=== PATIENT | female | born 1935 | race Caucasian/White ===

== ENCOUNTER 2020-12-05 19:01 | Inpatient (IN) | payer BC, SELFPAY ==
--- NOTE | ~2020-12-05 | CT_ITS ---
EXAMINATION: CT HEAD WITHOUT CONTRAST CLINICAL INFORMATION: New hallucinations COMPARISON: Head CT September 08, 2016 TECHNIQUE: Contiguous axial imaging was performed from the skull base to vertex without intravenous administration of contrast. This CT examination was performed using dose optimization techniques as appropriate, variously including the following: *Automated exposure control *Adjustment of mA and/or kV according to patient size (this includes techniques or standardized protocols for targeted exams where dose is matched to indication/reason for exam; i.e. extremities or head) *Use of iterative reconstruction technique DLP: 648 mGy-cm FINDINGS: There is no evidence of acute intracranial hemorrhage or territorial infarction. No abnormal mass effect or midline shift is appreciated. Castañeda-white differentiation is well preserved. No extra-axial fluid collections. The ventricular system and cortical sulci are prominent, consistent with volume loss. There are areas of low density in the periventricular and subcortical white matter, most consistent with sequelae of microvascular ischemic change. The osseous structures and soft tissues are normal. Hyperostosis frontalis identified. The visualized paranasal sinuses and mastoid air cells are well aerated. CT/CT head/brain wo con IMPRESSION: Chronic microvascular ischemic changes with no CT evidence of acute intracranial abnormality.
[2020-12-05 19:02] VITALS: BP 162/60; PULSE 63; RESP 16; O2SAT 97; BMI 27.7
--- NOTE | 2020-12-05 19:10 | ED.GENADULT ---
HPI - General Adult General Chief complaint: General Medical Stated complaint: HALLUCINATIONS Time Seen by Provider: 12/05/20 19:10 Source: family Mode of arrival: EMS Limitations: altered mental status History of Present Illness HPI narrative: patient with history of dementia brought by ambulance as a family think that she has hallucinating seeing people and unsafe at home for last few weeks patient alert oriented x2 only denies any complaints Related Data Home Medications Medication Instructions Recorded Confirmed amoxicillin-pot clavulanate 1 tab PO BID 12/05/20 12/05/20 aspirin 81 mg PO DAILY 12/05/20 12/05/20 cetirizine 10 mg PO DAILY 12/05/20 12/05/20 cholecalciferol (vitamin D3) 5,000 unit PO DAILY 12/05/20 12/05/20 [Vitamin D3] cyanocobalamin (vitamin B-12) 500 mcg PO DAILY 12/05/20 12/05/20 [Vitamin B-12] levothyroxine [L-Thyroxine] 150 mcg PO DAILY 12/05/20 12/05/20 losartan 50 mg PO DAILY 12/05/20 12/05/20 metoprolol tartrate 50 mg PO BID 12/05/20 12/05/20 risperidone 0.25 mg PO BID 12/05/20 12/05/20 Allergies Allergy/AdvReac Type Severity Reaction Status Date / Time olive oil [OLIVE OIL] Allergy Mild STOMACH Verified 12/05/20 19:06 UPSET Review of Systems Review of Systems: Yes Unobtainable due to mental status PMFSH Past Medical History Medical History Dementia HTN (hypertension) Social History Social History Advance Directives: No Advance Directives Information Provided: Yes Physical Exam Vital Signs: Vital Signs: Last Vital Signs Temp 97.9 F 12/06/20 00:50 Pulse 62 12/06/20 00:50 Resp 16 12/06/20 00:50 BP 157/60 H 12/06/20 00:50 Pulse Ox 98 12/06/20 00:50 Body Mass Index 27.7 Appearance: Alert. Oriented X1-2. No acute distress. Eyes: PERRLA, No Nystagmus ENT: Pharynx normal. Oral Mucosa moist Neck: Normal inspection. Neck supple. CVS: Normal heart rate and rhythm. Pulses normal. Respiratory: No respiratory distress. Equal air entry bilateral, no wheezing/rales/rhonchi Abdomen: Soft and nontender. Bowel sounds are present, no mass palpable, no CVA tenderness Skin: Skin warm and dry. Normal skin color. Normal skin turgor. Extremities: No lower extremity edema. No calf tenderness Neuro: Oriented X1-2. No motor deficit. No sensory deficit.No cerebellar signs , cranial nerves II-XII intact Medical Decision Making MDM Narrative Medical decision making narrative: patient's dementia with hallucinations unable to reach patient's family labs are stable patient ambulatory not in any distress will keep patient in the ER get a case management consult plan for placement if needed Lab Data Lab results reviewed: Yes I reviewed the patient's lab results. Result diagrams: 12/05/20 19:33 12/05/20 19:33 Labs: Lab Results 12/05/20 12/05/20 12/05/20 Range/Units 19:33 19:33 20:03 WBC 6.4 (4.8-10.8) X10*3/uL RBC 4.17 L (4.20-5.50) X10*6/uL Hgb 12.3 (12.0-16.0) g/dl Hct 37.9 (37-47) % MCV 90.9 (80-98) fL MCH 29.5 (27.0-33.0) pg MCHC 32.5 (31.0-35.0) g/dl RDW 13.0 (11.0-16.0) % Plt Count 254 (160-400) X10*3/uL MPV 10.1 (9.4-12.3) fL Immature Gran % (Auto) 0.5 H (0.0-0.4) % Neut % (Auto) 69.8 (45-73) % Lymph % (Auto) 15.2 L (20-40) % Leslie % (Auto) 13.4 H (2-11) % Eos % (Auto) 0.8 (0-4) % Baso % (Auto) 0.3 (0-2) % Lymph # (Auto) 1.0 L (1.2-4.9) X10*3/uL Leslie # (Auto) 0.9 (0.1-1.2) X10*3/uL Eos # (Auto) 0.1 (0.0-0.4) X10*3/uL Baso # (Auto) 0.0 (0.0-0.2) X10*3/uL Abs Immat Gran (auto) 0.03 (0.00-0.03) X10*3/uL Absolute Neuts (auto) 4.5 (2.0-8.3) X10*3/uL Absolute Nucleated RBC 0.000 (0.0-0.012) X10*3/uL Nucleated RBC % (auto) 0.0 (0.0-0.2) /100WBC Sodium 141 (135-145) mmol/L Potassium 3.7 (3.3-5.1) mmol/L Chloride 108 (96-108) mmol/L Carbon Dioxide 21 L (22-29) mmol/L Anion Gap 16 (12-20) BUN 18 H (9-16) mg/dL Creatinine 1.02 (0.5-1.4) mg/dL Estim Creat Clear Calc 41.0 Estimated GFR 52 Random Glucose 106 (60-115) mg/dL Calcium 9.3 (8.4-10.2) mg/dL Total Bilirubin 0.7 (0.0-1.0) mg/dL AST 29 (5-31) U/L ALT 47 H (0-31) U/L Alkaline Phosphatase 72 (39-117) U/L Total Protein 6.1 L (6.5-8.0) g/dL Albumin 3.9 (3.5-5.0) g/dL Urine Color YELLOW Urine Appearance CLEAR Urine pH 6.0 (5.0-8.0) Ur Specific [place] 1.020 (1.005-1.025) Urine Protein TRACE (NEG-TRACE) MG/DL Urine Glucose (UA) NEG (NEG) MG/DL Urine Ketones 15 (NEG) MG/DL Urine Blood NEG (NEG) Urine Nitrite NEG (NEG) Ur Leukocyte Esterase NEG (NEG) Discharge Plan Discharge Clinical Impression: Dementia Qualifiers: Dementia type: Alzheimer's Alzheimer's disease onset: late-onset Dementia behavioral disturbance: with behavioral disturbance Qualified Code(s): G30.1 - Alzheimer's disease with late onset Prescriptions: No Action losartan 50 mg Tablet 50 mg PO DAILY RF: 0 cetirizine 10 mg Tablet 10 mg PO DAILY RF: 0 risperidone 0.25 mg Tablet 0.25 mg PO BID RF: 0 cyanocobalamin (vitamin B-12) [Vitamin B-12] 500 mcg Tablet 500 mcg PO DAILY RF: 0 levothyroxine [L-Thyroxine] 150 mcg Tablet 150 mcg PO DAILY RF: 0 metoprolol tartrate 50 mg Tablet 50 mg PO BID RF: 0 aspirin 81 mg Tablet 81 mg PO DAILY RF: 0 amoxicillin-pot clavulanate 500-125 mg Tablet 1 tab PO BID RF: 0 cholecalciferol (vitamin D3) [Vitamin D3] 125 mcg (5,000 unit) Tablet 5,000 unit PO DAILY RF: 0
[2020-12-05 19:37] LABS: MANUAL DIFF FLAG NO
[2020-12-05 19:54] LABS: Basophils Percent Auto 0.3 % (0-2); Eosinophils Absolute Auto 0.1 X10*3/uL (0.0-0.4); Eosinophils Percent Auto 0.8 % (0-4); Hematocrit 37.9 % (37-47); Hemoglobin 12.3 g/dl (12.0-16.0); Imm Gran Abs Auto 0.03 X10*3/uL (0.00-0.03); Imm Gran Pct Auto 0.5 % (0.0-0.4); Lymphocytes Percent Auto 15.2 % (20-40); Mean Corpuscular HGB Conc 32.5 g/dl (31.0-35.0); Mean Corpuscular Hemoglobin 29.5 pg (27.0-33.0); Mean Corpuscular Volume 90.9 fL (80-98); Mean Platelet Volume 10.1 fL (9.4-12.3); Monocytes Absolute Auto 0.9 X10*3/uL (0.1-1.2); Monocytes Percent Auto 13.4 % (2-11); Neutrophils Absolute Auto 4.5 X10*3/uL (2.0-8.3); Neutrophils Percent Auto 69.8 % (45-73); Platelet Count 254 X10*3/uL (160-400); Red Blood Count 4.17 X10*6/uL (4.20-5.50); White Blood Count 6.4 X10*3/uL (4.8-10.8)
[2020-12-05 20:11] LABS: Glucose Urine UA NEG (NEG); Leukocyte Esterase Urine NEG (NEG); Nitrite Urine NEG (NEG); Urine Blood NEG (NEG); Urine Ketones 15 MG/DL (NEG); Urine Protein TRACE MG/DL (NEG-TRACE)
[2020-12-05 20:12] LABS: Appearance Urine CLEAR; Color Urine YELLOW
[2020-12-05 20:18] LABS: Alanine Aminotransferase 47 U/L (0-31); Albumin Level 3.9 g/dL (3.5-5.0); Alkaline Phosphatase 72 U/L (39-117); Anion Gap 16 (12-20); Aspartate Amino Transferase 29 U/L (5-31); Bilirubin Total 0.7 mg/dL (0.0-1.0); Blood Urea Nitrogen 18 mg/dL (9-16); Calcium 9.3 mg/dL (8.4-10.2); Carbon Dioxide 21 mmol/L (22-29); Chloride 108 mmol/L (96-108); Estimated Glomerular Filt Rate 52; Glucose Random 106 mg/dL (60-115); Potassium 3.7 mmol/L (3.3-5.1); Sodium 141 mmol/L (135-145); Total Protein 6.1 g/dL (6.5-8.0)
[2020-12-05 20:50] VITALS: BP 159/69; PULSE 63; RESP 18; TEMP 36.4; O2SAT 97
[2020-12-05 21:51] VITALS: BP 155/56; PULSE 58; RESP 16; TEMP 36.5; O2SAT 97
[2020-12-06] VITALS (12 sets, daily range): BP systolic 131–194; BP diastolic 60–90; PULSE 20–88; RESP 16–20; TEMP 36.5–36.7; O2SAT 97–100
--- NOTE | 2020-12-06 | ECG_ITS ---
Test Reason : inpatient Blood Pressure : / mmHG Vent. Rate : 060 BPM Atrial Rate : 060 BPM P-R Int : 154 ms QRS Dur : 082 ms QT Int : 420 ms P-R-T Axes : 027 001 007 degrees QTc Int : 420 ms Normal sinus rhythm Normal ECG Compared to , no significant change Referred By: Pauline Cash Electronically Signed By:LORI JEFFERS
--- NOTE | 2020-12-06 07:49 | PC.NURSE ---
pt is a/o x 2, pt did not know the year. pt is sitting up in bed.
[2020-12-06] MEDS: Cholecalciferol (Vitamin D3) 25 MCG TABLET 125 MCG PO (07:52)
[2020-12-06] MEDS: Losartan Potassium 50 MG TABLET PO (07:53)
[2020-12-06] MEDS: Loratadine 10 MG TABLET PO (07:53)
[2020-12-06] MEDS: Aspirin 81 MG TAB.CHEW PO (07:53)
[2020-12-06] MEDS: Metoprolol Tartrate 50 MG TABLET PO ×2 (07:53→20:21)
[2020-12-06] MEDS: risperiDONE 0.25 MG TABLET PO ×2 (07:54→20:21)
[2020-12-06] MEDS: Levothyroxine Sodium 150 MCG TABLET PO (07:54)
[2020-12-06] MEDS: Cyanocobalamin (Vitamin B-12) 500 MCG TABLET PO (07:54)
--- NOTE | 2020-12-06 08:53 | MHC.CM.ED ---
Addendum entered by Karely Jacobs 12/06/20 12:59: Pt seen by N/CARE team and was cleared for INPT psych needs. Behaviors are likely r/t progression of dementia. Call placed to son Dereje who spoke with Davis from N / CARE team and ED MD. CM discussed [facility] and private hire [employer] for home management in anticipation of d/c. Dereje states he is unable to ensure a safe environment at home for his mother and would just bring her back to the ED tonight . He is unable to have her stay with him d/t his home having stairs and his concern with her falling down them. He is unable to stay with her at her home (next door) as he prefers to stay at his home and cannot watch her overnight as he works during the day. He is requesting pt board in the ED until placement can be secured. Reviewed possible barriers to placement including lack of skilled need, payor / contract issues and potential of private pay necessitation. He verbalized understanding and declined [employer] brochures for home care. ED RN and MD updated on plan. Referrals for STR have been placed: pt will need some sort of skill (PT eval ordered and pending) and will need a contracted facility to accept. Son states he has a HCP at home and will bring in a copy. CM to follow. Original Note: Received consult for assessment of d/c needs: Pt brought to ED for eval after son found her wandering outside with hallucinations. Met with pt to discuss d/c needs: Pt states she lives with her mother (pt is 85). She had no recollection of wandering or seeing people in her home. She was pleasant and communicative but not oriented to time, place or situation. Call placed to her son, Dereje who resides next door. Dereje states pt has been memory impaired d/t dementia but highly functioning. He assists with transportation, all meal prep and household tasks. Pt uses a cane at times and is independent with ADL's. He notes that her hallucinations have progressed during the last 6 weeks or so and she has been wandering outside chasing imaginary people out in the yard with her broom PCP is Dr. Avitia and she has a HCP at home that Dereje will bring in. KARMA villagran in October. Dereje states he is unable to provide additional care at this time d/t his wan support specialist employment. Review of EMR notes normal labs and UA with mild HTN which she has a dx of. CT of head shows no acute findings. has placed an order for a PT eval but pt does not seem to have balance or gait impairments. Dereje would like to keep pt home for as long as possible - as long as she can be safe. Reviewed skilled criteria with son re: placement vs home care needs. Discussed d/c needs with son including privately hiring [employer] to stay with pt while he is working and for overnights to ensure pt safety at home vs placement in a residential center. Unsure if pt's payor would cover (Blue Plan from [employer]) Requested a BHN consult to r/o acute psychosis and/or to recommend medication changes to reduce hallucinations, etc. Will make STR referrals in the event her payor offers SNF benefits. Will await BHN/PT eval for assistance with d/c planning.
--- NOTE | 2020-12-06 09:23 | PC.NURSE ---
pt amb (i) gait steady with walker to bathroom with julio (rn), bm x 1. pt is sitting up in recliner, son at bedside. pt ate 25% of breakfast earlier.
[2020-12-06 10:08] LABS: TSH reflex Free T4 0.19 uIU/mL (0.32-4.0)
[2020-12-06 10:41] LABS: Free T4 (Free Thyroxine) 1.27 ng/dL (0.71-1.85)
--- NOTE | 2020-12-06 11:29 | PC.NURSE ---
assumed care of patient at 1100. PT in to see patient and was ambulated to the bathroom. for patient comfort, hospital bed replaced the ED stretcher and patient given clean sheets and a new hospital gown. patient currently resting in the recliner with chair alarm in place.
[2020-12-06 12:29] LABS: IDNOW Serial# 9DD0AD1C
[2020-12-06 12:30] LABS: COVID-19 Test Negative (Negative)
--- NOTE | 2020-12-06 13:41 | PC.NURSE ---
patient requires frequent redirection, attempting to get out of the hospital bed multiple times patient ambulated to the bathroom by this RN in order to urinate and then helped back into the hospital bed with bed alarm on patient instructed again to use the call ayala and not to get out of the bed alone
--- NOTE | 2020-12-06 13:59 | MHC.CM.ED ---
Discussion with Davis from CARE team/BHN: pt can be admitted to [facility] for medication management r/t behaviors secondary to dementia. ED MD and RN aware of plan. L/M for pt's son, Dereje to update on d/c plan
--- NOTE | 2020-12-06 14:37 | PC.NURSE ---
patient attempting to get out of the bed multiple times despite redirection from staff and the bed alarm- pt forgetful and continues to exit the bed
--- NOTE | 2020-12-06 15:42 | MHC.CARE ---
This functional tester typewriters reviewed and signed CV with pt. Pending nurse to nurse and transfer to the unit.
--- NOTE | 2020-12-06 17:14 | PC.ADMIT ---
Patient arrived to unit in Wheelchair from [facility] at 15:55 with a signed CV. Patient arrived with one bag of belongings, unaccompanied by family; correctional guard and CARE steam hammer operator present. Patient is alert to self only. Date, time, location, and reason for hospitalization are unknown to her. Patient is pleasantly confused. Patient unable to sign admission paperwork at this time as she is not alert and oriented and not consentable. 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 Patient reports she currently lives with her mother and grandfather. When asked if she had any children, she replies no. Patient speaks at length about her grandfather and her admiration for him. Per CARE team assessment, Patient's son called EMS due to concern for his Mother's safety. Per son's report patient has been experiencing worsening hallucinations over a period of approximately 6 weeks which have been frightening for her, causing her to leave her home on two separate occasions in the evening. On one occasion she left and wandered about in the rain from 6:30pm - 10:30pm when the patient's son discovered her sitting outside his kitchen door. On the second occasion she left her home and appeared to be chaing someone (though she was alone) while armed with a broom. Patient has no past Psychiatric history. Patient is noted to have elevated Blood pressures upon admission to unit. 194/86 Left Arm, 188/81 Right Arm HR 60. Deepthi Novoa notified via [employer] text and Hospitalist consult entered. Deepthi Curiel attended patient at bedside and Manual BP was assessed 174/90. Patient's Son: Dereje Cedillo - contacted via telephone. Message left on voicemail requesting call back. Will proceed with completing admission assessment based on known information at this time.
--- NOTE | 2020-12-06 17:15 | PM.IMCN ---
History of Present Illness Data of Consult Service Date: 12/06/20 Requesting physician: Liang Novoa Primary Care Provider: Unknown Physician HPI Reason for consult: Elevated blood pressure 85 year female with HTN, Hypothyroidsim, dementia who is presently admitted it [facility] for increasing confusion over weeks associated with hallucination--specifically has been seeing thing, chasing people around with broom per report. She pleasntly confused and not offering any meaningful history at this time. Her blood pressure is noted to be high presently 170/90, higher earlier to 188/81. She has taken her meds today including Losartan 50 and Metoprolol 50 mg. She has no complaint of headache, chest pain, SOB or dizziness Review of Systems Review of Systems: Yes Unobtainable due to mental status [facility] Medical History (Updated 12/06/20 @ 17:24 by Je Curiel MD) Congenital hypothyroidism Dementia HTN (hypertension) Hypothyroidism Vitamin D deficiency Functional capacity: independent ambulation Family history: reviewed and not pertinent Social History Advance Directives: Yes Advance Directives Information Provided: Yes Advance Directives on File: Yes Advance Directives Date on File: 12/06/20 Healthcare Proxy: Yes Guardian: No Meds Allergies Allergy/AdvReac Type Severity Reaction Status Date / Time olive oil [OLIVE OIL] Allergy Mild STOMACH Verified 12/05/20 19:06 UPSET Active Medications: Current Medications Generic Name Dose Route Start Last Admin Trade Name Freq PRN Reason Stop Dose Admin Acetaminophen 650 mg 12/06/20 16:13 Acetaminophen 325 Mg Tablet PO Q6H PRN Headache/Pain Mild Scale (1-3) Al Hydroxide/Mg Hydroxide 30 ml 12/06/20 16:13 Magnesium Hydrox/Alum Hydrox 30 Ml Oral.Susp PO Q6H PRN Heartburn/Nausea Amoxicillin/Clavulanate Potassium 500 mg 12/06/20 21:00 Amoxicillin/Potassium Clav 500 Mg Tablet PO BID YUNG Aspirin 81 mg 12/06/20 09:00 12/06/20 07:53 Aspirin 81 Mg Tab.Chew PO 81 mg DAILY YUNG Administration Cyanocobalamin 500 mcg 12/06/20 09:00 12/06/20 07:54 Cyanocobalamin (Vitamin B-12) 500 Mcg Tablet PO 500 mcg DAILY YUNG Administration Hydroxyzine HCl 25 mg 12/06/20 16:13 Hydroxyzine Hcl 25 Mg Tablet PO BEDTIME PRN Anxiety Levothyroxine Sodium 150 mcg 12/06/20 08:00 12/06/20 07:54 Levothyroxine Sodium 150 Mcg Tablet PO 150 mcg DAILY@0630 YUNG Administration Loratadine 10 mg 12/06/20 09:00 12/06/20 07:53 Loratadine 10 Mg Tablet PO 10 mg DAILY YUNG Administration Losartan Potassium 50 mg 12/06/20 09:00 12/06/20 07:53 Losartan Potassium 50 Mg Tablet PO 50 mg DAILY YUNG Administration Protocol Magnesium Hydroxide 30 ml 12/06/20 16:13 Milk Of Magnesia 30 Ml Oral.Susp PO DAILY PRN Constipation Metoprolol Tartrate 50 mg 12/06/20 09:00 12/06/20 07:53 Metoprolol Tartrate 50 Mg Tablet PO 50 mg BID YUNG Administration Protocol Risperidone 0.25 mg 12/06/20 09:00 12/06/20 07:54 Risperidone 0.25 Mg Tablet PO 0.25 mg BID YUNG Administration Trazodone HCl 50 mg 12/06/20 16:13 Trazodone Hcl 50 Mg Tablet PO BEDTIME PRN Insomnia Vitamin D 125 mcg 12/06/20 09:00 12/06/20 07:52 Cholecalciferol (Vitamin D3) 25 Mcg Tablet PO 125 mcg DAILY YUNG Administration Home Medications Medication Instructions Recorded Confirmed Last Taken Type amoxicillin-pot clavulanate 1 tab PO BID 12/05/20 12/05/20 Unknown History aspirin 81 mg PO DAILY 12/05/20 12/05/20 Unknown History cetirizine 10 mg PO DAILY 12/05/20 12/05/20 Unknown History cholecalciferol (vitamin D3) 5,000 unit PO DAILY 12/05/20 12/05/20 Unknown History [Vitamin D3] cyanocobalamin (vitamin B-12) 500 mcg PO DAILY 12/05/20 12/05/20 Unknown History [Vitamin B-12] levothyroxine [L-Thyroxine] 150 mcg PO DAILY 12/05/20 12/05/20 Unknown History losartan 50 mg PO DAILY 12/05/20 12/05/20 Unknown History metoprolol tartrate 50 mg PO BID 12/05/20 12/05/20 Unknown History risperidone 0.25 mg PO BID 12/05/20 12/05/20 Unknown History Physical Exam Vital Signs and Narrative: Vital Signs: Last Vital Signs Temp 97.7 F 12/06/20 16:00 Pulse 60 12/06/20 17:02 Resp 20 12/06/20 16:00 BP 170/90 H 12/06/20 17:03 Pulse Ox 100 12/06/20 16:00 Body Mass Index 27.7 Const: Other: Constitutional Awake and Alert, No apparent distress Neck Supple, No lymphadenopathy Cardiovascular RRR, No M/R/G, S1 S2, No S3 S4, No pedal edema Respiratory Lungs clear, No respiratory distress Gastrointestinal Non tender, Non-distended Skin No rash Neurological Alert & oriented x1, cranial 2 to 12 intact Psychological Appropriate affect Results Labs CBC and Chem 7: 12/05/20 19:33 12/05/20 19:33 Labs: Laboratory Results - last 24 hr 12/05/20 12/05/20 12/05/20 19:33 19:33 20:03 MCV 90.9 MCH 29.5 MCHC 32.5 RDW 13.0 Plt Count 254 MPV 10.1 Immature Gran % (Auto) 0.5 H Neut % (Auto) 69.8 Lymph % (Auto) 15.2 L [place] % (Auto) 13.4 H Eos % (Auto) 0.8 Baso % (Auto) 0.3 Lymph # (Auto) 1.0 L [place] # (Auto) 0.9 Eos # (Auto) 0.1 Baso # (Auto) 0.0 Abs Immat Gran (auto) 0.03 Absolute Neuts (auto) 4.5 Absolute Nucleated RBC 0.000 Nucleated RBC % (auto) 0.0 Anion Gap 16 Estim Creat Clear Calc 41.0 Estimated GFR 52 Random Glucose 106 Calcium 9.3 Total Bilirubin 0.7 AST 29 ALT 47 H Alkaline Phosphatase 72 Total Protein 6.1 L Albumin 3.9 TSH 0.19 L Free T4 1.27 Urine Color YELLOW Urine Appearance CLEAR Urine pH 6.0 Ur Specific [place] 1.020 Urine Protein TRACE Urine Glucose (UA) NEG Urine Ketones 15 Urine Blood NEG Urine Nitrite NEG Ur Leukocyte Esterase NEG COVID-19 (LOVE) COVID-19 Clin Com 12/06/20 12:03 MCV MCH MCHC RDW Plt Count MPV Immature Gran % (Auto) Neut % (Auto) Lymph % (Auto) [place] % (Auto) Eos % (Auto) Baso % (Auto) Lymph # (Auto) [place] # (Auto) Eos # (Auto) Baso # (Auto) Abs Immat Gran (auto) Absolute Neuts (auto) Absolute Nucleated RBC Nucleated RBC % (auto) Anion Gap Estim Creat Clear Calc Estimated GFR Random Glucose Calcium Total Bilirubin AST ALT Alkaline Phosphatase Total Protein Albumin TSH Free T4 Urine Color Urine Appearance Urine pH Ur Specific [place] Urine Protein Urine Glucose (UA) Urine Ketones Urine Blood Urine Nitrite Ur Leukocyte Esterase COVID-19 (LOVE) Negative COVID-19 Clin Com See Note Imaging Radiologist's Impressions: Impressions Head CT 12/06/20 07:04 IMPRESSION: Chronic microvascular ischemic changes with no CT evidence of acute intracranial abnormality. Assessment and Plan (1) Dementia: Qualifiers: Alzheimer's disease onset: late-onset Dementia behavioral disturbance: with behavioral disturbance Dementia type: Alzheimer's Qualified Code(s): G30.1 - Alzheimer's disease with late onset; F02.81 - Dementia in other diseases classified elsewhere with behavioral disturbance Status: Acute (2) Hypothyroidism: Status: Acute (3) HTN (hypertension): Status: Acute 85 year female with dementia, HTN, Hypothyrodism presently admitted to [facility] due to confusion/wth Psychosis and noted blood pressure to be high 1/HTN--BP presently high, she doesn't seem to be agitated to cause this. There is room to increase Losartant and add other agents such Norvasc, starte Norvasc 2.5 and titrate up, would not be very aggresive in lowering BP vewry rapidly, noted microscular disease would require high BP for adequate cerebral perfusion. 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 Woud check B12, Folate as well. 4/ ALT is slightly high and should be monitored, rest of LfTs are ok will folllow as needed. Thanks
[2020-12-06] MEDS: amLODIPine Besylate 2.5 MG TABLET PO (18:38)
[2020-12-06 19:32] LABS: TSH reflex Free T4 0.28 uIU/mL (0.32-4.0)
[2020-12-06] MEDS: Amoxicillin/Potassium Clav 500 MG TABLET PO (20:21)
[2020-12-06] MEDS: hydrOXYzine HCL 25 MG TABLET PO (20:57)
[2020-12-07] MEDS: Levothyroxine Sodium 150 MCG TABLET PO (04:51)
[2020-12-07 04:52] VITALS: BP 149/68; PULSE 70; RESP 18; TEMP 36.7; O2SAT 98
--- NOTE | 2020-12-07 08:02 | P.PNIM_ITS ---
Subjective Subjective Date of Service: 12/08/20 Interval History: Seen in f/u for HTN, saw this morning, watching TV in [place] by 2 other clients, calm with no aparent issues Review of Systems unchanged, Physical Exam Vital Signs: Vital Signs: Last Vital Signs Temp 98.1 F 12/07/20 04:52 Pulse 70 12/07/20 04:52 Resp 18 12/07/20 04:52 BP 149/68 H 12/07/20 04:52 Pulse Ox 98 12/07/20 04:52 Body Mass Index 27.7 Const: Other: General: AO X 1, no acute distress Resp: normal resp effor CVS: S1,S2,RRR Skin: No rash Neuro: motor grossly intact, baseline confusion Psych: appropriate affect Objective Data Current Medications Generic Name Dose Route Start Last Admin Trade Name Freq PRN Reason Stop Dose Admin Acetaminophen 650 mg 12/06/20 16:13 Acetaminophen 325 Mg Tablet PO Q6H PRN Headache/Pain Mild Scale (1-3) Al Hydroxide/Mg Hydroxide 30 ml 12/06/20 16:13 Magnesium Hydrox/Alum Hydrox 30 Ml Oral.Susp PO Q6H PRN Heartburn/Nausea Amoxicillin/Clavulanate Potassium 500 mg 12/06/20 21:00 12/06/20 20:21 Amoxicillin/Potassium Clav 500 Mg Tablet PO 500 mg BID YUNG Administration Aspirin 81 mg 12/06/20 09:00 12/06/20 07:53 Aspirin 81 Mg Tab.Chew PO 81 mg DAILY YUNG Administration Cyanocobalamin 500 mcg 12/06/20 09:00 12/06/20 07:54 Cyanocobalamin (Vitamin B-12) 500 Mcg Tablet PO 500 mcg DAILY YUNG Administration Hydroxyzine HCl 25 mg 12/06/20 16:13 12/06/20 20:57 Hydroxyzine Hcl 25 Mg Tablet PO 25 mg BEDTIME PRN Administration Anxiety Levothyroxine Sodium 150 mcg 12/06/20 08:00 12/07/20 04:51 Levothyroxine Sodium 150 Mcg Tablet PO 150 mcg DAILY@0630 YUNG Administration Loratadine 10 mg 12/06/20 09:00 12/06/20 07:53 Loratadine 10 Mg Tablet PO 10 mg DAILY YUNG Administration Losartan Potassium 50 mg 12/06/20 09:00 12/06/20 07:53 Losartan Potassium 50 Mg Tablet PO 50 mg DAILY YUNG Administration Protocol Magnesium Hydroxide 30 ml 12/06/20 16:13 Milk Of Magnesia 30 Ml Oral.Susp PO DAILY PRN Constipation Metoprolol Tartrate 50 mg 12/06/20 09:00 12/06/20 20:21 Metoprolol Tartrate 50 Mg Tablet PO 50 mg BID YUNG Administration Protocol Risperidone 0.25 mg 12/06/20 09:00 12/06/20 20:21 Risperidone 0.25 Mg Tablet PO 0.25 mg BID YUNG Administration Trazodone HCl 50 mg 12/06/20 16:13 Trazodone Hcl 50 Mg Tablet PO BEDTIME PRN Insomnia Vitamin D 125 mcg 12/06/20 09:00 12/06/20 07:52 Cholecalciferol (Vitamin D3) 25 Mcg Tablet PO 125 mcg DAILY YUNG Administration Labs CBC & Chem 7: 12/05/20 19:33 12/05/20 19:33 Labs: Laboratory Results - last 24 hr 12/05/20 12/06/20 12/06/20 19:33 12:03 18:40 TSH 0.19 L 0.28 L Free T4 1.27 COVID-19 ([facility]) Negative COVID-19 Clin Com See Note Quality Stroke Does the patient have a stroke diagnosis?: No VTE Prior VTE?: No VTE Risk Level:: Medical - low VTE Device Contraindication: N/A - Device Ordered VTE Drug Contraindication: N/A - Med Ordered Assessment and Plan (1) Dementia: Status: Acute (2) Hypothyroidism: Status: Acute (3) HTN (hypertension): Status: Acute Assessment and Plan: 85 year female with dementia, HTN, Hypothyrodism presently admitted to [facility] due to confusion/wth Psychosis and noted blood pressure to be high 1/HTN--BP is better this morning, 149/68. -continue Metoprolol 50 bid, Losartan 50 mg daily and Norvasc 2.5 mg daily 1/ Hypothyroidism--TSH is 0.9, FT4 level is pending -Continue Levothyroxine 3/ Dementia/Psychosis--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 Woud check B12, Folate as well. 4/ ALT is slightly high and should be monitored, rest of LfTs are ok will folllow as needed. Thanks
[2020-12-07] MEDS: Loratadine 10 MG TABLET PO (08:20)
[2020-12-07 08:21] VITALS: BP 153/67; PULSE 71
[2020-12-07] MEDS: Losartan Potassium 50 MG TABLET PO (08:21)
[2020-12-07 08:24] VITALS: BP 153/67; PULSE 71
[2020-12-07] MEDS: Metoprolol Tartrate 50 MG TABLET PO ×2 (08:24→21:20)
[2020-12-07] MEDS: Cyanocobalamin (Vitamin B-12) 500 MCG TABLET PO (08:26)
[2020-12-07] MEDS: Aspirin 81 MG TAB.CHEW PO (08:26)
[2020-12-07] MEDS: Cholecalciferol (Vitamin D3) 25 MCG TABLET 125 MCG PO (08:27)
[2020-12-07] MEDS: risperiDONE 0.25 MG TABLET PO ×2 (08:30→21:20)
[2020-12-07] MEDS: Amoxicillin/Potassium Clav 500 MG TABLET PO ×2 (08:30→21:20)
[2020-12-07 08:36] LABS: Folate > 20.0 ng/mL (> or = 4.0); Vitamin B12 > 2000 pg/mL (200-900)
[2020-12-07 08:52] LABS: Free T4 (Free Thyroxine) 1.28 ng/dL (0.71-1.85)
--- NOTE | 2020-12-07 14:08 | HO.PSYADMNOT ---
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 The patient was brought to the ED since her son has reported that in the last 6 weeks, her mother has been paranoid, disorganized, seeing people in the house and she was found wandering outside since she was scared of the people in the house . As per crisis report, she had at least 2 episodes of running out of the house due to her hallucinations. During the intake interview, the patient was circumstantial and tangential at times, unable to recall why she was brought to the hospital. She was pleasant and cooperative but very confused. She denies at this moment suicidal or homicidal thoughts, no visual or auditory hallucinations. 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 More details, unable to get due the advanced cognitive impairment of the patient. Substance History: Denies Trauma History: Unknown Diagnostics Vital Signs (24Hr): Vital Signs - 24 hr 12/06/20 16:00 12/06/20 17:02 12/06/20 17:03 Temperature 97.7 F Pulse Rate 20 L 60 Respiratory Rate 20 Blood Pressure 194/86 H 188/81 H 170/90 H Pulse Oximetry 100 12/06/20 18:37 12/06/20 18:38 12/06/20 20:21 Temperature 97.8 F Pulse Rate 88 88 69 Respiratory Rate 16 Blood Pressure 161/77 H 161/77 H 154/78 H Pulse Oximetry 98 12/06/20 22:14 12/07/20 04:52 12/07/20 08:21 Temperature 98.1 F Pulse Rate 67 70 71 Respiratory Rate 16 18 Blood Pressure 131/61 149/68 H 153/67 H Pulse Oximetry 98 12/07/20 08:24 Temperature Pulse Rate 71 Respiratory Rate Blood Pressure 153/67 H Pulse Oximetry Body Mass Index 27.7 Labs Results: 12/05/20 19:33 12/05/20 19:33 Labs: Laboratory Results - last 48 hr 12/05/20 12/05/20 12/05/20 19:33 19:33 20:03 WBC 6.4 RBC 4.17 L Hgb 12.3 Hct 37.9 MCV 90.9 MCH 29.5 MCHC 32.5 RDW 13.0 Plt Count 254 MPV 10.1 Immature Gran % (Auto) 0.5 H Neut % (Auto) 69.8 Lymph % (Auto) 15.[address] [place] % (Auto) 13.4 H Eos % (Auto) 0.8 Baso % (Auto) 0.3 Lymph # (Auto) 1.[address] [place] # (Auto) 0.9 Eos # (Auto) 0.1 Baso # (Auto) 0.0 Abs Immat Gran (auto) 0.03 Absolute Neuts (auto) 4.5 Absolute Nucleated RBC 0.000 Nucleated RBC % (auto) 0.0 Sodium 141 Potassium 3.7 Chloride 108 Carbon Dioxide 21 L Anion Gap 16 BUN 18 H Creatinine 1.02 Estim Creat Clear Calc 41.0 Estimated GFR 52 Random Glucose 106 Calcium 9.3 Total Bilirubin 0.7 AST 29 ALT 47 H Alkaline Phosphatase 72 Total Protein 6.1 L Albumin 3.9 Vitamin B12 Folate TSH 0.19 L Free T4 1.27 Urine Color YELLOW Urine Appearance CLEAR Urine pH 6.0 Ur Specific [place] 1.020 Urine Protein TRACE Urine Glucose (UA) NEG Urine Ketones 15 Urine Blood NEG Urine Nitrite NEG Ur Leukocyte Esterase NEG COVID-19 ([facility]) COVID-19 Clin Com 12/06/20 12/06/20 12/06/20 12:03 18:40 18:40 WBC RBC Hgb Hct MCV MCH MCHC RDW Plt Count MPV Immature Gran % (Auto) Neut % (Auto) Lymph % (Auto) [place] % (Auto) Eos % (Auto) Baso % (Auto) Lymph # (Auto) [place] # (Auto) Eos # (Auto) Baso # (Auto) Abs Immat Gran (auto) Absolute Neuts (auto) Absolute Nucleated RBC Nucleated RBC % (auto) Sodium Potassium Chloride Carbon Dioxide Anion Gap BUN Creatinine Estim Creat Clear Calc Estimated GFR Random Glucose Calcium Total Bilirubin AST ALT Alkaline Phosphatase Total Protein Albumin Vitamin B12 > 2000 H Folate > 20.0 TSH 0.28 L Free T4 1.28 Urine Color Urine Appearance Urine pH Ur Specific [place] Urine Protein Urine Glucose (UA) Urine Ketones Urine Blood Urine Nitrite Ur Leukocyte Esterase COVID-19 ([facility]) Negative COVID-19 Clin Com See Note Imaging Radiology Impressions: ITS Impressions Head CT 12/06/20 07:04 IMPRESSION: Chronic microvascular ischemic changes with no CT evidence of acute intracranial abnormality. Meds/Allergies Meds Home Medications Acetaminophen (Acetaminophen 325 Mg Tablet) 650 mg PO Q6H PRN PRN Reason: Headache/Pain Mild Scale (1-3) Al Hydroxide/Mg Hydroxide (Magnesium Hydrox/Alum Hydrox 30 Ml Oral.Susp) 30 ml PO Q6H PRN PRN Reason: Heartburn/Nausea Amoxicillin/Clavulanate Potassium (Amoxicillin/Potassium Clav 500 Mg Tablet) 500 mg PO BID [facility] Last Admin: 12/07/20 08:30 Dose: 500 mg Documented by: Aspirin (Aspirin 81 Mg Tab.Chew) 81 mg PO DAILY [facility] Last Admin: 12/07/20 08:26 Dose: 81 mg Documented by: Cyanocobalamin (Cyanocobalamin (Vitamin B-12) 500 Mcg Tablet) 500 mcg PO DAILY [facility] Last Admin: 12/07/20 08:26 Dose: 500 mcg Documented by: Hydroxyzine HCl (Hydroxyzine Hcl 25 Mg Tablet) 25 mg PO BEDTIME PRN PRN Reason: Anxiety Last Admin: 12/06/20 20:57 Dose: 25 mg Documented by: Levothyroxine Sodium (Levothyroxine Sodium 150 Mcg Tablet) 150 mcg PO DAILY@0630 [facility] Last Admin: 12/07/20 04:51 Dose: 150 mcg Documented by: Loratadine (Loratadine 10 Mg Tablet) 10 mg PO DAILY [facility] Last Admin: 12/07/20 08:20 Dose: 10 mg Documented by: Losartan Potassium (Losartan Potassium 50 Mg Tablet) 50 mg PO DAILY [facility]; Protocol Last Admin: 12/07/20 08:21 Dose: 50 mg Documented by: Magnesium Hydroxide (Milk Of Magnesia 30 Ml Oral.Susp) 30 ml PO DAILY PRN PRN Reason: Constipation Metoprolol Tartrate (Metoprolol Tartrate 50 Mg Tablet) 50 mg PO BID [facility]; Protocol Last Admin: 12/07/20 08:24 Dose: 50 mg Documented by: Risperidone (Risperidone 0.25 Mg Tablet) 0.25 mg PO BID [facility] Last Admin: 12/07/20 08:30 Dose: 0.25 mg Documented by: Trazodone HCl (Trazodone Hcl 50 Mg Tablet) 50 mg PO BEDTIME PRN PRN Reason: Insomnia Vitamin D (Cholecalciferol (Vitamin D3) 25 Mcg Tablet) 125 mcg PO DAILY [facility] Last Admin: 12/07/20 08:27 Dose: 125 mcg Documented by: Allergies Allergies Allergy/AdvReac Type Severity Reaction Status Date / Time olive oil [OLIVE OIL] Allergy Mild STOMACH Verified 12/05/20 19:06 UPSET Mental Status Exam Mental Status Exam Patient Appearance: Well Grooomed (on hospital gowns) Patient Orientation: Person and Place Level of Consciousness: Awake Patient Behavior: Cooperative and Confused Mood Description: Calm and Appropriate Affect Description: Constricted Patient Cognition Impaired: Yes Ability to Follow Directions: Good Speech Pattern: Clear Memory Description: Immediate Impaired and Recent Impaired Hallucinations: Auditory and Visual Delusions: Paranoid Ideation Thought Process: Distracted, Slowed Thinking and Confusion Thought Content: positive for Circumstantial and positive for Poverty of Content Depressive Symptoms: Increased Anxiety Judgement: Poor Assessment & Plan Assessment & Plan (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 So far, TSH, U/A and other tests, including CT-Scan are within normal limits. Plan: 1. Gather collateral. 2. EKG. 3. d/c Anticholinergics (2) Dementia: Status: Acute Qualifiers: Alzheimer's disease onset: late-onset Dementia behavioral disturbance: with behavioral disturbance Dementia type: Alzheimer's Qualified Code(s): G30.1 - Alzheimer's disease with late onset; F02.81 - Dementia in other diseases classified elsewhere with behavioral disturbance Code(s): F03.90 - Unspecified dementia without behavioral disturbance Patient educated on: diagnosis, medication risk/benefits and therapeutic strategies Informed Consent: understands (limited understanding but able to sign herself) Reason for continued inpatient stay Substantial Risk for: inability to function, rapid decompensation and med/psych decompensation
[2020-12-07 17:43] VITALS: BP 143/63; PULSE 68; TEMP 36.8
[2020-12-07 21:20] VITALS: BP 140/65; PULSE 67
[2020-12-07] MEDS: Donepezil HCl 5 MG TABLET PO (21:20)
[2020-12-08 06:00] VITALS: BP 149/80; PULSE 61; RESP 14; TEMP 36.2; O2SAT 97
[2020-12-08] MEDS: Levothyroxine Sodium 150 MCG TABLET PO (06:28)
[2020-12-08 07:40] LABS: Cholesterol 154 mg/dL; HDL Cholesterol 50 mg/dL; LDL Cholesterol Calculated 90 mg/dl; Triglycerides 74 mg/dL
--- NOTE | 2020-12-08 07:40 | HO.PM.IMPN ---
Subjective Subjective Date of Service: 12/08/20 Interval History: Seen in f/u for HTN, in bed but awake and no new issues, baseline confusion, BP remains better presently 149 /89 Review of Systems unchanged, Physical Exam Vital Signs: Vital Signs: Last Vital Signs Temp 97.1 F 12/08/20 06:00 Pulse 61 12/08/20 06:00 Resp 14 12/08/20 06:00 BP 149/80 H 12/08/20 06:00 Pulse Ox 97 12/08/20 06:00 Body Mass Index 27.7 Const: Other: General: AO X 1, no acute distress Resp: normal resp effor CVS: S1,S2,RRR Skin: No rash Neuro: motor grossly intact, baseline confusion Psych: appropriate affect Objective Data Current Medications Generic Name Dose Route Start Last Admin Trade Name Freq PRN Reason Stop Dose Admin Acetaminophen 650 mg 12/06/20 16:13 Acetaminophen 325 Mg Tablet PO Q6H PRN Headache/Pain Mild Scale (1-3) Al Hydroxide/Mg Hydroxide 30 ml 12/06/20 16:13 Magnesium Hydrox/Alum Hydrox 30 Ml Oral.Susp PO Q6H PRN Heartburn/Nausea Amoxicillin/Clavulanate Potassium 500 mg 12/06/20 21:00 12/07/20 21:20 Amoxicillin/Potassium Clav 500 Mg Tablet PO 500 mg BID YUNG Administration Aspirin 81 mg 12/06/20 09:00 12/07/20 08:26 Aspirin 81 Mg Tab.Chew PO 81 mg DAILY YUNG Administration Cyanocobalamin 500 mcg 12/06/20 09:00 12/07/20 08:26 Cyanocobalamin (Vitamin B-12) 500 Mcg Tablet PO 500 mcg DAILY YUNG Administration Donepezil HCl 5 mg 12/07/20 21:00 12/07/20 21:20 Donepezil Hcl 5 Mg Tablet PO 5 mg BEDTIME YUNG Administration Levothyroxine Sodium 150 mcg 12/06/20 08:00 12/08/20 06:28 Levothyroxine Sodium 150 Mcg Tablet PO 150 mcg DAILY@0630 YUNG Administration Loratadine 10 mg 12/06/20 09:00 12/07/20 08:20 Loratadine 10 Mg Tablet PO 10 mg DAILY YUNG Administration Losartan Potassium 50 mg 12/06/20 09:00 12/07/20 08:21 Losartan Potassium 50 Mg Tablet PO 50 mg DAILY YUNG Administration Protocol Magnesium Hydroxide 30 ml 12/06/20 16:13 Milk Of Magnesia 30 Ml Oral.Susp PO DAILY PRN Constipation Metoprolol Tartrate 50 mg 12/06/20 09:00 12/07/20 21:20 Metoprolol Tartrate 50 Mg Tablet PO 50 mg BID YUNG Administration Protocol Risperidone 0.25 mg 12/06/20 09:00 12/07/20 21:20 Risperidone 0.25 Mg Tablet PO 0.25 mg BID YUNG Administration Trazodone HCl 50 mg 12/06/20 16:13 Trazodone Hcl 50 Mg Tablet PO BEDTIME PRN Insomnia Vitamin D 125 mcg 12/06/20 09:00 12/07/20 08:27 Cholecalciferol (Vitamin D3) 25 Mcg Tablet PO 125 mcg DAILY YUNG Administration Labs CBC & Chem 7: 12/05/20 19:33 12/05/20 19:33 Labs: Laboratory Results - last 24 hr 12/06/20 12/06/20 12/08/20 18:40 18:40 06:45 Triglycerides 74 Cholesterol 154 LDL Cholesterol, Calc 90 HDL Cholesterol 50 Vitamin B12 > 2000 H Folate > 20.0 Free T4 1.28 Quality Stroke Does the patient have a stroke diagnosis?: No VTE Prior VTE?: No VTE Risk Level:: Medical - low VTE Device Contraindication: N/A - Device Ordered VTE Drug Contraindication: N/A - Med Ordered Assessment and Plan (1) Dementia: Status: Acute (2) Hypothyroidism: Status: Acute (3) HTN (hypertension): Status: Acute Assessment and Plan: 85 year female with dementia, HTN, Hypothyrodism presently admitted to [facility] psych due to confusion/wth Psychosis and noted blood pressure to be high 1/HTN--BP is better this morning, 149/80 -continue Metoprolol 50 bid, Losartan 50 mg daily and increase Norvasc 5 mg daily 1/ Hypothyroidism--TSH is 0.9, FT4 is normal -Continue Levothyroxine and no change at this time 3/ Dementia/Psychosis--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 Woud check B12, Folate as well. 4/ ALT is slightly high and should be monitored, rest of LfTs are ok 5/Lipids reviewed and unremarkable. will folllow as needed. Thanks
[2020-12-08 07:47] LABS: Estimated Average Glucose 105 mg/dL; Hemoglobin A1c % 5.3 %
[2020-12-08] MEDS: Cholecalciferol (Vitamin D3) 25 MCG TABLET 125 MCG PO (09:36)
[2020-12-08 09:37] VITALS: BP 158/60; PULSE 58
[2020-12-08] MEDS: amLODIPine Besylate 2.5 MG TABLET PO (09:37)
[2020-12-08] MEDS: Losartan Potassium 50 MG TABLET PO (09:37)
[2020-12-08] MEDS: risperiDONE 0.25 MG TABLET PO (09:37)
[2020-12-08] MEDS: Metoprolol Tartrate 50 MG TABLET PO ×2 (09:37→21:57)
[2020-12-08] MEDS: Aspirin 81 MG TAB.CHEW PO (09:37)
[2020-12-08] MEDS: Loratadine 10 MG TABLET PO (09:38)
[2020-12-08] MEDS: Cyanocobalamin (Vitamin B-12) 500 MCG TABLET PO (09:38)
[2020-12-08] MEDS: Amoxicillin/Potassium Clav 500 MG TABLET PO ×2 (09:38→21:57)
--- NOTE | 2020-12-08 10:47 | P.PNPSI_ITS ---
Subjective Subjective Date of Service: 12/08/20 Reason For Visit: HALLUCINATIONS Subjective Notes: Conditional Voluntary Interim History: The staff has reported that she was visible in the unit, less wandering. Staff has noticed that she sundowns. Today at AM, she was confused and dysphoric. She is on ATB for UTI prescribed before admission. Review of Systems Acute medical concerns: No Medical Review of Systems: unchanged Mental Status Exam Mental Status Exam Patient Appearance: Appropriate (on hospital gowns) Patient Orientation: Person Level of Consciousness: Awake Patient Behavior: Wandering and Confused Mood Description: Calm and Withdrawn Affect Description: Constricted Patient Cognition Impaired: Yes Ability to Follow Directions: Good Speech Pattern: Clear Memory Description: Remote Impaired, Immediate Impaired, Recent Impaired and Working Impaired Hallucinations: None Delusions: Paranoid Ideation Thought Process: Goal Oriented Thought Content: positive for Poverty of Content Depressive Symptoms: Increased Anxiety Judgement: Fair Diagnostics Vital Signs (24Hr): Vital Signs - 24 hr 12/07/20 17:43 12/07/20 21:20 12/08/20 06:00 Temperature 98.2 F 97.1 F Pulse Rate 68 67 61 Respiratory Rate 14 Blood Pressure 143/63 H 140/65 H 149/80 H Pulse Oximetry 97 12/08/20 09:37 Temperature Pulse Rate 58 Respiratory Rate Blood Pressure 158/60 H Pulse Oximetry Body Mass Index 27.7 Labs Results: 12/05/20 19:33 12/05/20 19:33 Labs: Laboratory Results - last 48 hr 12/06/20 12/06/20 12/06/20 12:03 18:40 18:40 Estimat Average Glucose Hemoglobin A1c % Triglycerides Cholesterol LDL Cholesterol, Calc HDL Cholesterol Vitamin B12 > 2000 H Folate > 20.0 TSH 0.28 L Free T4 1.28 COVID-19 ([facility]) Negative COVID-19 Clin Com See Note 12/08/20 12/08/20 06:45 06:45 Estimat Average Glucose 105 Hemoglobin A1c % 5.3 Triglycerides 74 Cholesterol 154 LDL Cholesterol, Calc 90 HDL Cholesterol 50 Vitamin B12 Folate TSH Free T4 COVID-19 ([facility]) COVID-19 Clin Com Imaging Radiology Impressions: ITS Impressions Head CT 12/06/20 07:04 IMPRESSION: Chronic microvascular ischemic changes with no CT evidence of acute intracranial abnormality. Medications Medications Current Medications Generic Name Dose Route Start Last Admin Trade Name Freq PRN Reason Stop Dose Admin Acetaminophen 650 mg 12/06/20 16:13 Acetaminophen 325 Mg Tablet PO Q6H PRN Headache/Pain Mild Scale (1-3) Al Hydroxide/Mg Hydroxide 30 ml 12/06/20 16:13 Magnesium Hydrox/Alum Hydrox 30 Ml Oral.Susp PO Q6H PRN Heartburn/Nausea Amlodipine Besylate 2.5 mg 12/08/20 09:00 12/08/20 09:37 Amlodipine Besylate 2.5 Mg Tablet PO 2.5 mg DAILY YUNG Administration Protocol Amoxicillin/Clavulanate Potassium 500 mg 12/06/20 21:00 12/08/20 09:38 Amoxicillin/Potassium Clav 500 Mg Tablet PO 500 mg BID YUNG Administration Aspirin 81 mg 12/06/20 09:00 12/08/20 09:37 Aspirin 81 Mg Tab.Chew PO 81 mg DAILY YUNG Administration Cyanocobalamin 500 mcg 12/06/20 09:00 12/08/20 09:38 Cyanocobalamin (Vitamin B-12) 500 Mcg Tablet PO 500 mcg DAILY YUNG Administration Donepezil HCl 10 mg 12/08/20 21:00 Donepezil Hcl 5 Mg Tablet PO BEDTIME YUNG Levothyroxine Sodium 150 mcg 12/06/20 08:00 12/08/20 06:28 Levothyroxine Sodium 150 Mcg Tablet PO 150 mcg DAILY@0630 YUNG Administration Loratadine 10 mg 12/06/20 09:00 12/08/20 09:38 Loratadine 10 Mg Tablet PO 10 mg DAILY YUNG Administration Losartan Potassium 50 mg 12/06/20 09:00 12/08/20 09:37 Losartan Potassium 50 Mg Tablet PO 50 mg DAILY [facility] Administration Protocol Magnesium Hydroxide 30 ml 12/06/20 16:13 Milk Of Magnesia 30 Ml Oral.Susp PO DAILY PRN Constipation Metoprolol Tartrate 50 mg 12/06/20 09:00 12/08/20 09:37 Metoprolol Tartrate 50 Mg Tablet PO 50 mg BID [facility] Administration Protocol Risperidone 0.25 mg 12/09/20 09:00 Risperidone 0.25 Mg Tablet PO DAILY YUNG Risperidone 0.5 mg 12/08/20 17:00 Risperidone 0.5 Mg Tablet PO DAILY@1700 [facility] Trazodone HCl 50 mg 12/06/20 16:13 Trazodone Hcl 50 Mg Tablet PO BEDTIME PRN Insomnia Vitamin D 125 mcg 12/06/20 09:00 12/08/20 09:36 Cholecalciferol (Vitamin D3) 25 Mcg Tablet PO 125 mcg DAILY YUNG Administration Allergies Allergies Allergy/AdvReac Type Severity Reaction Status Date / Time olive oil [OLIVE OIL] Allergy Mild STOMACH Verified 12/05/20 19:06 UPSET Assessment & Plan Assessment & Plan (1) Dementia: Qualifiers: Alzheimer's disease onset: late-onset Dementia behavioral disturbance: with behavioral disturbance Dementia type: Alzheimer's Qualified Code(s): G30.1 - Alzheimer's disease with late onset; F02.81 - Dementia in other diseases classified elsewhere with behavioral disturbance Status: Acute Code(s): F03.90 - Unspecified dementia without behavioral disturbance (2) Hypothyroidism: Status: Acute Code(s): E03.9 - Hypothyroidism, unspecified (3) HTN (hypertension): Status: Acute Code(s): I10 - Essential (primary) hypertension Assessment and Plan: 85 year female with dementia, HTN, Hypothyrodism presently admitted to [facility] due to confusion/wth Psychosis and noted blood pressure to be high 1/HTN--BP is better this morning, 149/80 -continue Metoprolol 50 bid, Losartan 50 mg daily and increase Norvasc 5 mg daily 1/ Hypothyroidism--TSH is 0.9, FT4 is normal -Continue Levothyroxine and no change at this time 3/ Dementia/Psychosis--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 Checked Vit B12, Folate wnl. Aricept was increased up to 10 mg po qhs and since she was , I decided to increase Risperdal at 0.5 mg at 5 pm. 4/ ALT is slightly high and should be monitored, rest of LfTs are ok 5/Lipids reviewed and unremarkable. Greater than 50% of the session was spent on counseling and/or coordination of care Reason for contiued inpatient stay Substantial Risk for: inability to function, rapid decompensation and med/psych decompensation
[2020-12-08] MEDS: risperiDONE 0.5 MG TABLET PO (16:47)
[2020-12-08 18:00] VITALS: BP 116/57; PULSE 64; RESP 16; TEMP 36.5; O2SAT 99
[2020-12-08 19:13] LABS: Anion Gap 12 (12-20); Blood Urea Nitrogen 19 mg/dL (9-16); Calcium 9.1 mg/dL (8.4-10.2); Carbon Dioxide 26 mmol/L (22-29); Chloride 109 mmol/L (96-108); Estimated Glomerular Filt Rate > 60; Glucose Fasting 82 mg/dL (60-99); Potassium 4.1 mmol/L (3.3-5.1); Sodium 143 mmol/L (135-145)
[2020-12-08 21:57] VITALS: BP 171/74; PULSE 59
[2020-12-08] MEDS: Donepezil HCl 5 MG TABLET 10 MG PO (21:57)
[2020-12-09] VITALS (7 sets, daily range): BP systolic 145–179; BP diastolic 63–79; PULSE 54–73; RESP 16–18; TEMP 36.2; O2SAT 97–98; BMI 26.6
[2020-12-09] MEDS: Levothyroxine Sodium 150 MCG TABLET PO (06:27)
[2020-12-09] MEDS: amLODIPine Besylate 2.5 MG TABLET PO ×2 (08:14→12:15)
[2020-12-09] MEDS: Cholecalciferol (Vitamin D3) 25 MCG TABLET 125 MCG PO (08:15)
[2020-12-09] MEDS: Amoxicillin/Potassium Clav 500 MG TABLET PO ×2 (08:17→19:51)
[2020-12-09] MEDS: Cyanocobalamin (Vitamin B-12) 500 MCG TABLET PO (08:17)
[2020-12-09] MEDS: Losartan Potassium 50 MG TABLET PO (08:17)
[2020-12-09] MEDS: Metoprolol Tartrate 50 MG TABLET PO ×2 (08:18→19:52)
[2020-12-09] MEDS: risperiDONE 0.25 MG TABLET PO (08:19)
[2020-12-09] MEDS: Loratadine 10 MG TABLET PO (08:19)
[2020-12-09] MEDS: Aspirin 81 MG TAB.CHEW PO (08:20)
--- NOTE | 2020-12-09 08:42 | HO.PM.IMPN ---
Subjective Subjective Date of Service: 12/09/20 Interval History: Seen in f/u for HTN, she seem better this morning,, there is lot of fluctuation in BP, presently 179/79 Physical Exam Vital Signs: Vital Signs: Last Vital Signs Temp 97.1 F 12/09/20 06:00 Pulse 73 12/09/20 08:18 Resp 18 12/09/20 06:00 BP 179/79 H 12/09/20 08:18 Pulse Ox 97 12/09/20 06:00 Body Mass Index 27.7 Const: Other: General: AO X 1, no acute distress Resp: normal breathing patern Skin: No rash Neuro: motor grossly intact Psych: appropriate affect Objective Data Current Medications Generic Name Dose Route Start Last Admin Trade Name Freq PRN Reason Stop Dose Admin Acetaminophen 650 mg 12/06/20 16:13 Acetaminophen 325 Mg Tablet PO Q6H PRN Headache/Pain Mild Scale (1-3) Al Hydroxide/Mg Hydroxide 30 ml 12/06/20 16:13 Magnesium Hydrox/Alum Hydrox 30 Ml Oral.Susp PO Q6H PRN Heartburn/Nausea Amlodipine Besylate 2.5 mg 12/08/20 09:00 12/09/20 08:14 Amlodipine Besylate 2.5 Mg Tablet PO 2.5 mg DAILY YUNG Administration Protocol Amoxicillin/Clavulanate Potassium 500 mg 12/06/20 21:00 12/09/20 08:17 Amoxicillin/Potassium Clav 500 Mg Tablet PO 500 mg BID YUNG Administration Aspirin 81 mg 12/06/20 09:00 12/09/20 08:20 Aspirin 81 Mg Tab.Chew PO 81 mg DAILY YUNG Administration Cyanocobalamin 500 mcg 12/06/20 09:00 12/09/20 08:17 Cyanocobalamin (Vitamin B-12) 500 Mcg Tablet PO 500 mcg DAILY YUNG Administration Donepezil HCl 10 mg 12/08/20 21:00 12/08/20 21:57 Donepezil Hcl 5 Mg Tablet PO 10 mg BEDTIME YUNG Administration Levothyroxine Sodium 150 mcg 12/06/20 08:00 12/09/20 06:27 Levothyroxine Sodium 150 Mcg Tablet PO 150 mcg DAILY@0630 YUNG Administration Loratadine 10 mg 12/06/20 09:00 12/09/20 08:19 Loratadine 10 Mg Tablet PO 10 mg DAILY YUNG Administration Losartan Potassium 50 mg 12/06/20 09:00 12/09/20 08:17 Losartan Potassium 50 Mg Tablet PO 50 mg DAILY YUNG Administration Protocol Magnesium Hydroxide 30 ml 12/06/20 16:13 Milk Of Magnesia 30 Ml Oral.Susp PO DAILY PRN Constipation Metoprolol Tartrate 50 mg 12/06/20 09:00 12/09/20 08:18 Metoprolol Tartrate 50 Mg Tablet PO 50 mg BID YUNG Administration Protocol Risperidone 0.25 mg 12/09/20 09:00 12/09/20 08:19 Risperidone 0.25 Mg Tablet PO 0.25 mg DAILY YUNG Administration Risperidone 0.5 mg 12/08/20 17:00 12/08/20 16:47 Risperidone 0.5 Mg Tablet PO 0.5 mg DAILY@1700 YUNG Administration Trazodone HCl 50 mg 12/06/20 16:13 Trazodone Hcl 50 Mg Tablet PO BEDTIME PRN Insomnia Vitamin D 125 mcg 12/06/20 09:00 12/09/20 08:15 Cholecalciferol (Vitamin D3) 25 Mcg Tablet PO 125 mcg DAILY YUNG Administration Labs CBC & Chem 7: 12/05/20 19:33 12/08/20 18:32 Labs: Laboratory Results - last 24 hr 12/08/20 18:32 Sodium 143 Potassium 4.1 Chloride 109 H Carbon Dioxide 26 Anion Gap 12 BUN 19 H Creatinine 0.76 Estim Creat Clear Calc 55.0 Estimated GFR > 60 Fasting Glucose 82 Calcium 9.1 Quality Stroke Does the patient have a stroke diagnosis?: No VTE Prior VTE?: No VTE Risk Level:: Medical - low VTE Device Contraindication: N/A - Device Ordered VTE Drug Contraindication: N/A - Med Ordered Assessment and Plan (1) Dementia: Status: Acute (2) Hypothyroidism: Status: Acute (3) HTN (hypertension): Status: Acute Assessment and Plan: 85 year female with dementia, HTN, Hypothyrodism presently admitted to [facility] due to confusion/wth Psychosis and noted blood pressure to be high 1/HTN--BP is better this morning, variable BPs but mostly high -continue Metoprolol 50 bid, Losartan 50 mg daily and increase Norvasc 5 mg daily 1/ Hypothyroidism--TSH is 0.9, FT4 is normal -Continue Levothyroxine and no change at this time 3/ Dementia/Psychosis--she likely has vascular dementia with added Psychosis, mangement per [facility]. B12, folate ok 4/ ALT is slightly high and should be monitored, rest of LfTs are ok 5/Lipids reviewed and unremarkable. will folllow as needed and can adjust med based on chart review. Thanks
--- NOTE | 2020-12-09 10:47 | P.PNPSI_ITS ---
Subjective Subjective Date of Service: 12/09/20 Reason For Visit: HALLUCINATIONS Interim History: The patient remains confused but apparently no evidence of auditory hallucinations. On the evening yesterday, she was very confused with the staff and she was crying stating that she was on fdc. Today, she was unable to remember that episode but she was mostly seclusive. Mental Status Exam Mental Status Exam Patient Appearance: Disheveled Patient Orientation: Person, Place, Time and Situation Level of Consciousness: Awake Patient Behavior: Appropriate and Cooperative Mood Description: Depressed Affect Description: Calm Patient Cognition Impaired: Yes Ability to Follow Directions: Good Speech Pattern: Clear Memory Description: Remote Impaired, Immediate Impaired and Recent Impaired Hallucinations: None Delusions: Paranoid Ideation Thought Process: Evasive Thought Content: positive for Circumstantial and positive for Poverty of Content Judgement: Poor Diagnostics Vital Signs (24Hr): Vital Signs - 24 hr 12/08/20 18:00 12/08/20 21:57 12/09/20 06:00 Temperature 97.7 F 97.1 F Pulse Rate 64 59 54 Respiratory Rate 16 18 Blood Pressure 116/57 L 171/74 H 147/63 H Pulse Oximetry 99 97 12/09/20 08:14 12/09/20 08:17 12/09/20 08:18 Temperature Pulse Rate 73 73 73 Respiratory Rate Blood Pressure 179/79 H 179/79 H 179/79 H Pulse Oximetry Body Mass Index 26.6 Labs Results: 12/05/20 19:33 12/08/20 18:32 Labs: Laboratory Results - last 48 hr 12/08/20 12/08/20 12/08/20 06:45 06:45 18:32 Sodium 143 Potassium 4.1 Chloride 109 H Carbon Dioxide 26 Anion Gap 12 BUN 19 H Creatinine 0.76 Estim Creat Clear Calc 55.0 Estimated GFR > 60 Fasting Glucose 82 Estimat Average Glucose 105 Hemoglobin A1c % 5.3 Calcium 9.1 Triglycerides 74 Cholesterol 154 LDL Cholesterol, Calc 90 HDL Cholesterol 50 Imaging Radiology Impressions: ITS Impressions Head CT 12/06/20 07:04 IMPRESSION: Chronic microvascular ischemic changes with no CT evidence of acute intracranial abnormality. Medications Medications Current Medications Generic Name Dose Route Start Last Admin Trade Name Freq PRN Reason Stop Dose Admin Acetaminophen 650 mg 12/06/20 16:13 Acetaminophen 325 Mg Tablet PO Q6H PRN Headache/Pain Mild Scale (1-3) Al Hydroxide/Mg Hydroxide 30 ml 12/06/20 16:13 Magnesium Hydrox/Alum Hydrox 30 Ml Oral.Susp PO Q6H PRN Heartburn/Nausea Amlodipine Besylate 5 mg 12/09/20 09:00 Amlodipine Besylate 5 Mg Tablet PO DAILY YUNG Protocol Amlodipine Besylate 2.5 mg 12/09/20 13:00 Amlodipine Besylate 2.5 Mg Tablet PO 12/09/20 13:01 ONCE ONE Protocol Amoxicillin/Clavulanate Potassium 500 mg 12/06/20 21:00 12/09/20 08:17 Amoxicillin/Potassium Clav 500 Mg Tablet PO 500 mg BID YUNG Administration Aspirin 81 mg 12/06/20 09:00 12/09/20 08:20 Aspirin 81 Mg Tab.Chew PO 81 mg DAILY YUNG Administration Cyanocobalamin 500 mcg 12/06/20 09:00 12/09/20 08:17 Cyanocobalamin (Vitamin B-12) 500 Mcg Tablet PO 500 mcg DAILY YUNG Administration Donepezil HCl 10 mg 12/08/20 21:00 12/08/20 21:57 Donepezil Hcl 5 Mg Tablet PO 10 mg BEDTIME YUNG Administration Levothyroxine Sodium 150 mcg 12/06/20 08:00 12/09/20 06:27 Levothyroxine Sodium 150 Mcg Tablet PO 150 mcg DAILY@0630 YUNG Administration Loratadine 10 mg 12/06/20 09:00 12/09/20 08:19 Loratadine 10 Mg Tablet PO 10 mg DAILY YUNG Administration Losartan Potassium 50 mg 12/06/20 09:00 12/09/20 08:17 Losartan Potassium 50 Mg Tablet PO 50 mg DAILY YUNG Administration Protocol Magnesium Hydroxide 30 ml 12/06/20 16:13 Milk Of Magnesia 30 Ml Oral.Susp PO DAILY PRN Constipation Metoprolol Tartrate 50 mg 12/06/20 09:00 12/09/20 08:18 Metoprolol Tartrate 50 Mg Tablet PO 50 mg BID YUNG Administration Protocol Risperidone 0.25 mg 12/09/20 09:00 12/09/20 08:19 Risperidone 0.25 Mg Tablet PO 0.25 mg DAILY YUNG Administration Risperidone 0.5 mg 12/08/20 17:00 12/08/20 16:47 Risperidone 0.5 Mg Tablet PO 0.5 mg DAILY@1700 YUNG Administration Trazodone HCl 50 mg 12/06/20 16:13 Trazodone Hcl 50 Mg Tablet PO BEDTIME PRN Insomnia Vitamin D 125 mcg 12/06/20 09:00 12/09/20 08:15 Cholecalciferol (Vitamin D3) 25 Mcg Tablet PO 125 mcg DAILY YUNG Administration Allergies Allergies Allergy/AdvReac Type Severity Reaction Status Date / Time olive oil [OLIVE OIL] Allergy Mild STOMACH Verified 12/05/20 19:06 UPSET Assessment & Plan Assessment & Plan (1) Dementia: Qualifiers: Alzheimer's disease onset: late-onset Dementia behavioral disturbance: with behavioral disturbance Dementia type: Alzheimer's Qualified Code(s): G30.1 - Alzheimer's disease with late onset; F02.81 - Dementia in other diseases classified elsewhere with behavioral disturbance Status: Acute Code(s): F03.90 - Unspecified dementia without behavioral disturbance (2) Hypothyroidism: Status: Acute Code(s): E03.9 - Hypothyroidism, unspecified (3) HTN (hypertension): Status: Acute Code(s): I10 - Essential (primary) hypertension Assessment and Plan: 85 year female with dementia, HTN, Hypothyrodism presently admitted to [facility] due to confusion/wth Psychosis and noted blood pressure to be high 1/HTN--BP is better this morning, variable BPs but mostly high -continue Metoprolol 50 bid, Losartan 50 mg daily and increase Norvasc 5 mg daily 1/ Hypothyroidism--TSH is 0.9, FT4 is normal -Continue Levothyroxine and no change at this time 3/ Dementia/Psychosis--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 B12, folate ok 4/ ALT is slightly high and should be monitored, rest of LfTs are ok 5/Lipids reviewed and unremarkable. will folllow as needed and can adjust med based on chart review. Thanks Greater than 50% of the session was spent on counseling and/or coordination of care Reason for contiued inpatient stay Substantial Risk for: inability to function, rapid decompensation and med/psych decompensation
[2020-12-09] MEDS: risperiDONE 0.5 MG TABLET PO (16:17)
[2020-12-09] MEDS: Donepezil HCl 5 MG TABLET 10 MG PO (19:51)
[2020-12-10] VITALS (8 sets, daily range): BP systolic 123–186; BP diastolic 57–82; PULSE 57–68; RESP 16–18; TEMP 36.1–36.7; O2SAT 94–97
[2020-12-10] MEDS: Levothyroxine Sodium 150 MCG TABLET PO (05:44)
[2020-12-10] MEDS: Losartan Potassium 50 MG TABLET PO (08:46)
[2020-12-10] MEDS: Amoxicillin/Potassium Clav 500 MG TABLET PO (08:46)
[2020-12-10] MEDS: Metoprolol Tartrate 50 MG TABLET PO ×2 (08:46→19:58)
[2020-12-10] MEDS: risperiDONE 0.25 MG TABLET PO (08:47)
[2020-12-10] MEDS: Aspirin 81 MG TAB.CHEW PO (08:47)
[2020-12-10] MEDS: amLODIPine Besylate 5 MG TABLET PO (08:47)
[2020-12-10] MEDS: Cholecalciferol (Vitamin D3) 25 MCG TABLET 125 MCG PO (08:48)
[2020-12-10] MEDS: Loratadine 10 MG TABLET PO (08:48)
[2020-12-10] MEDS: Cyanocobalamin (Vitamin B-12) 500 MCG TABLET PO (08:48)
--- NOTE | 2020-12-10 09:10 | HO.PSYCHPN ---
Subjective Subjective Date of Service: 12/10/20 Reason For Visit: HALLUCINATIONS Subjective Notes: Conditional Voluntary (Health care proxy invoked) Healthcare Proxy: Yes (Health care proxy invoked) Interim History: The patient remains pleasantly confused, last night she woke up at 1 AM but went back to sleep. She is visible in the unit and it seems that the structure of the unit has helped her. At this moment, no evidence of psychotic symptoms. Since her dementia is mostly secundary to vascular disease, we will stop Aricept. Today, I met with her son and he agreed on the possible discharge planning to SNF due to the cognitive deterioration. Mental Status Exam Mental Status Exam Patient Appearance: Well Grooomed (on hospital gowns) Patient Orientation: Person Level of Consciousness: Awake and Appropriate Patient Behavior: Cooperative and Confused Mood Description: Appropriate Affect Description: Constricted Patient Cognition Impaired: Yes Ability to Follow Directions: Good Speech Pattern: Clear Memory Description: Remote Impaired, Immediate Impaired and Assisted Impaired Hallucinations: None Delusions: Paranoid Ideation Thought Process: Distracted and Evasive Thought Content: positive for Circumstantial Judgement: Poor Diagnostics Vital Signs (24Hr): Vital Signs - 24 hr 12/09/20 12:15 12/09/20 18:00 12/09/20 19:52 Temperature 97.2 F Pulse Rate 63 67 67 Respiratory Rate 16 Blood Pressure 154/70 H 145/76 H 172/72 H Pulse Oximetry 98 12/10/20 06:00 12/10/20 08:46 12/10/20 08:47 Temperature 97.0 F Pulse Rate 60 68 68 Respiratory Rate 16 Blood Pressure 135/65 167/68 H 167/68 H Pulse Oximetry 94 Body Mass Index 26.6 Labs Results: 12/05/20 19:33 12/08/20 18:32 Labs: Laboratory Results - last 48 hr 12/08/20 18:32 Sodium 143 Potassium 4.1 Chloride 109 H Carbon Dioxide 26 Anion Gap 12 BUN 19 H Creatinine 0.76 Estim Creat Clear Calc 55.0 Estimated GFR > 60 Fasting Glucose 82 Calcium 9.1 Imaging Radiology Impressions: ITS Impressions Head CT 12/06/20 07:04 IMPRESSION: Chronic microvascular ischemic changes with no CT evidence of acute intracranial abnormality. Medications Medications Current Medications Generic Name Dose Route Start Last Admin Trade Name Freq PRN Reason Stop Dose Admin Acetaminophen 650 mg 12/06/20 16:13 Acetaminophen 325 Mg Tablet PO Q6H PRN Headache/Pain Mild Scale (1-3) Al Hydroxide/Mg Hydroxide 30 ml 12/06/20 16:13 Magnesium Hydrox/Alum Hydrox 30 Ml Oral.Susp PO Q6H PRN Heartburn/Nausea Amlodipine Besylate 5 mg 12/09/20 09:00 12/10/20 08:47 Amlodipine Besylate 5 Mg Tablet PO 5 mg DAILY YUNG Administration Protocol Amoxicillin/Clavulanate Potassium 500 mg 12/06/20 21:00 12/10/20 08:46 Amoxicillin/Potassium Clav 500 Mg Tablet PO 500 mg BID YUNG Administration Aspirin 81 mg 12/06/20 09:00 12/10/20 08:47 Aspirin 81 Mg Tab.Chew PO 81 mg DAILY YUNG Administration Cyanocobalamin 500 mcg 12/06/20 09:00 12/10/20 08:48 Cyanocobalamin (Vitamin B-12) 500 Mcg Tablet PO 500 mcg DAILY YUNG Administration Donepezil HCl 10 mg 12/08/20 21:00 12/09/20 19:51 Donepezil Hcl 5 Mg Tablet PO 10 mg BEDTIME YUNG Administration Levothyroxine Sodium 150 mcg 12/06/20 08:00 12/10/20 05:44 Levothyroxine Sodium 150 Mcg Tablet PO 150 mcg DAILY@0630 YUNG Administration Loratadine 10 mg 12/06/20 09:00 12/10/20 08:48 Loratadine 10 Mg Tablet PO 10 mg DAILY YUNG Administration Losartan Potassium 50 mg 12/06/20 09:00 12/10/20 08:46 Losartan Potassium 50 Mg Tablet PO 50 mg DAILY YUNG Administration Protocol Magnesium Hydroxide 30 ml 12/06/20 16:13 Milk Of Magnesia 30 Ml Oral.Susp PO DAILY PRN Constipation Metoprolol Tartrate 50 mg 12/06/20 09:00 12/10/20 08:46 Metoprolol Tartrate 50 Mg Tablet PO 50 mg BID YUNG Administration Protocol Risperidone 0.25 mg 12/09/20 09:00 12/10/20 08:47 Risperidone 0.25 Mg Tablet PO 0.25 mg DAILY YUNG Administration Risperidone 0.5 mg 12/08/20 17:00 12/09/20 16:17 Risperidone 0.5 Mg Tablet PO 0.5 mg DAILY@1700 YUNG Administration Trazodone HCl 50 mg 12/06/20 16:13 Trazodone Hcl 50 Mg Tablet PO BEDTIME PRN Insomnia Vitamin D 125 mcg 12/06/20 09:00 12/10/20 08:48 Cholecalciferol (Vitamin D3) 25 Mcg Tablet PO 125 mcg DAILY YUNG Administration Allergies Allergies Allergy/AdvReac Type Severity Reaction Status Date / Time olive oil [OLIVE OIL] Allergy Mild STOMACH Verified 12/05/20 19:06 UPSET Assessment & Plan Assessment & Plan (1) Dementia: Qualifiers: Alzheimer's disease onset: late-onset Dementia behavioral disturbance: with behavioral disturbance Dementia type: Alzheimer's Qualified Code(s): G30.1 - Alzheimer's disease with late onset; F02.81 - Dementia in other diseases classified elsewhere with behavioral disturbance Status: Acute Code(s): F03.90 - Unspecified dementia without behavioral disturbance (2) Hypothyroidism: Status: Acute Code(s): E03.9 - Hypothyroidism, unspecified (3) HTN (hypertension): Status: Acute Code(s): I10 - Essential (primary) hypertension Assessment and Plan: 85 year female with dementia, HTN, Hypothyrodism presently admitted to [facility] due to confusion/wth Psychosis and noted blood pressure to be high 1/HTN--BP is better this morning, variable BPs but mostly high -continue Metoprolol 50 bid, Losartan 50 mg daily and increase Norvasc 5 mg daily 1/ Hypothyroidism--TSH is 0.9, FT4 is normal -Continue Levothyroxine and no change at this time 3/ Dementia/Psychosis--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 B12, folate ok 4/ ALT is slightly high and should be monitored, rest of LfTs are ok 5/Lipids reviewed and unremarkable. will folllow as needed and can adjust med based on chart review. 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 Plan: - Keep same treatment. Greater than 50% of the session was spent on counseling and/or coordination of care Reason for contiued inpatient stay Substantial Risk for: inability to function, rapid decompensation and med/psych decompensation
[2020-12-10] MEDS: Acetaminophen 325 MG TABLET 650 MG PO (10:02)
[2020-12-10] MEDS: cloNIDine HCL 0.1 MG TABLET PO (14:14)
[2020-12-10] MEDS: risperiDONE 0.5 MG TABLET PO (16:47)
--- NOTE | 2020-12-10 18:31 | PC.NURSE ---
Patient on unit early in the day. Cooperative but remains oriented only to self. Augmentin stopped by .
[2020-12-11 06:00] VITALS: BP 130/62; PULSE 54; RESP 16; TEMP 36.3; O2SAT 96
[2020-12-11] MEDS: Levothyroxine Sodium 150 MCG TABLET PO (06:21)
[2020-12-11] MEDS: Cholecalciferol (Vitamin D3) 25 MCG TABLET 125 MCG PO (08:37)
[2020-12-11] MEDS: risperiDONE 0.25 MG TABLET PO (08:39)
[2020-12-11] MEDS: Loratadine 10 MG TABLET PO (08:39)
[2020-12-11 08:40] VITALS: BP 157/75; PULSE 61
[2020-12-11] MEDS: amLODIPine Besylate 5 MG TABLET PO (08:40)
[2020-12-11 08:41] VITALS: BP 157/75; PULSE 61
[2020-12-11] MEDS: Metoprolol Tartrate 50 MG TABLET PO ×2 (08:41→20:08)
[2020-12-11] MEDS: Losartan Potassium 50 MG TABLET PO (08:41)
[2020-12-11] MEDS: Aspirin 81 MG TAB.CHEW PO (08:42)
[2020-12-11] MEDS: Cyanocobalamin (Vitamin B-12) 500 MCG TABLET PO (08:42)
[2020-12-11] MEDS: Fluticasone Propionate Nasal 16 GM SPRAY 2 SPRAY NOSTRIL-B (08:43)
--- NOTE | 2020-12-11 15:05 | HO.PSYCHPN ---
Subjective Subjective Date of Service: 12/11/20 Reason For Visit: HALLUCINATIONS Interim History: Continues in much the same way. Pleasant but confused. Could not identify her visiting sister. No behaviors noted. Ct plan Review of Systems Review of Systems Yes all other systems are reviewed and are negative and Unobtainable due to mental status Mental Status Exam Mental Status Exam Patient Appearance: Well Grooomed (on hospital gowns) Patient Orientation: Person Level of Consciousness: Awake and Appropriate Patient Behavior: Cooperative and Confused Mood Description: Appropriate Affect Description: Constricted Patient Cognition Impaired: Yes Ability to Follow Directions: Good Speech Pattern: Clear Memory Description: Remote Impaired, Immediate Impaired and Penitentiary Impaired Diagnostics Vital Signs (24Hr): Vital Signs - 24 hr 12/10/20 18:50 12/10/20 19:58 12/11/20 06:00 Temperature 98.1 F 97.4 F Pulse Rate 58 63 54 Respiratory Rate 17 16 16 Blood Pressure 123/57 L 126/70 130/62 Pulse Oximetry 95 94 96 12/11/20 08:40 12/11/20 08:41 Temperature Pulse Rate 61 61 Respiratory Rate Blood Pressure 157/75 H 157/75 H Pulse Oximetry Body Mass Index 26.6 Labs Results: 12/05/20 19:33 12/08/20 18:32 Imaging Radiology Impressions: ITS Impressions Head CT 12/06/20 07:04 IMPRESSION: Chronic microvascular ischemic changes with no CT evidence of acute intracranial abnormality. Medications Medications Current Medications Generic Name Dose Route Start Last Admin Trade Name Freq PRN Reason Stop Dose Admin Acetaminophen 650 mg 12/06/20 16:13 12/10/20 10:02 Acetaminophen 325 Mg Tablet PO 650 mg Q6H PRN Administration Headache/Pain Mild Scale (1-3) Al Hydroxide/Mg Hydroxide 30 ml 12/06/20 16:13 Magnesium Hydrox/Alum Hydrox 30 Ml Oral.Susp PO Q6H PRN Heartburn/Nausea Amlodipine Besylate 5 mg 12/09/20 09:00 12/11/20 08:40 Amlodipine Besylate 5 Mg Tablet PO 5 mg DAILY YUNG Administration Protocol Aspirin 81 mg 12/06/20 09:00 12/11/20 08:42 Aspirin 81 Mg Tab.Chew PO 81 mg DAILY YUNG Administration Cyanocobalamin 500 mcg 12/06/20 09:00 12/11/20 08:42 Cyanocobalamin (Vitamin B-12) 500 Mcg Tablet PO 500 mcg DAILY YUNG Administration Fluticasone Propionate 2 spray 12/10/20 10:21 12/11/20 08:43 Fluticasone Propionate Nasal 16 Gm [place] NOSTRIL-B 2 spray DAILY YUNG Administration Levothyroxine Sodium 150 mcg 12/06/20 08:00 12/11/20 06:21 Levothyroxine Sodium 150 Mcg Tablet PO 150 mcg DAILY@0630 YUNG Administration Loratadine 10 mg 12/06/20 09:00 12/11/20 08:39 Loratadine 10 Mg Tablet PO 10 mg DAILY YUNG Administration Losartan Potassium 50 mg 12/06/20 09:00 12/11/20 08:41 Losartan Potassium 50 Mg Tablet PO 50 mg DAILY YUNG Administration Protocol Magnesium Hydroxide 30 ml 12/06/20 16:13 Milk Of Magnesia 30 Ml Oral.Susp PO DAILY PRN Constipation Metoprolol Tartrate 50 mg 12/06/20 09:00 12/11/20 08:41 Metoprolol Tartrate 50 Mg Tablet PO 50 mg BID YUNG Administration Protocol Risperidone 0.25 mg 12/09/20 09:00 12/11/20 08:39 Risperidone 0.25 Mg Tablet PO 0.25 mg DAILY YUNG Administration Risperidone 0.5 mg 12/08/20 17:00 12/10/20 16:47 Risperidone 0.5 Mg Tablet PO 0.5 mg DAILY@1700 YUNG Administration Trazodone HCl 50 mg 12/06/20 16:13 Trazodone Hcl 50 Mg Tablet PO BEDTIME PRN Insomnia Vitamin D 125 mcg 12/06/20 09:00 12/11/20 08:37 Cholecalciferol (Vitamin D3) 25 Mcg Tablet PO 125 mcg DAILY YUNG Administration Allergies Allergies Allergy/AdvReac Type Severity Reaction Status Date / Time olive oil [OLIVE OIL] Allergy Mild STOMACH Verified 12/05/20 19:06 UPSET Assessment & Plan Assessment & Plan (1) Dementia: Qualifiers: Alzheimer's disease onset: late-onset Dementia behavioral disturbance: with behavioral disturbance Dementia type: Alzheimer's Qualified Code(s): G30.1 - Alzheimer's disease with late onset; F02.81 - Dementia in other diseases classified elsewhere with behavioral disturbance Status: Acute Code(s): F03.90 - Unspecified dementia without behavioral disturbance (2) Hypothyroidism: Status: Acute Code(s): E03.9 - Hypothyroidism, unspecified (3) HTN (hypertension): Status: Acute Code(s): I10 - Essential (primary) hypertension Assessment and Plan: 85 year female with dementia, HTN, Hypothyrodism presently admitted to [facility] due to confusion/wth Psychosis and noted blood pressure to be high 1/HTN--BP is better this morning, variable BPs but mostly high -continue Metoprolol 50 bid, Losartan 50 mg daily and increase Norvasc 5 mg daily 1/ Hypothyroidism--TSH is 0.9, FT4 is normal -Continue Levothyroxine and no change at this time 3/ Dementia/Psychosis--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 B12, folate ok 4/ ALT is slightly high and should be monitored, rest of LfTs are ok 5/Lipids reviewed and unremarkable. will folllow as needed and can adjust med based on chart review. 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 Plan: - Keep same treatment. Greater than 50% of the session was spent on counseling and/or coordination of care Reason for contiued inpatient stay Substantial Risk for: inability to function and med/psych decompensation
[2020-12-11] MEDS: risperiDONE 0.5 MG TABLET PO (17:03)
[2020-12-11 18:00] VITALS: BP 148/66; PULSE 72; RESP 16; TEMP 36.1; O2SAT 95
[2020-12-11 20:00] VITALS: BP 187/80; PULSE 62; RESP 18; TEMP 36.4; O2SAT 97
[2020-12-11 20:08] VITALS: BP 187/80; PULSE 62
[2020-12-12] MEDS: Levothyroxine Sodium 150 MCG TABLET PO (05:32)
[2020-12-12 05:39] VITALS: BP 174/73; PULSE 59; RESP 18; TEMP 36.3; O2SAT 95
--- NOTE | 2020-12-12 07:21 | P.PNPSI_ITS ---
Subjective Subjective Date of Service: 12/12/20 Reason For Visit: HALLUCINATIONS Interim History: 12/11:Continues in much the same way. Pleasant but confused. Could not identify her visiting sister. No behaviors noted. Ct plan 12/12: No change. Confused. I spoke to son re communication with pt re going to SNF. No other changes Review of Systems Review of Systems Yes all other systems are reviewed and are negative and Unobtainable due to mental status Mental Status Exam Mental Status Exam Patient Appearance: Well Grooomed (on hospital gowns) Patient Orientation: Person Level of Consciousness: Awake and Appropriate Patient Behavior: Cooperative and Confused Mood Description: Appropriate Affect Description: Constricted Patient Cognition Impaired: Yes Ability to Follow Directions: Good Speech Pattern: Clear Memory Description: Remote Impaired, Immediate Impaired and [employer] Heavy Service Impaired Diagnostics Vital Signs (24Hr): Vital Signs - 24 hr 12/11/20 08:40 12/11/20 08:41 12/11/20 18:00 Temperature 96.9 F Pulse Rate 61 61 72 Respiratory Rate 16 Blood Pressure 157/75 H 157/75 H 148/66 H Pulse Oximetry 95 12/11/20 20:00 12/11/20 20:08 12/12/20 05:39 Temperature 97.6 F 97.3 F Pulse Rate 62 62 59 Respiratory Rate 18 18 Blood Pressure 187/80 H 187/80 H 174/73 H Pulse Oximetry 97 95 Body Mass Index 26.6 Labs Results: 12/05/20 19:33 12/08/20 18:32 Imaging Radiology Impressions: ITS Impressions Head CT 12/06/20 07:04 IMPRESSION: Chronic microvascular ischemic changes with no CT evidence of acute intracranial abnormality. Medications Medications Current Medications Generic Name Dose Route Start Last Admin Trade Name Freq PRN Reason Stop Dose Admin Acetaminophen 650 mg 12/06/20 16:13 12/10/20 10:02 Acetaminophen 325 Mg Tablet PO 650 mg Q6H PRN Administration Headache/Pain Mild Scale (1-3) Al Hydroxide/Mg Hydroxide 30 ml 12/06/20 16:13 Magnesium Hydrox/Alum Hydrox 30 Ml Oral.Susp PO Q6H PRN Heartburn/Nausea Amlodipine Besylate 5 mg 12/09/20 09:00 12/11/20 08:40 Amlodipine Besylate 5 Mg Tablet PO 5 mg DAILY SHANT Administration Protocol Aspirin 81 mg 12/06/20 09:00 12/11/20 08:42 Aspirin 81 Mg Tab.Chew PO 81 mg DAILY SHANT Administration Cyanocobalamin 500 mcg 12/06/20 09:00 12/11/20 08:42 Cyanocobalamin (Vitamin B-12) 500 Mcg Tablet PO 500 mcg DAILY SHANT Administration Fluticasone Propionate 2 spray 12/10/20 10:21 12/11/20 08:43 Fluticasone Propionate Nasal 16 Gm [place] NOSTRIL-B 2 spray DAILY SHANT Administration Levothyroxine Sodium 150 mcg 12/06/20 08:00 12/12/20 05:32 Levothyroxine Sodium 150 Mcg Tablet PO 150 mcg DAILY@0630 SHANT Administration Loratadine 10 mg 12/06/20 09:00 12/11/20 08:39 Loratadine 10 Mg Tablet PO 10 mg DAILY SHANT Administration Losartan Potassium 50 mg 12/06/20 09:00 12/11/20 08:41 Losartan Potassium 50 Mg Tablet PO 50 mg DAILY SHANT Administration Protocol Magnesium Hydroxide 30 ml 12/06/20 16:13 Milk Of Magnesia 30 Ml Oral.Susp PO DAILY PRN Constipation Metoprolol Tartrate 50 mg 12/06/20 09:00 12/11/20 20:08 Metoprolol Tartrate 50 Mg Tablet PO 50 mg BID SHANT Administration Protocol Risperidone 0.25 mg 12/09/20 09:00 12/11/20 08:39 Risperidone 0.25 Mg Tablet PO 0.25 mg DAILY SHANT Administration Risperidone 0.5 mg 12/08/20 17:00 12/11/20 17:03 Risperidone 0.5 Mg Tablet PO 0.5 mg DAILY@1700 SHANT Administration Trazodone HCl 50 mg 12/06/20 16:13 Trazodone Hcl 50 Mg Tablet PO BEDTIME PRN Insomnia Vitamin D 125 mcg 12/06/20 09:00 12/11/20 08:37 Cholecalciferol (Vitamin D3) 25 Mcg Tablet PO 125 mcg DAILY SHANT Administration Allergies Allergies Allergy/AdvReac Type Severity Reaction Status Date / Time olive oil [OLIVE OIL] Allergy Mild STOMACH Verified 12/05/20 19:06 UPSET Assessment & Plan Assessment & Plan (1) Dementia: Qualifiers: Alzheimer's disease onset: late-onset Dementia behavioral disturbance: with behavioral disturbance Dementia type: Alzheimer's Qualified Code(s): G30.1 - Alzheimer's disease with late onset; F02.81 - Dementia in other diseases classified elsewhere with behavioral disturbance Status: Acute Code(s): F03.90 - Unspecified dementia without behavioral disturbance (2) Hypothyroidism: Status: Acute Code(s): E03.9 - Hypothyroidism, unspecified (3) HTN (hypertension): Status: Acute Code(s): I10 - Essential (primary) hypertension Assessment and Plan: 85 year female with dementia, HTN, Hypothyrodism presently admitted to [facility] due to confusion/wth Psychosis and noted blood pressure to be high 1/HTN--BP is better this morning, variable BPs but mostly high -continue Metoprolol 50 bid, Losartan 50 mg daily and increase Norvasc 5 mg daily 1/ Hypothyroidism--TSH is 0.9, FT4 is normal -Continue Levothyroxine and no change at this time 3/ Dementia/Psychosis--she likely has vascular dementia with added Psychosis, mangement per Pyshant. B12, folate ok 4/ ALT is slightly high and should be monitored, rest of LfTs are ok 5/Lipids reviewed and unremarkable. will folllow as needed and can adjust med based on chart review. 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 Plan: - Keep same treatment. Greater than 50% of the session was spent on counseling and/or coordination of care Reason for contiued inpatient stay Substantial Risk for: inability to function and med/psych decompensation
[2020-12-12 08:20] VITALS: BP 145/68; PULSE 61
[2020-12-12] MEDS: Metoprolol Tartrate 50 MG TABLET PO ×2 (08:20→20:33)
[2020-12-12] MEDS: Cholecalciferol (Vitamin D3) 25 MCG TABLET 125 MCG PO (08:21)
[2020-12-12] MEDS: Aspirin 81 MG TAB.CHEW PO (08:22)
[2020-12-12] MEDS: Cyanocobalamin (Vitamin B-12) 500 MCG TABLET PO (08:22)
[2020-12-12] MEDS: Loratadine 10 MG TABLET PO (08:22)
[2020-12-12 08:23] VITALS: BP 145/68; PULSE 61
[2020-12-12] MEDS: risperiDONE 0.25 MG TABLET PO (08:23)
[2020-12-12] MEDS: Losartan Potassium 50 MG TABLET PO (08:23)
[2020-12-12 08:24] VITALS: BP 145/68; PULSE 61
[2020-12-12] MEDS: amLODIPine Besylate 5 MG TABLET PO (08:24)
[2020-12-12] MEDS: Fluticasone Propionate Nasal 16 GM SPRAY 2 SPRAY NOSTRIL-B (08:25)
[2020-12-12] MEDS: risperiDONE 0.5 MG TABLET PO (17:08)
[2020-12-12 18:00] VITALS: BP 134/65; PULSE 68; RESP 16; TEMP 36.2; O2SAT 99
[2020-12-12 20:33] VITALS: BP 152/74; PULSE 62
[2020-12-13] VITALS (7 sets, daily range): BP systolic 132–172; BP diastolic 63–67; PULSE 56–95; RESP 16–18; TEMP 36.1–36.7; O2SAT 95–96
[2020-12-13] MEDS: Levothyroxine Sodium 150 MCG TABLET PO (06:17)
--- NOTE | 2020-12-13 07:24 | P.PNPSI_ITS ---
Subjective Subjective Date of Service: 12/13/20 Reason For Visit: HALLUCINATIONS Interim History: The patient remains pleasantly confused, cooperative with care but unable to remember why she was sent to the ED. She has not showed any psychotic symptoms. On Sunday, we spoke with her son who agreed to discharge her to SNF. Review of Systems Acute medical concerns: No Medical Review of Systems: unchanged Mental Status Exam Mental Status Exam Patient Appearance: Well Grooomed Patient Orientation: Person Level of Consciousness: Awake and Appropriate Patient Behavior: Cooperative and Confused Mood Description: Appropriate Affect Description: Constricted Patient Cognition Impaired: No Ability to Follow Directions: Good Speech Pattern: Clear Memory Description: Remote Impaired and Immediate Impaired Hallucinations: None Delusions: Not Present Thought Process: Slowed Thinking Thought Content: positive for Poverty of Content Judgement: Poor Diagnostics Vital Signs (24Hr): Vital Signs - 24 hr 12/12/20 08:20 12/12/20 08:23 12/12/20 08:24 Temperature Pulse Rate 61 61 61 Respiratory Rate Blood Pressure 145/68 H 145/68 H 145/68 H Pulse Oximetry 12/12/20 18:00 12/12/20 20:33 12/13/20 06:00 Temperature 97.1 F 97.4 F Pulse Rate 68 62 56 Respiratory Rate 16 16 Blood Pressure 134/65 152/74 H 132/63 Pulse Oximetry 99 95 Body Mass Index 26.6 Labs Results: 12/05/20 19:33 12/08/20 18:32 Imaging Radiology Impressions: ITS Impressions Head CT 12/06/20 07:04 IMPRESSION: Chronic microvascular ischemic changes with no CT evidence of acute intracranial abnormality. Medications Medications Current Medications Generic Name Dose Route Start Last Admin Trade Name Carlosq PRN Reason Stop Dose Admin Acetaminophen 650 mg 12/06/20 16:13 12/10/20 10:02 Acetaminophen 325 Mg Tablet PO 650 mg Q6H PRN Administration Headache/Pain Mild Scale (1-3) Al Hydroxide/Mg Hydroxide 30 ml 12/06/20 16:13 Magnesium Hydrox/Alum Hydrox 30 Ml Oral.Susp PO Q6H PRN Heartburn/Nausea Amlodipine Besylate 5 mg 12/09/20 09:00 12/12/20 08:24 Amlodipine Besylate 5 Mg Tablet PO 5 mg DAILY YUNG Administration Protocol Aspirin 81 mg 12/06/20 09:00 12/12/20 08:22 Aspirin 81 Mg Tab.Chew PO 81 mg DAILY YUNG Administration Cyanocobalamin 500 mcg 12/06/20 09:00 12/12/20 08:22 Cyanocobalamin (Vitamin B-12) 500 Mcg Tablet PO 500 mcg DAILY YUNG Administration Fluticasone Propionate 2 spray 12/10/20 10:21 12/12/20 08:25 Fluticasone Propionate Nasal 16 Gm [place] NOSTRIL-B 2 spray DAILY YUNG Administration Levothyroxine Sodium 150 mcg 12/06/20 08:00 12/13/20 06:17 Levothyroxine Sodium 150 Mcg Tablet PO 150 mcg DAILY@0630 YUNG Administration Loratadine 10 mg 12/06/20 09:00 12/12/20 08:22 Loratadine 10 Mg Tablet PO 10 mg DAILY YUNG Administration Losartan Potassium 50 mg 12/06/20 09:00 12/12/20 08:23 Losartan Potassium 50 Mg Tablet PO 50 mg DAILY YUNG Administration Protocol Magnesium Hydroxide 30 ml 12/06/20 16:13 Milk Of Magnesia 30 Ml Oral.Susp PO DAILY PRN Constipation Metoprolol Tartrate 50 mg 12/06/20 09:00 12/12/20 20:33 Metoprolol Tartrate 50 Mg Tablet PO 50 mg BID YUNG Administration Protocol Risperidone 0.25 mg 12/09/20 09:00 12/12/20 08:23 Risperidone 0.25 Mg Tablet PO 0.25 mg DAILY YUNG Administration Risperidone 0.5 mg 12/08/20 17:00 12/12/20 17:08 Risperidone 0.5 Mg Tablet PO 0.5 mg DAILY@1700 YUNG Administration Trazodone HCl 50 mg 12/06/20 16:13 Trazodone Hcl 50 Mg Tablet PO BEDTIME PRN Insomnia Vitamin D 125 mcg 12/06/20 09:00 12/12/20 08:21 Cholecalciferol (Vitamin D3) 25 Mcg Tablet PO 125 mcg DAILY YUNG Administration Allergies Allergies Allergy/AdvReac Type Severity Reaction Status Date / Time olive oil [OLIVE OIL] Allergy Mild STOMACH Verified 12/05/20 19:06 UPSET Assessment & Plan Assessment & Plan (1) Dementia: Qualifiers: Alzheimer's disease onset: late-onset Dementia behavioral disturbance: with behavioral disturbance Dementia type: Alzheimer's Qualified Code(s): G30.1 - Alzheimer's disease with late onset; F02.81 - Dementia in other diseases classified elsewhere with behavioral disturbance Status: Acute Code(s): F03.90 - Unspecified dementia without behavioral disturbance (2) Hypothyroidism: Status: Acute Code(s): E03.9 - Hypothyroidism, unspecified (3) HTN (hypertension): Status: Acute Code(s): I10 - Essential (primary) hypertension Assessment and Plan: 85 year female with dementia, HTN, Hypothyrodism presently admitted to [facility] due to confusion/wth Psychosis and noted blood pressure to be high 1/HTN--BP is better this morning, variable BPs but mostly high -continue Metoprolol 50 bid, Losartan 50 mg daily and increase Norvasc 5 mg daily 1/ Hypothyroidism--TSH is 0.9, FT4 is normal -Continue Levothyroxine and no change at this time 3/ Dementia/Psychosis--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 B12, folate ok 4/ ALT is slightly high and should be monitored, rest of LfTs are ok 5/Lipids reviewed and unremarkable. will folllow as needed and can adjust med based on chart review. 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 Plan: - Keep same treatment. - D/C to SNF Greater than 50% of the session was spent on counseling and/or coordination of care Reason for contiued inpatient stay Substantial Risk for: inability to function, rapid decompensation and med/psych decompensation
[2020-12-13] MEDS: Loratadine 10 MG TABLET PO (08:29)
[2020-12-13] MEDS: Cyanocobalamin (Vitamin B-12) 500 MCG TABLET PO (08:29)
[2020-12-13] MEDS: risperiDONE 0.25 MG TABLET PO (08:29)
[2020-12-13] MEDS: Aspirin 81 MG TAB.CHEW PO (08:29)
[2020-12-13] MEDS: Cholecalciferol (Vitamin D3) 25 MCG TABLET 125 MCG PO (08:29)
[2020-12-13] MEDS: Metoprolol Tartrate 50 MG TABLET PO ×2 (08:35→20:49)
[2020-12-13] MEDS: Losartan Potassium 50 MG TABLET PO (08:35)
[2020-12-13] MEDS: amLODIPine Besylate 5 MG TABLET PO (09:10)
[2020-12-13] MEDS: risperiDONE 0.5 MG TABLET PO (17:19)
[2020-12-13] MEDS: cloNIDine HCL 0.1 MG TABLET PO (19:14)
[2020-12-14] MEDS: Levothyroxine Sodium 150 MCG TABLET PO (05:59)
[2020-12-14 06:00] VITALS: BP 145/69; PULSE 50; RESP 16; TEMP 36.1; O2SAT 95
[2020-12-14 08:00] VITALS: BP 137/64; PULSE 58; TEMP 36.2; O2SAT 97
[2020-12-14] MEDS: Cholecalciferol (Vitamin D3) 25 MCG TABLET 125 MCG PO (08:06)
[2020-12-14] MEDS: risperiDONE 0.25 MG TABLET PO (08:08)
[2020-12-14] MEDS: Loratadine 10 MG TABLET PO (08:08)
[2020-12-14] MEDS: Aspirin 81 MG TAB.CHEW PO (08:08)
[2020-12-14 08:09] VITALS: BP 137/64; PULSE 58
[2020-12-14] MEDS: Cyanocobalamin (Vitamin B-12) 500 MCG TABLET PO (08:09)
[2020-12-14] MEDS: amLODIPine Besylate 5 MG TABLET PO (08:09)
[2020-12-14] MEDS: Losartan Potassium 50 MG TABLET PO (08:09)
[2020-12-14 08:29] VITALS: BP 137/64; PULSE 58
[2020-12-14] MEDS: Metoprolol Tartrate 50 MG TABLET PO (08:29)
--- NOTE | 2020-12-14 09:55 | P.PNPSI_ITS ---
Subjective Subjective Date of Service: 12/14/20 Reason For Visit: HALLUCINATIONS Interim History: The patient denies psychotic symptoms, the staff reported that her BP is still high mostly at hs. We discussed options and agreed to stop Risperdal at AM and increase Metoprolol slightly Medication Compliance: Yes Side effects from medications: No Attending Groups: Yes Mental Status Exam Mental Status Exam Patient Appearance: Well Grooomed Patient Orientation: Person Level of Consciousness: Awake Patient Behavior: Appropriate Mood Description: Calm and Withdrawn Affect Description: Constricted Patient Cognition Impaired: Yes Ability to Follow Directions: Good Speech Pattern: Clear Memory Description: Remote Impaired, Immediate Impaired and Care Home Impaired Hallucinations: None Delusions: Not Present Judgement: Poor Diagnostics Vital Signs (24Hr): Vital Signs - 24 hr 12/13/20 17:56 12/13/20 19:14 12/13/20 20:45 Temperature 98.0 F 96.9 F Pulse Rate 95 68 61 Respiratory Rate 18 Blood Pressure 172/67 H 172/67 H 136/63 Pulse Oximetry 96 96 12/13/20 20:49 12/14/20 06:00 12/14/20 08:00 Temperature 96.9 F 97.2 F Pulse Rate 61 50 58 Respiratory Rate 16 Blood Pressure 136/63 145/69 H 137/64 Pulse Oximetry 95 97 12/14/20 08:09 12/14/20 08:29 Temperature Pulse Rate 58 58 Respiratory Rate Blood Pressure 137/64 137/64 Pulse Oximetry Body Mass Index 26.6 Labs Results: 12/05/20 19:33 12/08/20 18:32 Imaging Radiology Impressions: ITS Impressions Head CT 12/06/20 07:04 IMPRESSION: Chronic microvascular ischemic changes with no CT evidence of acute intracranial abnormality. Medications Medications Current Medications Generic Name Dose Route Start Last Admin Trade Name Freq PRN Reason Stop Dose Admin Acetaminophen 650 mg 12/06/20 16:13 12/10/20 10:02 Acetaminophen 325 Mg Tablet PO 650 mg Q6H PRN Administration Headache/Pain Mild Scale (1-3) Al Hydroxide/Mg Hydroxide 30 ml 12/06/20 16:13 Magnesium Hydrox/Alum Hydrox 30 Ml Oral.Susp PO Q6H PRN Heartburn/Nausea Amlodipine Besylate 5 mg 12/09/20 09:00 12/14/20 08:09 Amlodipine Besylate 5 Mg Tablet PO 5 mg DAILY YUNG Administration Protocol Aspirin 81 mg 12/06/20 09:00 12/14/20 08:08 Aspirin 81 Mg Tab.Chew PO 81 mg DAILY YUNG Administration Cyanocobalamin 500 mcg 12/06/20 09:00 12/14/20 08:09 Cyanocobalamin (Vitamin B-12) 500 Mcg Tablet PO 500 mcg DAILY YUNG Administration Fluticasone Propionate 2 spray 12/10/20 10:21 12/14/20 09:05 Fluticasone Propionate Nasal 16 Gm [place] NOSTRIL-B Not Given DAILY YUNG Levothyroxine Sodium 150 mcg 12/06/20 08:00 12/14/20 05:59 Levothyroxine Sodium 150 Mcg Tablet PO 150 mcg DAILY@0630 YUNG Administration Loratadine 10 mg 12/06/20 09:00 12/14/20 08:08 Loratadine 10 Mg Tablet PO 10 mg DAILY YUNG Administration Losartan Potassium 50 mg 12/06/20 09:00 12/14/20 08:09 Losartan Potassium 50 Mg Tablet PO 50 mg DAILY YUNG Administration Protocol Magnesium Hydroxide 30 ml 12/06/20 16:13 Milk Of Magnesia 30 Ml Oral.Susp PO DAILY PRN Constipation Metoprolol Tartrate 75 mg 12/14/20 21:00 Metoprolol Tartrate 25 Mg Tablet PO BID [facility] Protocol Risperidone 0.5 mg 12/08/20 17:00 12/13/20 17:19 Risperidone 0.5 Mg Tablet PO 0.5 mg DAILY@1700 YUNG Administration Trazodone HCl 50 mg 12/06/20 16:13 Trazodone Hcl 50 Mg Tablet PO BEDTIME PRN Insomnia Vitamin D 125 mcg 12/06/20 09:00 12/14/20 08:06 Cholecalciferol (Vitamin D3) 25 Mcg Tablet PO 125 mcg DAILY YUNG Administration Allergies Allergies Allergy/AdvReac Type Severity Reaction Status Date / Time olive oil [OLIVE OIL] Allergy Mild STOMACH Verified 12/05/20 19:06 UPSET Assessment & Plan Assessment & Plan (1) Dementia: Qualifiers: Alzheimer's disease onset: late-onset Dementia behavioral disturbance: with behavioral disturbance Dementia type: Alzheimer's Qualified Code(s): G30.1 - Alzheimer's disease with late onset; F02.81 - Dementia in other diseases classified elsewhere with behavioral disturbance Status: Acute Code(s): F03.90 - Unspecified dementia without behavioral disturbance (2) Hypothyroidism: Status: Acute Code(s): E03.9 - Hypothyroidism, unspecified (3) HTN (hypertension): Status: Acute Code(s): I10 - Essential (primary) hypertension Assessment and Plan: 85 year female with dementia, HTN, Hypothyrodism presently admitted to [facility] due to confusion/wth Psychosis and noted blood pressure to be high 1/HTN--BP is better this morning, variable BPs but mostly high -Increase Metoprolol 75 bid, Losartan 50 mg daily and increase Norvasc 5 mg daily 1/ Hypothyroidism--TSH is 0.9, FT4 is normal -Continue Levothyroxine and no change at this time 3/ Dementia/Psychosis--she likely has vascular dementia with added Psychosis, mangement per Jewels. B12, folate ok 4/ ALT is slightly high and should be monitored, rest of LfTs are ok 5/Lipids reviewed and unremarkable. will folllow as needed and can adjust med based on chart review. 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 Plan: - D/C Risperdal at AM but keep at pm since she has . Rest the same treatment. - D/C to SNF Greater than 50% of the session was spent on counseling and/or coordination of care Reason for contiued inpatient stay Substantial Risk for: inability to function, rapid decompensation and med/psych decompensation
[2020-12-14 17:52] VITALS: BP 166/74; PULSE 65; TEMP 36.7; O2SAT 99
[2020-12-14] MEDS: risperiDONE 0.5 MG TABLET PO (18:03)
[2020-12-14] MEDS: traZODone HCL 50 MG TABLET PO (20:06)
[2020-12-14 20:17] VITALS: BP 139/67; PULSE 82
[2020-12-14] MEDS: Metoprolol Tartrate 25 MG TABLET 75 MG PO (20:17)
[2020-12-15 06:00] VITALS: BP 141/65; PULSE 54; RESP 16; TEMP 36.1; O2SAT 97
[2020-12-15] MEDS: Levothyroxine Sodium 150 MCG TABLET PO (06:15)
[2020-12-15] MEDS: Aspirin 81 MG TAB.CHEW PO (08:00)
[2020-12-15] MEDS: Cyanocobalamin (Vitamin B-12) 500 MCG TABLET PO (08:00)
[2020-12-15] MEDS: Cholecalciferol (Vitamin D3) 25 MCG TABLET 125 MCG PO (08:01)
[2020-12-15] MEDS: Loratadine 10 MG TABLET PO ×2 (08:02→08:07)
[2020-12-15 08:12] VITALS: BP 142/68; PULSE 59
[2020-12-15] MEDS: Losartan Potassium 50 MG TABLET PO (08:12)
[2020-12-15 08:13] VITALS: BP 142/68; PULSE 59
[2020-12-15] MEDS: amLODIPine Besylate 5 MG TABLET PO (08:13)
[2020-12-15 08:14] VITALS: BP 142/68; PULSE 59
[2020-12-15] MEDS: Metoprolol Tartrate 25 MG TABLET 75 MG PO ×2 (08:14→20:08)
--- NOTE | 2020-12-15 10:45 | P.PNPSI_ITS ---
Subjective Subjective Date of Service: 12/15/20 Reason For Visit: HALLUCINATIONS Interim History: The patient remains pleasantly confused but cooperative. No evidence of psychosis at this moment, no oversedation. Her BP is better since Metoprolol was increased. She was recently approved for SNF placement Review of Systems Acute medical concerns: No Medical Review of Systems: unchanged Mental Status Exam Mental Status Exam Patient Appearance: Well Grooomed Patient Orientation: Person Level of Consciousness: Awake and Disoriented Patient Behavior: Cooperative Mood Description: Calm Affect Description: Constricted Patient Cognition Impaired: Yes Ability to Follow Directions: Good Speech Pattern: Clear Memory Description: Remote Impaired, Immediate Impaired, Residential Impaired and Recent Impaired Hallucinations: None Delusions: Not Present Thought Process: Slowed Thinking Thought Content: positive for Poverty of Content Judgement: Poor Diagnostics Vital Signs (24Hr): Vital Signs - 24 hr 12/14/20 17:52 12/14/20 20:17 12/15/20 06:00 Temperature 98.1 F 97 F Pulse Rate 65 82 54 Respiratory Rate 16 Blood Pressure 166/74 H 139/67 141/65 H Pulse Oximetry 99 97 12/15/20 08:12 12/15/20 08:13 12/15/20 08:14 Temperature Pulse Rate 59 59 59 Respiratory Rate Blood Pressure 142/68 H 142/68 H 142/68 H Pulse Oximetry Body Mass Index 26.6 Labs Results: 12/05/20 19:33 12/08/20 18:32 Imaging Radiology Impressions: ITS Impressions Head CT 12/06/20 07:04 IMPRESSION: Chronic microvascular ischemic changes with no CT evidence of acute intracranial abnormality. Medications Medications Current Medications Generic Name Dose Route Start Last Admin Trade Name Freq PRN Reason Stop Dose Admin Acetaminophen 650 mg 12/06/20 16:13 12/10/20 10:02 Acetaminophen 325 Mg Tablet PO 650 mg Q6H PRN Administration Headache/Pain Mild Scale (1-3) Al Hydroxide/Mg Hydroxide 30 ml 12/06/20 16:13 Magnesium Hydrox/Alum Hydrox 30 Ml Oral.Susp PO Q6H PRN Heartburn/Nausea Amlodipine Besylate 5 mg 12/09/20 09:00 12/15/20 08:13 Amlodipine Besylate 5 Mg Tablet PO 5 mg DAILY YUNG Administration Protocol Aspirin 81 mg 12/06/20 09:00 12/15/20 08:00 Aspirin 81 Mg Tab.Chew PO 81 mg DAILY YUNG Administration Cyanocobalamin 500 mcg 12/06/20 09:00 12/15/20 08:00 Cyanocobalamin (Vitamin B-12) 500 Mcg Tablet PO 500 mcg DAILY YUNG Administration Fluticasone Propionate 2 spray 12/10/20 10:21 12/15/20 10:11 Fluticasone Propionate Nasal 16 Gm [place] NOSTRIL-B Not Given DAILY [facility] Levothyroxine Sodium 150 mcg 12/06/20 08:00 12/15/20 06:15 Levothyroxine Sodium 150 Mcg Tablet PO 150 mcg DAILY@0630 YUNG Administration Loratadine 10 mg 12/06/20 09:00 12/15/20 08:07 Loratadine 10 Mg Tablet PO 10 mg DAILY YUNG Administration Losartan Potassium 50 mg 12/06/20 09:00 12/15/20 08:12 Losartan Potassium 50 Mg Tablet PO 50 mg DAILY YUNG Administration Protocol Magnesium Hydroxide 30 ml 12/06/20 16:13 Milk Of Magnesia 30 Ml Oral.Susp PO DAILY PRN Constipation Metoprolol Tartrate 75 mg 12/14/20 21:00 12/15/20 08:14 Metoprolol Tartrate 25 Mg Tablet PO 75 mg BID YUNG Administration Protocol Risperidone 0.5 mg 12/08/20 17:00 12/14/20 18:03 Risperidone 0.5 Mg Tablet PO 0.5 mg DAILY@1700 YUNG Administration Trazodone HCl 50 mg 12/06/20 16:13 12/14/20 20:06 Trazodone Hcl 50 Mg Tablet PO 50 mg BEDTIME PRN Administration Insomnia Vitamin D 125 mcg 12/06/20 09:00 12/15/20 08:01 Cholecalciferol (Vitamin D3) 25 Mcg Tablet PO 125 mcg DAILY YUNG Administration Allergies Allergies Allergy/AdvReac Type Severity Reaction Status Date / Time olive oil [OLIVE OIL] Allergy Mild STOMACH Verified 12/05/20 19:06 UPSET Assessment & Plan Assessment & Plan (1) Dementia: Qualifiers: Alzheimer's disease onset: late-onset Dementia behavioral disturbance: with behavioral disturbance Dementia type: Alzheimer's Qualified Code(s): G30.1 - Alzheimer's disease with late onset; F02.81 - Dementia in other diseases classified elsewhere with behavioral disturbance Status: Acute Code(s): F03.90 - Unspecified dementia without behavioral disturbance (2) Hypothyroidism: Status: Acute Code(s): E03.9 - Hypothyroidism, unspecified (3) HTN (hypertension): Status: Acute Code(s): I10 - Essential (primary) hypertension Assessment and Plan: 85 year female with dementia, HTN, Hypothyrodism presently admitted to [facility] due to confusion/wth Psychosis and noted blood pressure to be high 1/HTN--BP is better this morning, variable BPs but mostly high -Keep Metoprolol 75 bid, Losartan 50 mg daily and increase Norvasc 5 mg daily 1/ Hypothyroidism--TSH is 0.9, FT4 is normal -Continue Levothyroxine and no change at this time 3/ Dementia/Psychosis--she likely has vascular dementia with added Psychosis, mangement per Jewels. B12, folate ok 4/ ALT is slightly high and should be monitored, rest of LfTs are ok 5/Lipids reviewed and unremarkable. will folllow as needed and can adjust med based on chart review. 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 Plan: - D/C Risperdal at AM but keep at pm since she has ing. Rest the same treatment. - D/C to SNF Greater than 50% of the session was spent on counseling and/or coordination of care Reason for contiued inpatient stay Substantial Risk for: inability to function, rapid decompensation and med/psych decompensation
[2020-12-15] MEDS: risperiDONE 0.5 MG TABLET PO (16:18)
[2020-12-15 18:00] VITALS: BP 140/65; PULSE 65; RESP 16; TEMP 36.7; O2SAT 97
[2020-12-15 20:08] VITALS: BP 123/65; PULSE 65
[2020-12-15] MEDS: traZODone HCL 50 MG TABLET PO (20:08)
[2020-12-16] MEDS: Levothyroxine Sodium 150 MCG TABLET PO (05:56)
[2020-12-16 06:00] VITALS: BP 155/67; PULSE 50; RESP 16; TEMP 36.1; O2SAT 96
[2020-12-16 07:00] VITALS: BMI 26.6
[2020-12-16 08:27] VITALS: BP 135/66; PULSE 58
[2020-12-16] MEDS: Metoprolol Tartrate 25 MG TABLET 75 MG PO (08:27)
[2020-12-16] MEDS: Cholecalciferol (Vitamin D3) 25 MCG TABLET 125 MCG PO (08:30)
[2020-12-16 08:31] VITALS: BP 135/66; PULSE 58
[2020-12-16] MEDS: Aspirin 81 MG TAB.CHEW PO (08:31)
[2020-12-16] MEDS: Losartan Potassium 50 MG TABLET PO (08:31)
[2020-12-16 08:32] VITALS: BP 135/66; PULSE 58
[2020-12-16] MEDS: Loratadine 10 MG TABLET PO (08:32)
[2020-12-16] MEDS: Cyanocobalamin (Vitamin B-12) 500 MCG TABLET PO (08:32)
[2020-12-16] MEDS: amLODIPine Besylate 5 MG TABLET PO (08:32)
[2020-12-16] MEDS: Fluticasone Propionate Nasal 16 GM SPRAY 2 SPRAY NOSTRIL-B (09:58)
--- NOTE | 2020-12-16 13:29 | HO.PSYCHPN ---
Subjective Subjective Date of Service: 12/16/20 Reason For Visit: HALLUCINATIONS Interim History: staff reported better sleep and HTN slightly better. 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 Hallucinations: None Delusions: Not Present Thought Process: Slowed Thinking Thought Content: positive for Poverty of Content Judgement: Poor Diagnostics Vital Signs (24Hr): Vital Signs - 24 hr 12/15/20 18:00 12/15/20 20:08 12/16/20 06:00 Temperature 98.0 F 97 F Pulse Rate 65 65 50 Respiratory Rate 16 16 Blood Pressure 140/65 H 123/65 155/67 H Pulse Oximetry 97 96 12/16/20 08:27 12/16/20 08:31 12/16/20 08:32 Temperature Pulse Rate 58 58 58 Respiratory Rate Blood Pressure 135/66 135/66 135/66 Pulse Oximetry Body Mass Index 26.6 Labs Results: 12/05/20 19:33 12/08/20 18:32 Imaging Radiology Impressions: ITS Impressions Head CT 12/06/20 07:04 IMPRESSION: Chronic microvascular ischemic changes with no CT evidence of acute intracranial abnormality. Medications Medications Current Medications Generic Name Dose Route Start Last Admin Trade Name Freq PRN Reason Stop Dose Admin Acetaminophen 650 mg 12/06/20 16:13 12/10/20 10:02 Acetaminophen 325 Mg Tablet PO 650 mg Q6H PRN Administration Headache/Pain Mild Scale (1-3) Al Hydroxide/Mg Hydroxide 30 ml 12/06/20 16:13 Magnesium Hydrox/Alum Hydrox 30 Ml Oral.Susp PO Q6H PRN Heartburn/Nausea Amlodipine Besylate 5 mg 12/09/20 09:00 12/16/20 08:32 Amlodipine Besylate 5 Mg Tablet PO 5 mg DAILY YUNG Administration Protocol Aspirin 81 mg 12/06/20 09:00 12/16/20 08:31 Aspirin 81 Mg Tab.Chew PO 81 mg DAILY YUNG Administration Cyanocobalamin 500 mcg 12/06/20 09:00 12/16/20 08:32 Cyanocobalamin (Vitamin B-12) 500 Mcg Tablet PO 500 mcg DAILY YUNG Administration Fluticasone Propionate 2 spray 12/10/20 10:21 12/16/20 09:58 Fluticasone Propionate Nasal 16 Gm [place] NOSTRIL-B 2 spray DAILY YUNG Administration Levothyroxine Sodium 150 mcg 12/06/20 08:00 12/16/20 05:56 Levothyroxine Sodium 150 Mcg Tablet PO 150 mcg DAILY@0630 YUNG Administration Loratadine 10 mg 12/06/20 09:00 12/16/20 08:32 Loratadine 10 Mg Tablet PO 10 mg DAILY YUNG Administration Losartan Potassium 50 mg 12/06/20 09:00 12/16/20 08:31 Losartan Potassium 50 Mg Tablet PO 50 mg DAILY YUNG Administration Protocol Magnesium Hydroxide 30 ml 12/06/20 16:13 Milk Of Magnesia 30 Ml Oral.Susp PO DAILY PRN Constipation Metoprolol Tartrate 100 mg 12/16/20 21:00 Metoprolol Tartrate 50 Mg Tablet PO BID YUNG Protocol Risperidone 0.5 mg 12/08/20 17:00 12/15/20 16:18 Risperidone 0.5 Mg Tablet PO 0.5 mg DAILY@1700 YUNG Administration Trazodone HCl 50 mg 12/06/20 16:13 12/15/20 20:08 Trazodone Hcl 50 Mg Tablet PO 50 mg BEDTIME PRN Administration Insomnia Vitamin D 125 mcg 12/06/20 09:00 12/16/20 08:30 Cholecalciferol (Vitamin D3) 25 Mcg Tablet PO 125 mcg DAILY YUNG Administration Allergies Allergies Allergy/AdvReac Type Severity Reaction Status Date / Time olive oil [OLIVE OIL] Allergy Mild STOMACH Verified 12/05/20 19:06 UPSET Assessment & Plan Assessment & Plan (1) Dementia: Qualifiers: Alzheimer's disease onset: late-onset Dementia behavioral disturbance: with behavioral disturbance Dementia type: Alzheimer's Qualified Code(s): G30.1 - Alzheimer's disease with late onset; F02.81 - Dementia in other diseases classified elsewhere with behavioral disturbance Status: Acute Code(s): F03.90 - Unspecified dementia without behavioral disturbance (2) Hypothyroidism: Status: Acute Code(s): E03.9 - Hypothyroidism, unspecified (3) HTN (hypertension): Status: Acute Code(s): I10 - Essential (primary) hypertension Assessment and Plan: 85 year female with dementia, HTN, Hypothyrodism presently admitted to [facility] psych due to confusion/wth Psychosis and noted blood pressure to be high 1/HTN--BP is better this morning, variable BPs but mostly high -Increase Metoprolol 100 bid, Losartan 50 mg daily and increase Norvasc 5 mg daily 1/ Hypothyroidism--TSH is 0.9, FT4 is normal -Continue Levothyroxine and no change at this time 3/ Dementia/Psychosis--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 B12, folate ok 4/ ALT is slightly high and should be monitored, rest of LfTs are ok 5/Lipids reviewed and unremarkable. will folllow as needed and can adjust med based on chart review. 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 Plan: - D/C Risperdal at AM but keep at pm since she has . Rest the same treatment. - D/C to SNF Greater than 50% of the session was spent on counseling and/or coordination of care Reason for contiued inpatient stay Substantial Risk for: inability to function, rapid decompensation and med/psych decompensation
[2020-12-16] MEDS: risperiDONE 0.5 MG TABLET PO (17:06)
[2020-12-16 18:00] VITALS: BP 120/60; PULSE 64; RESP 16; TEMP 36.1; O2SAT 97
[2020-12-16 21:34] VITALS: BP 136/59; PULSE 60
[2020-12-16] MEDS: Metoprolol Tartrate 50 MG TABLET 100 MG PO (21:34)
[2020-12-17 06:00] VITALS: BP 149/63; PULSE 55; RESP 16; TEMP 36.8; O2SAT 100
[2020-12-17] MEDS: Levothyroxine Sodium 150 MCG TABLET PO (06:05)
[2020-12-17] MEDS: Metoprolol Tartrate 50 MG TABLET 100 MG PO ×2 (08:26→20:40)
[2020-12-17] MEDS: Losartan Potassium 50 MG TABLET PO (08:26)
[2020-12-17] MEDS: Loratadine 10 MG TABLET PO (08:26)
[2020-12-17] MEDS: Aspirin 81 MG TAB.CHEW PO (08:26)
[2020-12-17] MEDS: Cholecalciferol (Vitamin D3) 25 MCG TABLET 125 MCG PO (08:26)
[2020-12-17] MEDS: Cyanocobalamin (Vitamin B-12) 500 MCG TABLET PO (08:27)
[2020-12-17] MEDS: amLODIPine Besylate 5 MG TABLET PO (08:27)
--- NOTE | 2020-12-17 09:39 | P.PNPSI_ITS ---
Subjective Subjective Date of Service: 12/17/20 Reason For Visit: HALLUCINATIONS Interim History: The patient denies hallucinations, she is pleasantly confused but acitve in the unit. Waiting for PT consult for placement on SNF Medication Compliance: Yes Review of Systems Acute medical concerns: No Medical Review of Systems: unchanged Mental Status Exam Mental Status Exam Patient Appearance: Well Grooomed Patient Orientation: Person Level of Consciousness: Awake Patient Behavior: Appropriate Mood Description: Calm and Cheerful Affect Description: Calm Patient Cognition Impaired: Yes Ability to Follow Directions: Good Speech Pattern: Clear Hallucinations: None Delusions: Not Present Thought Process: Slowed Thinking Thought Content: positive for Perseveration and positive for Poverty of Content Judgement: Fair Diagnostics Vital Signs (24Hr): Vital Signs - 24 hr 12/16/20 18:00 12/16/20 21:34 12/17/20 06:00 Temperature 96.9 F 98.2 F Pulse Rate 64 60 55 Respiratory Rate 16 16 Blood Pressure 120/60 136/59 L 149/63 H Pulse Oximetry 97 100 Body Mass Index 26.6 Labs Results: 12/05/20 19:33 12/08/20 18:32 Imaging Radiology Impressions: ITS Impressions Head CT 12/06/20 07:04 IMPRESSION: Chronic microvascular ischemic changes with no CT evidence of acute intracranial abnormality. Medications Medications Current Medications Generic Name Dose Route Start Last Admin Trade Name Freq PRN Reason Stop Dose Admin Acetaminophen 650 mg 12/06/20 16:13 12/10/20 10:02 Acetaminophen 325 Mg Tablet PO 650 mg Q6H PRN Administration Headache/Pain Mild Scale (1-3) Al Hydroxide/Mg Hydroxide 30 ml 12/06/20 16:13 Magnesium Hydrox/Alum Hydrox 30 Ml Oral.Susp PO Q6H PRN Heartburn/Nausea Amlodipine Besylate 5 mg 12/09/20 09:00 12/17/20 08:27 Amlodipine Besylate 5 Mg Tablet PO 5 mg DAILY SHANT Administration Protocol Aspirin 81 mg 12/06/20 09:00 12/17/20 08:26 Aspirin 81 Mg Tab.Chew PO 81 mg DAILY SHANT Administration Cyanocobalamin 500 mcg 12/06/20 09:00 12/17/20 08:27 Cyanocobalamin (Vitamin B-12) 500 Mcg Tablet PO 500 mcg DAILY SHANT Administration Fluticasone Propionate 2 spray 12/10/20 10:21 12/16/20 09:58 Fluticasone Propionate Nasal 16 Gm [place] NOSTRIL-B 2 spray DAILY SHANT Administration Levothyroxine Sodium 150 mcg 12/06/20 08:00 12/17/20 06:05 Levothyroxine Sodium 150 Mcg Tablet PO 150 mcg DAILY@0630 SHANT Administration Loratadine 10 mg 12/06/20 09:00 12/17/20 08:26 Loratadine 10 Mg Tablet PO 10 mg DAILY SHANT Administration Losartan Potassium 50 mg 12/06/20 09:00 12/17/20 08:26 Losartan Potassium 50 Mg Tablet PO 50 mg DAILY SHANT Administration Protocol Magnesium Hydroxide 30 ml 12/06/20 16:13 Milk Of Magnesia 30 Ml Oral.Susp PO DAILY PRN Constipation Metoprolol Tartrate 100 mg 12/16/20 21:00 12/17/20 08:26 Metoprolol Tartrate 50 Mg Tablet PO 100 mg BID SHANT Administration Protocol Risperidone 0.5 mg 12/08/20 17:00 12/16/20 17:06 Risperidone 0.5 Mg Tablet PO 0.5 mg DAILY@1700 SHANT Administration Trazodone HCl 50 mg 12/06/20 16:13 12/15/20 20:08 Trazodone Hcl 50 Mg Tablet PO 50 mg BEDTIME PRN Administration Insomnia Vitamin D 125 mcg 12/06/20 09:00 12/17/20 08:26 Cholecalciferol (Vitamin D3) 25 Mcg Tablet PO 125 mcg DAILY SHANT Administration Allergies Allergies Allergy/AdvReac Type Severity Reaction Status Date / Time olive oil [OLIVE OIL] Allergy Mild STOMACH Verified 12/05/20 19:06 UPSET Assessment & Plan Assessment & Plan (1) Dementia: Qualifiers: Alzheimer's disease onset: late-onset Dementia behavioral disturbance: with behavioral disturbance Dementia type: Alzheimer's Qualified Code(s): G30.1 - Alzheimer's disease with late onset; F02.81 - Dementia in other diseases classified elsewhere with behavioral disturbance Status: Acute Code(s): F03.90 - Unspecified dementia without behavioral disturbance (2) Hypothyroidism: Status: Acute Code(s): E03.9 - Hypothyroidism, unspecified (3) HTN (hypertension): Status: Acute Code(s): I10 - Essential (primary) hypertension Assessment and Plan: 85 year female with dementia, HTN, Hypothyrodism presently admitted to [facility] psych due to confusion/wth Psychosis and noted blood pressure to be high 1/HTN--BP is better this morning, variable BPs but mostly high -Increase Metoprolol 100 bid, Losartan 50 mg daily and increase Norvasc 5 mg daily 1/ Hypothyroidism--TSH is 0.9, FT4 is normal -Continue Levothyroxine and no change at this time 3/ Dementia/Psychosis--she likely has vascular dementia with added Psychosis, mangement per Pyshant. B12, folate ok 4/ ALT is slightly high and should be monitored, rest of LfTs are ok 5/Lipids reviewed and unremarkable. will folllow as needed and can adjust med based on chart review. 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 Plan: - D/C Risperdal at AM but keep at pm since she has ing. Rest the same treatment. - D/C to SNF Greater than 50% of the session was spent on counseling and/or coordination of care Reason for contiued inpatient stay Substantial Risk for: inability to function, rapid decompensation and med/psych decompensation
[2020-12-17 10:07] VITALS: BP 149/63; PULSE 55; O2SAT 100
[2020-12-17] MEDS: Fluticasone Propionate Nasal 16 GM SPRAY 2 SPRAY NOSTRIL-B (15:43)
[2020-12-17 18:00] VITALS: BP 158/68; PULSE 80; TEMP 36.8; O2SAT 98
[2020-12-17] MEDS: risperiDONE 0.5 MG TABLET PO (18:09)
[2020-12-17 20:40] VITALS: BP 131/65; PULSE 60
[2020-12-17 20:41] VITALS: BP 131/65; PULSE 60; O2SAT 95
[2020-12-18] VITALS (7 sets, daily range): BP systolic 118–165; BP diastolic 61–70; PULSE 58–69; RESP 12–16; TEMP 36.1–36.5; O2SAT 96–99
[2020-12-18] MEDS: Levothyroxine Sodium 150 MCG TABLET PO (06:07)
[2020-12-18] MEDS: Cyanocobalamin (Vitamin B-12) 500 MCG TABLET PO (08:32)
[2020-12-18] MEDS: Cholecalciferol (Vitamin D3) 25 MCG TABLET 125 MCG PO (08:32)
[2020-12-18] MEDS: Losartan Potassium 50 MG TABLET PO (08:33)
[2020-12-18] MEDS: Loratadine 10 MG TABLET PO (08:33)
[2020-12-18] MEDS: Aspirin 81 MG TAB.CHEW PO (08:33)
[2020-12-18] MEDS: amLODIPine Besylate 5 MG TABLET PO (08:40)
--- NOTE | 2020-12-18 10:48 | P.PNGPS_ITS ---
Subjective/Objective Subjective Date of Service: 12/18/20 Reason for Admission: Independent woman with decline in functioning- disorganized, paranoid and confused Interval History: Stabilizing still has fairly limited memory, inconsistent mauro entation, but jame hallucinations Reports to provider that she is sleeping ok - Nursing reports patient sometimes disoriented not knowing where she is - mostly Oriented to person only. Current Medications: Active Medications Generic Name Dose Route Start Last Admin Trade Name Freq PRN Reason Stop Dose Admin Acetaminophen 650 mg 12/06/20 16:13 12/10/20 10:02 Acetaminophen 325 Mg Tablet PO 650 mg Q6H PRN Administration Headache/Pain Mild Scale (1-3) Al Hydroxide/Mg Hydroxide 30 ml 12/06/20 16:13 Magnesium Hydrox/Alum Hydrox 30 Ml Oral.Susp PO Q6H PRN Heartburn/Nausea Amlodipine Besylate 5 mg 12/09/20 09:00 12/18/20 08:40 Amlodipine Besylate 5 Mg Tablet PO 5 mg DAILY YUNG Administration Protocol Aspirin 81 mg 12/06/20 09:00 12/18/20 08:33 Aspirin 81 Mg Tab.Chew PO 81 mg DAILY YUNG Administration Cyanocobalamin 500 mcg 12/06/20 09:00 12/18/20 08:32 Cyanocobalamin (Vitamin B-12) 500 Mcg Tablet PO 500 mcg DAILY YUNG Administration Fluticasone Propionate 2 spray 12/10/20 10:21 12/18/20 08:39 Fluticasone Propionate Nasal 16 Gm [place] NOSTRIL-B Not Given DAILY YUNG Levothyroxine Sodium 150 mcg 12/06/20 08:00 12/18/20 06:07 Levothyroxine Sodium 150 Mcg Tablet PO 150 mcg DAILY@0630 YUNG Administration Loratadine 10 mg 12/06/20 09:00 12/18/20 08:33 Loratadine 10 Mg Tablet PO 10 mg DAILY YUNG Administration Losartan Potassium 50 mg 12/06/20 09:00 12/18/20 08:33 Losartan Potassium 50 Mg Tablet PO 50 mg DAILY YUNG Administration Protocol Magnesium Hydroxide 30 ml 12/06/20 16:13 Milk Of Magnesia 30 Ml Oral.Susp PO DAILY PRN Constipation Metoprolol Tartrate 100 mg 12/16/20 21:00 12/18/20 09:32 Metoprolol Tartrate 50 Mg Tablet PO Not Given BID YUNG Protocol Risperidone 0.5 mg 12/08/20 17:00 12/17/20 18:09 Risperidone 0.5 Mg Tablet PO 0.5 mg DAILY@1700 YUNG Administration Trazodone HCl 50 mg 12/06/20 16:13 12/15/20 20:08 Trazodone Hcl 50 Mg Tablet PO 50 mg BEDTIME PRN Administration Insomnia Vitamin D 125 mcg 12/06/20 09:00 12/18/20 08:32 Cholecalciferol (Vitamin D3) 25 Mcg Tablet PO 125 mcg DAILY YUNG Administration Side effects from medications: No Attending groups: Yes Medication compliance: Yes Acute medical concerns: No Data Labs CBC & Chem 7: 12/05/20 19:33 12/08/20 18:32 ECG ECG interpretation date: 12/06/20 Geriatric Psychiatry - A/P Patient Data Assets:: pleasant, calm, cooperative Legal status: conditional voluntary Cognitive Capacity: Alert and Oriented x1 mood ok affect flat tp- goal oriented TC- concrete, no si/hi denies current AH/VH/PI Functional Capacity: independent ambulation Assessment and plan (1) 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
[2020-12-18] MEDS: risperiDONE 0.5 MG TABLET PO (18:30)
[2020-12-18] MEDS: Metoprolol Tartrate 50 MG TABLET 100 MG PO (20:49)
[2020-12-19 06:00] VITALS: BP 157/69; PULSE 60; RESP 14; TEMP 36.4; O2SAT 100
[2020-12-19] MEDS: Levothyroxine Sodium 150 MCG TABLET PO (06:44)
[2020-12-19] MEDS: Cholecalciferol (Vitamin D3) 25 MCG TABLET 125 MCG PO (09:30)
[2020-12-19] MEDS: Cyanocobalamin (Vitamin B-12) 500 MCG TABLET PO (09:31)
[2020-12-19] MEDS: Loratadine 10 MG TABLET PO (09:31)
[2020-12-19] MEDS: Aspirin 81 MG TAB.CHEW PO (09:31)
[2020-12-19 09:38] VITALS: BP 135/81; PULSE 60
[2020-12-19] MEDS: amLODIPine Besylate 5 MG TABLET PO (09:38)
[2020-12-19] MEDS: Metoprolol Tartrate 50 MG TABLET 100 MG PO ×2 (09:38→20:24)
[2020-12-19] MEDS: Losartan Potassium 50 MG TABLET PO (09:38)
--- NOTE | 2020-12-19 11:09 | P.PNPSI_ITS ---
Subjective Subjective Date of Service: 12/19/20 Reason For Visit: HALLUCINATIONS Subjective Notes: Conditional Voluntary Healthcare Proxy: Yes Guardianship: No Medical Problems Affecting Mental Status: Yes Interim History: Pt was found to have put on 3 pairs of pants, one pair belonging to another patient- was reluctant to let them go and thought staff were accusing her of stealing- Otherwise pleasant and cooperative, vague not really able to hold a conversation Medication Compliance: Yes Side effects from medications: No Attending Groups: Intermittent Review of Systems Acute medical concerns: No Mental Status Exam Mental Status Exam Patient Appearance: Well Grooomed Patient Orientation: Person Level of Consciousness: Awake Patient Behavior: Appropriate and Dependent Mood Description: Calm (except around issue of pants ) Affect Description: Calm Patient Cognition Impaired: Yes Ability to Follow Directions: Fair Speech Pattern: Clear and Impoverished Memory Description: Immediate Impaired and Normal for Patient Hallucinations: None (no denies) Thought Process: Disoriented Thought Content: positive for Martha and positive for Poverty of Content Depressive Symptoms: Diff. Making Decisions Judgement: Poor Diagnostics Vital Signs (24Hr): Vital Signs - 24 hr 12/18/20 18:35 12/18/20 20:49 12/19/20 06:00 Temperature 97.7 F 97.5 F Pulse Rate 69 65 60 Respiratory Rate 16 14 Blood Pressure 118/62 132/61 157/69 H Pulse Oximetry 99 100 12/19/20 09:38 Temperature Pulse Rate 60 Respiratory Rate Blood Pressure 135/81 Pulse Oximetry Body Mass Index 26.6 Labs Results: 12/05/20 19:33 12/08/20 18:32 Imaging Radiology Impressions: ITS Impressions Head CT 12/06/20 07:04 IMPRESSION: Chronic microvascular ischemic changes with no CT evidence of acute intracranial abnormality. Medications Medications Current Medications Generic Name Dose Route Start Last Admin Trade Name Freq PRN Reason Stop Dose Admin Acetaminophen 650 mg 12/06/20 16:13 12/10/20 10:02 Acetaminophen 325 Mg Tablet PO 650 mg Q6H PRN Administration Headache/Pain Mild Scale (1-3) Al Hydroxide/Mg Hydroxide 30 ml 12/06/20 16:13 Magnesium Hydrox/Alum Hydrox 30 Ml Oral.Susp PO Q6H PRN Heartburn/Nausea Amlodipine Besylate 5 mg 12/09/20 09:00 12/19/20 09:38 Amlodipine Besylate 5 Mg Tablet PO 5 mg DAILY YUNG Administration Protocol Aspirin 81 mg 12/06/20 09:00 12/19/20 09:31 Aspirin 81 Mg Tab.Chew PO 81 mg DAILY YUNG Administration Cyanocobalamin 500 mcg 12/06/20 09:00 12/19/20 09:31 Cyanocobalamin (Vitamin B-12) 500 Mcg Tablet PO 500 mcg DAILY YUNG Administration Fluticasone Propionate 2 spray 12/10/20 10:21 12/19/20 09:54 Fluticasone Propionate Nasal 16 Gm [place] NOSTRIL-B Not Given DAILY YUNG Levothyroxine Sodium 150 mcg 12/06/20 08:00 12/19/20 06:44 Levothyroxine Sodium 150 Mcg Tablet PO 150 mcg DAILY@0630 YUNG Administration Loratadine 10 mg 12/06/20 09:00 12/19/20 09:31 Loratadine 10 Mg Tablet PO 10 mg DAILY YUNG Administration Losartan Potassium 50 mg 12/06/20 09:00 12/19/20 09:38 Losartan Potassium 50 Mg Tablet PO 50 mg DAILY YUNG Administration Protocol Magnesium Hydroxide 30 ml 12/06/20 16:13 Milk Of Magnesia 30 Ml Oral.Susp PO DAILY PRN Constipation Metoprolol Tartrate 100 mg 12/16/20 21:00 12/19/20 09:38 Metoprolol Tartrate 50 Mg Tablet PO 100 mg BID YUNG Administration Protocol Risperidone 0.5 mg 12/08/20 17:00 12/18/20 18:30 Risperidone 0.5 Mg Tablet PO 0.5 mg DAILY@1700 YUNG Administration Trazodone HCl 50 mg 12/06/20 16:13 12/15/20 20:08 Trazodone Hcl 50 Mg Tablet PO 50 mg BEDTIME PRN Administration Insomnia Vitamin D 125 mcg 12/06/20 09:00 12/19/20 09:30 Cholecalciferol (Vitamin D3) 25 Mcg Tablet PO 125 mcg DAILY YUNG Administration Allergies Allergies Allergy/AdvReac Type Severity Reaction Status Date / Time olive oil [OLIVE OIL] Allergy Mild STOMACH Verified 12/05/20 19:06 UPSET Assessment & Plan Assessment & Plan (1) Dementia: Qualifiers: Alzheimer's disease onset: late-onset Dementia behavioral disturbance: with behavioral disturbance Dementia type: Alzheimer's Qualified Code(s): G30 .1 - Alzheimer's disease with late onset; F02.81 - Dementia in other diseases classified elsewhere with behavioral disturbance Status: Acute Code(s): F03.90 - Unspecified dementia without behavioral disturbance Assessment and Plan: this does not seem correct dx (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
[2020-12-19] MEDS: risperiDONE 0.5 MG TABLET PO (16:25)
[2020-12-19 17:58] VITALS: BP 133/67; PULSE 63; RESP 16; TEMP 36.6; O2SAT 99
[2020-12-19 20:24] VITALS: BP 146/64; PULSE 66
[2020-12-19 20:25] VITALS: BP 146/64; PULSE 66; RESP 16; TEMP 36.1; O2SAT 98
[2020-12-20] MEDS: traZODone HCL 50 MG TABLET PO (02:46)
[2020-12-20] MEDS: Levothyroxine Sodium 150 MCG TABLET PO (04:58)
[2020-12-20 05:01] VITALS: BP 133/90; PULSE 58; RESP 18; TEMP 36.1; O2SAT 99
[2020-12-20] MEDS: Cyanocobalamin (Vitamin B-12) 500 MCG TABLET PO (08:29)
[2020-12-20] MEDS: Aspirin 81 MG TAB.CHEW PO (08:29)
[2020-12-20] MEDS: Losartan Potassium 50 MG TABLET PO (08:29)
[2020-12-20] MEDS: amLODIPine Besylate 5 MG TABLET PO (08:29)
[2020-12-20] MEDS: Loratadine 10 MG TABLET PO (08:29)
[2020-12-20] MEDS: Metoprolol Tartrate 50 MG TABLET 100 MG PO ×2 (08:30→19:56)
--- NOTE | 2020-12-20 09:19 | P.PNPSI_ITS ---
Subjective Subjective Date of Service: 12/20/20 Reason For Visit: HALLUCINATIONS Interim History: The patient remains pleasantly confused, staff reported no evidence of psychosis at this moment. PT consult was done. Today, I met with her son and we discussed discharge planning options and she would be safer in a SNF rather Review of Systems Acute medical concerns: No Medical Review of Systems: unchanged Mental Status Exam Mental Status Exam Patient Appearance: Well Grooomed Patient Orientation: Person Level of Consciousness: Awake Patient Behavior: Cooperative Mood Description: Calm Affect Description: Constricted Patient Cognition Impaired: Yes Ability to Follow Directions: Good Speech Pattern: Clear Hallucinations: None Delusions: Not Present Thought Process: Distracted and Slowed Thinking Thought Content: positive for Circumstantial and positive for Poverty of Content Judgement: Poor Diagnostics Vital Signs (24Hr): Vital Signs - 24 hr 12/19/20 09:38 12/19/20 17:58 12/19/20 20:24 Temperature 97.8 F Pulse Rate 60 63 66 Respiratory Rate 16 Blood Pressure 135/81 133/67 146/64 H Pulse Oximetry 99 12/19/20 20:25 12/20/20 05:01 Temperature 96.9 F 97 F Pulse Rate 66 58 Respiratory Rate 16 18 Blood Pressure 146/64 H 133/90 H Pulse Oximetry 98 99 Body Mass Index 26.6 Labs Results: 12/05/20 19:33 12/08/20 18:32 Imaging Radiology Impressions: ITS Impressions Head CT 12/06/20 07:04 IMPRESSION: Chronic microvascular ischemic changes with no CT evidence of acute intracranial abnormality. Medications Medications Current Medications Generic Name Dose Route Start Last Admin Trade Name Freq PRN Reason Stop Dose Admin Acetaminophen 650 mg 12/06/20 16:13 12/10/20 10:02 Acetaminophen 325 Mg Tablet PO 650 mg Q6H PRN Administration Headache/Pain Mild Scale (1-3) Al Hydroxide/Mg Hydroxide 30 ml 12/06/20 16:13 Magnesium Hydrox/Alum Hydrox 30 Ml Oral.Susp PO Q6H PRN Heartburn/Nausea Amlodipine Besylate 5 mg 12/09/20 09:00 12/20/20 08:29 Amlodipine Besylate 5 Mg Tablet PO 5 mg DAILY YUNG Administration Protocol Aspirin 81 mg 12/06/20 09:00 12/20/20 08:29 Aspirin 81 Mg Tab.Chew PO 81 mg DAILY YUNG Administration Cyanocobalamin 500 mcg 12/06/20 09:00 12/20/20 08:29 Cyanocobalamin (Vitamin B-12) 500 Mcg Tablet PO 500 mcg DAILY YUNG Administration Fluticasone Propionate 2 spray 12/10/20 10:21 12/19/20 09:54 Fluticasone Propionate Nasal 16 Gm [place] NOSTRIL-B Not Given DAILY YUNG Levothyroxine Sodium 150 mcg 12/06/20 08:00 12/20/20 04:58 Levothyroxine Sodium 150 Mcg Tablet PO 150 mcg DAILY@0630 YUNG Administration Loratadine 10 mg 12/06/20 09:00 12/20/20 08:29 Loratadine 10 Mg Tablet PO 10 mg DAILY YUNG Administration Losartan Potassium 50 mg 12/06/20 09:00 12/20/20 08:29 Losartan Potassium 50 Mg Tablet PO 50 mg DAILY YUNG Administration Protocol Magnesium Hydroxide 30 ml 12/06/20 16:13 Milk Of Magnesia 30 Ml Oral.Susp PO DAILY PRN Constipation Metoprolol Tartrate 100 mg 12/16/20 21:00 12/20/20 08:30 Metoprolol Tartrate 50 Mg Tablet PO 100 mg BID YUNG Administration Protocol Risperidone 0.5 mg 12/08/20 17:00 12/19/20 16:25 Risperidone 0.5 Mg Tablet PO 0.5 mg DAILY@1700 YUNG Administration Trazodone HCl 50 mg 12/06/20 16:13 12/20/20 02:46 Trazodone Hcl 50 Mg Tablet PO 50 mg BEDTIME PRN Administration Insomnia Vitamin D 125 mcg 12/06/20 09:00 12/19/20 09:30 Cholecalciferol (Vitamin D3) 25 Mcg Tablet PO 125 mcg DAILY YUNG Administration Allergies Allergies Allergy/AdvReac Type Severity Reaction Status Date / Time olive oil [OLIVE OIL] Allergy Mild STOMACH Verified 12/05/20 19:06 UPSET Assessment & Plan Assessment & Plan (1) Dementia: Qualifiers: Alzheimer's disease onset: late-onset Dementia behavioral disturbance: with behavioral disturbance Dementia type: Alzheimer's Qualified Code(s): G30.1 - Alzheimer's disease with late onset; F02.81 - Dementia in other diseases classified elsewhere with behavioral disturbance Status: Acute Code(s): F03.90 - Unspecified dementia without behavioral disturbance Assessment and Plan: this does not seem correct dx (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
[2020-12-20] MEDS: Cholecalciferol (Vitamin D3) 25 MCG TABLET 125 MCG PO (11:17)
[2020-12-20 19:50] VITALS: BP 184/74; PULSE 61; RESP 18; TEMP 35.9; O2SAT 97
[2020-12-20 19:56] VITALS: BP 184/74; PULSE 61
[2020-12-20] MEDS: Acetaminophen 325 MG TABLET 650 MG PO (20:03)
[2020-12-21 06:00] VITALS: BP 165/70; PULSE 54; RESP 18; TEMP 5320; TEMP 9608; O2SAT 98
[2020-12-21] MEDS: Levothyroxine Sodium 150 MCG TABLET PO (06:07)
[2020-12-21] MEDS: Loratadine 10 MG TABLET PO (08:12)
[2020-12-21] MEDS: Cholecalciferol (Vitamin D3) 25 MCG TABLET 125 MCG PO (08:12)
[2020-12-21] MEDS: Aspirin 81 MG TAB.CHEW PO (08:12)
[2020-12-21 08:13] VITALS: BP 143/73; PULSE 60
[2020-12-21] MEDS: Metoprolol Tartrate 50 MG TABLET 100 MG PO (08:13)
[2020-12-21] MEDS: Cyanocobalamin (Vitamin B-12) 500 MCG TABLET PO (08:13)
[2020-12-21 08:14] VITALS: BP 143/73; PULSE 60
[2020-12-21] MEDS: amLODIPine Besylate 5 MG TABLET PO (08:14)
[2020-12-21] MEDS: Losartan Potassium 50 MG TABLET PO (08:14)
--- NOTE | 2020-12-21 11:29 | HO.PSYCHPN ---
Subjective Subjective Date of Service: 12/21/20 Reason For Visit: HALLUCINATIONS Interim History: The patient remains pleasantly confused, no new psychotic symptoms Review of Systems Acute medical concerns: No Medical Review of Systems: unchanged Mental Status Exam Mental Status Exam Patient Appearance: Well Grooomed Patient Orientation: Person Level of Consciousness: Awake and Disoriented Patient Behavior: Appropriate Mood Description: Calm Affect Description: Constricted Patient Cognition Impaired: Yes Ability to Follow Directions: Fair Speech Pattern: Clear Memory Description: Intact Hallucinations: None Delusions: Not Present Thought Process: Distracted Thought Content: positive for Perseveration and positive for Thought Blocking Judgement: Fair Diagnostics Vital Signs (24Hr): Vital Signs - 24 hr 12/20/20 19:50 12/20/20 19:56 12/21/20 06:00 Temperature 96.6 F L 9608 F H Pulse Rate 61 61 54 Respiratory Rate 18 18 Blood Pressure 184/74 H 184/74 H 165/70 H Pulse Oximetry 97 98 12/21/20 08:13 12/21/20 08:14 Temperature Pulse Rate 60 60 Respiratory Rate Blood Pressure 143/73 H 143/73 H Pulse Oximetry Body Mass Index 26.6 Labs Results: 12/05/20 19:33 12/08/20 18:32 Imaging Radiology Impressions: ITS Impressions Head CT 12/06/20 07:04 IMPRESSION: Chronic microvascular ischemic changes with no CT evidence of acute intracranial abnormality. Medications Medications Current Medications Generic Name Dose Route Start Last Admin Trade Name Freq PRN Reason Stop Dose Admin Acetaminophen 650 mg 12/06/20 16:13 12/20/20 20:03 Acetaminophen 325 Mg Tablet PO 650 mg Q6H PRN Administration Headache/Pain Mild Scale (1-3) Al Hydroxide/Mg Hydroxide 30 ml 12/06/20 16:13 Magnesium Hydrox/Alum Hydrox 30 Ml Oral.Susp PO Q6H PRN Heartburn/Nausea Amlodipine Besylate 5 mg 12/09/20 09:00 12/21/20 08:14 Amlodipine Besylate 5 Mg Tablet PO 5 mg DAILY YUNG Administration Protocol Aspirin 81 mg 12/06/20 09:00 12/21/20 08:12 Aspirin 81 Mg Tab.Chew PO 81 mg DAILY YUNG Administration Cyanocobalamin 500 mcg 12/06/20 09:00 12/21/20 08:13 Cyanocobalamin (Vitamin B-12) 500 Mcg Tablet PO 500 mcg DAILY YUNG Administration Fluticasone Propionate 2 spray 12/10/20 10:21 12/21/20 08:15 Fluticasone Propionate Nasal 16 Gm [place] NOSTRIL-B Not Given DAILY YUNG Levothyroxine Sodium 150 mcg 12/06/20 08:00 12/21/20 06:07 Levothyroxine Sodium 150 Mcg Tablet PO 150 mcg DAILY@0630 YUNG Administration Loratadine 10 mg 12/06/20 09:00 12/21/20 08:12 Loratadine 10 Mg Tablet PO 10 mg DAILY YUNG Administration Losartan Potassium 50 mg 12/06/20 09:00 12/21/20 08:14 Losartan Potassium 50 Mg Tablet PO 50 mg DAILY YUNG Administration Protocol Magnesium Hydroxide 30 ml 12/06/20 16:13 Milk Of Magnesia 30 Ml Oral.Susp PO DAILY PRN Constipation Metoprolol Tartrate 100 mg 12/16/20 21:00 12/21/20 08:13 Metoprolol Tartrate 50 Mg Tablet PO 100 mg BID YUNG Administration Protocol Risperidone 0.5 mg 12/08/20 17:00 12/20/20 17:16 Risperidone 0.5 Mg Tablet PO Not Given DAILY@1700 [facility] Trazodone HCl 50 mg 12/06/20 16:13 12/20/20 02:46 Trazodone Hcl 50 Mg Tablet PO 50 mg BEDTIME PRN Administration Insomnia Vitamin D 125 mcg 12/06/20 09:00 12/21/20 08:12 Cholecalciferol (Vitamin D3) 25 Mcg Tablet PO 125 mcg DAILY YUNG Administration Allergies Allergies Allergy/AdvReac Type Severity Reaction Status Date / Time olive oil [OLIVE OIL] Allergy Mild STOMACH Verified 12/05/20 19:06 UPSET Assessment & Plan Assessment & Plan (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
[2020-12-21] MEDS: risperiDONE 0.5 MG TABLET PO (16:56)
--- NOTE | 2020-12-21 17:02 | PC.NURSE ---
Patient remains oriented to self only. Ambulates with cane. Appears steady without it. Unable to engage in 1:1. Does not have appropriate cognitive ability or memory to provide answers. Has been wearing clothes in layers - 3- 4 shirts. 3 pairs pants. Calm and cooperative. Med compliant.
[2020-12-21 18:00] VITALS: BP 137/65; PULSE 59; RESP 16; TEMP 37.1; O2SAT 100
[2020-12-21 20:21] VITALS: BP 138/65; PULSE 56
[2020-12-22] MEDS: Levothyroxine Sodium 150 MCG TABLET PO (05:49)
[2020-12-22 06:00] VITALS: BP 138/65; PULSE 58; RESP 12; TEMP 36.4; O2SAT 100
[2020-12-22 08:12] VITALS: BP 170/73; PULSE 56
[2020-12-22] MEDS: Losartan Potassium 50 MG TABLET PO (08:12)
[2020-12-22] MEDS: Cholecalciferol (Vitamin D3) 25 MCG TABLET 125 MCG PO (08:12)
[2020-12-22] MEDS: Aspirin 81 MG TAB.CHEW PO (08:13)
[2020-12-22] MEDS: amLODIPine Besylate 5 MG TABLET PO (08:13)
[2020-12-22] MEDS: Cyanocobalamin (Vitamin B-12) 500 MCG TABLET PO (08:13)
[2020-12-22] MEDS: Loratadine 10 MG TABLET PO (08:13)
[2020-12-22] MEDS: Fluticasone Propionate Nasal 16 GM SPRAY 2 SPRAY NOSTRIL-B (08:14)
[2020-12-22 09:55] VITALS: BP 134/63; PULSE 62
[2020-12-22] MEDS: Metoprolol Tartrate 50 MG TABLET 100 MG PO (09:55)
--- NOTE | 2020-12-22 12:00 | P.PNPSI_ITS ---
Subjective Subjective Date of Service: 12/22/20 Reason For Visit: HALLUCINATIONS Interim History: She remains pleasantly confused, no evidence of psychotic symptoms. Review of Systems Acute medical concerns: No Medical Review of Systems: unchanged Mental Status Exam Mental Status Exam Patient Appearance: Well Grooomed Patient Orientation: Person Level of Consciousness: Awake Patient Behavior: Appropriate and Cooperative Mood Description: Calm Affect Description: Calm Patient Cognition Impaired: Yes Ability to Follow Directions: Good Speech Pattern: Clear Hallucinations: None Delusions: Not Present Thought Process: Intact and Linear Thought Content: positive for Circumstantial Judgement: Fair Diagnostics Vital Signs (24Hr): Vital Signs - 24 hr 12/21/20 18:00 12/21/20 20:21 12/22/20 06:00 Temperature 98.7 F 97.5 F Pulse Rate 59 56 58 Respiratory Rate 16 12 Blood Pressure 137/65 138/65 138/65 Pulse Oximetry 100 100 12/22/20 08:12 12/22/20 09:55 Temperature Pulse Rate 56 62 Respiratory Rate Blood Pressure 170/73 H 134/63 Pulse Oximetry Body Mass Index 26.6 Labs Results: 12/05/20 19:33 12/08/20 18:32 Imaging Radiology Impressions: ITS Impressions Head CT 12/06/20 07:04 IMPRESSION: Chronic microvascular ischemic changes with no CT evidence of acute intracranial abnormality. Medications Medications Current Medications Generic Name Dose Route Start Last Admin Trade Name Freq PRN Reason Stop Dose Admin Acetaminophen 650 mg 12/06/20 16:13 12/20/20 20:03 Acetaminophen 325 Mg Tablet PO 650 mg Q6H PRN Administration Headache/Pain Mild Scale (1-3) Al Hydroxide/Mg Hydroxide 30 ml 12/06/20 16:13 Magnesium Hydrox/Alum Hydrox 30 Ml Oral.Susp PO Q6H PRN Heartburn/Nausea Amlodipine Besylate 5 mg 12/09/20 09:00 12/22/20 08:13 Amlodipine Besylate 5 Mg Tablet PO 5 mg DAILY YUNG Administration Protocol Aspirin 81 mg 12/06/20 09:00 12/22/20 08:13 Aspirin 81 Mg Tab.Chew PO 81 mg DAILY YUNG Administration Cyanocobalamin 500 mcg 12/06/20 09:00 12/22/20 08:13 Cyanocobalamin (Vitamin B-12) 500 Mcg Tablet PO 500 mcg DAILY YUNG Administration Fluticasone Propionate 2 spray 12/10/20 10:21 12/22/20 08:14 Fluticasone Propionate Nasal 16 Gm [place] NOSTRIL-B 2 spray DAILY YUNG Administration Levothyroxine Sodium 150 mcg 12/06/20 08:00 12/22/20 05:49 Levothyroxine Sodium 150 Mcg Tablet PO 150 mcg DAILY@0630 YUNG Administration Loratadine 10 mg 12/06/20 09:00 12/22/20 08:13 Loratadine 10 Mg Tablet PO 10 mg DAILY YUNG Administration Losartan Potassium 50 mg 12/06/20 09:00 12/22/20 08:12 Losartan Potassium 50 Mg Tablet PO 50 mg DAILY YUNG Administration Protocol Magnesium Hydroxide 30 ml 12/06/20 16:13 Milk Of Magnesia 30 Ml Oral.Susp PO DAILY PRN Constipation Metoprolol Tartrate 100 mg 12/16/20 21:00 12/22/20 09:55 Metoprolol Tartrate 50 Mg Tablet PO 100 mg BID YUNG Administration Protocol Risperidone 0.5 mg 12/08/20 17:00 12/21/20 16:56 Risperidone 0.5 Mg Tablet PO 0.5 mg DAILY@1700 YUNG Administration Trazodone HCl 50 mg 12/06/20 16:13 12/20/20 02:46 Trazodone Hcl 50 Mg Tablet PO 50 mg BEDTIME PRN Administration Insomnia Vitamin D 125 mcg 12/06/20 09:00 12/22/20 08:12 Cholecalciferol (Vitamin D3) 25 Mcg Tablet PO 125 mcg DAILY YUNG Administration Allergies Allergies Allergy/AdvReac Type Severity Reaction Status Date / Time olive oil [OLIVE OIL] Allergy Mild STOMACH Verified 12/05/20 19:06 UPSET Assessment & Plan Assessment & Plan (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
[2020-12-22] MEDS: risperiDONE 0.5 MG TABLET PO (16:51)
[2020-12-22 17:49] VITALS: BP 138/63; PULSE 62; RESP 18; TEMP 36.4; O2SAT 97
[2020-12-22 21:33] VITALS: BP 135/63; PULSE 57
[2020-12-23] MEDS: Levothyroxine Sodium 150 MCG TABLET PO (05:53)
[2020-12-23 06:00] VITALS: BP 152/71; PULSE 63; RESP 12; TEMP 36.1; O2SAT 99
[2020-12-23 07:00] VITALS: BMI 27.6
[2020-12-23 08:16] VITALS: BP 155/70; PULSE 61
[2020-12-23] MEDS: Cholecalciferol (Vitamin D3) 25 MCG TABLET 125 MCG PO (08:16)
[2020-12-23] MEDS: Cyanocobalamin (Vitamin B-12) 500 MCG TABLET PO (08:16)
[2020-12-23] MEDS: Loratadine 10 MG TABLET PO (08:16)
[2020-12-23] MEDS: Losartan Potassium 50 MG TABLET PO (08:16)
[2020-12-23] MEDS: Aspirin 81 MG TAB.CHEW PO (08:16)
[2020-12-23 08:17] VITALS: BP 155/70; PULSE 61
[2020-12-23] MEDS: amLODIPine Besylate 5 MG TABLET PO (08:17)
[2020-12-23] MEDS: Metoprolol Tartrate 50 MG TABLET 100 MG PO ×2 (08:17→19:56)
[2020-12-23] MEDS: Fluticasone Propionate Nasal 16 GM SPRAY 2 SPRAY NOSTRIL-B (08:24)
[2020-12-23 10:00] VITALS: BP 148/70; PULSE 61; RESP 16; TEMP 36.5; O2SAT 97
--- NOTE | 2020-12-23 10:58 | HO.PSYCHPN ---
Subjective Subjective Date of Service: 12/23/20 Reason For Visit: HALLUCINATIONS Interim History: The patient does not have any psychotic symptoms at this moment, she is pleasantly confused. Mental Status Exam Mental Status Exam Patient Appearance: Well Grooomed Patient Orientation: Person Level of Consciousness: Awake Patient Behavior: Appropriate Mood Description: Calm Affect Description: Withdrawn Patient Cognition Impaired: Yes Ability to Follow Directions: Good Speech Pattern: Clear Memory Description: Intact Hallucinations: None Delusions: Not Present Thought Process: Slowed Thinking Thought Content: positive for Thought Blocking Judgement: Fair Diagnostics Vital Signs (24Hr): Vital Signs - 24 hr 12/22/20 17:49 12/22/20 21:33 12/23/20 06:00 Temperature 97.6 F 96.9 F Pulse Rate 62 57 63 Respiratory Rate 18 12 Blood Pressure 138/63 135/63 152/71 H Pulse Oximetry 97 99 12/23/20 08:16 12/23/20 08:17 Temperature Pulse Rate 61 61 Respiratory Rate Blood Pressure 155/70 H 155/70 H Pulse Oximetry Body Mass Index 27.6 Labs Results: 12/05/20 19:33 12/08/20 18:32 Imaging Radiology Impressions: ITS Impressions Head CT 12/06/20 07:04 IMPRESSION: Chronic microvascular ischemic changes with no CT evidence of acute intracranial abnormality. Medications Medications Current Medications Generic Name Dose Route Start Last Admin Trade Name Carlosq PRN Reason Stop Dose Admin Acetaminophen 650 mg 12/06/20 16:13 12/20/20 20:03 Acetaminophen 325 Mg Tablet PO 650 mg Q6H PRN Administration Headache/Pain Mild Scale (1-3) Al Hydroxide/Mg Hydroxide 30 ml 12/06/20 16:13 Magnesium Hydrox/Alum Hydrox 30 Ml Oral.Susp PO Q6H PRN Heartburn/Nausea Amlodipine Besylate 5 mg 12/09/20 09:00 12/23/20 08:17 Amlodipine Besylate 5 Mg Tablet PO 5 mg DAILY YUNG Administration Protocol Aspirin 81 mg 12/06/20 09:00 12/23/20 08:16 Aspirin 81 Mg Tab.Chew PO 81 mg DAILY YUNG Administration Cyanocobalamin 500 mcg 12/06/20 09:00 12/23/20 08:16 Cyanocobalamin (Vitamin B-12) 500 Mcg Tablet PO 500 mcg DAILY YUNG Administration Fluticasone Propionate 2 spray 12/10/20 10:21 12/23/20 08:24 Fluticasone Propionate Nasal 16 Gm [place] NOSTRIL-B 2 spray DAILY YUNG Administration Levothyroxine Sodium 150 mcg 12/06/20 08:00 12/23/20 05:53 Levothyroxine Sodium 150 Mcg Tablet PO 150 mcg DAILY@0630 YUNG Administration Loratadine 10 mg 12/06/20 09:00 12/23/20 08:16 Loratadine 10 Mg Tablet PO 10 mg DAILY YUNG Administration Losartan Potassium 50 mg 12/06/20 09:00 12/23/20 08:16 Losartan Potassium 50 Mg Tablet PO 50 mg DAILY YUNG Administration Protocol Magnesium Hydroxide 30 ml 12/06/20 16:13 Milk Of Magnesia 30 Ml Oral.Susp PO DAILY PRN Constipation Metoprolol Tartrate 100 mg 12/16/20 21:00 12/23/20 08:17 Metoprolol Tartrate 50 Mg Tablet PO 100 mg BID YUNG Administration Protocol Risperidone 0.5 mg 12/08/20 17:00 12/22/20 16:51 Risperidone 0.5 Mg Tablet PO 0.5 mg DAILY@1700 YUNG Administration Trazodone HCl 50 mg 12/06/20 16:13 12/20/20 02:46 Trazodone Hcl 50 Mg Tablet PO 50 mg BEDTIME PRN Administration Insomnia Vitamin D 125 mcg 12/06/20 09:00 12/23/20 08:16 Cholecalciferol (Vitamin D3) 25 Mcg Tablet PO 125 mcg DAILY YUNG Administration Allergies Allergies Allergy/AdvReac Type Severity Reaction Status Date / Time olive oil [OLIVE OIL] Allergy Mild STOMACH Verified 12/05/20 19:06 UPSET Assessment & Plan Assessment & Plan (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
[2020-12-23] MEDS: risperiDONE 0.5 MG TABLET PO (17:12)
[2020-12-23 18:00] VITALS: BP 151/65; PULSE 63; RESP 16; TEMP 36.1; O2SAT 97
[2020-12-23 19:56] VITALS: BP 132/69; PULSE 64
[2020-12-24] VITALS (9 sets, daily range): BP systolic 117–170; BP diastolic 59–76; PULSE 56–66; RESP 16; TEMP 35.9–36.5; O2SAT 97–99
[2020-12-24] MEDS: Levothyroxine Sodium 150 MCG TABLET PO (06:01)
[2020-12-24] MEDS: amLODIPine Besylate 5 MG TABLET PO (08:15)
[2020-12-24] MEDS: Aspirin 81 MG TAB.CHEW PO (08:16)
[2020-12-24] MEDS: Fluticasone Propionate Nasal 16 GM SPRAY 2 SPRAY NOSTRIL-B (08:16)
[2020-12-24] MEDS: Cholecalciferol (Vitamin D3) 25 MCG TABLET 125 MCG PO (08:17)
[2020-12-24] MEDS: Loratadine 10 MG TABLET PO (08:19)
[2020-12-24] MEDS: Losartan Potassium 50 MG TABLET PO (08:19)
[2020-12-24] MEDS: Cyanocobalamin (Vitamin B-12) 500 MCG TABLET PO (08:19)
[2020-12-24] MEDS: Metoprolol Tartrate 50 MG TABLET 100 MG PO ×2 (08:20→19:49)
--- NOTE | 2020-12-24 11:54 | HO.PSYCHPN ---
Subjective Subjective Date of Service: 12/24/20 Reason For Visit: HALLUCINATIONS Interim History: The patient has been alert and staff has not noitced psychotic symptoms. She attended to some gorups. Mental Status Exam Mental Status Exam Patient Appearance: Well Grooomed Patient Orientation: Person Level of Consciousness: Awake Patient Behavior: Appropriate Mood Description: Withdrawn Affect Description: Appropriate and Constricted Patient Cognition Impaired: Yes Ability to Follow Directions: Good Speech Pattern: Clear Memory Description: Intact Hallucinations: None Thought Process: Distracted Thought Content: positive for Preoccupation Judgement: Fair Diagnostics Vital Signs (24Hr): Vital Signs - 24 hr 12/23/20 18:00 12/23/20 19:56 12/24/20 06:00 Temperature 97.0 F 96.9 F Pulse Rate 63 64 56 Respiratory Rate 16 16 Blood Pressure 151/65 H 132/69 133/62 Pulse Oximetry 97 99 12/24/20 08:00 12/24/20 08:15 12/24/20 08:19 Temperature 97.7 F Pulse Rate 61 61 61 Respiratory Rate 16 Blood Pressure 148/70 H 149/70 H 148/70 H Pulse Oximetry 97 12/24/20 08:20 Temperature Pulse Rate 61 Respiratory Rate Blood Pressure 148/70 H Pulse Oximetry Body Mass Index 27.6 Labs Results: 12/05/20 19:33 12/08/20 18:32 Imaging Radiology Impressions: ITS Impressions Head CT 12/06/20 07:04 IMPRESSION: Chronic microvascular ischemic changes with no CT evidence of acute intracranial abnormality. Medications Medications Current Medications Generic Name Dose Route Start Last Admin Trade Name Freq PRN Reason Stop Dose Admin Acetaminophen 650 mg 12/06/20 16:13 12/20/20 20:03 Acetaminophen 325 Mg Tablet PO 650 mg Q6H PRN Administration Headache/Pain Mild Scale (1-3) Al Hydroxide/Mg Hydroxide 30 ml 12/06/20 16:13 Magnesium Hydrox/Alum Hydrox 30 Ml Oral.Susp PO Q6H PRN Heartburn/Nausea Amlodipine Besylate 5 mg 12/09/20 09:00 12/24/20 08:15 Amlodipine Besylate 5 Mg Tablet PO 5 mg DAILY YUNG Administration Protocol Aspirin 81 mg 12/06/20 09:00 12/24/20 08:16 Aspirin 81 Mg Tab.Chew PO 81 mg DAILY YUNG Administration Cyanocobalamin 500 mcg 12/06/20 09:00 12/24/20 08:19 Cyanocobalamin (Vitamin B-12) 500 Mcg Tablet PO 500 mcg DAILY YUNG Administration Fluticasone Propionate 2 spray 12/10/20 10:21 12/24/20 08:16 Fluticasone Propionate Nasal 16 Gm [place] NOSTRIL-B 2 spray DAILY YUNG Administration Levothyroxine Sodium 150 mcg 12/06/20 08:00 12/24/20 06:01 Levothyroxine Sodium 150 Mcg Tablet PO 150 mcg DAILY@0630 YUNG Administration Loratadine 10 mg 12/06/20 09:00 12/24/20 08:19 Loratadine 10 Mg Tablet PO 10 mg DAILY YUNG Administration Losartan Potassium 50 mg 12/06/20 09:00 12/24/20 08:19 Losartan Potassium 50 Mg Tablet PO 50 mg DAILY YUNG Administration Protocol Magnesium Hydroxide 30 ml 12/06/20 16:13 Milk Of Magnesia 30 Ml Oral.Susp PO DAILY PRN Constipation Metoprolol Tartrate 100 mg 12/16/20 21:00 12/24/20 08:20 Metoprolol Tartrate 50 Mg Tablet PO 100 mg BID YUNG Administration Protocol Risperidone 0.5 mg 12/08/20 17:00 12/23/20 17:12 Risperidone 0.5 Mg Tablet PO 0.5 mg DAILY@1700 YUNG Administration Trazodone HCl 50 mg 12/06/20 16:13 12/20/20 02:46 Trazodone Hcl 50 Mg Tablet PO 50 mg BEDTIME PRN Administration Insomnia Vitamin D 125 mcg 12/06/20 09:00 12/24/20 08:17 Cholecalciferol (Vitamin D3) 25 Mcg Tablet PO 125 mcg DAILY YUNG Administration Allergies Allergies Allergy/AdvReac Type Severity Reaction Status Date / Time olive oil [OLIVE OIL] Allergy Mild STOMACH Verified 12/05/20 19:06 UPSET Assessment & Plan Assessment & Plan (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
[2020-12-24] MEDS: risperiDONE 0.5 MG TABLET PO (17:23)
[2020-12-24] MEDS: amLODIPine Besylate 2.5 MG TABLET PO (18:26)
[2020-12-24] MEDS: traZODone HCL 50 MG TABLET PO (19:49)
[2020-12-25] MEDS: Levothyroxine Sodium 150 MCG TABLET PO (05:24)
[2020-12-25 05:31] VITALS: BP 138/74; PULSE 54; RESP 18; TEMP 36.1; O2SAT 98
[2020-12-25] MEDS: Fluticasone Propionate Nasal 16 GM SPRAY 2 SPRAY NOSTRIL-B (09:00)
[2020-12-25] MEDS: Aspirin 81 MG TAB.CHEW PO (09:14)
[2020-12-25] MEDS: Cholecalciferol (Vitamin D3) 25 MCG TABLET 125 MCG PO (09:14)
[2020-12-25] MEDS: amLODIPine Besylate 5 MG TABLET PO (09:14)
[2020-12-25] MEDS: Metoprolol Tartrate 50 MG TABLET 100 MG PO ×2 (09:14→19:52)
[2020-12-25] MEDS: Cyanocobalamin (Vitamin B-12) 500 MCG TABLET PO (09:14)
[2020-12-25] MEDS: Loratadine 10 MG TABLET PO (09:14)
[2020-12-25] MEDS: Losartan Potassium 50 MG TABLET PO (09:15)
--- NOTE | 2020-12-25 14:13 | P.PNPSI_ITS ---
Subjective Subjective Date of Service: 12/25/20 Reason For Visit: HALLUCINATIONS Interim History: presents with obvious cognitive impairments. When asked how long she has been here for, [place] did know anybody could not remember when she relocated. As [place] about the hospital and she perseverated on being a [place]. 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 Denies hallucinations. Denied depression or suicidal thoughts. Reports she is being treated well. Medication Compliance: Yes Review of Systems Review of Systems Unremarkable Mental Status Exam Mental Status Exam Narrative: pleasant and engaged. Fairly presented. There is some food and clothing. Obvious cognitive impairment. Denied depression. Denied SI, paranoi a or hallucinations. No agitation. Insight and judgment limited Diagnostics Vital Signs (24Hr): Vital Signs - 24 hr 12/24/20 17:51 12/24/20 18:01 12/24/20 18:26 Temperature 96.6 F L Pulse Rate 65 66 65 Respiratory Rate 16 Blood Pressure 170/76 H 168/72 H 170/76 H Pulse Oximetry 99 97 12/24/20 19:49 12/25/20 05:31 Temperature 96.9 F Pulse Rate 64 54 Respiratory Rate 18 Blood Pressure 117/59 L 138/74 Pulse Oximetry 98 Body Mass Index 27.6 Labs Results: 12/05/20 19:33 12/08/20 18:32 Imaging Radiology Impressions: ITS Impressions Head CT 12/06/20 07:04 IMPRESSION: Chronic microvascular ischemic changes with no CT evidence of acute intracranial abnormality. Medications Medications Current Medications Generic Name Dose Route Start Last Admin Trade Name Freq PRN Reason Stop Dose Admin Acetaminophen 650 mg 12/06/20 16:13 12/20/20 20:03 Acetaminophen 325 Mg Tablet PO 650 mg Q6H PRN Administration Headache/Pain Mild Scale (1-3) Al Hydroxide/Mg Hydroxide 30 ml 12/06/20 16:13 Magnesium Hydrox/Alum Hydrox 30 Ml Oral.Susp PO Q6H PRN Heartburn/Nausea Amlodipine Besylate 5 mg 12/09/20 09:00 12/25/20 09:14 Amlodipine Besylate 5 Mg Tablet PO 5 mg DAILY YUNG Administration Protocol Aspirin 81 mg 12/06/20 09:00 12/25/20 09:14 Aspirin 81 Mg Tab.Chew PO 81 mg DAILY YUNG Administration Cyanocobalamin 500 mcg 12/06/20 09:00 12/25/20 09:14 Cyanocobalamin (Vitamin B-12) 500 Mcg Tablet PO 500 mcg DAILY YUNG Administration Fluticasone Propionate 2 spray 12/10/20 10:21 12/24/20 08:16 Fluticasone Propionate Nasal 16 Gm [place] NOSTRIL-B 2 spray DAILY YUNG Administration Levothyroxine Sodium 150 mcg 12/06/20 08:00 12/25/20 05:24 Levothyroxine Sodium 150 Mcg Tablet PO 150 mcg DAILY@0630 YUNG Administration Loratadine 10 mg 12/06/20 09:00 12/25/20 09:14 Loratadine 10 Mg Tablet PO 10 mg DAILY YUNG Administration Losartan Potassium 50 mg 12/06/20 09:00 12/25/20 09:15 Losartan Potassium 50 Mg Tablet PO 50 mg DAILY YUNG Administration Protocol Magnesium Hydroxide 30 ml 12/06/20 16:13 Milk Of Magnesia 30 Ml Oral.Susp PO DAILY PRN Constipation Metoprolol Tartrate 100 mg 12/16/20 21:00 12/25/20 09:14 Metoprolol Tartrate 50 Mg Tablet PO 100 mg BID YUNG Administration Protocol Risperidone 0.5 mg 12/08/20 17:00 12/24/20 17:23 Risperidone 0.5 Mg Tablet PO 0.5 mg DAILY@1700 YUNG Administration Trazodone HCl 50 mg 12/06/20 16:13 12/24/20 19:49 Trazodone Hcl 50 Mg Tablet PO 50 mg BEDTIME PRN Administration Insomnia Vitamin D 125 mcg 12/06/20 09:00 12/25/20 09:14 Cholecalciferol (Vitamin D3) 25 Mcg Tablet PO 125 mcg DAILY YUNG Administration Allergies Allergies Allergy/AdvReac Type Severity Reaction Status Date / Time olive oil [OLIVE OIL] Allergy Mild STOMACH Verified 12/05/20 19:06 UPSET Assessment & Plan Assessment & Plan (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
[2020-12-25] MEDS: risperiDONE 0.5 MG TABLET PO (17:04)
[2020-12-25 18:00] VITALS: BP 135/63; PULSE 65; RESP 17; TEMP 36.5; O2SAT 96
[2020-12-25 19:52] VITALS: BP 129/64; PULSE 65
[2020-12-25] MEDS: traZODone HCL 50 MG TABLET PO (19:52)
[2020-12-26 06:00] VITALS: BP 126/61; PULSE 61; RESP 18; TEMP 36.1; O2SAT 98
[2020-12-26] MEDS: Levothyroxine Sodium 150 MCG TABLET PO (06:02)
[2020-12-26] MEDS: Cyanocobalamin (Vitamin B-12) 500 MCG TABLET PO (09:22)
[2020-12-26] MEDS: Loratadine 10 MG TABLET PO (09:22)
[2020-12-26] MEDS: Fluticasone Propionate Nasal 16 GM SPRAY 2 SPRAY NOSTRIL-B (09:22)
[2020-12-26 09:23] VITALS: BP 126/61; PULSE 61
[2020-12-26] MEDS: Metoprolol Tartrate 50 MG TABLET 100 MG PO ×2 (09:23→20:48)
[2020-12-26] MEDS: amLODIPine Besylate 5 MG TABLET PO (09:24)
[2020-12-26] MEDS: Cholecalciferol (Vitamin D3) 25 MCG TABLET 125 MCG PO (09:24)
[2020-12-26] MEDS: Aspirin 81 MG TAB.CHEW PO (09:24)
[2020-12-26] MEDS: Losartan Potassium 50 MG TABLET PO (09:24)
--- NOTE | 2020-12-26 14:49 | HO.PSYCHPN ---
Subjective Subjective Date of Service: 12/26/20 Reason For Visit: HALLUCINATIONS Interim History: continues to present with obvious cognitive impairment. Pleasant. Denied having any concerns or problems. Denied depression or suicidal thoughts. Reports she is being treated well. Review of Systems Review of Systems Unremarkable Yes all other systems are reviewed and are negative and Unobtainable due to mental status Mental Status Exam Mental Status Exam Narrative: pleasant and engaged. Fairly presented. There is some food and clothing. Obvious cognitive impairment. Denied depression. Denied SI, paranoia or hallucinations. No agitation. Insight and judgment limited Patient Appearance: Well Grooomed Patient Orientation: Person Level of Consciousness: Awake Patient Behavior: Appropriate Mood Description: Withdrawn Affect Description: Appropriate and Constricted Patient Cognition Impaired: Yes Ability to Follow Directions: Good Speech Pattern: Clear Memory Description: Intact Diagnostics Vital Signs (24Hr): Vital Signs - 24 hr 12/25/20 18:00 12/25/20 19:52 12/26/20 06:00 Temperature 97.7 F 96.9 F Pulse Rate 65 65 61 Respiratory Rate 17 18 Blood Pressure 135/63 129/64 126/61 Pulse Oximetry 96 98 12/26/20 09:23 Temperature Pulse Rate 61 Respiratory Rate Blood Pressure 126/61 Pulse Oximetry Body Mass Index 27.6 Labs Results: 12/05/20 19:33 12/08/20 18:32 Imaging Radiology Impressions: ITS Impressions Head CT 12/06/20 07:04 IMPRESSION: Chronic microvascular ischemic changes with no CT evidence of acute intracranial abnormality. Medications Medications Current Medications Generic Name Dose Route Start Last Admin Trade Name Freq PRN Reason Stop Dose Admin Acetaminophen 650 mg 12/06/20 16:13 12/20/20 20:03 Acetaminophen 325 Mg Tablet PO 650 mg Q6H PRN Administration Headache/Pain Mild Scale (1-3) Al Hydroxide/Mg Hydroxide 30 ml 12/06/20 16:13 Magnesium Hydrox/Alum Hydrox 30 Ml Oral.Susp PO Q6H PRN Heartburn/Nausea Amlodipine Besylate 5 mg 12/09/20 09:00 12/26/20 09:24 Amlodipine Besylate 5 Mg Tablet PO 5 mg DAILY YUNG Administration Protocol Aspirin 81 mg 12/06/20 09:00 12/26/20 09:24 Aspirin 81 Mg Tab.Chew PO 81 mg DAILY YUNG Administration Cyanocobalamin 500 mcg 12/06/20 09:00 12/26/20 09:22 Cyanocobalamin (Vitamin B-12) 500 Mcg Tablet PO 500 mcg DAILY YUNG Administration Fluticasone Propionate 2 spray 12/10/20 10:21 12/26/20 09:22 Fluticasone Propionate Nasal 16 Gm [place] NOSTRIL-B 2 spray DAILY YUNG Administration Levothyroxine Sodium 150 mcg 12/06/20 08:00 12/26/20 06:02 Levothyroxine Sodium 150 Mcg Tablet PO 150 mcg DAILY@0630 YUNG Administration Loratadine 10 mg 12/06/20 09:00 12/26/20 09:22 Loratadine 10 Mg Tablet PO 10 mg DAILY YUNG Administration Losartan Potassium 50 mg 12/06/20 09:00 12/26/20 09:24 Losartan Potassium 50 Mg Tablet PO 50 mg DAILY YUNG Administration Protocol Magnesium Hydroxide 30 ml 12/06/20 16:13 Milk Of Magnesia 30 Ml Oral.Susp PO DAILY PRN Constipation Metoprolol Tartrate 100 mg 12/16/20 21:00 12/26/20 09:23 Metoprolol Tartrate 50 Mg Tablet PO 100 mg BID YUNG Administration Protocol Risperidone 0.5 mg 12/08/20 17:00 12/25/20 17:04 Risperidone 0.5 Mg Tablet PO 0.5 mg DAILY@1700 YUNG Administration Trazodone HCl 50 mg 12/06/20 16:13 12/25/20 19:52 Trazodone Hcl 50 Mg Tablet PO 50 mg BEDTIME PRN Administration Insomnia Vitamin D 125 mcg 12/06/20 09:00 12/26/20 09:24 Cholecalciferol (Vitamin D3) 25 Mcg Tablet PO 125 mcg DAILY YUNG Administration Allergies Allergies Allergy/AdvReac Type Severity Reaction Status Date / Time olive oil [OLIVE OIL] Allergy Mild STOMACH Verified 12/05/20 19:06 UPSET Assessment & Plan Assessment & Plan (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
[2020-12-26] MEDS: risperiDONE 0.5 MG TABLET PO (16:50)
[2020-12-26 18:00] VITALS: BP 128/59; PULSE 62; TEMP 36.3; O2SAT 99
[2020-12-26 20:48] VITALS: BP 120/59; PULSE 60
[2020-12-27 06:00] VITALS: BP 123/61; PULSE 60; TEMP 36.2; O2SAT 98
[2020-12-27] MEDS: Levothyroxine Sodium 150 MCG TABLET PO (06:26)
[2020-12-27] MEDS: Aspirin 81 MG TAB.CHEW PO (09:33)
[2020-12-27] MEDS: Cyanocobalamin (Vitamin B-12) 500 MCG TABLET PO (09:33)
[2020-12-27] MEDS: Loratadine 10 MG TABLET PO (09:33)
[2020-12-27] MEDS: Cholecalciferol (Vitamin D3) 25 MCG TABLET 125 MCG PO (09:39)
[2020-12-27 09:41] VITALS: BP 123/61; PULSE 60
[2020-12-27] MEDS: Metoprolol Tartrate 50 MG TABLET 100 MG PO ×2 (09:41→22:18)
[2020-12-27] MEDS: Losartan Potassium 50 MG TABLET PO (09:41)
[2020-12-27 09:42] VITALS: BP 123/61; PULSE 60
[2020-12-27] MEDS: amLODIPine Besylate 5 MG TABLET PO (09:42)
[2020-12-27] MEDS: Fluticasone Propionate Nasal 16 GM SPRAY 2 SPRAY NOSTRIL-B (09:48)
--- NOTE | 2020-12-27 11:31 | P.PNPSI_ITS ---
Subjective Subjective Date of Service: 12/27/20 Reason For Visit: HALLUCINATIONS Interim History: The patient remains pleasantly confused, asking to different staff members where she can go home. She has attended to several groups, appropriated and calm. No psychotic symptoms for several weeks. Review of Systems Review of Systems Yes all other systems are reviewed and are negative Mental Status Exam Mental Status Exam Patient Appearance: Well Grooomed Patient Orientation: Person and Place Level of Consciousness: Awake Patient Behavior: Appropriate and Cooperative Mood Description: Constricted Affect Description: Calm Patient Cognition Impaired: No Ability to Follow Directions: Good Speech Pattern: Clear Memory Description: Intact Hallucinations: None Delusions: Not Present Thought Process: Distracted Thought Content: positive for Poverty of Content Judgement: Fair Diagnostics Vital Signs (24Hr): Vital Signs - 24 hr 12/26/20 18:00 12/26/20 20:48 12/27/20 06:00 Temperature 97.3 F 97.1 F Pulse Rate 62 60 60 Blood Pressure 128/59 L 120/59 L 123/61 Pulse Oximetry 99 98 12/27/20 09:41 12/27/20 09:42 Temperature Pulse Rate 60 60 Blood Pressure 123/61 123/61 Pulse Oximetry Body Mass Index 27.6 Labs Results: 12/05/20 19:33 12/08/20 18:32 Imaging Radiology Impressions: ITS Impressions Head CT 12/06/20 07:04 IMPRESSION: Chronic microvascular ischemic changes with no CT evidence of acute intracranial abnormality. Medications Medications Current Medications Generic Name Dose Route Start Last Admin Trade Name Freq PRN Reason Stop Dose Admin Acetaminophen 650 mg 12/06/20 16:13 12/20/20 20:03 Acetaminophen 325 Mg Tablet PO 650 mg Q6H PRN Administration Headache/Pain Mild Scale (1-3) Al Hydroxide/Mg Hydroxide 30 ml 12/06/20 16:13 Magnesium Hydrox/Alum Hydrox 30 Ml Oral.Susp PO Q6H PRN Heartburn/Nausea Amlodipine Besylate 5 mg 12/09/20 09:00 12/27/20 09:42 Amlodipine Besylate 5 Mg Tablet PO 5 mg DAILY YUNG Administration Protocol Aspirin 81 mg 12/06/20 09:00 12/27/20 09:33 Aspirin 81 Mg Tab.Chew PO 81 mg DAILY YUNG Administration Cyanocobalamin 500 mcg 12/06/20 09:00 12/27/20 09:33 Cyanocobalamin (Vitamin B-12) 500 Mcg Tablet PO 500 mcg DAILY YUNG Administration Fluticasone Propionate 2 spray 12/10/20 10:21 12/27/20 09:48 Fluticasone Propionate Nasal 16 Gm [place] NOSTRIL-B 2 spray DAILY YUNG Administration Levothyroxine Sodium 150 mcg 12/06/20 08:00 12/27/20 06:26 Levothyroxine Sodium 150 Mcg Tablet PO 150 mcg DAILY@0630 YUNG Administration Loratadine 10 mg 12/06/20 09:00 12/27/20 09:33 Loratadine 10 Mg Tablet PO 10 mg DAILY YUNG Administration Losartan Potassium 50 mg 12/06/20 09:00 12/27/20 09:41 Losartan Potassium 50 Mg Tablet PO 50 mg DAILY YUNG Administration Protocol Magnesium Hydroxide 30 ml 12/06/20 16:13 Milk Of Magnesia 30 Ml Oral.Susp PO DAILY PRN Constipation Metoprolol Tartrate 100 mg 12/16/20 21:00 12/27/20 09:41 Metoprolol Tartrate 50 Mg Tablet PO 100 mg BID YUNG Administration Protocol Risperidone 0.5 mg 12/08/20 17:00 12/26/20 16:50 Risperidone 0.5 Mg Tablet PO 0.5 mg DAILY@1700 YUNG Administration Trazodone HCl 50 mg 12/06/20 16:13 12/25/20 19:52 Trazodone Hcl 50 Mg Tablet PO 50 mg BEDTIME PRN Administration Insomnia Vitamin D 125 mcg 12/06/20 09:00 12/27/20 09:39 Cholecalciferol (Vitamin D3) 25 Mcg Tablet PO 125 mcg DAILY YUNG Administration Allergies Allergies Allergy/AdvReac Type Severity Reaction Status Date / Time olive oil [OLIVE OIL] Allergy Mild STOMACH Verified 12/05/20 19:06 UPSET Assessment & Plan Assessment & Plan (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
[2020-12-27] MEDS: risperiDONE 0.5 MG TABLET PO (17:04)
[2020-12-27 18:00] VITALS: BP 127/60; PULSE 64; TEMP 36.6; O2SAT 96
[2020-12-27 22:18] VITALS: BP 138/63; PULSE 60
[2020-12-28] VITALS (7 sets, daily range): BP systolic 123–143; BP diastolic 58–72; PULSE 59–70; RESP 16–18; TEMP 36.1–36.6; O2SAT 96–98
[2020-12-28] MEDS: Levothyroxine Sodium 150 MCG TABLET PO (06:10)
[2020-12-28] MEDS: Metoprolol Tartrate 50 MG TABLET 100 MG PO ×2 (08:25→20:24)
[2020-12-28] MEDS: Cholecalciferol (Vitamin D3) 25 MCG TABLET 125 MCG PO (08:26)
[2020-12-28] MEDS: Loratadine 10 MG TABLET PO (08:27)
[2020-12-28] MEDS: Aspirin 81 MG TAB.CHEW PO (08:27)
[2020-12-28] MEDS: Losartan Potassium 50 MG TABLET PO (08:27)
[2020-12-28] MEDS: Cyanocobalamin (Vitamin B-12) 500 MCG TABLET PO (08:28)
[2020-12-28] MEDS: amLODIPine Besylate 5 MG TABLET PO (08:28)
[2020-12-28] MEDS: Fluticasone Propionate Nasal 16 GM SPRAY 2 SPRAY NOSTRIL-B (08:30)
--- NOTE | 2020-12-28 11:42 | P.PNPSI_ITS ---
Subjective Subjective Date of Service: 12/28/20 Reason For Visit: HALLUCINATIONS Interim History: The patient denies psychotic symptoms, she has poor memory and she is confused at times but no evidence of agitation. She has attended several groups. Review of Systems Acute medical concerns: No Medical Review of Systems: unchanged Mental Status Exam Mental Status Exam Patient Appearance: Well Grooomed Patient Orientation: Person Level of Consciousness: Awake Patient Behavior: Cooperative Mood Description: Calm Affect Description: Relaxed Patient Cognition Impaired: Yes Ability to Follow Directions: Good Speech Pattern: Clear Memory Description: Intact Hallucinations: None Delusions: Not Present Thought Process: Distracted Thought Content: positive for Goal Oriented Judgement: Fair Diagnostics Vital Signs (24Hr): Vital Signs - 24 hr 12/27/20 18:00 12/27/20 22:18 12/28/20 03:42 Temperature 98 F Pulse Rate 64 60 66 Respiratory Rate 18 Blood Pressure 127/60 138/63 138/72 Pulse Oximetry 96 12/28/20 06:00 12/28/20 08:25 12/28/20 08:27 Temperature 98 F Pulse Rate 66 59 59 Respiratory Rate 18 Blood Pressure 138/72 137/63 137/63 Pulse Oximetry 98 12/28/20 08:28 Temperature Pulse Rate 59 Respiratory Rate Blood Pressure 137/63 Pulse Oximetry Body Mass Index 27.6 Labs Results: 12/05/20 19:33 12/08/20 18:32 Imaging Radiology Impressions: ITS Impressions Head CT 12/06/20 07:04 IMPRESSION: Chronic microvascular ischemic changes with no CT evidence of acute intracranial abnormality. Medications Medications Current Medications Generic Name Dose Route Start Last Admin Trade Name Freq PRN Reason Stop Dose Admin Acetaminophen 650 mg 12/06/20 16:13 12/20/20 20:03 Acetaminophen 325 Mg Tablet PO 650 mg Q6H PRN Administration Headache/Pain Mild Scale (1-3) Al Hydroxide/Mg Hydroxide 30 ml 12/06/20 16:13 Magnesium Hydrox/Alum Hydrox 30 Ml Oral.Susp PO Q6H PRN Heartburn/Nausea Amlodipine Besylate 5 mg 12/09/20 09:00 12/28/20 08:28 Amlodipine Besylate 5 Mg Tablet PO 5 mg DAILY YUNG Administration Protocol Aspirin 81 mg 12/06/20 09:00 12/28/20 08:27 Aspirin 81 Mg Tab.Chew PO 81 mg DAILY YUNG Administration Cyanocobalamin 500 mcg 12/06/20 09:00 12/28/20 08:28 Cyanocobalamin (Vitamin B-12) 500 Mcg Tablet PO 500 mcg DAILY YUNG Administration Fluticasone Propionate 2 spray 12/10/20 10:21 12/28/20 08:30 Fluticasone Propionate Nasal 16 Gm [place] NOSTRIL-B 2 spray DAILY YUNG Administration Levothyroxine Sodium 150 mcg 12/06/20 08:00 12/28/20 06:10 Levothyroxine Sodium 150 Mcg Tablet PO 150 mcg DAILY@0630 YUNG Administration Loratadine 10 mg 12/06/20 09:00 12/28/20 08:27 Loratadine 10 Mg Tablet PO 10 mg DAILY YUNG Administration Losartan Potassium 50 mg 12/06/20 09:00 12/28/20 08:27 Losartan Potassium 50 Mg Tablet PO 50 mg DAILY YUNG Administration Protocol Magnesium Hydroxide 30 ml 12/06/20 16:13 Milk Of Magnesia 30 Ml Oral.Susp PO DAILY PRN Constipation Metoprolol Tartrate 100 mg 12/16/20 21:00 12/28/20 08:25 Metoprolol Tartrate 50 Mg Tablet PO 100 mg BID YUNG Administration Protocol Risperidone 0.5 mg 12/08/20 17:00 12/27/20 17:04 Risperidone 0.5 Mg Tablet PO 0.5 mg DAILY@1700 YUNG Administration Trazodone HCl 50 mg 12/06/20 16:13 12/25/20 19:52 Trazodone Hcl 50 Mg Tablet PO 50 mg BEDTIME PRN Administration Insomnia Vitamin D 125 mcg 12/06/20 09:00 12/28/20 08:26 Cholecalciferol (Vitamin D3) 25 Mcg Tablet PO 125 mcg DAILY YUNG Administration Allergies Allergies Allergy/AdvReac Type Severity Reaction Status Date / Time olive oil [OLIVE OIL] Allergy Mild STOMACH Verified 12/05/20 19:06 UPSET Assessment & Plan Assessment & Plan (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
[2020-12-28] MEDS: risperiDONE 0.5 MG TABLET PO (17:13)
[2020-12-29 06:00] VITALS: BP 143/63; PULSE 60; RESP 18; TEMP 36.5; O2SAT 97
[2020-12-29] MEDS: Levothyroxine Sodium 150 MCG TABLET PO (06:31)
[2020-12-29] MEDS: Aspirin 81 MG TAB.CHEW PO (08:33)
[2020-12-29] MEDS: Cholecalciferol (Vitamin D3) 25 MCG TABLET 125 MCG PO (08:33)
[2020-12-29] MEDS: Loratadine 10 MG TABLET PO (08:33)
[2020-12-29 08:34] VITALS: PULSE 97
[2020-12-29] MEDS: Losartan Potassium 50 MG TABLET PO (08:34)
[2020-12-29 08:35] VITALS: BP 189/74; PULSE 97
[2020-12-29] MEDS: Metoprolol Tartrate 50 MG TABLET 100 MG PO ×2 (08:35→20:17)
[2020-12-29] MEDS: Cyanocobalamin (Vitamin B-12) 500 MCG TABLET PO (08:35)
[2020-12-29 08:38] VITALS: BP 189/74; PULSE 97
[2020-12-29] MEDS: amLODIPine Besylate 5 MG TABLET PO (08:38)
--- NOTE | 2020-12-29 10:54 | HO.PSYCHPN ---
Subjective Subjective Date of Service: 12/29/20 Reason For Visit: HALLUCINATIONS Interim History: The patient has been calm and cooperative, no evidence of psychotic symptoms. So far, she remains pleasantly confused. Her [facility] benefits are still pending. Review of Systems Acute medical concerns: No Medical Review of Systems: unchanged Mental Status Exam Mental Status Exam Patient Appearance: Well Grooomed Patient Orientation: Person Level of Consciousness: Awake and Appropriate Patient Behavior: Appropriate, Cooperative and Good Eye Contact Mood Description: Calm and Relaxed Affect Description: Constricted Patient Cognition Impaired: Yes Ability to Follow Directions: Good Speech Pattern: Clear Memory Description: Remote Impaired, Immediate Impaired and Recent Impaired Hallucinations: None Delusions: Not Present Thought Process: Disoriented Thought Content: positive for Circumstantial Judgement: Fair Diagnostics Vital Signs (24Hr): Vital Signs - 24 hr 12/28/20 18:00 12/28/20 20:24 12/29/20 06:00 Temperature 97.0 F 97.7 F Pulse Rate 70 60 60 Respiratory Rate 16 18 Blood Pressure 143/65 H 123/58 L 143/63 H Pulse Oximetry 96 97 12/29/20 08:34 12/29/20 08:35 12/29/20 08:38 Temperature Pulse Rate 97 97 97 Respiratory Rate Blood Pressure 189/74 H 189/74 H Pulse Oximetry Body Mass Index 27.6 Labs Results: 12/05/20 19:33 12/08/20 18:32 Imaging Radiology Impressions: ITS Impressions Head CT 12/06/20 07:04 IMPRESSION: Chronic microvascular ischemic changes with no CT evidence of acute intracranial abnormality. Medications Medications Current Medications Generic Name Dose Route Start Last Admin Trade Name Freq PRN Reason Stop Dose Admin Acetaminophen 650 mg 12/06/20 16:13 12/20/20 20:03 Acetaminophen 325 Mg Tablet PO 650 mg Q6H PRN Administration Headache/Pain Mild Scale (1-3) Al Hydroxide/Mg Hydroxide 30 ml 12/06/20 16:13 Magnesium Hydrox/Alum Hydrox 30 Ml Oral.Susp PO Q6H PRN Heartburn/Nausea Amlodipine Besylate 5 mg 12/09/20 09:00 12/29/20 08:38 Amlodipine Besylate 5 Mg Tablet PO 5 mg DAILY YUNG Administration Protocol Aspirin 81 mg 12/06/20 09:00 12/29/20 08:33 Aspirin 81 Mg Tab.Chew PO 81 mg DAILY YUNG Administration Cyanocobalamin 500 mcg 12/06/20 09:00 12/29/20 08:35 Cyanocobalamin (Vitamin B-12) 500 Mcg Tablet PO 500 mcg DAILY YUNG Administration Fluticasone Propionate 2 spray 12/10/20 10:21 12/29/20 08:35 Fluticasone Propionate Nasal 16 Gm [place] NOSTRIL-B Not Given DAILY YUNG Levothyroxine Sodium 150 mcg 12/06/20 08:00 12/29/20 06:31 Levothyroxine Sodium 150 Mcg Tablet PO 150 mcg DAILY@0630 YUNG Administration Loratadine 10 mg 12/06/20 09:00 12/29/20 08:33 Loratadine 10 Mg Tablet PO 10 mg DAILY YUNG Administration Losartan Potassium 50 mg 12/06/20 09:00 12/29/20 08:34 Losartan Potassium 50 Mg Tablet PO 50 mg DAILY YUNG Administration Protocol Magnesium Hydroxide 30 ml 12/06/20 16:13 Milk Of Magnesia 30 Ml Oral.Susp PO DAILY PRN Constipation Metoprolol Tartrate 100 mg 12/16/20 21:00 12/29/20 08:35 Metoprolol Tartrate 50 Mg Tablet PO 100 mg BID YUNG Administration Protocol Risperidone 0.5 mg 12/08/20 17:00 12/28/20 17:13 Risperidone 0.5 Mg Tablet PO 0.5 mg DAILY@1700 YUNG Administration Trazodone HCl 50 mg 12/06/20 16:13 12/25/20 19:52 Trazodone Hcl 50 Mg Tablet PO 50 mg BEDTIME PRN Administration Insomnia Vitamin D 125 mcg 12/06/20 09:00 12/29/20 08:33 Cholecalciferol (Vitamin D3) 25 Mcg Tablet PO 125 mcg DAILY YUNG Administration Allergies Allergies Allergy/AdvReac Type Severity Reaction Status Date / Time olive oil [OLIVE OIL] Allergy Mild STOMACH Verified 12/05/20 19:06 UPSET Assessment & Plan Assessment & Plan (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
--- NOTE | 2020-12-29 15:56 | PC.NURSE ---
Patient oriented only to self. Spends most of day out in the common room with other patients. Participated in [employer] theme day by decorating cookies. Patient became agigtated over lunch and refused to eat stating I didn't order this . She went to her room and was calm and cooperative when she came back out.
[2020-12-29] MEDS: risperiDONE 0.5 MG TABLET PO (16:45)
[2020-12-29 17:34] VITALS: BP 154/70; PULSE 56; RESP 16; TEMP 36.9; O2SAT 97
[2020-12-29 20:17] VITALS: BP 137/68; PULSE 68
[2020-12-30] MEDS: Levothyroxine Sodium 150 MCG TABLET PO (04:20)
[2020-12-30 04:44] VITALS: BP 133/63; PULSE 63; RESP 18; TEMP 36.4; O2SAT 95
[2020-12-30 06:08] VITALS: BMI 28.3
[2020-12-30] MEDS: Losartan Potassium 50 MG TABLET PO (08:20)
[2020-12-30] MEDS: Cyanocobalamin (Vitamin B-12) 500 MCG TABLET PO (08:20)
[2020-12-30] MEDS: Aspirin 81 MG TAB.CHEW PO (08:20)
[2020-12-30] MEDS: Metoprolol Tartrate 50 MG TABLET 100 MG PO ×2 (08:20→20:40)
[2020-12-30] MEDS: Cholecalciferol (Vitamin D3) 25 MCG TABLET 125 MCG PO (08:20)
[2020-12-30] MEDS: Loratadine 10 MG TABLET PO (08:20)
[2020-12-30] MEDS: amLODIPine Besylate 5 MG TABLET PO (08:20)
--- NOTE | 2020-12-30 11:28 | P.PNPSI_ITS ---
Subjective Subjective Date of Service: 12/30/20 Reason For Visit: HALLUCINATIONS Interim History: The patient remains pleasantly confused, no evidence of psychosis. Her discharge to a SNF has been delayed due to still not having financial clearence Review of Systems Acute medical concerns: No Medical Review of Systems: unchanged Mental Status Exam Mental Status Exam Patient Appearance: Well Grooomed Patient Orientation: Person Level of Consciousness: Awake Patient Behavior: Cooperative Mood Description: Calm Patient Cognition Impaired: Yes Ability to Follow Directions: Good Speech Pattern: Clear Memory Description: Remote Impaired, Immediate Impaired and Recent Impaired Hallucinations: None Delusions: Not Present Thought Process: Evasive Thought Content: positive for Poverty of Content Judgement: Fair Diagnostics Vital Signs (24Hr): Vital Signs - 24 hr 12/29/20 17:34 12/29/20 20:17 12/30/20 04:44 Temperature 98.4 F 97.5 F Pulse Rate 56 68 63 Respiratory Rate 16 18 Blood Pressure 154/70 H 137/68 133/63 Pulse Oximetry 97 95 Body Mass Index 28.3 Labs Results: 12/05/20 19:33 12/08/20 18:32 Imaging Radiology Impressions: ITS Impressions Head CT 12/06/20 07:04 IMPRESSION: Chronic microvascular ischemic changes with no CT evidence of acute intracranial abnormality. Medications Medications Current Medications Generic Name Dose Route Start Last Admin Trade Name Freq PRN Reason Stop Dose Admin Acetaminophen 650 mg 12/06/20 16:13 12/20/20 20:03 Acetaminophen 325 Mg Tablet PO 650 mg Q6H PRN Administration Headache/Pain Mild Scale (1-3) Al Hydroxide/Mg Hydroxide 30 ml 12/06/20 16:13 Magnesium Hydrox/Alum Hydrox 30 Ml Oral.Susp PO Q6H PRN Heartburn/Nausea Amlodipine Besylate 5 mg 12/09/20 09:00 12/30/20 08:20 Amlodipine Besylate 5 Mg Tablet PO 5 mg DAILY YUNG Administration Protocol Aspirin 81 mg 12/06/20 09:00 12/30/20 08:20 Aspirin 81 Mg Tab.Chew PO 81 mg DAILY YUNG Administration Cyanocobalamin 500 mcg 12/06/20 09:00 12/30/20 08:20 Cyanocobalamin (Vitamin B-12) 500 Mcg Tablet PO 500 mcg DAILY YUNG Administration Fluticasone Propionate 2 spray 12/10/20 10:21 12/30/20 08:24 Fluticasone Propionate Nasal 16 Gm [place] NOSTRIL-B Not Given DAILY YUNG Levothyroxine Sodium 150 mcg 12/06/20 08:00 12/30/20 04:20 Levothyroxine Sodium 150 Mcg Tablet PO 150 mcg DAILY@0630 YUNG Administration Loratadine 10 mg 12/06/20 09:00 12/30/20 08:20 Loratadine 10 Mg Tablet PO 10 mg DAILY YUNG Administration Losartan Potassium 50 mg 12/06/20 09:00 12/30/20 08:20 Losartan Potassium 50 Mg Tablet PO 50 mg DAILY YUNG Administration Protocol Magnesium Hydroxide 30 ml 12/06/20 16:13 Milk Of Magnesia 30 Ml Oral.Susp PO DAILY PRN Constipation Metoprolol Tartrate 100 mg 12/16/20 21:00 12/30/20 08:20 Metoprolol Tartrate 50 Mg Tablet PO 100 mg BID YUNG Administration Protocol Risperidone 0.5 mg 12/08/20 17:00 12/29/20 16:45 Risperidone 0.5 Mg Tablet PO 0.5 mg DAILY@1700 YUNG Administration Trazodone HCl 50 mg 12/06/20 16:13 12/25/20 19:52 Trazodone Hcl 50 Mg Tablet PO 50 mg BEDTIME PRN Administration Insomnia Vitamin D 125 mcg 12/06/20 09:00 12/30/20 08:20 Cholecalciferol (Vitamin D3) 25 Mcg Tablet PO 125 mcg DAILY YUNG Administration Allergies Allergies Allergy/AdvReac Type Severity Reaction Status Date / Time olive oil [OLIVE OIL] Allergy Mild STOMACH Verified 12/05/20 19:06 UPSET Assessment & Plan Assessment & Plan (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
[2020-12-30 18:00] VITALS: BP 139/64; PULSE 68; RESP 16; TEMP 36.6; O2SAT 96
[2020-12-30] MEDS: risperiDONE 0.5 MG TABLET PO (19:05)
[2020-12-30 20:40] VITALS: BP 140/68; PULSE 68
[2020-12-31] MEDS: Levothyroxine Sodium 150 MCG TABLET PO (05:00)
[2020-12-31 05:06] VITALS: BP 141/70; PULSE 58; RESP 20; TEMP 36.4; O2SAT 95
[2020-12-31] MEDS: Losartan Potassium 50 MG TABLET PO (09:56)
[2020-12-31] MEDS: Aspirin 81 MG TAB.CHEW PO (09:57)
[2020-12-31] MEDS: Cholecalciferol (Vitamin D3) 25 MCG TABLET 125 MCG PO (09:57)
[2020-12-31] MEDS: Cyanocobalamin (Vitamin B-12) 500 MCG TABLET PO (09:57)
[2020-12-31] MEDS: Metoprolol Tartrate 50 MG TABLET 100 MG PO ×2 (09:57→20:44)
[2020-12-31] MEDS: Loratadine 10 MG TABLET PO (09:58)
[2020-12-31] MEDS: amLODIPine Besylate 5 MG TABLET PO (09:58)
--- NOTE | 2020-12-31 11:57 | P.PNPSI_ITS ---
Subjective Subjective Date of Service: 12/31/20 Reason For Visit: HALLUCINATIONS Subjective Notes: Conditional Voluntary Interim History: The patient has not showed psychotic symptoms, still pleasantly confused. Yesterday, she was scared that she saw 2 people in my room but they were staff members, no evidence of VH. Waiting for placement Review of Systems Acute medical concerns: No Medical Review of Systems: unchanged Mental Status Exam Mental Status Exam Patient Appearance: Well Grooomed and Appropriate Patient Orientation: Person and Place Level of Consciousness: Awake and Disoriented Patient Behavior: Cooperative Mood Description: Calm Affect Description: Constricted Patient Cognition Impaired: Yes Ability to Follow Directions: Good Speech Pattern: Clear Hallucinations: None Delusions: Not Present Thought Process: Distracted Thought Content: positive for [place] Judgement: Fair Diagnostics Vital Signs (24Hr): Vital Signs - 24 hr 12/30/20 18:00 12/30/20 20:40 12/31/20 05:06 Temperature 97.8 F 97.6 F Pulse Rate 68 68 58 Respiratory Rate 16 20 Blood Pressure 139/64 140/68 H 141/70 H Pulse Oximetry 96 95 Body Mass Index 28.3 Labs Results: 12/05/20 19:33 12/08/20 18:32 Imaging Radiology Impressions: ITS Impressions Head CT 12/06/20 07:04 IMPRESSION: Chronic microvascular ischemic changes with no CT evidence of acute intracranial abnormality. Medications Medications Current Medications Generic Name Dose Route Start Last Admin Trade Name Freq PRN Reason Stop Dose Admin Acetaminophen 650 mg 12/06/20 16:13 12/20/20 20:03 Acetaminophen 325 Mg Tablet PO 650 mg Q6H PRN Administration Headache/Pain Mild Scale (1-3) Al Hydroxide/Mg Hydroxide 30 ml 12/06/20 16:13 Magnesium Hydrox/Alum Hydrox 30 Ml Oral.Susp PO Q6H PRN Heartburn/Nausea Amlodipine Besylate 5 mg 12/09/20 09:00 12/31/20 09:58 Amlodipine Besylate 5 Mg Tablet PO 5 mg DAILY YUNG Administration Protocol Aspirin 81 mg 12/06/20 09:00 12/31/20 09:57 Aspirin 81 Mg Tab.Chew PO 81 mg DAILY YUNG Administration Cyanocobalamin 500 mcg 12/06/20 09:00 12/31/20 09:57 Cyanocobalamin (Vitamin B-12) 500 Mcg Tablet PO 500 mcg DAILY YUNG Administration Fluticasone Propionate 2 spray 12/10/20 10:21 12/31/20 10:01 Fluticasone Propionate Nasal 16 Gm [place] NOSTRIL-B Not Given DAILY YUNG Levothyroxine Sodium 150 mcg 12/06/20 08:00 12/31/20 05:00 Levothyroxine Sodium 150 Mcg Tablet PO 150 mcg DAILY@0630 YUNG Administration Loratadine 10 mg 12/06/20 09:00 12/31/20 09:58 Loratadine 10 Mg Tablet PO 10 mg DAILY YUNG Administration Losartan Potassium 50 mg 12/06/20 09:00 12/31/20 09:56 Losartan Potassium 50 Mg Tablet PO 50 mg DAILY YUNG Administration Protocol Magnesium Hydroxide 30 ml 12/06/20 16:13 Milk Of Magnesia 30 Ml Oral.Susp PO DAILY PRN Constipation Metoprolol Tartrate 100 mg 12/16/20 21:00 12/31/20 09:57 Metoprolol Tartrate 50 Mg Tablet PO 100 mg BID YUNG Administration Protocol Risperidone 0.5 mg 12/08/20 17:00 12/30/20 19:05 Risperidone 0.5 Mg Tablet PO 0.5 mg DAILY@1700 YUNG Administration Trazodone HCl 50 mg 12/06/20 16:13 12/25/20 19:52 Trazodone Hcl 50 Mg Tablet PO 50 mg BEDTIME PRN Administration Insomnia Vitamin D 125 mcg 12/06/20 09:00 12/31/20 09:57 Cholecalciferol (Vitamin D3) 25 Mcg Tablet PO 125 mcg DAILY YUNG Administration Allergies Allergies Allergy/AdvReac Type Severity Reaction Status Date / Time olive oil [OLIVE OIL] Allergy Mild STOMACH Verified 12/05/20 19:06 UPSET Assessment & Plan Assessment & Plan (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
[2020-12-31] MEDS: risperiDONE 0.5 MG TABLET PO (17:48)
[2021-01-01] MEDS: traZODone HCL 50 MG TABLET PO ×2 (02:00→19:34)
[2021-01-01] MEDS: Levothyroxine Sodium 150 MCG TABLET PO (05:58)
[2021-01-01] MEDS: Aspirin 81 MG TAB.CHEW PO (08:23)
[2021-01-01] MEDS: Loratadine 10 MG TABLET PO (08:23)
[2021-01-01] MEDS: Cholecalciferol (Vitamin D3) 25 MCG TABLET 125 MCG PO (08:23)
[2021-01-01] MEDS: Cyanocobalamin (Vitamin B-12) 500 MCG TABLET PO (08:23)
[2021-01-01 08:24] VITALS: BP 128/58; PULSE 59; RESP 16; TEMP 36.6; O2SAT 97
[2021-01-01] MEDS: Metoprolol Tartrate 50 MG TABLET 100 MG PO ×2 (08:24→19:32)
[2021-01-01] MEDS: Fluticasone Propionate Nasal 16 GM SPRAY 2 SPRAY NOSTRIL-B (08:24)
[2021-01-01 08:25] VITALS: BP 128/58; PULSE 59
[2021-01-01] MEDS: Losartan Potassium 50 MG TABLET PO (08:25)
[2021-01-01] MEDS: amLODIPine Besylate 5 MG TABLET PO (08:25)
[2021-01-01] MEDS: risperiDONE 0.5 MG TABLET PO (16:59)
[2021-01-01 17:34] VITALS: BP 147/72; PULSE 62; RESP 16; TEMP 36.7; O2SAT 99
[2021-01-01 19:32] VITALS: BP 142/67; PULSE 61
--- NOTE | 2021-01-02 00:34 | HO.PSYCHPN ---
Subjective Subjective Date of Service: 01/02/21 Reason For Visit: HALLUCINATIONS Interim History: Delayed entry. This note reflects DOS 01/01/21. The patient has not showed psychotic symptoms, still pleasantly confused. She has no agitation or aggression. She is cooperative. Review of Systems Medical Review of Systems: unchanged Review of Systems Review of Systems Yes all other systems are reviewed and are negative and Unobtainable due to mental status Mental Status Exam Mental Status Exam Narrative: pleasant and engaged. Fairly presented. There is some food and clothing. Obvious cognitive impairment. Denied depression. Denied SI, paranoia or hallucinations. No agitation. Insight and judgment limited Patient Appearance: Well Grooomed and Appropriate Patient Orientation: Person and Place Level of Consciousness: Awake and Disoriented Patient Behavior: Cooperative Mood Description: Calm Affect Description: Constricted Patient Cognition Impaired: Yes Ability to Follow Directions: Good Speech Pattern: Clear Memory Description: Remote Impaired, Immediate Impaired and Recent Impaired Delusions: Not Present Thought Content: positive for [place] of [place] and positive for Slowed Thinking Judgement: Fair Diagnostics Vital Signs (24Hr): Vital Signs - 24 hr 01/01/21 08:24 01/01/21 08:25 01/01/21 17:34 Temperature 97.8 F 98.0 F Pulse Rate 59 59 62 Respiratory Rate 16 16 Blood Pressure 128/58 L 128/58 L 147/72 H Pulse Oximetry 97 99 01/01/21 19:32 Temperature Pulse Rate 61 Respiratory Rate Blood Pressure 142/67 H Pulse Oximetry Body Mass Index 28.3 Labs Results: 12/05/20 19:33 12/08/20 18:32 Imaging Radiology Impressions: ITS Impressions Head CT 12/06/20 07:04 IMPRESSION: Chronic microvascular ischemic changes with no CT evidence of acute intracranial abnormality. Medications Medications Current Medications Generic Name Dose Route Start Last Admin Trade Name Freq PRN Reason Stop Dose Admin Acetaminophen 650 mg 12/06/20 16:13 12/20/20 20:03 Acetaminophen 325 Mg Tablet PO 650 mg Q6H PRN Administration Headache/Pain Mild Scale (1-3) Al Hydroxide/Mg Hydroxide 30 ml 12/06/20 16:13 Magnesium Hydrox/Alum Hydrox 30 Ml Oral.Susp PO Q6H PRN Heartburn/Nausea Amlodipine Besylate 5 mg 12/09/20 09:00 01/01/21 08:25 Amlodipine Besylate 5 Mg Tablet PO 5 mg DAILY YUNG Administration Protocol Aspirin 81 mg 12/06/20 09:00 01/01/21 08:23 Aspirin 81 Mg Tab.Chew PO 81 mg DAILY YUNG Administration Cyanocobalamin 500 mcg 12/06/20 09:00 01/01/21 08:23 Cyanocobalamin (Vitamin B-12) 500 Mcg Tablet PO 500 mcg DAILY YUNG Administration Fluticasone Propionate 2 spray 12/10/20 10:21 01/01/21 08:24 Fluticasone Propionate Nasal 16 Gm [place] NOSTRIL-B 2 spray DAILY YUNG Administration Levothyroxine Sodium 150 mcg 12/06/20 08:00 01/01/21 05:58 Levothyroxine Sodium 150 Mcg Tablet PO 150 mcg DAILY@0630 YUNG Administration Loratadine 10 mg 12/06/20 09:00 01/01/21 08:23 Loratadine 10 Mg Tablet PO 10 mg DAILY YUNG Administration Losartan Potassium 50 mg 12/06/20 09:00 01/01/21 08:25 Losartan Potassium 50 Mg Tablet PO 50 mg DAILY YUNG Administration Protocol Magnesium Hydroxide 30 ml 12/06/20 16:13 Milk Of Magnesia 30 Ml Oral.Susp PO DAILY PRN Constipation Metoprolol Tartrate 100 mg 12/16/20 21:00 01/01/21 19:32 Metoprolol Tartrate 50 Mg Tablet PO 100 mg BID YUNG Administration Protocol Risperidone 0.5 mg 12/08/20 17:00 01/01/21 16:59 Risperidone 0.5 Mg Tablet PO 0.5 mg DAILY@1700 YUNG Administration Trazodone HCl 50 mg 12/06/20 16:13 01/01/21 19:34 Trazodone Hcl 50 Mg Tablet PO 50 mg BEDTIME PRN Administration Insomnia Vitamin D 125 mcg 12/06/20 09:00 01/01/21 08:23 Cholecalciferol (Vitamin D3) 25 Mcg Tablet PO 125 mcg DAILY YUNG Administration Allergies Allergies Allergy/AdvReac Type Severity Reaction Status Date / Time olive oil [OLIVE OIL] Allergy Mild STOMACH Verified 12/05/20 19:06 UPSET Assessment & Plan Assessment & Plan (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
[2021-01-02] MEDS: Levothyroxine Sodium 150 MCG TABLET PO (05:31)
[2021-01-02 05:36] VITALS: BP 147/67; PULSE 56; RESP 17; TEMP 36.6; O2SAT 96
[2021-01-02 08:36] VITALS: BP 140/68; PULSE 60; RESP 18; O2SAT 98
[2021-01-02] MEDS: Loratadine 10 MG TABLET PO (08:38)
[2021-01-02] MEDS: Cholecalciferol (Vitamin D3) 25 MCG TABLET 125 MCG PO (08:38)
[2021-01-02 08:39] VITALS: BP 140/68; PULSE 60
[2021-01-02] MEDS: Aspirin 81 MG TAB.CHEW PO (08:39)
[2021-01-02] MEDS: Metoprolol Tartrate 50 MG TABLET 100 MG PO ×2 (08:39→20:04)
[2021-01-02] MEDS: Losartan Potassium 50 MG TABLET PO (08:39)
[2021-01-02] MEDS: amLODIPine Besylate 5 MG TABLET PO (08:39)
[2021-01-02] MEDS: Cyanocobalamin (Vitamin B-12) 500 MCG TABLET PO (08:40)
[2021-01-02] MEDS: risperiDONE 0.5 MG TABLET PO (17:12)
[2021-01-02 17:48] VITALS: BP 131/58; PULSE 61; RESP 16; TEMP 36.6; O2SAT 98
--- NOTE | 2021-01-02 18:41 | PC.NURSE ---
Patient is alert to self only. Patient is pleasant and cooperative throughout shift.
[2021-01-02 20:04] VITALS: BP 106/53; PULSE 61
[2021-01-02 20:05] VITALS: BP 106/53; PULSE 61; RESP 18; TEMP 36.6; O2SAT 94
--- NOTE | 2021-01-02 23:22 | HO.PSYCHPN ---
Subjective Subjective Date of Service: 01/02/21 Reason For Visit: HALLUCINATIONS Interim History: Delayed entry. This note reflects DOS 01/01/21. The patient has not showed psychotic symptoms, still pleasantly confused. She has no agitation or aggression. She is cooperative. Review of Systems Review of Systems Yes all other systems are reviewed and are negative and Unobtainable due to mental status Mental Status Exam Mental Status Exam Narrative: pleasant and engaged. Fairly presented. There is some food and clothing. Obvious cognitive impairment. Denied depression. Denied SI, paranoia or hallucinations. No agitation. Insight and judgment limited Patient Appearance: Well Grooomed and Appropriate Patient Orientation: Person and Place Level of Consciousness: Awake and Disoriented Patient Behavior: Cooperative Mood Description: Calm Affect Description: Constricted Patient Cognition Impaired: Yes Ability to Follow Directions: Good Speech Pattern: Clear Memory Description: Remote Impaired, Immediate Impaired and Recent Impaired Diagnostics Vital Signs (24Hr): Vital Signs - 24 hr 01/02/21 05:36 01/02/21 08:36 01/02/21 08:39 Temperature 97.8 F Pulse Rate 56 60 60 Respiratory Rate 17 18 Blood Pressure 147/67 H 140/68 H 140/68 H Pulse Oximetry 96 98 01/02/21 17:48 01/02/21 20:04 01/02/21 20:05 Temperature 97.8 F 97.9 F Pulse Rate 61 61 61 Respiratory Rate 16 18 Blood Pressure 131/58 L 106/53 L 106/53 L Pulse Oximetry 98 94 Body Mass Index 28.3 Labs Results: 12/05/20 19:33 12/08/20 18:32 Imaging Radiology Impressions: ITS Impressions Head CT 12/06/20 07:04 IMPRESSION: Chronic microvascular ischemic changes with no CT evidence of acute intracranial abnormality. Medications Medications Current Medications Generic Name Dose Route Start Last Admin Trade Name Freq PRN Reason Stop Dose Admin Acetaminophen 650 mg 12/06/20 16:13 12/20/20 20:03 Acetaminophen 325 Mg Tablet PO 650 mg Q6H PRN Administration Headache/Pain Mild Scale (1-3) Al Hydroxide/Mg Hydroxide 30 ml 12/06/20 16:13 Magnesium Hydrox/Alum Hydrox 30 Ml Oral.Susp PO Q6H PRN Heartburn/Nausea Amlodipine Besylate 5 mg 12/09/20 09:00 01/02/21 08:39 Amlodipine Besylate 5 Mg Tablet PO 5 mg DAILY YUNG Administration Protocol Aspirin 81 mg 12/06/20 09:00 01/02/21 08:39 Aspirin 81 Mg Tab.Chew PO 81 mg DAILY YUNG Administration Cyanocobalamin 500 mcg 12/06/20 09:00 01/02/21 08:40 Cyanocobalamin (Vitamin B-12) 500 Mcg Tablet PO 500 mcg DAILY YUNG Administration Fluticasone Propionate 2 spray 12/10/20 10:21 01/02/21 11:01 Fluticasone Propionate Nasal 16 Gm [place] NOSTRIL-B Not Given DAILY YUNG Levothyroxine Sodium 150 mcg 12/06/20 08:00 01/02/21 05:31 Levothyroxine Sodium 150 Mcg Tablet PO 150 mcg DAILY@0630 YUNG Administration Loratadine 10 mg 12/06/20 09:00 01/02/21 08:38 Loratadine 10 Mg Tablet PO 10 mg DAILY YUNG Administration Losartan Potassium 50 mg 12/06/20 09:00 01/02/21 08:39 Losartan Potassium 50 Mg Tablet PO 50 mg DAILY YUNG Administration Protocol Magnesium Hydroxide 30 ml 12/06/20 16:13 Milk Of Magnesia 30 Ml Oral.Susp PO DAILY PRN Constipation Metoprolol Tartrate 100 mg 12/16/20 21:00 01/02/21 20:04 Metoprolol Tartrate 50 Mg Tablet PO 100 mg BID YUNG Administration Protocol Risperidone 0.5 mg 12/08/20 17:00 01/02/21 17:12 Risperidone 0.5 Mg Tablet PO 0.5 mg DAILY@1700 YUNG Administration Trazodone HCl 50 mg 12/06/20 16:13 01/01/21 19:34 Trazodone Hcl 50 Mg Tablet PO 50 mg BEDTIME PRN Administration Insomnia Vitamin D 125 mcg 12/06/20 09:00 01/02/21 08:38 Cholecalciferol (Vitamin D3) 25 Mcg Tablet PO 125 mcg DAILY YUNG Administration Allergies Allergies Allergy/AdvReac Type Severity Reaction Status Date / Time olive oil [OLIVE OIL] Allergy Mild STOMACH Verified 12/05/20 19:06 UPSET Assessment & Plan Assessment & Plan (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
[2021-01-03] VITALS (7 sets, daily range): BP systolic 135–177; BP diastolic 64–74; PULSE 57–67; RESP 16–18; TEMP 36–36.8; O2SAT 96–97
[2021-01-03] MEDS: Levothyroxine Sodium 150 MCG TABLET PO (05:57)
--- NOTE | 2021-01-03 07:59 | HO.PSYCHPN ---
Subjective Subjective Date of Service: 01/03/21 Reason For Visit: HALLUCINATIONS Interim History: The patient remains pleasantly confused, no agitation Review of Systems Acute medical concerns: No Medical Review of Systems: unchanged Mental Status Exam Mental Status Exam Patient Appearance: Well Grooomed Patient Orientation: Person, Place and Situation Level of Consciousness: Awake Patient Behavior: Appropriate and Cooperative Mood Description: Withdrawn Affect Description: Constricted Patient Cognition Impaired: No Ability to Follow Directions: Good Speech Pattern: Clear Memory Description: Intact Hallucinations: None Delusions: Not Present Thought Process: Evasive Thought Content: positive for [place] Judgement: Fair Diagnostics Vital Signs (24Hr): Vital Signs - 24 hr 01/02/21 08:36 01/02/21 08:39 01/02/21 17:48 Temperature 97.8 F Pulse Rate 60 60 61 Respiratory Rate 18 16 Blood Pressure 140/68 H 140/68 H 131/58 L Pulse Oximetry 98 98 01/02/21 20:04 01/02/21 20:05 01/03/21 06:00 Temperature 97.9 F 98.2 F Pulse Rate 61 61 57 Respiratory Rate 18 16 Blood Pressure 106/53 L 106/53 L 135/64 Pulse Oximetry 94 97 Body Mass Index 28.3 Labs Results: 12/05/20 19:33 12/08/20 18:32 Imaging Radiology Impressions: ITS Impressions Head CT 12/06/20 07:04 IMPRESSION: Chronic microvascular ischemic changes with no CT evidence of acute intracranial abnormality. Medications Medications Current Medications Generic Name Dose Route Start Last Admin Trade Name Freq PRN Reason Stop Dose Admin Acetaminophen 650 mg 12/06/20 16:13 12/20/20 20:03 Acetaminophen 325 Mg Tablet PO 650 mg Q6H PRN Administration Headache/Pain Mild Scale (1-3) Al Hydroxide/Mg Hydroxide 30 ml 12/06/20 16:13 Magnesium Hydrox/Alum Hydrox 30 Ml Oral.Susp PO Q6H PRN Heartburn/Nausea Amlodipine Besylate 5 mg 12/09/20 09:00 01/02/21 08:39 Amlodipine Besylate 5 Mg Tablet PO 5 mg DAILY YUNG Administration Protocol Aspirin 81 mg 12/06/20 09:00 01/02/21 08:39 Aspirin 81 Mg Tab.Chew PO 81 mg DAILY YUNG Administration Cyanocobalamin 500 mcg 12/06/20 09:00 01/02/21 08:40 Cyanocobalamin (Vitamin B-12) 500 Mcg Tablet PO 500 mcg DAILY YUNG Administration Fluticasone Propionate 2 spray 12/10/20 10:21 01/02/21 11:01 Fluticasone Propionate Nasal 16 Gm [place] NOSTRIL-B Not Given DAILY YUNG Levothyroxine Sodium 150 mcg 12/06/20 08:00 01/03/21 05:57 Levothyroxine Sodium 150 Mcg Tablet PO 150 mcg DAILY@0630 YUNG Administration Loratadine 10 mg 12/06/20 09:00 01/02/21 08:38 Loratadine 10 Mg Tablet PO 10 mg DAILY YUNG Administration Losartan Potassium 50 mg 12/06/20 09:00 01/02/21 08:39 Losartan Potassium 50 Mg Tablet PO 50 mg DAILY YUNG Administration Protocol Magnesium Hydroxide 30 ml 12/06/20 16:13 Milk Of Magnesia 30 Ml Oral.Susp PO DAILY PRN Constipation Metoprolol Tartrate 100 mg 12/16/20 21:00 01/02/21 20:04 Metoprolol Tartrate 50 Mg Tablet PO 100 mg BID YUNG Administration Protocol Risperidone 0.5 mg 12/08/20 17:00 01/02/21 17:12 Risperidone 0.5 Mg Tablet PO 0.5 mg DAILY@1700 YUNG Administration Trazodone HCl 50 mg 12/06/20 16:13 01/01/21 19:34 Trazodone Hcl 50 Mg Tablet PO 50 mg BEDTIME PRN Administration Insomnia Vitamin D 125 mcg 12/06/20 09:00 01/02/21 08:38 Cholecalciferol (Vitamin D3) 25 Mcg Tablet PO 125 mcg DAILY YUNG Administration Allergies Allergies Allergy/AdvReac Type Severity Reaction Status Date / Time olive oil [OLIVE OIL] Allergy Mild STOMACH Verified 12/05/20 19:06 UPSET Assessment & Plan Assessment & Plan (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
[2021-01-03] MEDS: Losartan Potassium 50 MG TABLET PO (09:13)
[2021-01-03] MEDS: Loratadine 10 MG TABLET PO (09:13)
[2021-01-03] MEDS: Cyanocobalamin (Vitamin B-12) 500 MCG TABLET PO (09:13)
[2021-01-03] MEDS: Aspirin 81 MG TAB.CHEW PO (09:13)
[2021-01-03] MEDS: Metoprolol Tartrate 50 MG TABLET 100 MG PO ×2 (09:14→20:12)
[2021-01-03] MEDS: amLODIPine Besylate 5 MG TABLET PO (09:15)
[2021-01-03] MEDS: Cholecalciferol (Vitamin D3) 25 MCG TABLET 125 MCG PO (09:15)
[2021-01-03] MEDS: Fluticasone Propionate Nasal 16 GM SPRAY 2 SPRAY NOSTRIL-B (09:16)
[2021-01-03] MEDS: risperiDONE 0.5 MG TABLET PO (17:22)
[2021-01-04] MEDS: Levothyroxine Sodium 150 MCG TABLET PO (05:40)
[2021-01-04 05:44] VITALS: BP 150/66; PULSE 59; RESP 16; TEMP 36.2; O2SAT 96
[2021-01-04] MEDS: Aspirin 81 MG TAB.CHEW PO (08:41)
[2021-01-04] MEDS: Loratadine 10 MG TABLET PO (08:41)
[2021-01-04] MEDS: Cholecalciferol (Vitamin D3) 25 MCG TABLET 125 MCG PO (08:42)
[2021-01-04 08:43] VITALS: BP 145/69; PULSE 60
[2021-01-04] MEDS: amLODIPine Besylate 5 MG TABLET PO (08:43)
[2021-01-04] MEDS: Cyanocobalamin (Vitamin B-12) 500 MCG TABLET PO (08:43)
[2021-01-04 08:44] VITALS: BP 145/69; PULSE 60
[2021-01-04] MEDS: Metoprolol Tartrate 50 MG TABLET 100 MG PO ×2 (08:44→21:13)
[2021-01-04 08:52] VITALS: BP 145/69; PULSE 60
[2021-01-04] MEDS: Losartan Potassium 50 MG TABLET PO (08:52)
[2021-01-04] MEDS: Fluticasone Propionate Nasal 16 GM SPRAY 2 SPRAY NOSTRIL-B (10:00)
--- NOTE | 2021-01-04 11:40 | P.PNPSI_ITS ---
Subjective Subjective Date of Service: 01/04/21 Reason For Visit: HALLUCINATIONS Interim History: The patient has been more anxious mostly at bedtime, so she agreed to change medications. Review of Systems Acute medical concerns: No Medical Review of Systems: unchanged Mental Status Exam Mental Status Exam Patient Appearance: Well Grooomed Patient Orientation: Person and Situation Level of Consciousness: Awake Patient Behavior: Appropriate Mood Description: Calm and Appropriate Affect Description: Appropriate Patient Cognition Impaired: Yes Ability to Follow Directions: Good Speech Pattern: Clear Hallucinations: None Delusions: Not Present Thought Process: Distracted and Slowed Thinking Thought Content: positive for [place] and positive for Circumstantial Judgement: Fair Diagnostics Vital Signs (24Hr): Vital Signs - 24 hr 01/03/21 18:00 01/03/21 20:12 01/03/21 20:18 Temperature 97.7 F 96.8 F Pulse Rate 67 65 65 Respiratory Rate 18 Blood Pressure 177/74 H 147/74 H 147/74 H Pulse Oximetry 96 97 01/04/21 05:44 01/04/21 08:43 01/04/21 08:44 Temperature 97.1 F Pulse Rate 59 60 60 Respiratory Rate 16 Blood Pressure 150/66 H 145/69 H 145/69 H Pulse Oximetry 96 01/04/21 08:52 Temperature Pulse Rate 60 Respiratory Rate Blood Pressure 145/69 H Pulse Oximetry Body Mass Index 28.3 Labs Results: 12/05/20 19:33 12/08/20 18:32 Imaging Radiology Impressions: ITS Impressions Head CT 12/06/20 07:04 IMPRESSION: Chronic microvascular ischemic changes with no CT evidence of acute intracranial abnormality. Medications Medications Current Medications Generic Name Dose Route Start Last Admin Trade Name Freq PRN Reason Stop Dose Admin Acetaminophen 650 mg 12/06/20 16:13 12/20/20 20:03 Acetaminophen 325 Mg Tablet PO 650 mg Q6H PRN Administration Headache/Pain Mild Scale (1-3) Al Hydroxide/Mg Hydroxide 30 ml 12/06/20 16:13 Magnesium Hydrox/Alum Hydrox 30 Ml Oral.Susp PO Q6H PRN Heartburn/Nausea Amlodipine Besylate 5 mg 12/09/20 09:00 01/04/21 08:43 Amlodipine Besylate 5 Mg Tablet PO 5 mg DAILY YUNG Administration Protocol Aspirin 81 mg 12/06/20 09:00 01/04/21 08:41 Aspirin 81 Mg Tab.Chew PO 81 mg DAILY YUNG Administration Cyanocobalamin 500 mcg 12/06/20 09:00 01/04/21 08:43 Cyanocobalamin (Vitamin B-12) 500 Mcg Tablet PO 500 mcg DAILY YUNG Administration Fluticasone Propionate 2 spray 12/10/20 10:21 01/04/21 10:00 Fluticasone Propionate Nasal 16 Gm [place] NOSTRIL-B 2 spray DAILY YUNG Administration Levothyroxine Sodium 150 mcg 12/06/20 08:00 01/04/21 05:40 Levothyroxine Sodium 150 Mcg Tablet PO 150 mcg DAILY@0630 YUNG Administration Loratadine 10 mg 12/06/20 09:00 01/04/21 08:41 Loratadine 10 Mg Tablet PO 10 mg DAILY YUNG Administration Losartan Potassium 50 mg 12/06/20 09:00 01/04/21 08:52 Losartan Potassium 50 Mg Tablet PO 50 mg DAILY YUNG Administration Protocol Magnesium Hydroxide 30 ml 12/06/20 16:13 Milk Of Magnesia 30 Ml Oral.Susp PO DAILY PRN Constipation Metoprolol Tartrate 100 mg 12/16/20 21:00 01/04/21 08:44 Metoprolol Tartrate 50 Mg Tablet PO 100 mg BID YUNG Administration Protocol Risperidone 0.5 mg 12/08/20 17:00 01/03/21 17:22 Risperidone 0.5 Mg Tablet PO 0.5 mg DAILY@1700 YUNG Administration Trazodone HCl 50 mg 12/06/20 16:13 01/01/21 19:34 Trazodone Hcl 50 Mg Tablet PO 50 mg BEDTIME PRN Administration Insomnia Vitamin D 125 mcg 12/06/20 09:00 01/04/21 08:42 Cholecalciferol (Vitamin D3) 25 Mcg Tablet PO 125 mcg DAILY YUNG Administration Allergies Allergies Allergy/AdvReac Type Severity Reaction Status Date / Time olive oil [OLIVE OIL] Allergy Mild STOMACH Verified 12/05/20 19:06 UPSET Assessment & Plan Assessment & Plan (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
[2021-01-04] MEDS: risperiDONE 0.5 MG TABLET PO (16:18)
[2021-01-04 18:00] VITALS: BP 132/62; PULSE 63; RESP 12; TEMP 36; O2SAT 96
[2021-01-04 21:13] VITALS: BP 132/62; PULSE 63
[2021-01-04] MEDS: LORazepam 0.5 MG TABLET PO (21:13)
[2021-01-05 06:00] VITALS: BP 131/72; PULSE 63; RESP 12; TEMP 36.6; O2SAT 97
[2021-01-05] MEDS: Levothyroxine Sodium 150 MCG TABLET PO (06:55)
[2021-01-05] MEDS: Cholecalciferol (Vitamin D3) 25 MCG TABLET 125 MCG PO (09:13)
[2021-01-05 09:14] VITALS: BP 145/73; PULSE 66
[2021-01-05] MEDS: Losartan Potassium 50 MG TABLET PO (09:14)
[2021-01-05 09:15] VITALS: BP 145/73; PULSE 66
[2021-01-05] MEDS: Aspirin 81 MG TAB.CHEW PO (09:15)
[2021-01-05] MEDS: Metoprolol Tartrate 50 MG TABLET 100 MG PO ×2 (09:15→20:13)
[2021-01-05 09:16] VITALS: BP 145/73; PULSE 66
[2021-01-05] MEDS: amLODIPine Besylate 5 MG TABLET PO (09:16)
[2021-01-05] MEDS: Cyanocobalamin (Vitamin B-12) 500 MCG TABLET PO (09:16)
[2021-01-05] MEDS: Loratadine 10 MG TABLET PO (09:16)
[2021-01-05] MEDS: Fluticasone Propionate Nasal 16 GM SPRAY 2 SPRAY NOSTRIL-B (09:17)
--- NOTE | 2021-01-05 11:20 | HO.PSYCHPN ---
Subjective Subjective Date of Service: 01/05/21 Reason For Visit: HALLUCINATIONS Interim History: The patient remains pleasantly confused, waiting for [facility] application for placement Review of Systems Acute medical concerns: No Medical Review of Systems: unchanged Mental Status Exam Mental Status Exam Patient Appearance: Well Grooomed Patient Orientation: Person Level of Consciousness: Awake Patient Behavior: Cooperative Mood Description: Calm Affect Description: Constricted Patient Cognition Impaired: Yes Ability to Follow Directions: Good Speech Pattern: Clear Memory Description: Remote Impaired and Immediate Impaired Hallucinations: None Delusions: Not Present Thought Process: Distracted and Evasive Diagnostics Vital Signs (24Hr): Vital Signs - 24 hr 01/04/21 18:00 01/04/21 21:13 01/05/21 06:00 Temperature 96.8 F 98 F Pulse Rate 63 63 63 Respiratory Rate 12 12 Blood Pressure 132/62 132/62 131/72 Pulse Oximetry 96 97 01/05/21 09:14 01/05/21 09:15 01/05/21 09:16 Temperature Pulse Rate 66 66 66 Respiratory Rate Blood Pressure 145/73 H 145/73 H 145/73 H Pulse Oximetry Body Mass Index 28.3 Labs Results: 12/05/20 19:33 12/08/20 18:32 Imaging Radiology Impressions: ITS Impressions Head CT 12/06/20 07:04 IMPRESSION: Chronic microvascular ischemic changes with no CT evidence of acute intracranial abnormality. Medications Medications Current Medications Generic Name Dose Route Start Last Admin Trade Name Freq PRN Reason Stop Dose Admin Acetaminophen 650 mg 12/06/20 16:13 12/20/20 20:03 Acetaminophen 325 Mg Tablet PO 650 mg Q6H PRN Administration Headache/Pain Mild Scale (1-3) Al Hydroxide/Mg Hydroxide 30 ml 12/06/20 16:13 Magnesium Hydrox/Alum Hydrox 30 Ml Oral.Susp PO Q6H PRN Heartburn/Nausea Amlodipine Besylate 5 mg 12/09/20 09:00 01/05/21 09:16 Amlodipine Besylate 5 Mg Tablet PO 5 mg DAILY YUNG Administration Protocol Aspirin 81 mg 12/06/20 09:00 01/05/21 09:15 Aspirin 81 Mg Tab.Chew PO 81 mg DAILY YUNG Administration Cyanocobalamin 500 mcg 12/06/20 09:00 01/05/21 09:16 Cyanocobalamin (Vitamin B-12) 500 Mcg Tablet PO 500 mcg DAILY YUNG Administration Fluticasone Propionate 2 spray 12/10/20 10:21 01/05/21 09:17 Fluticasone Propionate Nasal [address] [place] NOSTRIL-B 2 spray DAILY YUNG Administration Levothyroxine Sodium 150 mcg 12/06/20 08:00 01/05/21 06:55 Levothyroxine Sodium 150 Mcg Tablet PO 150 mcg DAILY@0630 YUNG Administration Loratadine 10 mg 12/06/20 09:00 01/05/21 09:16 Loratadine 10 Mg Tablet PO 10 mg DAILY YUNG Administration Lorazepam 0.5 mg 01/04/21 21:00 01/04/21 21:13 Lorazepam 0.5 Mg Tablet PO 0.5 mg BEDTIME YUNG Administration Losartan Potassium 50 mg 12/06/20 09:00 01/05/21 09:14 Losartan Potassium 50 Mg Tablet PO 50 mg DAILY YUNG Administration Protocol Magnesium Hydroxide 30 ml 12/06/20 16:13 Milk Of Magnesia 30 Ml Oral.Susp PO DAILY PRN Constipation Metoprolol Tartrate 100 mg 12/16/20 21:00 01/05/21 09:15 Metoprolol Tartrate 50 Mg Tablet PO 100 mg BID YUNG Administration Protocol Risperidone 0.5 mg 12/08/20 17:00 01/04/21 16:18 Risperidone 0.5 Mg Tablet PO 0.5 mg DAILY@1700 YUNG Administration Trazodone HCl 50 mg 12/06/20 16:13 01/01/21 19:34 Trazodone Hcl 50 Mg Tablet PO 50 mg BEDTIME PRN Administration Insomnia Vitamin D 125 mcg 12/06/20 09:00 01/05/21 09:13 Cholecalciferol (Vitamin D3) 25 Mcg Tablet PO 125 mcg DAILY YUNG Administration Allergies Allergies Allergy/AdvReac Type Severity Reaction Status Date / Time olive oil [OLIVE OIL] Allergy Mild STOMACH Verified 12/05/20 19:06 UPSET Assessment & Plan Assessment & Plan (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
[2021-01-05 18:00] VITALS: BP 155/67; PULSE 68; RESP 16; TEMP 36.4; O2SAT 98
[2021-01-05 20:13] VITALS: BP 132/63; PULSE 67
[2021-01-05] MEDS: LORazepam 0.5 MG TABLET PO (20:13)
[2021-01-05] MEDS: risperiDONE 0.5 MG TABLET PO (20:13)
[2021-01-06] MEDS: Levothyroxine Sodium 150 MCG TABLET PO (05:34)
[2021-01-06 05:42] VITALS: BP 142/66; PULSE 61; RESP 18; TEMP 35.8; O2SAT 98
[2021-01-06 07:00] VITALS: BMI 28.5
[2021-01-06] MEDS: Loratadine 10 MG TABLET PO (08:41)
[2021-01-06] MEDS: Aspirin 81 MG TAB.CHEW PO (08:42)
[2021-01-06] MEDS: Cyanocobalamin (Vitamin B-12) 500 MCG TABLET PO (08:42)
[2021-01-06 08:43] VITALS: BP 114/58; PULSE 63
[2021-01-06] MEDS: Metoprolol Tartrate 50 MG TABLET 100 MG PO ×2 (08:43→20:04)
[2021-01-06] MEDS: Cholecalciferol (Vitamin D3) 25 MCG TABLET 125 MCG PO (08:43)
[2021-01-06 08:45] VITALS: BP 114/58; PULSE 63
[2021-01-06] MEDS: amLODIPine Besylate 5 MG TABLET PO (08:45)
[2021-01-06 08:46] VITALS: BP 114/58; PULSE 63
[2021-01-06] MEDS: Losartan Potassium 50 MG TABLET PO (08:46)
[2021-01-06] MEDS: Fluticasone Propionate Nasal 16 GM SPRAY 2 SPRAY NOSTRIL-B (08:50)
--- NOTE | 2021-01-06 11:55 | HO.PSYCHPN ---
Subjective Subjective Date of Service: 01/06/21 Reason For Visit: HALLUCINATIONS Interim History: The patient was aggravated yesterday at pm without a clear stressor. She denied new symptoms. Review of Systems Acute medical concerns: No Medical Review of Systems: unchanged Mental Status Exam Mental Status Exam Patient Appearance: Well Grooomed Patient Orientation: Person and Situation Level of Consciousness: Awake Patient Behavior: Appropriate Mood Description: Calm Affect Description: Constricted Patient Cognition Impaired: Yes Ability to Follow Directions: Good Speech Pattern: Clear Hallucinations: None Delusions: Not Present Thought Process: Distracted Thought Content: positive for Circumstantial and positive for Poverty of Content Judgement: Fair Diagnostics Vital Signs (24Hr): Vital Signs - 24 hr 01/05/21 18:00 01/05/21 20:13 01/06/21 05:42 Temperature 97.6 F 96.5 F L Pulse Rate 68 67 61 Respiratory Rate 16 18 Blood Pressure 155/67 H 132/63 142/66 H Pulse Oximetry 98 98 01/06/21 08:43 01/06/21 08:45 01/06/21 08:46 Temperature Pulse Rate 63 63 63 Respiratory Rate Blood Pressure 114/58 L 114/58 L 114/58 L Pulse Oximetry Body Mass Index 28.5 Labs Results: 12/05/20 19:33 12/08/20 18:32 Imaging Radiology Impressions: ITS Impressions Head CT 12/06/20 07:04 IMPRESSION: Chronic microvascular ischemic changes with no CT evidence of acute intracranial abnormality. Medications Medications Current Medications Generic Name Dose Route Start Last Admin Trade Name Freq PRN Reason Stop Dose Admin Acetaminophen 650 mg 12/06/20 16:13 12/20/20 20:03 Acetaminophen 325 Mg Tablet PO 650 mg Q6H PRN Administration Headache/Pain Mild Scale (1-3) Al Hydroxide/Mg Hydroxide 30 ml 12/06/20 16:13 Magnesium Hydrox/Alum Hydrox 30 Ml Oral.Susp PO Q6H PRN Heartburn/Nausea Amlodipine Besylate 5 mg 12/09/20 09:00 01/06/21 08:45 Amlodipine Besylate 5 Mg Tablet PO 5 mg DAILY YUNG Administration Protocol Aspirin 81 mg 12/06/20 09:00 01/06/21 08:42 Aspirin 81 Mg Tab.Chew PO 81 mg DAILY YUNG Administration Cyanocobalamin 500 mcg 12/06/20 09:00 01/06/21 08:42 Cyanocobalamin (Vitamin B-12) 500 Mcg Tablet PO 500 mcg DAILY YUNG Administration Fluticasone Propionate 2 spray 12/10/20 10:21 01/06/21 08:50 Fluticasone Propionate Nasal 16 Gm [place] NOSTRIL-B 2 spray DAILY YUNG Administration Levothyroxine Sodium 150 mcg 12/06/20 08:00 01/06/21 05:34 Levothyroxine Sodium 150 Mcg Tablet PO 150 mcg DAILY@0630 YUNG Administration Loratadine 10 mg 12/06/20 09:00 01/06/21 08:41 Loratadine 10 Mg Tablet PO 10 mg DAILY YUNG Administration Lorazepam 0.5 mg 01/04/21 21:00 01/05/21 20:13 Lorazepam 0.5 Mg Tablet PO 0.5 mg BEDTIME YUNG Administration Losartan Potassium 50 mg 12/06/20 09:00 01/06/21 08:46 Losartan Potassium 50 Mg Tablet PO 50 mg DAILY YUNG Administration Protocol Magnesium Hydroxide 30 ml 12/06/20 16:13 Milk Of Magnesia 30 Ml Oral.Susp PO DAILY PRN Constipation Metoprolol Tartrate 100 mg 12/16/20 21:00 01/06/21 08:43 Metoprolol Tartrate 50 Mg Tablet PO 100 mg BID YUNG Administration Protocol Risperidone 0.5 mg 12/08/20 17:00 01/05/21 20:13 Risperidone 0.5 Mg Tablet PO 0.5 mg DAILY@1700 YUNG Administration Trazodone HCl 50 mg 12/06/20 16:13 01/01/21 19:34 Trazodone Hcl 50 Mg Tablet PO 50 mg BEDTIME PRN Administration Insomnia Vitamin D 125 mcg 12/06/20 09:00 01/06/21 08:43 Cholecalciferol (Vitamin D3) 25 Mcg Tablet PO 125 mcg DAILY YUNG Administration Allergies Allergies Allergy/AdvReac Type Severity Reaction Status Date / Time olive oil [OLIVE OIL] Allergy Mild STOMACH Verified 12/05/20 19:06 UPSET Assessment & Plan Assessment & Plan (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
--- NOTE | 2021-01-06 12:02 | PC.NURSE ---
Patient has been having issues surrounding her meals the past few days. Menus are putin
--- NOTE | 2021-01-06 12:18 | PC.NURSE ---
Patient remains oriented only to self. Usually calm and cooperative. past few days has been agitated at meal times. she doesn't want the meal that is sent up for her. Meals are reordered and then she doesn't want that meal . She will say I didn't order that. I don't like . (whatever meal is). She will then go off to her room agitated. Eventually she will come and ask for something from the kitchen. Order put in for urinalysis to check for UTI. Otherwise patient is med compliant and not resistive to care.
[2021-01-06 15:08] LABS: Glucose Urine UA NEG (NEG); Leukocyte Esterase Urine 1+ (NEG); Nitrite Urine NEG (NEG); Specific Gravity - Urine <= 1.005 (1.005-1.025); Urine Blood NEG (NEG); Urine Ketones NEG (NEG); Urine Protein NEG (NEG-TRACE)
[2021-01-06 15:09] LABS: Appearance Urine CLEAR; Color Urine YELLOW
[2021-01-06 15:32] LABS: RBC Urine 0-2 /HPF (0); WBC Urine 0-2 /HPF (0-4)
[2021-01-06 15:33] LABS: Squamous Epithelial Cell Urine TRACE /LPF; Uric Acid Crystals Urine 1+ /LPF
[2021-01-06] MEDS: risperiDONE 0.5 MG TABLET PO (17:12)
[2021-01-06 18:49] VITALS: BP 119/62; PULSE 69; RESP 16; TEMP 36.5; O2SAT 97
[2021-01-06 20:04] VITALS: BP 138/62; PULSE 69
[2021-01-06] MEDS: LORazepam 0.5 MG TABLET PO (20:04)
[2021-01-07] MEDS: Levothyroxine Sodium 150 MCG TABLET PO (05:45)
[2021-01-07 05:54] VITALS: BP 162/70; PULSE 59; RESP 16; TEMP 36.3; O2SAT 97
[2021-01-07 08:11] VITALS: BP 164/73; PULSE 61
[2021-01-07] MEDS: Metoprolol Tartrate 50 MG TABLET 100 MG PO ×2 (08:11→19:45)
[2021-01-07] MEDS: amLODIPine Besylate 5 MG TABLET PO (08:11)
[2021-01-07] MEDS: Losartan Potassium 50 MG TABLET PO (08:11)
[2021-01-07] MEDS: Cholecalciferol (Vitamin D3) 25 MCG TABLET 125 MCG PO (08:12)
[2021-01-07] MEDS: Aspirin 81 MG TAB.CHEW PO (08:12)
[2021-01-07] MEDS: Loratadine 10 MG TABLET PO (08:12)
[2021-01-07] MEDS: Cyanocobalamin (Vitamin B-12) 500 MCG TABLET PO (08:12)
[2021-01-07] MEDS: Fluticasone Propionate Nasal 16 GM SPRAY 2 SPRAY NOSTRIL-B (08:14)
--- NOTE | 2021-01-07 11:34 | HO.PSYCHPN ---
Subjective Subjective Date of Service: 01/07/21 Reason For Visit: HALLUCINATIONS Interim History: The patient was sad and tearful yesterday at night since she feels that she was left behind , unclear or where she is going. NO new symptoms or evidence of psychosis. U/A is normal Review of Systems Acute medical concerns: No Medical Review of Systems: unchanged Mental Status Exam Mental Status Exam Patient Appearance: Well Grooomed Patient Orientation: Person and Situation Level of Consciousness: Awake Patient Behavior: Appropriate Mood Description: Calm Affect Description: Constricted Patient Cognition Impaired: Yes Ability to Follow Directions: Good Speech Pattern: Clear Hallucinations: None Delusions: Not Present Thought Process: Distracted Thought Content: positive for Circumstantial Judgement: Fair Diagnostics Vital Signs (24Hr): Vital Signs - 24 hr 01/06/21 18:49 01/06/21 20:04 01/07/21 05:54 Temperature 97.7 F 97.4 F Pulse Rate 69 69 59 Respiratory Rate 16 16 Blood Pressure 119/62 138/62 162/70 H Pulse Oximetry 97 97 01/07/21 08:11 Temperature Pulse Rate 61 Respiratory Rate Blood Pressure 164/73 H Pulse Oximetry Body Mass Index 28.5 Labs Results: 12/05/20 19:33 12/08/20 18:32 Labs: Laboratory Results - last 48 hr 01/06/21 Unknown Urine Color YELLOW Urine Appearance CLEAR Urine pH 6.0 Ur Specific [place] <= 1.005 Urine Protein NEG Urine Glucose (UA) NEG Urine Ketones NEG Urine Blood NEG Urine Nitrite NEG Ur Leukocyte Esterase 1+ H Urine RBC 0-2 Urine WBC 0-2 Ur Squamous Epith Cells TRACE Uric Acid Crystals 1+ Urine Bacteria NONE Imaging Radiology Impressions: ITS Impressions Head CT 12/06/20 07:04 IMPRESSION: Chronic microvascular ischemic changes with no CT evidence of acute intracranial abnormality. Medications Medications Current Medications Generic Name Dose Route Start Last Admin Trade Name Freq PRN Reason Stop Dose Admin Acetaminophen 650 mg 12/06/20 16:13 12/20/20 20:03 Acetaminophen 325 Mg Tablet PO 650 mg Q6H PRN Administration Headache/Pain Mild Scale (1-3) Al Hydroxide/Mg Hydroxide 30 ml 12/06/20 16:13 Magnesium Hydrox/Alum Hydrox 30 Ml Oral.Susp PO Q6H PRN Heartburn/Nausea Amlodipine Besylate 5 mg 12/09/20 09:00 01/07/21 08:11 Amlodipine Besylate 5 Mg Tablet PO 5 mg DAILY YUNG Administration Protocol Aspirin 81 mg 12/06/20 09:00 01/07/21 08:12 Aspirin 81 Mg Tab.Chew PO 81 mg DAILY YUNG Administration Cyanocobalamin 500 mcg 12/06/20 09:00 01/07/21 08:12 Cyanocobalamin (Vitamin B-12) 500 Mcg Tablet PO 500 mcg DAILY YNUG Administration Fluticasone Propionate 2 spray 12/10/20 10:21 01/07/21 08:14 Fluticasone Propionate Nasal 16 Gm [place] NOSTRIL-B 2 spray DAILY YUNG Administration Levothyroxine Sodium 150 mcg 12/06/20 08:00 01/07/21 05:45 Levothyroxine Sodium 150 Mcg Tablet PO 150 mcg DAILY@0630 YUNG Administration Loratadine 10 mg 12/06/20 09:00 01/07/21 08:12 Loratadine 10 Mg Tablet PO 10 mg DAILY YUNG Administration Lorazepam 0.5 mg 01/04/21 21:00 01/06/21 20:04 Lorazepam 0.5 Mg Tablet PO 0.5 mg BEDTIME YUNG Administration Losartan Potassium 50 mg 12/06/20 09:00 01/07/21 08:11 Losartan Potassium 50 Mg Tablet PO 50 mg DAILY YUNG Administration Protocol Magnesium Hydroxide 30 ml 12/06/20 16:13 Milk Of Magnesia 30 Ml Oral.Susp PO DAILY PRN Constipation Metoprolol Tartrate 100 mg 12/16/20 21:00 01/07/21 08:11 Metoprolol Tartrate 50 Mg Tablet PO 100 mg BID YUNG Administration Protocol Risperidone 0.5 mg 12/08/20 17:00 01/06/21 17:12 Risperidone 0.5 Mg Tablet PO 0.5 mg DAILY@1700 YUNG Administration Trazodone HCl 50 mg 12/06/20 16:13 01/01/21 19:34 Trazodone Hcl 50 Mg Tablet PO 50 mg BEDTIME PRN Administration Insomnia Vitamin D 125 mcg 12/06/20 09:00 01/07/21 08:12 Cholecalciferol (Vitamin D3) 25 Mcg Tablet PO 125 mcg DAILY YUNG Administration Allergies Allergies Allergy/AdvReac Type Severity Reaction Status Date / Time olive oil [OLIVE OIL] Allergy Mild STOMACH Verified 12/05/20 19:06 UPSET Assessment & Plan Assessment & Plan (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
[2021-01-07] MEDS: risperiDONE 0.5 MG TABLET PO (16:51)
[2021-01-07 17:50] VITALS: BP 172/70; PULSE 66; TEMP 36.4; O2SAT 97
[2021-01-07 19:35] VITALS: BP 135/73; PULSE 63; RESP 18; TEMP 36.1; O2SAT 96
[2021-01-07 19:45] VITALS: BP 138/93; PULSE 63
[2021-01-07] MEDS: LORazepam 0.5 MG TABLET PO (19:45)
[2021-01-08] MEDS: traZODone HCL 50 MG TABLET PO (01:39)
[2021-01-08] MEDS: Levothyroxine Sodium 150 MCG TABLET PO (04:54)
[2021-01-08 05:05] VITALS: BP 152/72; PULSE 56; RESP 16; TEMP 36.2; O2SAT 96
[2021-01-08] MEDS: Cholecalciferol (Vitamin D3) 25 MCG TABLET 125 MCG PO (07:59)
[2021-01-08 08:00] VITALS: BP 139/63; PULSE 55
[2021-01-08] MEDS: Losartan Potassium 50 MG TABLET PO (08:00)
[2021-01-08] MEDS: Aspirin 81 MG TAB.CHEW PO (08:00)
[2021-01-08] MEDS: Metoprolol Tartrate 50 MG TABLET 100 MG PO ×2 (08:00→20:06)
[2021-01-08] MEDS: Loratadine 10 MG TABLET PO (08:00)
[2021-01-08] MEDS: Cyanocobalamin (Vitamin B-12) 500 MCG TABLET PO (08:00)
[2021-01-08 08:02] VITALS: BP 139/63; PULSE 55
[2021-01-08] MEDS: Fluticasone Propionate Nasal 16 GM SPRAY 2 SPRAY NOSTRIL-B (08:02)
[2021-01-08] MEDS: amLODIPine Besylate 5 MG TABLET PO (08:02)
--- NOTE | 2021-01-08 09:19 | HO.PSYCHPN ---
Subjective Subjective Date of Service: 01/08/21 Reason For Visit: HALLUCINATIONS Interim History: pt has no complaints or requests. she reported that her son visited and that went well and made her quite happy. per staff, pt has not experienced any hallucinations on the unit to their knowledge. no behavioral concerns. Mental Status Exam Mental Status Exam Narrative: appropriately dressed in street clothes, properly groomed. no PMA/PMR. cooperative with interview. speech nml in rate, amount, loudness, tone, latency. thoughts linear and logical. affect full range, normo-intense, non-labile. mood euthymic. no SI/HI/AVH expressed. Diagnostics Vital Signs (24Hr): Vital Signs - 24 hr 01/07/21 17:50 01/07/21 19:35 01/07/21 19:45 Temperature 97.6 F 96.9 F Pulse Rate 66 63 63 Respiratory Rate 18 Blood Pressure 172/70 H 135/73 138/93 H Pulse Oximetry 97 96 01/08/21 05:05 01/08/21 08:00 01/08/21 08:02 Temperature 97.2 F Pulse Rate 56 55 55 Respiratory Rate 16 Blood Pressure 152/72 H 139/63 139/63 Pulse Oximetry 96 Body Mass Index 28.5 Labs Results: 12/05/20 19:33 12/08/20 18:32 Labs: Laboratory Results - last 48 hr 01/06/21 Unknown Urine Color YELLOW Urine Appearance CLEAR Urine pH 6.0 Ur Specific [place] <= 1.005 Urine Protein NEG Urine Glucose (UA) NEG Urine Ketones NEG Urine Blood NEG Urine Nitrite NEG Ur Leukocyte Esterase 1+ H Urine RBC 0-2 Urine WBC 0-2 Ur Squamous Epith Cells TRACE Uric Acid Crystals 1+ Urine Bacteria NONE Imaging Radiology Impressions: ITS Impressions Head CT 12/06/20 07:04 IMPRESSION: Chronic microvascular ischemic changes with no CT evidence of acute intracranial abnormality. Medications Medications Current Medications Generic Name Dose Route Start Last Admin Trade Name Freq PRN Reason Stop Dose Admin Acetaminophen 650 mg 12/06/20 16:13 12/20/20 20:03 Acetaminophen 325 Mg Tablet PO 650 mg Q6H PRN Administration Headache/Pain Mild Scale (1-3) Al Hydroxide/Mg Hydroxide 30 ml 12/06/20 16:13 Magnesium Hydrox/Alum Hydrox 30 Ml Oral.Susp PO Q6H PRN Heartburn/Nausea Amlodipine Besylate 5 mg 12/09/20 09:00 01/08/21 08:02 Amlodipine Besylate 5 Mg Tablet PO 5 mg DAILY YUNG Administration Protocol Aspirin 81 mg 12/06/20 09:00 01/08/21 08:00 Aspirin 81 Mg Tab.Chew PO 81 mg DAILY YUNG Administration Cyanocobalamin 500 mcg 12/06/20 09:00 01/08/21 08:00 Cyanocobalamin (Vitamin B-12) 500 Mcg Tablet PO 500 mcg DAILY YUNG Administration Fluticasone Propionate 2 spray 12/10/20 10:21 01/08/21 08:02 Fluticasone Propionate Nasal 16 Gm [place] NOSTRIL-B 2 spray DAILY YUNG Administration Levothyroxine Sodium 150 mcg 12/06/20 08:00 01/08/21 04:54 Levothyroxine Sodium 150 Mcg Tablet PO 150 mcg DAILY@0630 YUNG Administration Loratadine 10 mg 12/06/20 09:00 01/08/21 08:00 Loratadine 10 Mg Tablet PO 10 mg DAILY YUNG Administration Lorazepam 0.5 mg 01/04/21 21:00 01/07/21 19:45 Lorazepam 0.5 Mg Tablet PO 0.5 mg BEDTIME YUNG Administration Losartan Potassium 50 mg 12/06/20 09:00 01/08/21 08:00 Losartan Potassium 50 Mg Tablet PO 50 mg DAILY YUNG Administration Protocol Magnesium Hydroxide 30 ml 12/06/20 16:13 Milk Of Magnesia 30 Ml Oral.Susp PO DAILY PRN Constipation Metoprolol Tartrate 100 mg 12/16/20 21:00 01/08/21 08:00 Metoprolol Tartrate 50 Mg Tablet PO 100 mg BID YUNG Administration Protocol Risperidone 0.5 mg 12/08/20 17:00 01/07/21 16:51 Risperidone 0.5 Mg Tablet PO 0.5 mg DAILY@1700 YUNG Administration Trazodone HCl 50 mg 12/06/20 16:13 01/08/21 01:39 Trazodone Hcl 50 Mg Tablet PO 50 mg BEDTIME PRN Administration Insomnia Vitamin D 125 mcg 12/06/20 09:00 01/08/21 07:59 Cholecalciferol (Vitamin D3) 25 Mcg Tablet PO 125 mcg DAILY YUNG Administration Allergies Allergies Allergy/AdvReac Type Severity Reaction Status Date / Time olive oil [OLIVE OIL] Allergy Mild STOMACH Verified 07/04/21 19:06 UPSET Assessment & Plan Assessment & Plan (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
[2021-01-08] MEDS: risperiDONE 0.5 MG TABLET PO (17:39)
[2021-01-08 18:00] VITALS: BP 142/73; PULSE 60; RESP 16; TEMP 36.7; O2SAT 98
[2021-01-08 20:06] VITALS: BP 156/72; PULSE 61
[2021-01-08] MEDS: LORazepam 0.5 MG TABLET PO (20:06)
[2021-01-09] MEDS: Levothyroxine Sodium 150 MCG TABLET PO (05:40)
[2021-01-09 06:00] VITALS: BP 137/63; PULSE 57; RESP 18; TEMP 36.1; O2SAT 98
[2021-01-09] MEDS: Metoprolol Tartrate 50 MG TABLET 100 MG PO ×2 (08:27→19:45)
[2021-01-09] MEDS: Cholecalciferol (Vitamin D3) 25 MCG TABLET 125 MCG PO (08:27)
[2021-01-09] MEDS: Aspirin 81 MG TAB.CHEW PO (08:28)
[2021-01-09] MEDS: Cyanocobalamin (Vitamin B-12) 500 MCG TABLET PO (08:28)
[2021-01-09] MEDS: Loratadine 10 MG TABLET PO (08:28)
[2021-01-09] MEDS: Losartan Potassium 50 MG TABLET PO (08:28)
[2021-01-09] MEDS: amLODIPine Besylate 5 MG TABLET PO (08:28)
--- NOTE | 2021-01-09 11:10 | P.PNPSI_ITS ---
Subjective Subjective Date of Service: 01/09/21 Reason For Visit: HALLUCINATIONS Interim History: pt has no complaints or requests; states she is eating, sleeping, toileting, getting along with others well. she was interviewed in the common area with her sister present, who was there for a visit. they were reviewing some old family photos. she consented to her sister's presence for th e interview. per staff, increased confusion has been noted over the past several days. today she has packed to leave despite no such plan per Tx team. she has had no complaints. Mental Status Exam Mental Status Exam Narrative: appropriately dressed in street clothes, properly groomed. no PMA/PMR. cooperative with interview. speech nml in rate, amount, loudness, tone, latency. thoughts linear and logical. affect full range, normo-intense, non-labile. mood euthymic. no SI/HI/AVH expressed. Diagnostics Vital Signs (24Hr): Vital Signs - 24 hr 01/08/21 18:00 01/08/21 20:06 01/09/21 06:00 Temperature 98.1 F 96.9 F Pulse Rate 60 61 57 Respiratory Rate 16 18 Blood Pressure 142/73 H 156/72 H 137/63 Pulse Oximetry 98 98 Body Mass Index 28.5 Labs Results: 12/05/20 19:33 12/08/20 18:32 Imaging Radiology Impressions: ITS Impressions Head CT 12/06/20 07:04 IMPRESSION: Chronic microvascular ischemic changes with no CT evidence of acute intracranial abnormality. Medications Medications Current Medications Generic Name Dose Route Start Last Admin Trade Name Freq PRN Reason Stop Dose Admin Acetaminophen 650 mg 12/06/20 16:13 12/20/20 20:03 Acetaminophen 325 Mg Tablet PO 650 mg Q6H PRN Administration Headache/Pain Mild Scale (1-3) Al Hydroxide/Mg Hydroxide 30 ml 12/06/20 16:13 Magnesium Hydrox/Alum Hydrox 30 Ml Oral.Susp PO Q6H PRN Heartburn/Nausea Amlodipine Besylate 5 mg 12/09/20 09:00 01/09/21 08:28 Amlodipine Besylate 5 Mg Tablet PO 5 mg DAILY YUNG Administration Protocol Aspirin 81 mg 12/06/20 09:00 01/09/21 08:28 Aspirin 81 Mg Tab.Chew PO 81 mg DAILY YUNG Administration Cyanocobalamin 500 mcg 12/06/20 09:00 01/09/21 08:28 Cyanocobalamin (Vitamin B-12) 500 Mcg Tablet PO 500 mcg DAILY YUNG Administration Fluticasone Propionate 2 spray 12/10/20 10:21 01/09/21 10:59 Fluticasone Propionate Nasal 16 Gm [place] NOSTRIL-B Not Given DAILY YUNG Levothyroxine Sodium 150 mcg 12/06/20 08:00 01/09/21 05:40 Levothyroxine Sodium 150 Mcg Tablet PO 150 mcg DAILY@0630 YUNG Administration Loratadine 10 mg 12/06/20 09:00 01/09/21 08:28 Loratadine 10 Mg Tablet PO 10 mg DAILY YUNG Administration Lorazepam 0.5 mg 01/04/21 21:00 01/08/21 20:06 Lorazepam 0.5 Mg Tablet PO 0.5 mg BEDTIME YUNG Administration Losartan Potassium 50 mg 12/06/20 09:00 01/09/21 08:28 Losartan Potassium 50 Mg Tablet PO 50 mg DAILY YUNG Administration Protocol Magnesium Hydroxide 30 ml 12/06/20 16:13 Milk Of Magnesia 30 Ml Oral.Susp PO DAILY PRN Constipation Metoprolol Tartrate 100 mg 12/16/20 21:00 01/09/21 08:27 Metoprolol Tartrate 50 Mg Tablet PO 100 mg BID YUNG Administration Protocol Risperidone 0.5 mg 12/08/20 17:00 01/08/21 17:39 Risperidone 0.5 Mg Tablet PO 0.5 mg DAILY@1700 YUNG Administration Trazodone HCl 50 mg 12/06/20 16:13 01/08/21 01:39 Trazodone Hcl 50 Mg Tablet PO 50 mg BEDTIME PRN Administration Insomnia Vitamin D 125 mcg 12/06/20 09:00 01/09/21 08:27 Cholecalciferol (Vitamin D3) 25 Mcg Tablet PO 125 mcg DAILY YUNG Administration Allergies Allergies Allergy/AdvReac Type Severity Reaction Status Date / Time olive oil [OLIVE OIL] Allergy Mild STOMACH Verified 12/05/20 19:06 UPSET Assessment & Plan Assessment & Plan (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
[2021-01-09] MEDS: risperiDONE 0.5 MG TABLET PO (16:47)
[2021-01-09 18:00] VITALS: BP 122/56; PULSE 93; RESP 16; TEMP 36.7; O2SAT 95
[2021-01-09 19:45] VITALS: BP 146/70; PULSE 65
[2021-01-09] MEDS: LORazepam 0.5 MG TABLET PO (19:45)
[2021-01-10 06:00] VITALS: BP 123/57; PULSE 62; RESP 18; TEMP 36.8; O2SAT 96
[2021-01-10] MEDS: Levothyroxine Sodium 150 MCG TABLET PO (06:28)
[2021-01-10] MEDS: Cholecalciferol (Vitamin D3) 25 MCG TABLET 125 MCG PO (08:52)
[2021-01-10 08:53] VITALS: BP 147/65; PULSE 62
[2021-01-10] MEDS: Aspirin 81 MG TAB.CHEW PO (08:53)
[2021-01-10] MEDS: Metoprolol Tartrate 50 MG TABLET 100 MG PO ×2 (08:53→19:50)
[2021-01-10] MEDS: Loratadine 10 MG TABLET PO (08:53)
[2021-01-10] MEDS: Cyanocobalamin (Vitamin B-12) 500 MCG TABLET PO (08:53)
[2021-01-10 08:54] VITALS: BP 147/65; PULSE 62
[2021-01-10] MEDS: Losartan Potassium 50 MG TABLET PO (08:54)
[2021-01-10] MEDS: amLODIPine Besylate 5 MG TABLET PO (08:54)
--- NOTE | 2021-01-10 13:10 | P.PNPSI_ITS ---
Subjective Subjective Date of Service: 01/10/21 Reason For Visit: HALLUCINATIONS Interim History: The patient has been pleasantly confused, waiting for placement. Review of Systems Acute medical concerns: No Medical Review of Systems: unchanged Mental Status Exam Mental Status Exam Patient Appearance: Well Grooomed Patient Orientation: Person, Place and Situation Level of Consciousness: Awake Patient Behavior: Appropriate Mood Description: Calm and Appropriate Affect Description: Constricted Patient Cognition Impaired: Yes Ability to Follow Directions: Good Speech Pattern: Clear Memory Description: Intact Hallucinations: None Delusions: Not Present Thought Process: Distracted Thought Content: positive for Circumstantial Judgement: Fair Diagnostics Vital Signs (24Hr): Vital Signs - 24 hr 01/09/21 18:00 01/09/21 19:45 01/10/21 06:00 Temperature 98.1 F 98.2 F Pulse Rate 93 65 62 Respiratory Rate 16 18 Blood Pressure 122/56 L 146/70 H 123/57 L Pulse Oximetry 95 96 01/10/21 08:53 01/10/21 08:54 Temperature Pulse Rate 62 62 Respiratory Rate Blood Pressure 147/65 H 147/65 H Pulse Oximetry Body Mass Index 28.5 Labs Results: 12/05/20 19:33 12/08/20 18:32 Imaging Radiology Impressions: ITS Impressions Head CT 12/06/20 07:04 IMPRESSION: Chronic microvascular ischemic changes with no CT evidence of acute intracranial abnormality. Medications Medications Current Medications Generic Name Dose Route Start Last Admin Trade Name Freq PRN Reason Stop Dose Admin Acetaminophen 650 mg 12/06/20 16:13 12/20/20 20:03 Acetaminophen 325 Mg Tablet PO 650 mg Q6H PRN Administration Headache/Pain Mild Scale (1-3) Al Hydroxide/Mg Hydroxide 30 ml 12/06/20 16:13 Magnesium Hydrox/Alum Hydrox 30 Ml Oral.Susp PO Q6H PRN Heartburn/Nausea Amlodipine Besylate 5 mg 12/09/20 09:00 01/10/21 08:54 Amlodipine Besylate 5 Mg Tablet PO 5 mg DAILY YUNG Administration Protocol Aspirin 81 mg 12/06/20 09:00 01/10/21 08:53 Aspirin 81 Mg Tab.Chew PO 81 mg DAILY YUNG Administration Cyanocobalamin 500 mcg 12/06/20 09:00 01/10/21 08:53 Cyanocobalamin (Vitamin B-12) 500 Mcg Tablet PO 500 mcg DAILY YUNG Administration Fluticasone Propionate 2 spray 12/10/20 10:21 01/10/21 08:54 Fluticasone Propionate Nasal 16 Gm [place] NOSTRIL-B Not Given DAILY YUNG Levothyroxine Sodium 150 mcg 12/06/20 08:00 01/10/21 06:28 Levothyroxine Sodium 150 Mcg Tablet PO 150 mcg DAILY@0630 YUNG Administration Loratadine 10 mg 12/06/20 09:00 01/10/21 08:53 Loratadine 10 Mg Tablet PO 10 mg DAILY YUNG Administration Losartan Potassium 50 mg 12/06/20 09:00 01/10/21 08:54 Losartan Potassium 50 Mg Tablet PO 50 mg DAILY YUNG Administration Protocol Magnesium Hydroxide 30 ml 12/06/20 16:13 Milk Of Magnesia 30 Ml Oral.Susp PO DAILY PRN Constipation Metoprolol Tartrate 100 mg 12/16/20 21:00 01/10/21 08:53 Metoprolol Tartrate 50 Mg Tablet PO 100 mg BID YUNG Administration Protocol Risperidone 0.5 mg 12/08/20 17:00 01/09/21 16:47 Risperidone 0.5 Mg Tablet PO 0.5 mg DAILY@1700 YUNG Administration Trazodone HCl 50 mg 12/06/20 16:13 01/08/21 01:39 Trazodone Hcl 50 Mg Tablet PO 50 mg BEDTIME PRN Administration Insomnia Vitamin D 125 mcg 12/06/20 09:00 01/10/21 08:52 Cholecalciferol (Vitamin D3) 25 Mcg Tablet PO 125 mcg DAILY YUNG Administration Allergies Allergies Allergy/AdvReac Type Severity Reaction Status Date / Time olive oil [OLIVE OIL] Allergy Mild STOMACH Verified 12/05/20 19:06 UPSET Assessment & Plan Assessment & Plan (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
[2021-01-10] MEDS: risperiDONE 0.5 MG TABLET PO (16:47)
[2021-01-10 17:37] VITALS: BP 146/67; PULSE 63; RESP 18; TEMP 36.7; O2SAT 97
--- NOTE | 2021-01-10 18:33 | PC.NURSE ---
Patient is alert to self. She Participates in groups with staff prompting and assistance. Patient is tearful in afternoon/early evening stating I feel so stupid, Whatever I did to end up here. I must have done something wrong. Patient is provided with support and active listening.
[2021-01-10 19:50] VITALS: BP 140/62; PULSE 64
[2021-01-11] MEDS: Levothyroxine Sodium 150 MCG TABLET PO (06:07)
[2021-01-11 06:10] VITALS: BP 148/68; PULSE 58; RESP 18; TEMP 36.5; O2SAT 96
[2021-01-11] MEDS: Cyanocobalamin (Vitamin B-12) 500 MCG TABLET PO (08:04)
[2021-01-11] MEDS: Aspirin 81 MG TAB.CHEW PO (08:04)
[2021-01-11] MEDS: Cholecalciferol (Vitamin D3) 25 MCG TABLET 125 MCG PO (08:05)
[2021-01-11 08:06] VITALS: BP 167/74; PULSE 59
[2021-01-11] MEDS: Losartan Potassium 50 MG TABLET PO (08:06)
[2021-01-11] MEDS: Loratadine 10 MG TABLET PO (08:06)
[2021-01-11 08:07] VITALS: BP 167/74; PULSE 59
[2021-01-11] MEDS: amLODIPine Besylate 5 MG TABLET PO (08:07)
[2021-01-11] MEDS: Fluticasone Propionate Nasal 16 GM SPRAY 2 SPRAY NOSTRIL-B (09:21)
[2021-01-11 09:24] VITALS: BP 135/63; PULSE 62
[2021-01-11] MEDS: Metoprolol Tartrate 50 MG TABLET 100 MG PO ×2 (09:24→19:23)
--- NOTE | 2021-01-11 15:54 | HO.PSYCHPN ---
Subjective Subjective Date of Service: 01/12/21 Reason For Visit: HALLUCINATIONS Interim History: The patient has attended groups, at baseline, waiting for placement Review of Systems Acute medical concerns: No Medical Review of Systems: unchanged Mental Status Exam Mental Status Exam Patient Appearance: Well Grooomed Patient Orientation: Person and Place Level of Consciousness: Awake Patient Behavior: Passive Mood Description: Appropriate Affect Description: Constricted Patient Cognition Impaired: Yes Ability to Follow Directions: Good Speech Pattern: Clear Memory Description: Immediate Impaired Hallucinations: None Delusions: Not Present Thought Process: Distracted Thought Content: positive for Circumstantial Judgement: Fair Diagnostics Vital Signs (24Hr): Vital Signs - 24 hr 01/10/21 17:37 01/10/21 19:50 01/11/21 06:10 Temperature 98.0 F 97.7 F Pulse Rate 63 64 58 Respiratory Rate 18 18 Blood Pressure 146/67 H 140/62 H 148/68 H Pulse Oximetry 97 96 01/11/21 08:06 01/11/21 08:07 01/11/21 09:24 Temperature Pulse Rate 59 59 62 Respiratory Rate Blood Pressure 167/74 H 167/74 H 135/63 Pulse Oximetry Body Mass Index 28.5 Labs Results: 12/05/20 19:33 12/08/20 18:32 Imaging Radiology Impressions: ITS Impressions Head CT 12/06/20 07:04 IMPRESSION: Chronic microvascular ischemic changes with no CT evidence of acute intracranial abnormality. Medications Medications Current Medications Generic Name Dose Route Start Last Admin Trade Name Freq PRN Reason Stop Dose Admin Acetaminophen 650 mg 12/06/20 16:13 12/20/20 20:03 Acetaminophen 325 Mg Tablet PO 650 mg Q6H PRN Administration Headache/Pain Mild Scale (1-3) Al Hydroxide/Mg Hydroxide 30 ml 12/06/20 16:13 Magnesium Hydrox/Alum Hydrox 30 Ml Oral.Susp PO Q6H PRN Heartburn/Nausea Amlodipine Besylate 5 mg 12/09/20 09:00 01/11/21 08:07 Amlodipine Besylate 5 Mg Tablet PO 5 mg DAILY YUNG Administration Protocol Aspirin 81 mg 12/06/20 09:00 01/11/21 08:04 Aspirin 81 Mg Tab.Chew PO 81 mg DAILY YUNG Administration Cyanocobalamin 500 mcg 12/06/20 09:00 01/11/21 08:04 Cyanocobalamin (Vitamin B-12) 500 Mcg Tablet PO 500 mcg DAILY YUNG Administration Fluticasone Propionate 2 spray 12/10/20 10:21 01/11/21 09:21 Fluticasone Propionate Nasal 16 Gm [place] NOSTRIL-B 2 spray DAILY YUNG Administration Levothyroxine Sodium 150 mcg 12/06/20 08:00 01/11/21 06:07 Levothyroxine Sodium 150 Mcg Tablet PO 150 mcg DAILY@0630 YUNG Administration Loratadine 10 mg 12/06/20 09:00 01/11/21 08:06 Loratadine 10 Mg Tablet PO 10 mg DAILY YUNG Administration Lorazepam 0.5 mg 01/11/21 15:12 Lorazepam 0.5 Mg Tablet PO BEDTIME PRN Sleep Losartan Potassium 50 mg 12/06/20 09:00 01/11/21 08:06 Losartan Potassium 50 Mg Tablet PO 50 mg DAILY YUNG Administration Protocol Magnesium Hydroxide 30 ml 12/06/20 16:13 Milk Of Magnesia 30 Ml Oral.Susp PO DAILY PRN Constipation Metoprolol Tartrate 100 mg 12/16/20 21:00 01/11/21 09:24 Metoprolol Tartrate 50 Mg Tablet PO 100 mg BID YUNG Administration Protocol Risperidone 0.5 mg 12/08/20 17:00 01/10/21 16:47 Risperidone 0.5 Mg Tablet PO 0.5 mg DAILY@1700 YUNG Administration Trazodone HCl 50 mg 12/06/20 16:13 01/08/21 01:39 Trazodone Hcl 50 Mg Tablet PO 50 mg BEDTIME PRN Administration Insomnia Vitamin D 125 mcg 12/06/20 09:00 01/11/21 08:05 Cholecalciferol (Vitamin D3) 25 Mcg Tablet PO 125 mcg DAILY YUNG Administration Allergies Allergies Allergy/AdvReac Type Severity Reaction Status Date / Time olive oil [OLIVE OIL] Allergy Mild STOMACH Verified 12/05/20 19:06 UPSET Assessment & Plan Assessment & Plan (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
[2021-01-11] MEDS: risperiDONE 0.5 MG TABLET PO (17:00)
[2021-01-11 18:00] VITALS: BP 144/70; PULSE 62; TEMP 36.6; O2SAT 96
[2021-01-11 19:23] VITALS: BP 179/79; PULSE 60
[2021-01-12] MEDS: Levothyroxine Sodium 150 MCG TABLET PO (05:21)
[2021-01-12 05:24] VITALS: BP 143/69; PULSE 55; RESP 18; TEMP 36.6; O2SAT 95
[2021-01-12 09:08] VITALS: BP 152/67; PULSE 60
[2021-01-12] MEDS: Metoprolol Tartrate 50 MG TABLET 100 MG PO ×2 (09:08→20:34)
[2021-01-12] MEDS: Loratadine 10 MG TABLET PO (09:08)
[2021-01-12] MEDS: Cyanocobalamin (Vitamin B-12) 500 MCG TABLET PO (09:09)
[2021-01-12] MEDS: Aspirin 81 MG TAB.CHEW PO (09:09)
[2021-01-12] MEDS: amLODIPine Besylate 5 MG TABLET PO (09:09)
[2021-01-12] MEDS: Cholecalciferol (Vitamin D3) 25 MCG TABLET 125 MCG PO (09:09)
[2021-01-12] MEDS: Losartan Potassium 50 MG TABLET PO (09:09)
[2021-01-12] MEDS: Fluticasone Propionate Nasal 16 GM SPRAY 2 SPRAY NOSTRIL-B (09:14)
--- NOTE | 2021-01-12 13:34 | HO.PSYCHPN ---
Subjective Subjective Date of Service: 01/12/21 Reason For Visit: HALLUCINATIONS Interim History: The patient remains pleasantly confused. Her son visited her yesterday and she could not remember when was the last time that she had visitors. She is waiting for placement. Medication Compliance: Yes Side effects from medications: No Attending Groups: Yes Review of Systems Acute medical concerns: No Medical Review of Systems: unchanged Mental Status Exam Mental Status Exam Mood Description: Calm Affect Description: Withdrawn and Constricted Patient Cognition Impaired: Yes Ability to Follow Directions: Good Speech Pattern: Clear Memory Description: Intact Hallucinations: None Delusions: Not Present Thought Process: Linear Thought Content: positive for Circumstantial Judgement: Fair Diagnostics Vital Signs (24Hr): Vital Signs - 24 hr 01/11/21 18:00 01/11/21 19:23 01/12/21 05:24 Temperature 97.8 F 97.8 F Pulse Rate 62 60 55 Respiratory Rate 18 Blood Pressure 144/70 H 179/79 H 143/69 H Pulse Oximetry 96 95 01/12/21 09:08 Temperature Pulse Rate 60 Respiratory Rate Blood Pressure 152/67 H Pulse Oximetry Body Mass Index 28.5 Labs Results: 12/05/20 19:33 12/08/20 18:32 Imaging Radiology Impressions: ITS Impressions Head CT 12/06/20 07:04 IMPRESSION: Chronic microvascular ischemic changes with no CT evidence of acute intracranial abnormality. Medications Medications Current Medications Generic Name Dose Route Start Last Admin Trade Name Freq PRN Reason Stop Dose Admin Acetaminophen 650 mg 12/06/20 16:13 12/20/20 20:03 Acetaminophen 325 Mg Tablet PO 650 mg Q6H PRN Administration Headache/Pain Mild Scale (1-3) Al Hydroxide/Mg Hydroxide 30 ml 12/06/20 16:13 Magnesium Hydrox/Alum Hydrox 30 Ml Oral.Susp PO Q6H PRN Heartburn/Nausea Amlodipine Besylate 5 mg 12/09/20 09:00 01/12/21 09:09 Amlodipine Besylate 5 Mg Tablet PO 5 mg DAILY YUNG Administration Protocol Aspirin 81 mg 12/06/20 09:00 01/12/21 09:09 Aspirin 81 Mg Tab.Chew PO 81 mg DAILY YUNG Administration Cyanocobalamin 500 mcg 12/06/20 09:00 01/12/21 09:09 Cyanocobalamin (Vitamin B-12) 500 Mcg Tablet PO 500 mcg DAILY YUNG Administration Fluticasone Propionate 2 spray 12/10/20 10:21 01/12/21 09:14 Fluticasone Propionate Nasal [address] [place] NOSTRIL-B 2 spray DAILY YUNG Administration Levothyroxine Sodium 150 mcg 12/06/20 08:00 01/12/21 05:21 Levothyroxine Sodium 150 Mcg Tablet PO 150 mcg DAILY@0630 YUNG Administration Loratadine 10 mg 12/06/20 09:00 01/12/21 09:08 Loratadine 10 Mg Tablet PO 10 mg DAILY YUNG Administration Lorazepam 0.5 mg 01/11/21 15:12 Lorazepam 0.5 Mg Tablet PO BEDTIME PRN Sleep Losartan Potassium 50 mg 12/06/20 09:00 01/12/21 09:09 Losartan Potassium 50 Mg Tablet PO 50 mg DAILY YUNG Administration Protocol Magnesium Hydroxide 30 ml 12/06/20 16:13 Milk Of Magnesia 30 Ml Oral.Susp PO DAILY PRN Constipation Metoprolol Tartrate 100 mg 12/16/20 21:00 01/12/21 09:08 Metoprolol Tartrate 50 Mg Tablet PO 100 mg BID YUNG Administration Protocol Risperidone 0.5 mg 12/08/20 17:00 01/11/21 17:00 Risperidone 0.5 Mg Tablet PO 0.5 mg DAILY@1700 YUNG Administration Trazodone HCl 50 mg 12/06/20 16:13 01/08/21 01:39 Trazodone Hcl 50 Mg Tablet PO 50 mg BEDTIME PRN Administration Insomnia Vitamin D 125 mcg 12/06/20 09:00 01/12/21 09:09 Cholecalciferol (Vitamin D3) 25 Mcg Tablet PO 125 mcg DAILY YUNG Administration Allergies Allergies Allergy/AdvReac Type Severity Reaction Status Date / Time olive oil [OLIVE OIL] Allergy Mild STOMACH Verified 12/05/20 19:06 UPSET Assessment & Plan Assessment & Plan (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
[2021-01-12] MEDS: risperiDONE 0.5 MG TABLET PO (17:13)
[2021-01-12 18:15] VITALS: BP 133/61; PULSE 63; RESP 16; TEMP 36.7; O2SAT 96
[2021-01-12 20:34] VITALS: BP 142/66; PULSE 63
[2021-01-13 06:00] VITALS: BP 109/61; PULSE 58; RESP 14; TEMP 36; O2SAT 96
[2021-01-13] MEDS: Levothyroxine Sodium 150 MCG TABLET PO (06:42)
[2021-01-13 07:00] VITALS: BMI 27.9
[2021-01-13] MEDS: Cholecalciferol (Vitamin D3) 25 MCG TABLET 125 MCG PO (09:23)
[2021-01-13] MEDS: Cyanocobalamin (Vitamin B-12) 500 MCG TABLET PO (09:23)
[2021-01-13] MEDS: Aspirin 81 MG TAB.CHEW PO (09:23)
[2021-01-13 09:24] VITALS: BP 109/60; PULSE 58
[2021-01-13] MEDS: Losartan Potassium 50 MG TABLET PO (09:24)
[2021-01-13 09:25] VITALS: BP 109/61; PULSE 58
[2021-01-13] MEDS: Loratadine 10 MG TABLET PO (09:25)
[2021-01-13] MEDS: amLODIPine Besylate 5 MG TABLET PO (09:25)
[2021-01-13 09:31] VITALS: PULSE 58
--- NOTE | 2021-01-13 09:31 | PC.NURSE ---
Pt metoprolol held due to heart rate of 58.
--- NOTE | 2021-01-13 12:40 | HO.PSYCHPN ---
Subjective Subjective Date of Service: 01/13/21 Reason For Visit: HALLUCINATIONS Interim History: The patient remains pleasantly confused and out unit. She is able to participate in groups but mostly in the afternoon, she becomes very tearful and sad since she still waiting for placement. The staff has noticed that she becomes more labile in the afternoon, she is sundowning Medication Compliance: Yes Side effects from medications: No Review of Systems Acute medical concerns: No Medical Review of Systems: unchanged Mental Status Exam Mental Status Exam Patient Appearance: Well Grooomed Patient Orientation: Person and Situation Level of Consciousness: Awake Patient Behavior: Appropriate Mood Description: Calm Affect Description: Constricted Patient Cognition Impaired: Yes Ability to Follow Directions: Good Speech Pattern: Clear Hallucinations: None Delusions: Not Present Thought Process: Linear and Slowed Thinking Thought Content: positive for Linear and positive for Poverty of Content Judgement: Poor Diagnostics Vital Signs (24Hr): Vital Signs - 24 hr 01/12/21 18:15 01/12/21 20:34 01/13/21 06:00 Temperature 98.1 F 96.8 F Pulse Rate 63 63 58 Respiratory Rate 16 14 Blood Pressure 133/61 142/66 H 109/61 Pulse Oximetry 96 96 01/13/21 09:24 01/13/21 09:25 01/13/21 09:31 Temperature Pulse Rate 58 58 58 Respiratory Rate Blood Pressure 109/60 109/61 Pulse Oximetry Body Mass Index 27.9 Labs Results: 12/05/20 19:33 12/08/20 18:32 Imaging Radiology Impressions: ITS Impressions Head CT 12/06/20 07:04 IMPRESSION: Chronic microvascular ischemic changes with no CT evidence of acute intracranial abnormality. Medications Medications Current Medications Generic Name Dose Route Start Last Admin Trade Name Freq PRN Reason Stop Dose Admin Acetaminophen 650 mg 12/06/20 16:13 12/20/20 20:03 Acetaminophen 325 Mg Tablet PO 650 mg Q6H PRN Administration Headache/Pain Mild Scale (1-3) Al Hydroxide/Mg Hydroxide 30 ml 12/06/20 16:13 Magnesium Hydrox/Alum Hydrox 30 Ml Oral.Susp PO Q6H PRN Heartburn/Nausea Amlodipine Besylate 5 mg 12/09/20 09:00 01/13/21 09:25 Amlodipine Besylate 5 Mg Tablet PO 5 mg DAILY YUNG Administration Protocol Aspirin 81 mg 12/06/20 09:00 01/13/21 09:23 Aspirin 81 Mg Tab.Chew PO 81 mg DAILY YUNG Administration Cyanocobalamin 500 mcg 12/06/20 09:00 01/13/21 09:23 Cyanocobalamin (Vitamin B-12) 500 Mcg Tablet PO 500 mcg DAILY YUNG Administration Fluticasone Propionate 2 spray 12/10/20 10:21 01/13/21 09:25 Fluticasone Propionate Nasal 16 Gm [place] NOSTRIL-B Not Given DAILY YUNG Levothyroxine Sodium 150 mcg 12/06/20 08:00 01/13/21 06:42 Levothyroxine Sodium 150 Mcg Tablet PO 150 mcg DAILY@0630 YUNG Administration Loratadine 10 mg 12/06/20 09:00 01/13/21 09:25 Loratadine 10 Mg Tablet PO 10 mg DAILY YUNG Administration Lorazepam 0.5 mg 01/11/21 15:12 Lorazepam 0.5 Mg Tablet PO BEDTIME PRN Sleep Losartan Potassium 50 mg 12/06/20 09:00 01/13/21 09:24 Losartan Potassium 50 Mg Tablet PO 50 mg DAILY YUNG Administration Protocol Magnesium Hydroxide 30 ml 12/06/20 16:13 Milk Of Magnesia 30 Ml Oral.Susp PO DAILY PRN Constipation Metoprolol Tartrate 100 mg 12/16/20 21:00 01/13/21 09:31 Metoprolol Tartrate 50 Mg Tablet PO Not Given BID YUNG Protocol Risperidone 0.5 mg 12/08/20 17:00 01/12/21 17:13 Risperidone 0.5 Mg Tablet PO 0.5 mg DAILY@1700 YUNG Administration Trazodone HCl 50 mg 12/06/20 16:13 01/08/21 01:39 Trazodone Hcl 50 Mg Tablet PO 50 mg BEDTIME PRN Administration Insomnia Vitamin D 125 mcg 12/06/20 09:00 01/13/21 09:23 Cholecalciferol (Vitamin D3) 25 Mcg Tablet PO 125 mcg DAILY YUNG Administration Allergies Allergies Allergy/AdvReac Type Severity Reaction Status Date / Time olive oil [OLIVE OIL] Allergy Mild STOMACH Verified 12/05/20 19:06 UPSET Assessment & Plan Assessment & Plan (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
[2021-01-13] MEDS: traZODone HCL 25 MG HALFTAB PO ×2 (15:31→16:54)
[2021-01-13] MEDS: risperiDONE 0.5 MG TABLET PO (16:54)
[2021-01-13 17:47] VITALS: BP 137/63; PULSE 63; RESP 17; TEMP 36.4; O2SAT 95
[2021-01-13 19:33] VITALS: BP 138/66; PULSE 65
[2021-01-13] MEDS: Metoprolol Tartrate 50 MG TABLET 100 MG PO (19:33)
[2021-01-13] MEDS: traZODone HCL 50 MG TABLET PO (19:33)
[2021-01-14] MEDS: Levothyroxine Sodium 150 MCG TABLET PO (05:36)
[2021-01-14 06:00] VITALS: BP 144/70; PULSE 57; RESP 18; TEMP 36; O2SAT 97
[2021-01-14 08:16] VITALS: BP 117/55; PULSE 56
[2021-01-14] MEDS: Losartan Potassium 50 MG TABLET PO (08:16)
[2021-01-14] MEDS: Cholecalciferol (Vitamin D3) 25 MCG TABLET 125 MCG PO (08:16)
[2021-01-14] MEDS: Aspirin 81 MG TAB.CHEW PO (08:16)
[2021-01-14 08:17] VITALS: BP 117/55; PULSE 56
[2021-01-14] MEDS: amLODIPine Besylate 5 MG TABLET PO (08:17)
[2021-01-14] MEDS: Cyanocobalamin (Vitamin B-12) 500 MCG TABLET PO (08:17)
[2021-01-14 08:18] VITALS: PULSE 56
[2021-01-14] MEDS: Loratadine 10 MG TABLET PO (08:18)
--- NOTE | 2021-01-14 11:23 | P.PNPSI_ITS ---
Subjective Subjective Date of Service: 01/14/21 Reason For Visit: HALLUCINATIONS Subjective Notes: Conditional Voluntary Interim History: The staff has reported that her sundowing improved with Trazodone in the evening. Waiting for placement, the patient reported that she is OK, pleasantly confused. Medication Compliance: Yes Side effects from medications: No Attending Groups: Yes Review of Systems Acute medical concerns: No Medical Review of Systems: unchanged Mental Status Exam Mental Status Exam Patient Appearance: Well Grooomed Patient Orientation: Person and Situation Level of Consciousness: Awake Patient Behavior: Appropriate Mood Description: Appropriate Affect Description: Constricted Patient Cognition Impaired: Yes Ability to Follow Directions: Good Speech Pattern: Clear Memory Description: Immediate Impaired and Recent Impaired Hallucinations: None Delusions: Not Present Thought Process: Linear Thought Content: positive for Circumstantial and positive for Poverty of Content Judgement: Fair Diagnostics Vital Signs (24Hr): Vital Signs - 24 hr 01/13/21 17:47 01/13/21 19:33 01/14/21 06:00 Temperature 97.5 F 96.8 F Pulse Rate 63 65 57 Respiratory Rate 17 18 Blood Pressure 137/63 138/66 144/70 H Pulse Oximetry 95 97 01/14/21 08:16 01/14/21 08:17 01/14/21 08:18 Temperature Pulse Rate 56 56 56 Respiratory Rate Blood Pressure 117/55 L 117/55 L Pulse Oximetry Body Mass Index 27.9 Labs Results: 12/05/20 19:33 12/08/20 18:32 Imaging Radiology Impressions: ITS Impressions Head CT 12/06/20 07:04 IMPRESSION: Chronic microvascular ischemic changes with no CT evidence of acute intracranial abnormality. Medications Medications Current Medications Generic Name Dose Route Start Last Admin Trade Name Freq PRN Reason Stop Dose Admin Acetaminophen 650 mg 12/06/20 16:13 12/20/20 20:03 Acetaminophen 325 Mg Tablet PO 650 mg Q6H PRN Administration Headache/Pain Mild Scale (1-3) Al Hydroxide/Mg Hydroxide 30 ml 12/06/20 16:13 Magnesium Hydrox/Alum Hydrox 30 Ml Oral.Susp PO Q6H PRN Heartburn/Nausea Amlodipine Besylate 5 mg 12/09/20 09:00 01/14/21 08:17 Amlodipine Besylate 5 Mg Tablet PO 5 mg DAILY YUNG Administration Protocol Aspirin 81 mg 12/06/20 09:00 01/14/21 08:16 Aspirin 81 Mg Tab.Chew PO 81 mg DAILY YUNG Administration Cyanocobalamin 500 mcg 12/06/20 09:00 01/14/21 08:17 Cyanocobalamin (Vitamin B-12) 500 Mcg Tablet PO 500 mcg DAILY YUNG Administration Fluticasone Propionate 2 spray 12/10/20 10:21 01/14/21 08:18 Fluticasone Propionate Nasal 16 Gm [place] NOSTRIL-B Not Given DAILY YUNG Levothyroxine Sodium 150 mcg 12/06/20 08:00 01/14/21 05:36 Levothyroxine Sodium 150 Mcg Tablet PO 150 mcg DAILY@0630 YUNG Administration Loratadine 10 mg 12/06/20 09:00 01/14/21 08:18 Loratadine 10 Mg Tablet PO 10 mg DAILY YUNG Administration Lorazepam 0.5 mg 01/11/21 15:12 Lorazepam 0.5 Mg Tablet PO BEDTIME PRN Sleep Losartan Potassium 50 mg 12/06/20 09:00 01/14/21 08:16 Losartan Potassium 50 Mg Tablet PO 50 mg DAILY YUNG Administration Protocol Magnesium Hydroxide 30 ml 12/06/20 16:13 Milk Of Magnesia 30 Ml Oral.Susp PO DAILY PRN Constipation Metoprolol Tartrate 100 mg 12/16/20 21:00 01/14/21 08:18 Metoprolol Tartrate 50 Mg Tablet PO Not Given BID [facility] Protocol Risperidone 0.5 mg 12/08/20 17:00 01/13/21 16:54 Risperidone 0.5 Mg Tablet PO 0.5 mg DAILY@1700 YUNG Administration Trazodone HCl 50 mg 12/06/20 16:13 01/13/21 19:33 Trazodone Hcl 50 Mg Tablet PO 50 mg BEDTIME PRN Administration Insomnia Trazodone HCl 25 mg 01/13/21 15:00 01/13/21 16:54 Trazodone Hcl 25 Mg Halftab PO 25 mg DAILY@1700 YUNG Administration Vitamin D 125 mcg 12/06/20 09:00 01/14/21 08:16 Cholecalciferol (Vitamin D3) 25 Mcg Tablet PO 125 mcg DAILY YUNG Administration Allergies Allergies Allergy/AdvReac Type Severity Reaction Status Date / Time olive oil [OLIVE OIL] Allergy Mild STOMACH Verified 12/05/20 19:06 UPSET Assessment & Plan Assessment & Plan (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
[2021-01-14] MEDS: risperiDONE 0.5 MG TABLET PO (17:09)
[2021-01-14] MEDS: traZODone HCL 25 MG HALFTAB PO (17:09)
[2021-01-14 18:00] VITALS: BP 107/63; PULSE 65; RESP 16; TEMP 37; O2SAT 97
[2021-01-14 19:34] VITALS: BP 107/63; PULSE 65
[2021-01-14] MEDS: Metoprolol Tartrate 50 MG TABLET 100 MG PO (19:34)
[2021-01-14] MEDS: traZODone HCL 50 MG TABLET PO (19:34)
[2021-01-15] MEDS: Levothyroxine Sodium 150 MCG TABLET PO (05:33)
[2021-01-15 06:00] VITALS: BP 134/63; PULSE 77; RESP 18; TEMP 36.3; O2SAT 95
--- NOTE | 2021-01-15 07:51 | HO.PSYCHPN ---
Subjective Subjective Date of Service: 01/15/21 Reason For Visit: HALLUCINATIONS Subjective Notes: Conditional Voluntary Interim History: The patient remains pleasnatly confused, attended to groups. Waiting for placement. Review of Systems Acute medical concerns: No Medical Review of Systems: unchanged Mental Status Exam Mental Status Exam Patient Appearance: Well Grooomed Patient Orientation: Person and Situation Level of Consciousness: Awake Patient Behavior: Appropriate Mood Description: Calm Affect Description: Constricted Patient Cognition Impaired: Yes Ability to Follow Directions: Good Speech Pattern: Clear Memory Description: Normal for Patient Hallucinations: None Delusions: Not Present Thought Process: Linear Thought Content: positive for Poverty of Content Judgement: Fair Diagnostics Vital Signs (24Hr): Vital Signs - 24 hr 01/14/21 08:16 01/14/21 08:17 01/14/21 08:18 Temperature Pulse Rate 56 56 56 Respiratory Rate Blood Pressure 117/55 L 117/55 L Pulse Oximetry 01/14/21 18:00 01/14/21 19:34 Temperature 98.6 F Pulse Rate 65 65 Respiratory Rate 16 Blood Pressure 107/63 107/63 Pulse Oximetry 97 Body Mass Index 27.9 Labs Results: 12/05/20 19:33 12/08/20 18:32 Imaging Radiology Impressions: ITS Impressions Head CT 12/06/20 07:04 IMPRESSION: Chronic microvascular ischemic changes with no CT evidence of acute intracranial abnormality. Medications Medications Current Medications Generic Name Dose Route Start Last Admin Trade Name Freq PRN Reason Stop Dose Admin Acetaminophen 650 mg 12/06/20 16:13 12/20/20 20:03 Acetaminophen 325 Mg Tablet PO 650 mg Q6H PRN Administration Headache/Pain Mild Scale (1-3) Al Hydroxide/Mg Hydroxide 30 ml 12/06/20 16:13 Magnesium Hydrox/Alum Hydrox 30 Ml Oral.Susp PO Q6H PRN Heartburn/Nausea Amlodipine Besylate 5 mg 12/09/20 09:00 01/14/21 08:17 Amlodipine Besylate 5 Mg Tablet PO 5 mg DAILY YUNG Administration Protocol Aspirin 81 mg 12/06/20 09:00 01/14/21 08:16 Aspirin 81 Mg Tab.Chew PO 81 mg DAILY YUNG Administration Cyanocobalamin 500 mcg 12/06/20 09:00 01/14/21 08:17 Cyanocobalamin (Vitamin B-12) 500 Mcg Tablet PO 500 mcg DAILY YUNG Administration Fluticasone Propionate 2 spray 12/10/20 10:21 01/14/21 08:18 Fluticasone Propionate Nasal 16 Gm [place] NOSTRIL-B Not Given DAILY YUNG Levothyroxine Sodium 150 mcg 12/06/20 08:00 01/15/21 05:33 Levothyroxine Sodium 150 Mcg Tablet PO 150 mcg DAILY@0630 YUNG Administration Loratadine 10 mg 12/06/20 09:00 01/14/21 08:18 Loratadine 10 Mg Tablet PO 10 mg DAILY YUNG Administration Lorazepam 0.5 mg 01/11/21 15:12 Lorazepam 0.5 Mg Tablet PO BEDTIME PRN Sleep Losartan Potassium 50 mg 12/06/20 09:00 01/14/21 08:16 Losartan Potassium 50 Mg Tablet PO 50 mg DAILY YUNG Administration Protocol Magnesium Hydroxide 30 ml 12/06/20 16:13 Milk Of Magnesia 30 Ml Oral.Susp PO DAILY PRN Constipation Metoprolol Tartrate 100 mg 12/16/20 21:00 01/14/21 19:34 Metoprolol Tartrate 50 Mg Tablet PO 100 mg BID YUNG Administration Protocol Risperidone 0.5 mg 12/08/20 17:00 01/14/21 17:09 Risperidone 0.5 Mg Tablet PO 0.5 mg DAILY@1700 YUNG Administration Trazodone HCl 50 mg 12/06/20 16:13 01/14/21 19:34 Trazodone Hcl 50 Mg Tablet PO 50 mg BEDTIME PRN Administration Insomnia Trazodone HCl 25 mg 01/13/21 15:00 01/14/21 17:09 Trazodone Hcl 25 Mg Halftab PO 25 mg DAILY@1700 YUNG Administration Vitamin D 125 mcg 12/06/20 09:00 01/14/21 08:16 Cholecalciferol (Vitamin D3) 25 Mcg Tablet PO 125 mcg DAILY YUNG Administration Allergies Allergies Allergy/AdvReac Type Severity Reaction Status Date / Time olive oil [OLIVE OIL] Allergy Mild STOMACH Verified 12/05/20 19:06 UPSET Assessment & Plan Assessment & Plan (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
[2021-01-15 08:43] VITALS: BP 134/63; PULSE 61
[2021-01-15] MEDS: amLODIPine Besylate 5 MG TABLET PO (08:43)
[2021-01-15 08:44] VITALS: BP 134/63; PULSE 61
[2021-01-15] MEDS: Cyanocobalamin (Vitamin B-12) 500 MCG TABLET PO (08:44)
[2021-01-15] MEDS: Losartan Potassium 50 MG TABLET PO (08:44)
[2021-01-15 08:45] VITALS: BP 134/63; PULSE 61
[2021-01-15] MEDS: Aspirin 81 MG TAB.CHEW PO (08:45)
[2021-01-15] MEDS: Loratadine 10 MG TABLET PO (08:45)
[2021-01-15] MEDS: Metoprolol Tartrate 50 MG TABLET 100 MG PO ×2 (08:45→19:50)
[2021-01-15] MEDS: Cholecalciferol (Vitamin D3) 25 MCG TABLET 125 MCG PO (09:28)
[2021-01-15] MEDS: risperiDONE 0.5 MG TABLET PO (17:39)
[2021-01-15] MEDS: traZODone HCL 25 MG HALFTAB PO (17:39)
[2021-01-15 18:00] VITALS: BP 130/62; PULSE 63; RESP 16; TEMP 36.2; O2SAT 98
[2021-01-15 19:50] VITALS: BP 149/67; PULSE 63
[2021-01-15] MEDS: traZODone HCL 50 MG TABLET PO (19:50)
[2021-01-16] MEDS: Levothyroxine Sodium 150 MCG TABLET PO (06:02)
--- NOTE | 2021-01-16 09:05 | HO.PSYCHPN ---
Subjective Subjective Date of Service: 01/16/21 Reason For Visit: HALLUCINATIONS Subjective Notes: Conditional Voluntary Interim History: Nursing staff reported that she slept well last night, she participated in a few groups yesterday. The interview, the patient was pleasantly confused. She is waiting for appropriate discharge planning Review of Systems Acute medical concerns: No Medical Review of Systems: unchanged Mental Status Exam Mental Status Exam Patient Appearance: Well Grooomed Patient Orientation: Person and Situation Level of Consciousness: Awake Patient Behavior: Cooperative and Good Eye Contact Mood Description: Withdrawn Affect Description: Constricted Patient Cognition Impaired: Yes Ability to Follow Directions: Good Speech Pattern: Appropriate Memory Description: Intact Hallucinations: None Delusions: Not Present Thought Process: Linear and Slowed Thinking Thought Content: positive for Circumstantial Judgement: Fair Diagnostics Vital Signs (24Hr): Vital Signs - 24 hr 01/15/21 18:00 01/15/21 19:50 Temperature 97.1 F Pulse Rate 63 63 Respiratory Rate 16 Blood Pressure 130/62 149/67 H Pulse Oximetry 98 Body Mass Index 27.9 Labs Results: 12/05/20 19:33 12/08/20 18:32 Imaging Radiology Impressions: ITS Impressions Head CT 12/06/20 07:04 IMPRESSION: Chronic microvascular ischemic changes with no CT evidence of acute intracranial abnormality. Medications Medications Current Medications Generic Name Dose Route Start Last Admin Trade Name Freq PRN Reason Stop Dose Admin Acetaminophen 650 mg 12/06/20 16:13 12/20/20 20:03 Acetaminophen 325 Mg Tablet PO 650 mg Q6H PRN Administration Headache/Pain Mild Scale (1-3) Al Hydroxide/Mg Hydroxide 30 ml 12/06/20 16:13 Magnesium Hydrox/Alum Hydrox 30 Ml Oral.Susp PO Q6H PRN Heartburn/Nausea Amlodipine Besylate 5 mg 12/09/20 09:00 01/15/21 08:43 Amlodipine Besylate 5 Mg Tablet PO 5 mg DAILY YUNG Administration Protocol Aspirin 81 mg 12/06/20 09:00 01/15/21 08:45 Aspirin 81 Mg Tab.Chew PO 81 mg DAILY YUNG Administration Cyanocobalamin 500 mcg 12/06/20 09:00 01/15/21 08:44 Cyanocobalamin (Vitamin B-12) 500 Mcg Tablet PO 500 mcg DAILY YUNG Administration Fluticasone Propionate 2 spray 12/10/20 10:21 01/15/21 08:46 Fluticasone Propionate Nasal 16 Gm [place] NOSTRIL-B Not Given DAILY YUNG Levothyroxine Sodium 150 mcg 12/06/20 08:00 01/16/21 06:02 Levothyroxine Sodium 150 Mcg Tablet PO 150 mcg DAILY@0630 YUNG Administration Loratadine 10 mg 12/06/20 09:00 01/15/21 08:45 Loratadine 10 Mg Tablet PO 10 mg DAILY YUNG Administration Lorazepam 0.5 mg 01/11/21 15:12 Lorazepam 0.5 Mg Tablet PO BEDTIME PRN Sleep Losartan Potassium 50 mg 12/06/20 09:00 01/15/21 08:44 Losartan Potassium 50 Mg Tablet PO 50 mg DAILY YUNG Administration Protocol Magnesium Hydroxide 30 ml 12/06/20 16:13 Milk Of Magnesia 30 Ml Oral.Susp PO DAILY PRN Constipation Metoprolol Tartrate 100 mg 12/16/20 21:00 01/15/21 19:50 Metoprolol Tartrate 50 Mg Tablet PO 100 mg BID YUNG Administration Protocol Risperidone 0.5 mg 12/08/20 17:00 01/15/21 17:39 Risperidone 0.5 Mg Tablet PO 0.5 mg DAILY@1700 YUNG Administration Trazodone HCl 50 mg 12/06/20 16:13 01/15/21 19:50 Trazodone Hcl 50 Mg Tablet PO 50 mg BEDTIME PRN Administration Insomnia Trazodone HCl 25 mg 01/13/21 15:00 01/15/21 17:39 Trazodone Hcl 25 Mg Halftab PO 25 mg DAILY@1700 YUNG Administration Vitamin D 125 mcg 12/06/20 09:00 01/15/21 09:28 Cholecalciferol (Vitamin D3) 25 Mcg Tablet PO 125 mcg DAILY YUNG Administration Allergies Allergies Allergy/AdvReac Type Severity Reaction Status Date / Time olive oil [OLIVE OIL] Allergy Mild STOMACH Verified 12/05/20 19:06 UPSET Assessment & Plan Assessment & Plan (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
[2021-01-16] MEDS: Cholecalciferol (Vitamin D3) 25 MCG TABLET 125 MCG PO (09:54)
[2021-01-16] MEDS: Loratadine 10 MG TABLET PO (09:55)
[2021-01-16] MEDS: Aspirin 81 MG TAB.CHEW PO (09:55)
[2021-01-16] MEDS: Cyanocobalamin (Vitamin B-12) 500 MCG TABLET PO (09:55)
[2021-01-16] MEDS: Acetaminophen 325 MG TABLET 650 MG PO (09:55)
[2021-01-16 10:17] VITALS: BP 144/65; PULSE 56; RESP 17; TEMP 36; O2SAT 99
[2021-01-16 10:19] VITALS: BP 144/65; PULSE 57
[2021-01-16] MEDS: amLODIPine Besylate 5 MG TABLET PO (10:19)
[2021-01-16] MEDS: Metoprolol Tartrate 50 MG TABLET 100 MG PO (10:19)
[2021-01-16] MEDS: Losartan Potassium 50 MG TABLET PO (10:19)
[2021-01-16] MEDS: risperiDONE 0.5 MG TABLET PO (17:03)
[2021-01-16] MEDS: traZODone HCL 25 MG HALFTAB PO (17:03)
[2021-01-17 05:37] VITALS: BP 157/70; PULSE 58; RESP 18; TEMP 36.1; O2SAT 96
[2021-01-17] MEDS: Levothyroxine Sodium 150 MCG TABLET PO (05:38)
[2021-01-17 08:16] VITALS: BP 170/76; PULSE 65; RESP 18; TEMP 36.4; O2SAT 95
[2021-01-17 08:19] VITALS: BP 170/76; PULSE 65
[2021-01-17] MEDS: Aspirin 81 MG TAB.CHEW PO (08:19)
[2021-01-17] MEDS: amLODIPine Besylate 5 MG TABLET PO (08:19)
[2021-01-17 08:20] VITALS: BP 170/76; PULSE 65
[2021-01-17] MEDS: Metoprolol Tartrate 50 MG TABLET 100 MG PO ×2 (08:20→19:46)
[2021-01-17] MEDS: Cholecalciferol (Vitamin D3) 25 MCG TABLET 125 MCG PO (08:20)
[2021-01-17] MEDS: Losartan Potassium 50 MG TABLET PO (08:20)
[2021-01-17] MEDS: Cyanocobalamin (Vitamin B-12) 500 MCG TABLET PO (08:20)
[2021-01-17] MEDS: Loratadine 10 MG TABLET PO (08:20)
--- NOTE | 2021-01-17 11:21 | P.PNPSI_ITS ---
Subjective Subjective Date of Service: 01/18/21 Reason For Visit: HALLUCINATIONS Subjective Notes: Conditional Voluntary Interim History: Nursing staff reports that the patient has being stable, confused but easily redirectable. On interview, the patient reported that she is doing fine, she states being bored. Waiting for placement Review of Systems Acute medical concerns: No Medical Review of Systems: unchanged Mental Status Exam Mental Status Exam Patient Appearance: Well Grooomed Patient Orientation: Person and Situation Level of Consciousness: Awake Patient Behavior: Cooperative Mood Description: Calm Affect Description: Constricted Patient Cognition Impaired: Yes Ability to Follow Directions: Good Speech Pattern: Clear Hallucinations: None Delusions: Not Present Thought Process: Goal Oriented and Linear Thought Content: positive for Circumstantial Judgement: Poor Diagnostics Vital Signs (24Hr): Vital Signs - 24 hr 01/17/21 05:37 01/17/21 08:16 01/17/21 08:19 Temperature 97.0 F 97.5 F Pulse Rate 58 65 65 Respiratory Rate 18 18 Blood Pressure 157/70 H 170/76 H 170/76 H Pulse Oximetry 96 95 01/17/21 08:20 Temperature Pulse Rate 65 Respiratory Rate Blood Pressure 170/76 H Pulse Oximetry Body Mass Index 27.9 Labs Results: 12/05/20 19:33 12/08/20 18:32 Imaging Radiology Impressions: ITS Impressions Head CT 12/06/20 07:04 IMPRESSION: Chronic microvascular ischemic changes with no CT evidence of acute intracranial abnormality. Medications Medications Current Medications Generic Name Dose Route Start Last Admin Trade Name Freq PRN Reason Stop Dose Admin Acetaminophen 650 mg 12/06/20 16:13 01/16/21 09:55 Acetaminophen 325 Mg Tablet PO 650 mg Q6H PRN Administration Headache/Pain Mild Scale (1-3) Al Hydroxide/Mg Hydroxide 30 ml 12/06/20 16:13 Magnesium Hydrox/Alum Hydrox 30 Ml Oral.Susp PO Q6H PRN Heartburn/Nausea Amlodipine Besylate 5 mg 12/09/20 09:00 01/17/21 08:19 Amlodipine Besylate 5 Mg Tablet PO 5 mg DAILY YUNG Administration Protocol Aspirin 81 mg 12/06/20 09:00 01/17/21 08:19 Aspirin 81 Mg Tab.Chew PO 81 mg DAILY YUNG Administration Cyanocobalamin 500 mcg 12/06/20 09:00 01/17/21 08:20 Cyanocobalamin (Vitamin B-12) 500 Mcg Tablet PO 500 mcg DAILY YUNG Administration Fluticasone Propionate 2 spray 12/10/20 10:21 01/17/21 08:20 Fluticasone Propionate Nasal 16 Gm [place] NOSTRIL-B Not Given DAILY YUNG Levothyroxine Sodium 150 mcg 12/06/20 08:00 01/17/21 05:38 Levothyroxine Sodium 150 Mcg Tablet PO 150 mcg DAILY@0630 YUNG Administration Loratadine 10 mg 12/06/20 09:00 01/17/21 08:20 Loratadine 10 Mg Tablet PO 10 mg DAILY YUNG Administration Losartan Potassium 50 mg 12/06/20 09:00 01/17/21 08:20 Losartan Potassium 50 Mg Tablet PO 50 mg DAILY YUNG Administration Protocol Magnesium Hydroxide 30 ml 12/06/20 16:13 Milk Of Magnesia 30 Ml Oral.Susp PO DAILY PRN Constipation Metoprolol Tartrate 100 mg 12/16/20 21:00 01/17/21 08:20 Metoprolol Tartrate 50 Mg Tablet PO 100 mg BID YUNG Administration Protocol Risperidone 0.5 mg 12/08/20 17:00 01/16/21 17:03 Risperidone 0.5 Mg Tablet PO 0.5 mg DAILY@1700 YUNG Administration Trazodone HCl 50 mg 12/06/20 16:13 01/15/21 19:50 Trazodone Hcl 50 Mg Tablet PO 50 mg BEDTIME PRN Administration Insomnia Trazodone HCl 25 mg 01/13/21 15:00 01/16/21 17:03 Trazodone Hcl 25 Mg Halftab PO 25 mg DAILY@1700 YUNG Administration Vitamin D 125 mcg 12/06/20 09:00 01/17/21 08:20 Cholecalciferol (Vitamin D3) 25 Mcg Tablet PO 125 mcg DAILY YUNG Administration Allergies Allergies Allergy/AdvReac Type Severity Reaction Status Date / Time olive oil [OLIVE OIL] Allergy Mild STOMACH Verified 12/05/20 19:06 UPSET Assessment & Plan Assessment & Plan (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
[2021-01-17] MEDS: traZODone HCL 25 MG HALFTAB PO (17:00)
[2021-01-17] MEDS: risperiDONE 0.5 MG TABLET PO (17:00)
[2021-01-17 19:46] VITALS: BP 150/67; PULSE 60
[2021-01-17 19:48] VITALS: BP 150/67; PULSE 60; RESP 16; TEMP 36.6; O2SAT 96
[2021-01-18] MEDS: Levothyroxine Sodium 150 MCG TABLET PO (06:41)
[2021-01-18 06:57] VITALS: BP 131/74; PULSE 55; RESP 16; TEMP 36.5; O2SAT 100
[2021-01-18 07:51] VITALS: BP 131/74; PULSE 60
[2021-01-18] MEDS: Losartan Potassium 50 MG TABLET PO (07:51)
[2021-01-18 07:52] VITALS: BP 131/74; PULSE 62
[2021-01-18] MEDS: Metoprolol Tartrate 50 MG TABLET 100 MG PO (07:52)
[2021-01-18] MEDS: Cyanocobalamin (Vitamin B-12) 500 MCG TABLET PO (07:52)
[2021-01-18] MEDS: Loratadine 10 MG TABLET PO (07:52)
[2021-01-18] MEDS: Cholecalciferol (Vitamin D3) 25 MCG TABLET 125 MCG PO (07:52)
[2021-01-18] MEDS: Aspirin 81 MG TAB.CHEW PO (07:52)
[2021-01-18 07:53] VITALS: BP 131/74; PULSE 62
[2021-01-18] MEDS: amLODIPine Besylate 5 MG TABLET PO (07:53)
--- NOTE | 2021-01-18 11:59 | HO.PSYCHPN ---
Subjective Subjective Date of Service: 01/18/21 Reason For Visit: HALLUCINATIONS Interim History: Nursing staff reported that the patient has been at baseline. In the evening, she cries Choco's she cannot remember her discharge planning. During the interview, the patient was pleasantly confused, she denies new symptoms Review of Systems Acute medical concerns: No Medical Review of Systems: unchanged Mental Status Exam Mental Status Exam Patient Appearance: Well Grooomed Patient Orientation: Person and Situation Level of Consciousness: Awake Patient Behavior: Cooperative Mood Description: Calm Affect Description: Constricted Patient Cognition Impaired: Yes Ability to Follow Directions: Good Speech Pattern: Clear Hallucinations: None Delusions: Not Present Thought Process: Linear Thought Content: positive for Perseveration and positive for Poverty of Content Judgement: Fair Diagnostics Vital Signs (24Hr): Vital Signs - 24 hr 01/17/21 19:46 01/17/21 19:48 01/18/21 06:57 Temperature 98 F 97.7 F Pulse Rate 60 60 55 Respiratory Rate 16 16 Blood Pressure 150/67 H 150/67 H 131/74 Pulse Oximetry 96 100 01/18/21 07:51 01/18/21 07:52 01/18/21 07:53 Temperature Pulse Rate 60 62 62 Respiratory Rate Blood Pressure 131/74 131/74 131/74 Pulse Oximetry Body Mass Index 27.9 Labs Results: 12/05/20 19:33 12/08/20 18:32 Imaging Radiology Impressions: ITS Impressions Head CT 12/06/20 07:04 IMPRESSION: Chronic microvascular ischemic changes with no CT evidence of acute intracranial abnormality. Medications Medications Current Medications Generic Name Dose Route Start Last Admin Trade Name Freq PRN Reason Stop Dose Admin Acetaminophen 650 mg 12/06/20 16:13 01/16/21 09:55 Acetaminophen 325 Mg Tablet PO 650 mg Q6H PRN Administration Headache/Pain Mild Scale (1-3) Al Hydroxide/Mg Hydroxide 30 ml 12/06/20 16:13 Magnesium Hydrox/Alum Hydrox 30 Ml Oral.Susp PO Q6H PRN Heartburn/Nausea Amlodipine Besylate 5 mg 12/09/20 09:00 01/18/21 07:53 Amlodipine Besylate 5 Mg Tablet PO 5 mg DAILY YUNG Administration Protocol Aspirin 81 mg 12/06/20 09:00 01/18/21 07:52 Aspirin 81 Mg Tab.Chew PO 81 mg DAILY YUNG Administration Cyanocobalamin 500 mcg 12/06/20 09:00 01/18/21 07:52 Cyanocobalamin (Vitamin B-12) 500 Mcg Tablet PO 500 mcg DAILY YUNG Administration Fluticasone Propionate 2 spray 12/10/20 10:21 01/18/21 08:01 Fluticasone Propionate Nasal 16 Gm [place] NOSTRIL-B Not Given DAILY YUNG Levothyroxine Sodium 150 mcg 12/06/20 08:00 01/18/21 06:41 Levothyroxine Sodium 150 Mcg Tablet PO 150 mcg DAILY@0630 YUNG Administration Loratadine 10 mg 12/06/20 09:00 01/18/21 07:52 Loratadine 10 Mg Tablet PO 10 mg DAILY YUNG Administration Losartan Potassium 50 mg 12/06/20 09:00 01/18/21 07:51 Losartan Potassium 50 Mg Tablet PO 50 mg DAILY YUNG Administration Protocol Magnesium Hydroxide 30 ml 12/06/20 16:13 Milk Of Magnesia 30 Ml Oral.Susp PO DAILY PRN Constipation Metoprolol Tartrate 100 mg 12/16/20 21:00 01/18/21 07:52 Metoprolol Tartrate 50 Mg Tablet PO 100 mg BID YUNG Administration Protocol Risperidone 0.5 mg 12/08/20 17:00 01/17/21 17:00 Risperidone 0.5 Mg Tablet PO 0.5 mg DAILY@1700 YUNG Administration Trazodone HCl 50 mg 12/06/20 16:13 01/15/21 19:50 Trazodone Hcl 50 Mg Tablet PO 50 mg BEDTIME PRN Administration Insomnia Trazodone HCl 25 mg 01/13/21 15:00 01/17/21 17:00 Trazodone Hcl 25 Mg Halftab PO 25 mg DAILY@1700 YUNG Administration Vitamin D 125 mcg 12/06/20 09:00 01/18/21 07:52 Cholecalciferol (Vitamin D3) 25 Mcg Tablet PO 125 mcg DAILY YUNG Administration Allergies Allergies Allergy/AdvReac Type Severity Reaction Status Date / Time olive oil [OLIVE OIL] Allergy Mild STOMACH Verified 12/05/20 19:06 UPSET Assessment & Plan Assessment & Plan (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
[2021-01-18] MEDS: risperiDONE 0.5 MG TABLET PO (16:04)
[2021-01-18] MEDS: traZODone HCL 25 MG HALFTAB PO (16:05)
[2021-01-18 18:00] VITALS: BP 139/69; PULSE 65; RESP 16; TEMP 36.3; O2SAT 97
[2021-01-19] MEDS: Levothyroxine Sodium 150 MCG TABLET PO (06:40)
[2021-01-19 07:58] VITALS: BP 168/106; PULSE 60; TEMP 36.5; O2SAT 99
[2021-01-19 08:30] VITALS: BP 168/106; PULSE 60
[2021-01-19] MEDS: Losartan Potassium 50 MG TABLET PO (08:30)
[2021-01-19] MEDS: Cholecalciferol (Vitamin D3) 25 MCG TABLET 125 MCG PO (08:30)
[2021-01-19] MEDS: Aspirin 81 MG TAB.CHEW PO (08:30)
[2021-01-19 08:31] VITALS: BP 168/106; PULSE 60
[2021-01-19] MEDS: Loratadine 10 MG TABLET PO (08:31)
[2021-01-19] MEDS: amLODIPine Besylate 5 MG TABLET PO (08:31)
[2021-01-19] MEDS: Cyanocobalamin (Vitamin B-12) 500 MCG TABLET PO (08:31)
[2021-01-19 09:50] VITALS: BP 168/106; PULSE 60
[2021-01-19] MEDS: Fluticasone Propionate Nasal 16 GM SPRAY 2 SPRAY NOSTRIL-B (09:50)
[2021-01-19] MEDS: Metoprolol Tartrate 50 MG TABLET 100 MG PO ×2 (09:50→20:06)
--- NOTE | 2021-01-19 11:28 | P.PNPSI_ITS ---
Subjective Subjective Date of Service: 01/19/21 Reason For Visit: HALLUCINATIONS Subjective Notes: Conditional Voluntary Interim History: Nursing staff reported that she is getting ?grumpy?. On interview, the patient is pleasantly confused and easily redirectable. She is waiting for placement. Medication Compliance: Yes Side effects from medications: No Attending Groups: Yes Review of Systems Acute medical concerns: No Medical Review of Systems: unchanged Mental Status Exam Mental Status Exam Patient Appearance: Well Grooomed Patient Orientation: Person and Situation Level of Consciousness: Awake and Appropriate Patient Behavior: Cooperative Mood Description: Calm and Withdrawn Affect Description: Constricted Patient Cognition Impaired: Yes Ability to Follow Directions: Good Speech Pattern: Appropriate Hallucinations: None Delusions: Not Present Thought Process: Linear Thought Content: positive for Circumstantial, positive for Perseveration and positive for Poverty of Content Judgement: Fair Diagnostics Vital Signs (24Hr): Vital Signs - 24 hr 01/18/21 18:00 01/19/21 07:58 01/19/21 08:30 Temperature 97.4 F 97.7 F Pulse Rate 65 60 60 Respiratory Rate 16 Blood Pressure 139/69 168/106 H 168/106 H Pulse Oximetry 97 99 01/19/21 08:31 01/19/21 09:50 Temperature Pulse Rate 60 60 Respiratory Rate Blood Pressure 168/106 H 168/106 H Pulse Oximetry Body Mass Index 27.9 Labs Results: 12/05/20 19:33 12/08/20 18:32 Imaging Radiology Impressions: ITS Impressions Head CT 12/06/20 07:04 IMPRESSION: Chronic microvascular ischemic changes with no CT evidence of acute intracranial abnormality. Medications Medications Current Medications Generic Name Dose Route Start Last Admin Trade Name Freq PRN Reason Stop Dose Admin Acetaminophen 650 mg 12/06/20 16:13 01/16/21 09:55 Acetaminophen 325 Mg Tablet PO 650 mg Q6H PRN Administration Headache/Pain Mild Scale (1-3) Al Hydroxide/Mg Hydroxide 30 ml 12/06/20 16:13 Magnesium Hydrox/Alum Hydrox 30 Ml Oral.Susp PO Q6H PRN Heartburn/Nausea Amlodipine Besylate 5 mg 12/09/20 09:00 01/19/21 08:31 Amlodipine Besylate 5 Mg Tablet PO 5 mg DAILY YUNG Administration Protocol Aspirin 81 mg 12/06/20 09:00 01/19/21 08:30 Aspirin 81 Mg Tab.Chew PO 81 mg DAILY YUNG Administration Cyanocobalamin 500 mcg 12/06/20 09:00 01/19/21 08:31 Cyanocobalamin (Vitamin B-12) 500 Mcg Tablet PO 500 mcg DAILY YUNG Administration Fluticasone Propionate 2 spray 12/10/20 10:21 01/19/21 09:50 Fluticasone Propionate Nasal 16 Gm [place] NOSTRIL-B 2 spray DAILY YUNG Administration Levothyroxine Sodium 150 mcg 12/06/20 08:00 01/19/21 06:40 Levothyroxine Sodium 150 Mcg Tablet PO 150 mcg DAILY@0630 YUNG Administration Loratadine 10 mg 12/06/20 09:00 01/19/21 08:31 Loratadine 10 Mg Tablet PO 10 mg DAILY YUNG Administration Losartan Potassium 50 mg 12/06/20 09:00 01/19/21 08:30 Losartan Potassium 50 Mg Tablet PO 50 mg DAILY YUNG Administration Protocol Magnesium Hydroxide 30 ml 12/06/20 16:13 Milk Of Magnesia 30 Ml Oral.Susp PO DAILY PRN Constipation Metoprolol Tartrate 100 mg 12/16/20 21:00 01/19/21 09:50 Metoprolol Tartrate 50 Mg Tablet PO 100 mg BID YUNG Administration Protocol Risperidone 0.5 mg 12/08/20 17:00 01/18/21 16:04 Risperidone 0.5 Mg Tablet PO 0.5 mg DAILY@1700 YUNG Administration Trazodone HCl 50 mg 12/06/20 16:13 01/15/21 19:50 Trazodone Hcl 50 Mg Tablet PO 50 mg BEDTIME PRN Administration Insomnia Trazodone HCl 25 mg 01/13/21 15:00 01/18/21 16:05 Trazodone Hcl 25 Mg Halftab PO 25 mg DAILY@1700 YUNG Administration Vitamin D 125 mcg 12/06/20 09:00 01/19/21 08:30 Cholecalciferol (Vitamin D3) 25 Mcg Tablet PO 125 mcg DAILY YUNG Administration Allergies Allergies Allergy/AdvReac Type Severity Reaction Status Date / Time olive oil [OLIVE OIL] Allergy Mild STOMACH Verified 12/05/20 19:06 UPSET Assessment & Plan Assessment & Plan (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
[2021-01-19] MEDS: risperiDONE 0.5 MG TABLET PO (16:48)
[2021-01-19] MEDS: traZODone HCL 25 MG HALFTAB PO (16:48)
[2021-01-19 18:25] VITALS: BP 150/86; PULSE 70; RESP 16; TEMP 36.6; O2SAT 96
[2021-01-19 20:06] VITALS: BP 167/83; PULSE 67
[2021-01-20 06:00] VITALS: BP 151/68; PULSE 68; RESP 16; TEMP 36.2; O2SAT 97
[2021-01-20] MEDS: Levothyroxine Sodium 150 MCG TABLET PO (06:36)
[2021-01-20 07:00] VITALS: BMI 28.1
[2021-01-20] MEDS: Cholecalciferol (Vitamin D3) 25 MCG TABLET 125 MCG PO (08:52)
[2021-01-20] MEDS: Cyanocobalamin (Vitamin B-12) 500 MCG TABLET PO (08:52)
[2021-01-20] MEDS: Loratadine 10 MG TABLET PO (08:53)
[2021-01-20] MEDS: Aspirin 81 MG TAB.CHEW PO (08:53)
[2021-01-20 08:54] VITALS: BP 151/68; PULSE 68; PULSE 76
[2021-01-20] MEDS: Metoprolol Tartrate 50 MG TABLET 100 MG PO ×2 (08:54→20:24)
[2021-01-20] MEDS: Losartan Potassium 50 MG TABLET PO (08:54)
[2021-01-20 08:56] VITALS: BP 151/68; PULSE 78
[2021-01-20] MEDS: amLODIPine Besylate 5 MG TABLET PO (08:56)
[2021-01-20] MEDS: Fluticasone Propionate Nasal 16 GM SPRAY 2 SPRAY NOSTRIL-B (08:57)
--- NOTE | 2021-01-20 11:30 | P.PNPSI_ITS ---
Subjective Subjective Date of Service: 01/20/21 Reason For Visit: HALLUCINATIONS Interim History: The patient remains pleasantly confused in the unit. Sporadically, she is a little irritable and frustrated since she had been here for several days that she is just waiting for placement at SNF facility. She has refused to have her blood pressure taken seems she states that ?it hurts?. Review of Systems Acute medical concerns: No Medical Review of Systems: unchanged Mental Status Exam Mental Status Exam Patient Appearance: Well Grooomed Patient Orientation: Person, Place and Situation Level of Consciousness: Awake and Appropriate Patient Behavior: Passive Mood Description: Withdrawn Affect Description: Constricted Patient Cognition Impaired: Yes Ability to Follow Directions: Fair Speech Pattern: Clear Memory Description: Intact Hallucinations: None Delusions: Not Present Thought Process: Distracted Thought Content: positive for Circumstantial Judgement: Fair Diagnostics Vital Signs (24Hr): Vital Signs - 24 hr 01/19/21 18:25 01/19/21 20:06 01/20/21 06:00 Temperature 97.9 F 97.2 F Pulse Rate 70 67 68 Respiratory Rate 16 16 Blood Pressure 150/86 H 167/83 H 151/68 H Pulse Oximetry 96 97 01/20/21 08:54 01/20/21 08:56 Temperature Pulse Rate 76 78 Respiratory Rate Blood Pressure 151/68 H 151/68 H Pulse Oximetry Body Mass Index 28.1 Labs Results: 12/05/20 19:33 12/08/20 18:32 Imaging Radiology Impressions: ITS Impressions Head CT 12/06/20 07:04 IMPRESSION: Chronic microvascular ischemic changes with no CT evidence of acute intracranial abnormality. Medications Medications Current Medications Generic Name Dose Route Start Last Admin Trade Name Carlosq PRN Reason Stop Dose Admin Acetaminophen 650 mg 12/06/20 16:13 01/16/21 09:55 Acetaminophen 325 Mg Tablet PO 650 mg Q6H PRN Administration Headache/Pain Mild Scale (1-3) Al Hydroxide/Mg Hydroxide 30 ml 12/06/20 16:13 Magnesium Hydrox/Alum Hydrox 30 Ml Oral.Susp PO Q6H PRN Heartburn/Nausea Amlodipine Besylate 5 mg 12/09/20 09:00 01/20/21 08:56 Amlodipine Besylate 5 Mg Tablet PO 5 mg DAILY YUNG Administration Protocol Aspirin 81 mg 12/06/20 09:00 01/20/21 08:53 Aspirin 81 Mg Tab.Chew PO 81 mg DAILY YUNG Administration Cyanocobalamin 500 mcg 12/06/20 09:00 01/20/21 08:52 Cyanocobalamin (Vitamin B-12) 500 Mcg Tablet PO 500 mcg DAILY YUNG Administration Fluticasone Propionate 2 spray 12/10/20 10:21 01/20/21 08:57 Fluticasone Propionate Nasal 16 Gm [place] NOSTRIL-B 2 spray DAILY YUNG Administration Levothyroxine Sodium 150 mcg 12/06/20 08:00 01/20/21 06:36 Levothyroxine Sodium 150 Mcg Tablet PO 150 mcg DAILY@0630 YUNG Administration Loratadine 10 mg 12/06/20 09:00 01/20/21 08:53 Loratadine 10 Mg Tablet PO 10 mg DAILY YUNG Administration Losartan Potassium 50 mg 12/06/20 09:00 01/20/21 08:54 Losartan Potassium 50 Mg Tablet PO 50 mg DAILY YUNG Administration Protocol Magnesium Hydroxide 30 ml 12/06/20 16:13 Milk Of Magnesia 30 Ml Oral.Susp PO DAILY PRN Constipation Metoprolol Tartrate 100 mg 12/16/20 21:00 01/20/21 08:54 Metoprolol Tartrate 50 Mg Tablet PO 100 mg BID YUNG Administration Protocol Risperidone 0.5 mg 12/08/20 17:00 01/19/21 16:48 Risperidone 0.5 Mg Tablet PO 0.5 mg DAILY@1700 YUNG Administration Trazodone HCl 50 mg 12/06/20 16:13 01/15/21 19:50 Trazodone Hcl 50 Mg Tablet PO 50 mg BEDTIME PRN Administration Insomnia Trazodone HCl 25 mg 01/13/21 15:00 01/19/21 16:48 Trazodone Hcl 25 Mg Halftab PO 25 mg DAILY@1700 YUNG Administration Vitamin D 125 mcg 12/06/20 09:00 01/20/21 08:52 Cholecalciferol (Vitamin D3) 25 Mcg Tablet PO 125 mcg DAILY YUNG Administration Allergies Allergies Allergy/AdvReac Type Severity Reaction Status Date / Time olive oil [OLIVE OIL] Allergy Mild STOMACH Verified 12/05/20 19:06 UPSET Assessment & Plan Assessment & Plan (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
[2021-01-20] MEDS: risperiDONE 0.5 MG TABLET PO (17:13)
[2021-01-20] MEDS: traZODone HCL 25 MG HALFTAB PO (17:13)
[2021-01-20 18:00] VITALS: BP 127/59; PULSE 66; RESP 16; TEMP 36.6; O2SAT 95
[2021-01-20 20:24] VITALS: BP 127/59; PULSE 66
[2021-01-21] MEDS: Levothyroxine Sodium 150 MCG TABLET PO (05:16)
--- NOTE | 2021-01-21 08:05 | P.PNPSI_ITS ---
Subjective Subjective Date of Service: 01/21/21 Reason For Visit: HALLUCINATIONS Subjective Notes: Conditional Voluntary Interim History: The patient reports that she has pain whenever she has his blood pressure taken. Nursing staff is now doing manual readings. She remains pleasantly confused and cooperative. She is waiting for disposition Medication Compliance: Yes Review of Systems Acute medical concerns: No Medical Review of Systems: unchanged Mental Status Exam Mental Status Exam Patient Appearance: Well Grooomed Patient Orientation: Person Level of Consciousness: Awake Patient Behavior: Cooperative Mood Description: Calm Affect Description: Constricted Patient Cognition Impaired: Yes Ability to Follow Directions: Good Speech Pattern: Appropriate Hallucinations: None Delusions: Not Present Thought Process: Goal Oriented Thought Content: positive for Circumstantial Judgement: Fair Diagnostics Vital Signs (24Hr): Vital Signs - 24 hr 01/20/21 08:54 01/20/21 08:56 01/20/21 18:00 Temperature 97.9 F Pulse Rate 76 78 66 Respiratory Rate 16 Blood Pressure 151/68 H 151/68 H 127/59 L Pulse Oximetry 95 01/20/21 20:24 Temperature Pulse Rate 66 Respiratory Rate Blood Pressure 127/59 L Pulse Oximetry Body Mass Index 28.1 Labs Results: 12/05/20 19:33 12/08/20 18:32 Imaging Radiology Impressions: ITS Impressions Head CT 12/06/20 07:04 IMPRESSION: Chronic microvascular ischemic changes with no CT evidence of acute intracranial abnormality. Medications Medications Current Medications Generic Name Dose Route Start Last Admin Trade Name Freq PRN Reason Stop Dose Admin Acetaminophen 650 mg 12/06/20 16:13 01/16/21 09:55 Acetaminophen 325 Mg Tablet PO 650 mg Q6H PRN Administration Headache/Pain Mild Scale (1-3) Al Hydroxide/Mg Hydroxide 30 ml 12/06/20 16:13 Magnesium Hydrox/Alum Hydrox 30 Ml Oral.Susp PO Q6H PRN Heartburn/Nausea Amlodipine Besylate 5 mg 12/09/20 09:00 01/20/21 08:56 Amlodipine Besylate 5 Mg Tablet PO 5 mg DAILY YUNG Administration Protocol Aspirin 81 mg 12/06/20 09:00 01/20/21 08:53 Aspirin 81 Mg Tab.Chew PO 81 mg DAILY YUNG Administration Cyanocobalamin 500 mcg 12/06/20 09:00 01/20/21 08:52 Cyanocobalamin (Vitamin B-12) 500 Mcg Tablet PO 500 mcg DAILY YUNG Administration Fluticasone Propionate 2 spray 12/10/20 10:21 01/20/21 08:57 Fluticasone Propionate Nasal 16 Gm [place] NOSTRIL-B 2 spray DAILY YUNG Administration Levothyroxine Sodium 150 mcg 12/06/20 08:00 01/21/21 05:16 Levothyroxine Sodium 150 Mcg Tablet PO 150 mcg DAILY@0630 YUNG Administration Loratadine 10 mg 12/06/20 09:00 01/20/21 08:53 Loratadine 10 Mg Tablet PO 10 mg DAILY YUNG Administration Losartan Potassium 50 mg 12/06/20 09:00 01/20/21 08:54 Losartan Potassium 50 Mg Tablet PO 50 mg DAILY YUNG Administration Protocol Magnesium Hydroxide 30 ml 12/06/20 16:13 Milk Of Magnesia 30 Ml Oral.Susp PO DAILY PRN Constipation Metoprolol Tartrate 100 mg 12/16/20 21:00 01/20/21 20:24 Metoprolol Tartrate 50 Mg Tablet PO 100 mg BID YUNG Administration Protocol Risperidone 0.5 mg 12/08/20 17:00 01/20/21 17:13 Risperidone 0.5 Mg Tablet PO 0.5 mg DAILY@1700 YUNG Administration Trazodone HCl 50 mg 12/06/20 16:13 01/15/21 19:50 Trazodone Hcl 50 Mg Tablet PO 50 mg BEDTIME PRN Administration Insomnia Trazodone HCl 25 mg 01/13/21 15:00 01/20/21 17:13 Trazodone Hcl 25 Mg Halftab PO 25 mg DAILY@1700 YUNG Administration Vitamin D 125 mcg 12/06/20 09:00 01/20/21 08:52 Cholecalciferol (Vitamin D3) 25 Mcg Tablet PO 125 mcg DAILY YUNG Administration Allergies Allergies Allergy/AdvReac Type Severity Reaction Status Date / Time olive oil [OLIVE OIL] Allergy Mild STOMACH Verified 12/05/20 19:06 UPSET Assessment & Plan Assessment & Plan (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
[2021-01-21 08:34] VITALS: BP 170/74; PULSE 62; RESP 16; TEMP 36.9; O2SAT 98
[2021-01-21 09:09] VITALS: BP 170/74; PULSE 62
[2021-01-21] MEDS: Metoprolol Tartrate 50 MG TABLET 100 MG PO ×2 (09:09→20:11)
[2021-01-21] MEDS: Cyanocobalamin (Vitamin B-12) 500 MCG TABLET PO (09:10)
[2021-01-21] MEDS: Cholecalciferol (Vitamin D3) 25 MCG TABLET 125 MCG PO (09:10)
[2021-01-21 09:11] VITALS: BP 170/74; PULSE 62
[2021-01-21] MEDS: Aspirin 81 MG TAB.CHEW PO (09:11)
[2021-01-21] MEDS: Losartan Potassium 50 MG TABLET PO (09:11)
[2021-01-21 09:12] VITALS: BP 170/74; PULSE 62
[2021-01-21] MEDS: amLODIPine Besylate 5 MG TABLET PO (09:12)
[2021-01-21] MEDS: Fluticasone Propionate Nasal 16 GM SPRAY 2 SPRAY NOSTRIL-B (09:12)
[2021-01-21] MEDS: Loratadine 10 MG TABLET PO (09:12)
[2021-01-21] MEDS: traZODone HCL 25 MG HALFTAB PO (16:34)
[2021-01-21] MEDS: risperiDONE 0.5 MG TABLET PO (16:34)
[2021-01-21 19:50] VITALS: BP 130/66; PULSE 65; RESP 17; TEMP 37.3; O2SAT 97
[2021-01-21 20:11] VITALS: BP 130/66; PULSE 65
[2021-01-22] MEDS: Levothyroxine Sodium 150 MCG TABLET PO (06:01)
--- NOTE | 2021-01-22 06:23 | HO.PSYCHPN ---
Subjective Subjective Date of Service: 01/24/21 Reason For Visit: HALLUCINATIONS Interim History: Nursing reports pt sleeping/eating well, no behavioral concerns. Pt is casually groomed. She reports feeling well. She does not know month, year or situation. 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 She denies SI/HI. She has been visible in the unit, no behavioral concerns. Medication Compliance: Yes Side effects from medications: No Review of Systems Review of Systems Yes all other systems are reviewed and are negative and Unobtainable due to mental status Mental Status Exam Mental Status Exam Narrative: appropriately dressed in street clothes, properly groomed. no PMA/PMR. cooperative with interview. speech nml in rate, amount, loudness, tone, latency. thoughts linear and logical. affect full range, normo-intense, non-labile. mood euthymic. no SI/HI/AVH expressed. Patient Appearance: Well Grooomed Patient Orientation: Person Level of Consciousness: Awake Patient Behavior: Cooperative Mood Description: Calm Affect Description: Constricted Patient Cognition Impaired: Yes Ability to Follow Directions: Good Speech Pattern: Appropriate Memory Description: Intact Diagnostics Vital Signs (24Hr): Vital Signs - 24 hr 01/23/21 08:05 01/23/21 08:07 01/23/21 18:00 Temperature 96.9 F Pulse Rate 57 57 64 Respiratory Rate 18 Blood Pressure 183/80 H 183/80 H 152/70 H Pulse Oximetry 97 01/23/21 19:29 Temperature Pulse Rate 64 Respiratory Rate Blood Pressure 152/70 H Pulse Oximetry Body Mass Index 28.1 Labs Results: 12/05/20 19:33 12/08/20 18:32 Imaging Radiology Impressions: ITS Impressions Head CT 12/06/20 07:04 IMPRESSION: Chronic microvascular ischemic changes with no CT evidence of acute intracranial abnormality. Medications Medications Current Medications Generic Name Dose Route Start Last Admin Trade Name Freq PRN Reason Stop Dose Admin Acetaminophen 650 mg 12/06/20 16:13 01/16/21 09:55 Acetaminophen 325 Mg Tablet PO 650 mg Q6H PRN Administration Headache/Pain Mild Scale (1-3) Al Hydroxide/Mg Hydroxide 30 ml 12/06/20 16:13 Magnesium Hydrox/Alum Hydrox 30 Ml Oral.Susp PO Q6H PRN Heartburn/Nausea Amlodipine Besylate 5 mg 12/09/20 09:00 08/22/21 08:05 Amlodipine Besylate 5 Mg Tablet PO 5 mg DAILY YUNG Administration Protocol Aspirin 81 mg 12/06/20 09:00 01/23/21 08:05 Aspirin 81 Mg Tab.Chew PO 81 mg DAILY YUNG Administration Cyanocobalamin 500 mcg 12/06/20 09:00 01/23/21 08:05 Cyanocobalamin (Vitamin B-12) 500 Mcg Tablet PO 500 mcg DAILY YUNG Administration Fluticasone Propionate 2 spray 12/10/20 10:21 01/23/21 09:00 Fluticasone Propionate Nasal [address] [place] NOSTRIL-B 2 spray DAILY YUNG Administration Levothyroxine Sodium 150 mcg 12/06/20 08:00 01/24/21 05:48 Levothyroxine Sodium 150 Mcg Tablet PO 150 mcg DAILY@0630 YUNG Administration Loratadine 10 mg 12/06/20 09:00 01/23/21 08:05 Loratadine 10 Mg Tablet PO 10 mg DAILY YUNG Administration Losartan Potassium 50 mg 12/06/20 09:00 01/23/21 08:07 Losartan Potassium 50 Mg Tablet PO 50 mg DAILY YUNG Administration Protocol Magnesium Hydroxide 30 ml 12/06/20 16:13 Milk Of Magnesia 30 Ml Oral.Susp PO DAILY PRN Constipation Metoprolol Tartrate 100 mg 12/16/20 21:00 01/23/21 19:29 Metoprolol Tartrate 50 Mg Tablet PO 100 mg BID YUNG Administration Protocol Risperidone 0.5 mg 12/08/20 17:00 01/23/21 17:10 Risperidone 0.5 Mg Tablet PO 0.5 mg DAILY@1700 YUNG Administration Trazodone HCl 50 mg 12/06/20 16:13 01/15/21 19:50 Trazodone Hcl 50 Mg Tablet PO 50 mg BEDTIME PRN Administration Insomnia Trazodone HCl 25 mg 01/13/21 15:00 01/23/21 17:10 Trazodone Hcl 25 Mg Halftab PO 25 mg DAILY@1700 [facility] Administration Vitamin D 125 mcg 12/06/20 09:00 01/23/21 08:07 Cholecalciferol (Vitamin D3) 25 Mcg Tablet PO 125 mcg DAILY YUNG Administration Allergies Allergies Allergy/AdvReac Type Severity Reaction Status Date / Time olive oil [OLIVE OIL] Allergy Mild STOMACH Verified 12/05/20 19:06 UPSET Assessment & Plan Assessment & Plan (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
[2021-01-22] MEDS: Fluticasone Propionate Nasal 16 GM SPRAY 2 SPRAY NOSTRIL-B (08:29)
[2021-01-22 08:30] VITALS: BP 136/63; PULSE 59
[2021-01-22] MEDS: Aspirin 81 MG TAB.CHEW PO (08:30)
[2021-01-22] MEDS: Cyanocobalamin (Vitamin B-12) 500 MCG TABLET PO (08:30)
[2021-01-22] MEDS: Losartan Potassium 50 MG TABLET PO (08:30)
[2021-01-22] MEDS: Loratadine 10 MG TABLET PO (08:30)
[2021-01-22] MEDS: amLODIPine Besylate 5 MG TABLET PO (08:30)
[2021-01-22] MEDS: Cholecalciferol (Vitamin D3) 25 MCG TABLET 125 MCG PO (08:31)
[2021-01-22 08:35] VITALS: BP 136/63; PULSE 59
[2021-01-22] MEDS: risperiDONE 0.5 MG TABLET PO (17:17)
[2021-01-22] MEDS: traZODone HCL 25 MG HALFTAB PO (17:17)
[2021-01-22 18:00] VITALS: BP 184/86; PULSE 71; RESP 17; TEMP 36.6; O2SAT 98
[2021-01-22 19:54] VITALS: BP 184/86; PULSE 71
[2021-01-22] MEDS: Metoprolol Tartrate 50 MG TABLET 100 MG PO (19:54)
[2021-01-23 06:00] VITALS: BP 183/80; PULSE 57; TEMP 36.2; O2SAT 98
[2021-01-23] MEDS: Levothyroxine Sodium 150 MCG TABLET PO (06:00)
--- NOTE | 2021-01-23 06:25 | P.PNPSI_ITS ---
Subjective Subjective Date of Service: 01/24/21 Reason For Visit: HALLUCINATIONS Interim History: Nursing reports pt sleeping/eating well, no behavioral concerns. Pt continues to present as casually groomed, good hygiene. She reports feeling well. She does not know month, year or situation. 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 She denies SI/HI. She has been visible in the unit, no behavioral concerns. Review of Systems Review of Systems Yes all other systems are reviewed and are negative and Unobtainable due to mental status Mental Status Exam Mental Status Exam Narrative: appropriately dressed in street clothes, properly groomed. no PMA/PMR. cooperative with interview. speech nml in rate, amount, loudness, tone, latency. thoughts linear and logical. affect full range, normo-intense, non-labile. mood euthymic. no SI/HI/AVH expressed. Patient Appearance: Well Grooomed Patient Orientation: Person Level of Consciousness: Awake Patient Behavior: Cooperative Mood Description: Calm Affect Description: Constricted Patient Cognition Impaired: Yes Ability to Follow Directions: Good Speech Pattern: Appropriate Memory Description: Intact Diagnostics Vital Signs (24Hr): Vital Signs - 24 hr 01/23/21 08:05 01/23/21 08:07 01/23/21 18:00 Temperature 96.9 F Pulse Rate 57 57 64 Respiratory Rate 18 Blood Pressure 183/80 H 183/80 H 152/70 H Pulse Oximetry 97 01/23/21 19:29 Temperature Pulse Rate 64 Respiratory Rate Blood Pressure 152/70 H Pulse Oximetry Body Mass Index 28.1 Labs Results: 12/05/20 19:33 12/08/20 18:32 Imaging Radiology Impressions: ITS Impressions Head CT 12/06/20 07:04 IMPRESSION: Chronic microvascular ischemic changes with no CT evidence of acute intracranial abnormality. Medications Medications Current Medications Generic Name Dose Route Start Last Admin Trade Name Freq PRN Reason Stop Dose Admin Acetaminophen 650 mg 12/06/20 16:13 01/16/21 09:55 Acetaminophen 325 Mg Tablet PO 650 mg Q6H PRN Administration Headache/Pain Mild Scale (1-3) Al Hydroxide/Mg Hydroxide 30 ml 12/06/20 16:13 Magnesium Hydrox/Alum Hydrox 30 Ml Oral.Susp PO Q6H PRN Heartburn/Nausea Amlodipine Besylate 5 mg 12/09/20 09:00 01/23/21 08:05 Amlodipine Besylate 5 Mg Tablet PO 5 mg DAILY YUNG Administration Protocol Aspirin 81 mg 12/06/20 09:00 01/23/21 08:05 Aspirin 81 Mg Tab.Chew PO 81 mg DAILY YUNG Administration Cyanocobalamin 500 mcg 12/06/20 09:00 01/23/21 08:05 Cyanocobalamin (Vitamin B-12) 500 Mcg Tablet PO 500 mcg DAILY YUNG Administration Fluticasone Propionate 2 spray 12/10/20 10:21 01/23/21 09:00 Fluticasone Propionate Nasal 16 Gm [place] NOSTRIL-B 2 spray DAILY YUNG Administration Levothyroxine Sodium 150 mcg 12/06/20 08:00 01/24/21 05:48 Levothyroxine Sodium 150 Mcg Tablet PO 150 mcg DAILY@0630 YUNG Administration Loratadine 10 mg 12/06/20 09:00 01/23/21 08:05 Loratadine 10 Mg Tablet PO 10 mg DAILY YUNG Administration Losartan Potassium 50 mg 12/06/20 09:00 01/23/21 08:07 Losartan Potassium 50 Mg Tablet PO 50 mg DAILY YUNG Administration Protocol Magnesium Hydroxide 30 ml 12/06/20 16:13 Milk Of Magnesia 30 Ml Oral.Susp PO DAILY PRN Constipation Metoprolol Tartrate 100 mg 12/16/20 21:00 01/23/21 19:29 Metoprolol Tartrate 50 Mg Tablet PO 100 mg BID YUNG Administration Protocol Risperidone 0.5 mg 12/08/20 17:00 01/23/21 17:10 Risperidone 0.5 Mg Tablet PO 0.5 mg DAILY@1700 YUNG Administration Trazodone HCl 50 mg 12/06/20 16:13 01/15/21 19:50 Trazodone Hcl 50 Mg Tablet PO 50 mg BEDTIME PRN Administration Insomnia Trazodone HCl 25 mg 01/13/21 15:00 01/23/21 17:10 Trazodone Hcl 25 Mg Halftab PO 25 mg DAILY@1700 YUNG Administration Vitamin D 125 mcg 12/06/20 09:00 01/23/21 08:07 Cholecalciferol (Vitamin D3) 25 Mcg Tablet PO 125 mcg DAILY YUNG Administration Allergies Allergies Allergy/AdvReac Type Severity Reaction Status Date / Time olive oil [OLIVE OIL] Allergy Mild STOMACH Verified 12/05/20 19:06 UPSET Assessment & Plan Assessment & Plan (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
[2021-01-23 08:05] VITALS: BP 183/80; PULSE 57
[2021-01-23] MEDS: amLODIPine Besylate 5 MG TABLET PO (08:05)
[2021-01-23] MEDS: Cyanocobalamin (Vitamin B-12) 500 MCG TABLET PO (08:05)
[2021-01-23] MEDS: Aspirin 81 MG TAB.CHEW PO (08:05)
[2021-01-23] MEDS: Metoprolol Tartrate 50 MG TABLET 100 MG PO ×2 (08:05→19:29)
[2021-01-23] MEDS: Loratadine 10 MG TABLET PO (08:05)
[2021-01-23 08:07] VITALS: BP 183/80; PULSE 57
[2021-01-23] MEDS: Losartan Potassium 50 MG TABLET PO (08:07)
[2021-01-23] MEDS: Cholecalciferol (Vitamin D3) 25 MCG TABLET 125 MCG PO (08:07)
[2021-01-23] MEDS: Fluticasone Propionate Nasal 16 GM SPRAY 2 SPRAY NOSTRIL-B (09:00)
[2021-01-23] MEDS: risperiDONE 0.5 MG TABLET PO (17:10)
[2021-01-23] MEDS: traZODone HCL 25 MG HALFTAB PO (17:10)
[2021-01-23 18:00] VITALS: BP 152/70; PULSE 64; RESP 18; TEMP 36.1; O2SAT 97
[2021-01-23 19:29] VITALS: BP 152/70; PULSE 64
[2021-01-24] MEDS: Levothyroxine Sodium 150 MCG TABLET PO (05:48)
[2021-01-24 08:10] VITALS: BP 150/72; PULSE 55; RESP 16; TEMP 36.1; O2SAT 96
[2021-01-24 08:14] VITALS: BP 150/72; PULSE 55
[2021-01-24] MEDS: Metoprolol Tartrate 50 MG TABLET 100 MG PO ×2 (08:14→19:58)
[2021-01-24 08:15] VITALS: BP 150/72; PULSE 55
[2021-01-24] MEDS: Cholecalciferol (Vitamin D3) 25 MCG TABLET 125 MCG PO (08:15)
[2021-01-24] MEDS: Losartan Potassium 50 MG TABLET PO (08:15)
[2021-01-24 08:16] VITALS: BP 150/72; PULSE 55
[2021-01-24] MEDS: amLODIPine Besylate 5 MG TABLET PO (08:16)
[2021-01-24] MEDS: Aspirin 81 MG TAB.CHEW PO (08:17)
[2021-01-24] MEDS: Cyanocobalamin (Vitamin B-12) 500 MCG TABLET PO (08:17)
[2021-01-24] MEDS: Fluticasone Propionate Nasal 16 GM SPRAY 2 SPRAY NOSTRIL-B (08:17)
[2021-01-24] MEDS: Loratadine 10 MG TABLET PO (08:18)
--- NOTE | 2021-01-24 10:42 | HO.PSYCHPN ---
Subjective Subjective Date of Service: 01/24/21 Reason For Visit: HALLUCINATIONS Subjective Notes: Conditional Voluntary Interim History: The patient remains pleasanlty confused, waiting for placement. NO new symptoms Review of Systems Acute medical concerns: No Medical Review of Systems: unchanged Mental Status Exam Mental Status Exam Patient Appearance: Well Grooomed Patient Orientation: Person and Situation Level of Consciousness: Awake Patient Behavior: Cooperative Mood Description: Calm and Withdrawn Affect Description: Constricted Patient Cognition Impaired: Yes Ability to Follow Directions: Good Speech Pattern: Appropriate Hallucinations: None Delusions: Not Present Thought Process: Linear Thought Content: positive for Isabella and positive for Poverty of Content Judgement: Fair Diagnostics Vital Signs (24Hr): Vital Signs - 24 hr 01/23/21 18:00 01/23/21 19:29 01/24/21 08:10 Temperature 96.9 F 96.9 F Pulse Rate 64 64 55 Respiratory Rate 18 16 Blood Pressure 152/70 H 152/70 H 150/72 H Pulse Oximetry 97 96 01/24/21 08:14 01/24/21 08:15 01/24/21 08:16 Temperature Pulse Rate 55 55 55 Respiratory Rate Blood Pressure 150/72 H 150/72 H 150/72 H Pulse Oximetry Body Mass Index 28.1 Labs Results: 12/05/20 19:33 12/08/20 18:32 Imaging Radiology Impressions: ITS Impressions Head CT 12/06/20 07:04 IMPRESSION: Chronic microvascular ischemic changes with no CT evidence of acute intracranial abnormality. Medications Medications Current Medications Generic Name Dose Route Start Last Admin Trade Name Freq PRN Reason Stop Dose Admin Acetaminophen 650 mg 12/06/20 16:13 01/16/21 09:55 Acetaminophen 325 Mg Tablet PO 650 mg Q6H PRN Administration Headache/Pain Mild Scale (1-3) Al Hydroxide/Mg Hydroxide 30 ml 12/06/20 16:13 Magnesium Hydrox/Alum Hydrox 30 Ml Oral.Susp PO Q6H PRN Heartburn/Nausea Amlodipine Besylate 5 mg 12/09/20 09:00 01/24/21 08:16 Amlodipine Besylate 5 Mg Tablet PO 5 mg DAILY YUNG Administration Protocol Aspirin 81 mg 12/06/20 09:00 01/24/21 08:17 Aspirin 81 Mg Tab.Chew PO 81 mg DAILY YUNG Administration Cyanocobalamin 500 mcg 12/06/20 09:00 01/24/21 08:17 Cyanocobalamin (Vitamin B-12) 500 Mcg Tablet PO 500 mcg DAILY YUNG Administration Fluticasone Propionate 2 spray 12/10/20 10:21 01/24/21 08:17 Fluticasone Propionate Nasal 16 Gm [place] NOSTRIL-B 2 spray DAILY YUNG Administration Levothyroxine Sodium 150 mcg 12/06/20 08:00 01/24/21 05:48 Levothyroxine Sodium 150 Mcg Tablet PO 150 mcg DAILY@0630 YUNG Administration Loratadine 10 mg 12/06/20 09:00 01/24/21 08:18 Loratadine 10 Mg Tablet PO 10 mg DAILY YUNG Administration Losartan Potassium 50 mg 12/06/20 09:00 01/24/21 08:15 Losartan Potassium 50 Mg Tablet PO 50 mg DAILY YUNG Administration Protocol Magnesium Hydroxide 30 ml 12/06/20 16:13 Milk Of Magnesia 30 Ml Oral.Susp PO DAILY PRN Constipation Metoprolol Tartrate 100 mg 12/16/20 21:00 01/24/21 08:14 Metoprolol Tartrate 50 Mg Tablet PO 100 mg BID YUNG Administration Protocol Risperidone 0.5 mg 12/08/20 17:00 01/23/21 17:10 Risperidone 0.5 Mg Tablet PO 0.5 mg DAILY@1700 YUNG Administration Trazodone HCl 50 mg 12/06/20 16:13 01/15/21 19:50 Trazodone Hcl 50 Mg Tablet PO 50 mg BEDTIME PRN Administration Insomnia Trazodone HCl 25 mg 01/13/21 15:00 01/23/21 17:10 Trazodone Hcl 25 Mg Halftab PO 25 mg DAILY@1700 YUNG Administration Vitamin D 125 mcg 12/06/20 09:00 01/24/21 08:15 Cholecalciferol (Vitamin D3) 25 Mcg Tablet PO 125 mcg DAILY YUNG Administration Allergies Allergies Allergy/AdvReac Type Severity Reaction Status Date / Time olive oil [OLIVE OIL] Allergy Mild STOMACH Verified 12/05/20 19:06 UPSET Assessment & Plan Assessment & Plan (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
[2021-01-24 18:32] VITALS: BP 138/63; PULSE 63; RESP 16; TEMP 36.6; O2SAT 97
[2021-01-24 19:58] VITALS: BP 140/65; PULSE 68
[2021-01-24] MEDS: traZODone HCL 50 MG TABLET PO (19:58)
[2021-01-25 05:20] VITALS: BP 131/60; PULSE 63; RESP 17; TEMP 36.8; O2SAT 94
[2021-01-25] MEDS: Levothyroxine Sodium 150 MCG TABLET PO (05:24)
[2021-01-25 09:21] VITALS: BP 162/74; PULSE 62
[2021-01-25] MEDS: Metoprolol Tartrate 50 MG TABLET 100 MG PO ×2 (09:21→19:54)
[2021-01-25 09:22] VITALS: BP 162/74; PULSE 62
[2021-01-25] MEDS: Losartan Potassium 50 MG TABLET PO (09:22)
[2021-01-25] MEDS: Cholecalciferol (Vitamin D3) 25 MCG TABLET 125 MCG PO (09:22)
[2021-01-25] MEDS: Aspirin 81 MG TAB.CHEW PO (09:22)
[2021-01-25] MEDS: Loratadine 10 MG TABLET PO (09:22)
[2021-01-25] MEDS: amLODIPine Besylate 5 MG TABLET PO (09:22)
[2021-01-25] MEDS: Cyanocobalamin (Vitamin B-12) 500 MCG TABLET PO (09:22)
[2021-01-25] MEDS: Fluticasone Propionate Nasal 16 GM SPRAY 2 SPRAY NOSTRIL-B (10:00)
--- NOTE | 2021-01-25 11:20 | P.PNPSI_ITS ---
Subjective Subjective Date of Service: 01/25/21 Reason For Visit: HALLUCINATIONS Subjective Notes: Conditional Voluntary Interim History: Nursing staff reported that the patient is doing his usual, pleasantly confused and easily redirectable. On interview the patient denies new symptoms. Still waiting for placement. Today the social science research assistant reported that she is going to be screened for an [facility]. Review of Systems Acute medical concerns: No Medical Review of Systems: unchanged Mental Status Exam Mental Status Exam Patient Appearance: Well Grooomed Patient Orientation: Person Level of Consciousness: Awake Patient Behavior: Appropriate Mood Description: Calm Affect Description: Constricted Patient Cognition Impaired: No Ability to Follow Directions: Good Speech Pattern: Clear Memory Description: Intact Hallucinations: None Delusions: Not Present Thought Process: Linear Thought Content: positive for [place] and positive for Poverty of Content Judgement: Fair Diagnostics Vital Signs (24Hr): Vital Signs - 24 hr 01/24/21 18:32 01/24/21 19:58 01/25/21 05:20 Temperature 97.9 F 98.3 F Pulse Rate 63 68 63 Respiratory Rate 16 17 Blood Pressure 138/63 140/65 H 131/60 Pulse Oximetry 97 94 01/25/21 09:21 01/25/21 09:22 Temperature Pulse Rate 62 62 Respiratory Rate Blood Pressure 162/74 H 162/74 H Pulse Oximetry Body Mass Index 28.1 Labs Results: 12/05/20 19:33 12/08/20 18:32 Imaging Radiology Impressions: ITS Impressions Head CT 12/06/20 07:04 IMPRESSION: Chronic microvascular ischemic changes with no CT evidence of acute intracranial abnormality. Medications Medications Current Medications Generic Name Dose Route Start Last Admin Trade Name Freq PRN Reason Stop Dose Admin Acetaminophen 650 mg 12/06/20 16:13 01/16/21 09:55 Acetaminophen 325 Mg Tablet PO 650 mg Q6H PRN Administration Headache/Pain Mild Scale (1-3) Al Hydroxide/Mg Hydroxide 30 ml 12/06/20 16:13 Magnesium Hydrox/Alum Hydrox 30 Ml Oral.Susp PO Q6H PRN Heartburn/Nausea Amlodipine Besylate 5 mg 12/09/20 09:00 01/25/21 09:22 Amlodipine Besylate 5 Mg Tablet PO 5 mg DAILY YUNG Administration Protocol Aspirin 81 mg 12/06/20 09:00 01/25/21 09:22 Aspirin 81 Mg Tab.Chew PO 81 mg DAILY YUNG Administration Cyanocobalamin 500 mcg 12/06/20 09:00 01/25/21 09:22 Cyanocobalamin (Vitamin B-12) 500 Mcg Tablet PO 500 mcg DAILY YUNG Administration Fluticasone Propionate 2 spray 12/10/20 10:21 01/25/21 10:00 Fluticasone Propionate Nasal 16 Gm [place] NOSTRIL-B 2 spray DAILY YUNG Administration Levothyroxine Sodium 150 mcg 12/06/20 08:00 01/25/21 05:24 Levothyroxine Sodium 150 Mcg Tablet PO 150 mcg DAILY@0630 YUNG Administration Loratadine 10 mg 12/06/20 09:00 01/25/21 09:22 Loratadine 10 Mg Tablet PO 10 mg DAILY YUNG Administration Losartan Potassium 50 mg 12/06/20 09:00 01/25/21 09:22 Losartan Potassium 50 Mg Tablet PO 50 mg DAILY YUNG Administration Protocol Magnesium Hydroxide 30 ml 12/06/20 16:13 Milk Of Magnesia 30 Ml Oral.Susp PO DAILY PRN Constipation Metoprolol Tartrate 100 mg 12/16/20 21:00 01/25/21 09:21 Metoprolol Tartrate 50 Mg Tablet PO 100 mg BID YUNG Administration Protocol Risperidone 0.5 mg 12/08/20 17:00 01/24/21 17:00 Risperidone 0.5 Mg Tablet PO Not Given DAILY@1700 [facility] Trazodone HCl 50 mg 12/06/20 16:13 01/24/21 19:58 Trazodone Hcl 50 Mg Tablet PO 50 mg BEDTIME PRN Administration Insomnia Trazodone HCl 25 mg 01/13/21 15:00 01/24/21 17:00 Trazodone Hcl 25 Mg Halftab PO Not Given DAILY@1700 [facility] Vitamin D 125 mcg 12/06/20 09:00 01/25/21 09:22 Cholecalciferol (Vitamin D3) 25 Mcg Tablet PO 125 mcg DAILY YUNG Administration Allergies Allergies Allergy/AdvReac Type Severity Reaction Status Date / Time olive oil [OLIVE OIL] Allergy Mild STOMACH Verified 12/05/20 19:06 UPSET Assessment & Plan Assessment & Plan (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
[2021-01-25] MEDS: risperiDONE 0.5 MG TABLET PO (16:58)
[2021-01-25] MEDS: traZODone HCL 25 MG HALFTAB PO (16:58)
[2021-01-25 18:00] VITALS: BP 142/65; PULSE 67; TEMP 35.8; O2SAT 95
[2021-01-25 19:54] VITALS: BP 142/65; PULSE 67
[2021-01-26] MEDS: Levothyroxine Sodium 150 MCG TABLET PO (05:31)
[2021-01-26 06:00] VITALS: BP 132/71; PULSE 62; RESP 18; TEMP 35.8; O2SAT 99
[2021-01-26] MEDS: Cholecalciferol (Vitamin D3) 25 MCG TABLET 125 MCG PO (08:27)
[2021-01-26 08:28] VITALS: BP 132/71; PULSE 62
[2021-01-26] MEDS: Cyanocobalamin (Vitamin B-12) 500 MCG TABLET PO (08:28)
[2021-01-26] MEDS: Loratadine 10 MG TABLET PO (08:28)
[2021-01-26] MEDS: Losartan Potassium 50 MG TABLET PO (08:28)
[2021-01-26] MEDS: Aspirin 81 MG TAB.CHEW PO (08:28)
[2021-01-26 08:29] VITALS: BP 132/71; PULSE 62
[2021-01-26] MEDS: Metoprolol Tartrate 50 MG TABLET 100 MG PO ×2 (08:29→23:36)
[2021-01-26] MEDS: amLODIPine Besylate 5 MG TABLET PO (08:29)
[2021-01-26] MEDS: Fluticasone Propionate Nasal 16 GM SPRAY 2 SPRAY NOSTRIL-B (09:12)
--- NOTE | 2021-01-26 10:54 | P.PNPSI_ITS ---
Subjective Subjective Date of Service: 01/26/21 Reason For Visit: HALLUCINATIONS Subjective Notes: Conditional Voluntary Interim History: Nursing staff reports the patient is pleasantly confused, cooperative. The social media marketing specialist reported that the facility has decline her and we are waiting for another facility called [facility]. Of interview the patient denies new symptoms, she is just waiting for placement. Review of Systems Acute medical concerns: No Medical Review of Systems: unchanged Mental Status Exam Mental Status Exam Patient Appearance: Well Grooomed Patient Orientation: Person and Situation Level of Consciousness: Awake Patient Behavior: Appropriate Mood Description: Calm Affect Description: Constricted Patient Cognition Impaired: No Ability to Follow Directions: Good Speech Pattern: Clear Hallucinations: None Delusions: Not Present Thought Process: Distracted Thought Content: positive for Intact Judgement: Fair Diagnostics Vital Signs (24Hr): Vital Signs - 24 hr 01/25/21 18:00 01/25/21 19:54 01/26/21 06:00 Temperature 96.5 F L 96.5 F L Pulse Rate 67 67 62 Respiratory Rate 18 Blood Pressure 142/65 H 142/65 H 132/71 Pulse Oximetry 95 99 01/26/21 08:28 01/26/21 08:29 Temperature Pulse Rate 62 62 Respiratory Rate Blood Pressure 132/71 132/71 Pulse Oximetry Body Mass Index 28.1 Labs Results: 12/05/20 19:33 12/08/20 18:32 Imaging Radiology Impressions: ITS Impressions Head CT 12/06/20 07:04 IMPRESSION: Chronic microvascular ischemic changes with no CT evidence of acute intracranial abnormality. Medications Medications Current Medications Generic Name Dose Route Start Last Admin Trade Name Freq PRN Reason Stop Dose Admin Acetaminophen 650 mg 12/06/20 16:13 01/16/21 09:55 Acetaminophen 325 Mg Tablet PO 650 mg Q6H PRN Administration Headache/Pain Mild Scale (1-3) Al Hydroxide/Mg Hydroxide 30 ml 12/06/20 16:13 Magnesium Hydrox/Alum Hydrox 30 Ml Oral.Susp PO Q6H PRN Heartburn/Nausea Amlodipine Besylate 5 mg 12/09/20 09:00 01/26/21 08:29 Amlodipine Besylate 5 Mg Tablet PO 5 mg DAILY YUNG Administration Protocol Aspirin 81 mg 12/06/20 09:00 01/26/21 08:28 Aspirin 81 Mg Tab.Chew PO 81 mg DAILY YUNG Administration Cyanocobalamin 500 mcg 12/06/20 09:00 01/26/21 08:28 Cyanocobalamin (Vitamin B-12) 500 Mcg Tablet PO 500 mcg DAILY YUNG Administration Fluticasone Propionate 2 spray 12/10/20 10:21 01/26/21 09:12 Fluticasone Propionate Nasal 16 Gm [place] NOSTRIL-B 2 spray DAILY YUNG Administration Levothyroxine Sodium 150 mcg 12/06/20 08:00 01/26/21 05:31 Levothyroxine Sodium 150 Mcg Tablet PO 150 mcg DAILY@0630 YUNG Administration Loratadine 10 mg 12/06/20 09:00 01/26/21 08:28 Loratadine 10 Mg Tablet PO 10 mg DAILY YUNG Administration Losartan Potassium 50 mg 12/06/20 09:00 01/26/21 08:28 Losartan Potassium 50 Mg Tablet PO 50 mg DAILY YUNG Administration Protocol Magnesium Hydroxide 30 ml 12/06/20 16:13 Milk Of Magnesia 30 Ml Oral.Susp PO DAILY PRN Constipation Metoprolol Tartrate 100 mg 12/16/20 21:00 01/26/21 08:29 Metoprolol Tartrate 50 Mg Tablet PO 100 mg BID YUNG Administration Protocol Risperidone 0.5 mg 12/08/20 17:00 01/25/21 16:58 Risperidone 0.5 Mg Tablet PO 0.5 mg DAILY@1700 YUNG Administration Trazodone HCl 50 mg 12/06/20 16:13 01/24/21 19:58 Trazodone Hcl 50 Mg Tablet PO 50 mg BEDTIME PRN Administration Insomnia Trazodone HCl 25 mg 01/13/21 15:00 01/25/21 16:58 Trazodone Hcl 25 Mg Halftab PO 25 mg DAILY@1700 YUNG Administration Vitamin D 125 mcg 12/06/20 09:00 01/26/21 08:27 Cholecalciferol (Vitamin D3) 25 Mcg Tablet PO 125 mcg DAILY YUNG Administration Allergies Allergies Allergy/AdvReac Type Severity Reaction Status Date / Time olive oil [OLIVE OIL] Allergy Mild STOMACH Verified 12/05/20 19:06 UPSET Assessment & Plan Assessment & Plan (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
[2021-01-26] MEDS: traZODone HCL 25 MG HALFTAB PO (16:01)
[2021-01-26] MEDS: risperiDONE 0.5 MG TABLET PO (16:01)
[2021-01-26 18:00] VITALS: RESP 12
[2021-01-26 23:36] VITALS: BP 140/80; PULSE 60
[2021-01-27 06:00] VITALS: BP 130/82; PULSE 68; RESP 16; TEMP 36.2; O2SAT 96
[2021-01-27] MEDS: Levothyroxine Sodium 150 MCG TABLET PO (06:16)
[2021-01-27 07:00] VITALS: BMI 28.3
[2021-01-27] MEDS: Cholecalciferol (Vitamin D3) 25 MCG TABLET 125 MCG PO (08:58)
[2021-01-27 08:59] VITALS: BP 130/82; PULSE 68
[2021-01-27] MEDS: Loratadine 10 MG TABLET PO (08:59)
[2021-01-27] MEDS: Aspirin 81 MG TAB.CHEW PO (08:59)
[2021-01-27] MEDS: Cyanocobalamin (Vitamin B-12) 500 MCG TABLET PO (08:59)
[2021-01-27] MEDS: Metoprolol Tartrate 50 MG TABLET 100 MG PO ×2 (08:59→20:36)
[2021-01-27 09:01] VITALS: BP 130/82; PULSE 68
[2021-01-27] MEDS: Losartan Potassium 50 MG TABLET PO (09:01)
[2021-01-27] MEDS: amLODIPine Besylate 5 MG TABLET PO (09:01)
[2021-01-27] MEDS: Fluticasone Propionate Nasal 16 GM SPRAY 2 SPRAY NOSTRIL-B (09:03)
--- NOTE | 2021-01-27 10:52 | P.PNPSI_ITS ---
Subjective Subjective Date of Service: 01/27/21 Reason For Visit: HALLUCINATIONS Subjective Notes: Conditional Voluntary Interim History: Nursing staff reports no new symptoms. The patient has been cooperative and pleasant with care. On interview the patient denies any pain or complain, she looks pleasantly confused. She is waiting for placement Mental Status Exam Mental Status Exam Patient Appearance: Well Grooomed Patient Orientation: Person Level of Consciousness: Awake Patient Behavior: Cooperative Mood Description: Constricted Affect Description: Depressed Patient Cognition Impaired: Yes Ability to Follow Directions: Good Speech Pattern: Clear Hallucinations: None Delusions: Not Present Thought Process: Goal Oriented Thought Content: positive for Circum[place] Judgement: Fair Diagnostics Vital Signs (24Hr): Vital Signs - 24 hr 01/26/21 18:00 01/26/21 23:36 01/27/21 06:00 Temperature 97.2 F Pulse Rate 60 68 Respiratory Rate 12 16 Blood Pressure 140/80 H 130/82 Pulse Oximetry 96 01/27/21 08:59 01/27/21 09:01 Temperature Pulse Rate 68 68 Respiratory Rate Blood Pressure 130/82 130/82 Pulse Oximetry Body Mass Index 28.3 Labs Results: 12/05/20 19:33 12/08/20 18:32 Imaging Radiology Impressions: ITS Impressions Head CT 12/06/20 07:04 IMPRESSION: Chronic microvascular ischemic changes with no CT evidence of acute intracranial abnormality. Medications Medications Current Medications Generic Name Dose Route Start Last Admin Trade Name Freq PRN Reason Stop Dose Admin Acetaminophen 650 mg 12/06/20 16:13 01/16/21 09:55 Acetaminophen 325 Mg Tablet PO 650 mg Q6H PRN Administration Headache/Pain Mild Scale (1-3) Al Hydroxide/Mg Hydroxide 30 ml 12/06/20 16:13 Magnesium Hydrox/Alum Hydrox 30 Ml Oral.Susp PO Q6H PRN Heartburn/Nausea Amlodipine Besylate 5 mg 12/09/20 09:00 01/27/21 09:01 Amlodipine Besylate 5 Mg Tablet PO 5 mg DAILY YUNG Administration Protocol Aspirin 81 mg 12/06/20 09:00 01/27/21 08:59 Aspirin 81 Mg Tab.Chew PO 81 mg DAILY YUNG Administration Cyanocobalamin 500 mcg 12/06/20 09:00 01/27/21 08:59 Cyanocobalamin (Vitamin B-12) 500 Mcg Tablet PO 500 mcg DAILY YUNG Administration Fluticasone Propionate 2 spray 12/10/20 10:21 01/27/21 09:03 Fluticasone Propionate Nasal 16 Gm [place] NOSTRIL-B 2 spray DAILY YUNG Administration Levothyroxine Sodium 150 mcg 12/06/20 08:00 01/27/21 06:16 Levothyroxine Sodium 150 Mcg Tablet PO 150 mcg DAILY@0630 YUNG Administration Loratadine 10 mg 12/06/20 09:00 01/27/21 08:59 Loratadine 10 Mg Tablet PO 10 mg DAILY YUNG Administration Losartan Potassium 50 mg 12/06/20 09:00 01/27/21 09:01 Losartan Potassium 50 Mg Tablet PO 50 mg DAILY YUNG Administration Protocol Magnesium Hydroxide 30 ml 12/06/20 16:13 Milk Of Magnesia 30 Ml Oral.Susp PO DAILY PRN Constipation Metoprolol Tartrate 100 mg 12/16/20 21:00 01/27/21 08:59 Metoprolol Tartrate 50 Mg Tablet PO 100 mg BID YUNG Administration Protocol Risperidone 0.5 mg 12/08/20 17:00 01/26/21 16:01 Risperidone 0.5 Mg Tablet PO 0.5 mg DAILY@1700 YUNG Administration Trazodone HCl 50 mg 12/06/20 16:13 01/24/21 19:58 Trazodone Hcl 50 Mg Tablet PO 50 mg BEDTIME PRN Administration Insomnia Trazodone HCl 25 mg 01/13/21 15:00 01/26/21 16:01 Trazodone Hcl 25 Mg Halftab PO 25 mg DAILY@1700 YUNG Administration Vitamin D 125 mcg 12/06/20 09:00 01/27/21 08:58 Cholecalciferol (Vitamin D3) 25 Mcg Tablet PO 125 mcg DAILY YUNG Administration Allergies Allergies Allergy/AdvReac Type Severity Reaction Status Date / Time olive oil [OLIVE OIL] Allergy Mild STOMACH Verified 12/05/20 19:06 UPSET Assessment & Plan Assessment & Plan (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
[2021-01-27] MEDS: risperiDONE 0.5 MG TABLET PO (17:07)
[2021-01-27] MEDS: traZODone HCL 25 MG HALFTAB PO (17:07)
[2021-01-27 18:00] VITALS: BP 108/61; PULSE 60; RESP 16; TEMP 36.6; O2SAT 97
[2021-01-28] MEDS: Levothyroxine Sodium 150 MCG TABLET PO (05:03)
[2021-01-28 09:02] VITALS: BP 149/66; PULSE 59; TEMP 36.7; O2SAT 97
[2021-01-28 09:24] VITALS: BP 149/66; PULSE 59
[2021-01-28] MEDS: amLODIPine Besylate 5 MG TABLET PO (09:24)
[2021-01-28] MEDS: Aspirin 81 MG TAB.CHEW PO (09:25)
[2021-01-28] MEDS: Cholecalciferol (Vitamin D3) 25 MCG TABLET 125 MCG PO (09:27)
[2021-01-28] MEDS: Cyanocobalamin (Vitamin B-12) 500 MCG TABLET PO (09:28)
[2021-01-28 09:29] VITALS: BP 149/66; PULSE 59
[2021-01-28] MEDS: Fluticasone Propionate Nasal 16 GM SPRAY 2 SPRAY NOSTRIL-B (09:29)
[2021-01-28] MEDS: Losartan Potassium 50 MG TABLET PO (09:29)
[2021-01-28] MEDS: Metoprolol Tartrate 50 MG TABLET 100 MG PO ×2 (09:29→19:49)
[2021-01-28] MEDS: Loratadine 10 MG TABLET PO (09:29)
--- NOTE | 2021-01-28 12:06 | P.PNPSI_ITS ---
Subjective Subjective Date of Service: 01/28/21 Reason For Visit: HALLUCINATIONS Interim History: Nursing staff has reported no changes in her mental status, she is pleasant and cooperative but confused. The outreach and education social worker reported that the [facility] refused her. Waiting for placement. Mental Status Exam Mental Status Exam Patient Appearance: Well Grooomed Patient Orientation: Person Level of Consciousness: Awake Patient Behavior: Appropriate Mood Description: Withdrawn Affect Description: Constricted Patient Cognition Impaired: No Ability to Follow Directions: Good Speech Pattern: Clear Hallucinations: None Delusions: Not Present Thought Process: Slowed Thinking Thought Content: positive for Intact Judgement: Fair Diagnostics Vital Signs (24Hr): Vital Signs - 24 hr 01/27/21 18:00 01/28/21 09:02 01/28/21 09:24 Temperature 97.8 F 98.0 F Pulse Rate 60 59 59 Respiratory Rate 16 Blood Pressure 108/61 149/66 H 149/66 H Pulse Oximetry 97 97 01/28/21 09:29 Temperature Pulse Rate 59 Respiratory Rate Blood Pressure 149/66 H Pulse Oximetry Body Mass Index 28.3 Labs Results: 12/05/20 19:33 12/08/20 18:32 Imaging Radiology Impressions: ITS Impressions Head CT 12/06/20 07:04 IMPRESSION: Chronic microvascular ischemic changes with no CT evidence of acute intracranial abnormality. Medications Medications Current Medications Generic Name Dose Route Start Last Admin Trade Name Freq PRN Reason Stop Dose Admin Acetaminophen 650 mg 12/06/20 16:13 01/16/21 09:55 Acetaminophen 325 Mg Tablet PO 650 mg Q6H PRN Administration Headache/Pain Mild Scale (1-3) Al Hydroxide/Mg Hydroxide 30 ml 12/06/20 16:13 Magnesium Hydrox/Alum Hydrox 30 Ml Oral.Susp PO Q6H PRN Heartburn/Nausea Amlodipine Besylate 5 mg 12/09/20 09:00 01/28/21 09:24 Amlodipine Besylate 5 Mg Tablet PO 5 mg DAILY YUNG Administration Protocol Aspirin 81 mg 12/06/20 09:00 01/28/21 09:25 Aspirin 81 Mg Tab.Chew PO 81 mg DAILY YUNG Administration Cyanocobalamin 500 mcg 12/06/20 09:00 01/28/21 09:28 Cyanocobalamin (Vitamin B-12) 500 Mcg Tablet PO 500 mcg DAILY YUNG Administration Fluticasone Propionate 2 spray 12/10/20 10:21 01/28/21 09:29 Fluticasone Propionate Nasal 16 Gm [place] NOSTRIL-B 2 spray DAILY YUNG Administration Levothyroxine Sodium 150 mcg 12/06/20 08:00 01/28/21 05:03 Levothyroxine Sodium 150 Mcg Tablet PO 150 mcg DAILY@0630 YUNG Administration Loratadine 10 mg 12/06/20 09:00 01/28/21 09:29 Loratadine 10 Mg Tablet PO 10 mg DAILY YUNG Administration Losartan Potassium 50 mg 12/06/20 09:00 01/28/21 09:29 Losartan Potassium 50 Mg Tablet PO 50 mg DAILY YUNG Administration Protocol Magnesium Hydroxide 30 ml 12/06/20 16:13 Milk Of Magnesia 30 Ml Oral.Susp PO DAILY PRN Constipation Metoprolol Tartrate 100 mg 12/16/20 21:00 01/28/21 09:29 Metoprolol Tartrate 50 Mg Tablet PO 100 mg BID YUNG Administration Protocol Risperidone 0.5 mg 12/08/20 17:00 01/27/21 17:07 Risperidone 0.5 Mg Tablet PO 0.5 mg DAILY@1700 YUNG Administration Trazodone HCl 50 mg 12/06/20 16:13 01/24/21 19:58 Trazodone Hcl 50 Mg Tablet PO 50 mg BEDTIME PRN Administration Insomnia Trazodone HCl 25 mg 01/13/21 15:00 01/27/21 17:07 Trazodone Hcl 25 Mg Halftab PO 25 mg DAILY@1700 YUNG Administration Vitamin D 125 mcg 12/06/20 09:00 01/28/21 09:27 Cholecalciferol (Vitamin D3) 25 Mcg Tablet PO 125 mcg DAILY YUNG Administration Allergies Allergies Allergy/AdvReac Type Severity Reaction Status Date / Time olive oil [OLIVE OIL] Allergy Mild STOMACH Verified 12/05/20 19:06 UPSET Assessment & Plan Assessment & Plan (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
[2021-01-28 18:00] VITALS: BP 145/65; PULSE 64; TEMP 36.9; O2SAT 96
[2021-01-28] MEDS: traZODone HCL 25 MG HALFTAB PO (18:08)
[2021-01-28] MEDS: risperiDONE 0.5 MG TABLET PO (18:08)
[2021-01-28 19:49] VITALS: BP 135/74; PULSE 64
[2021-01-28] MEDS: traZODone HCL 50 MG TABLET PO (19:49)
[2021-01-29] MEDS: Levothyroxine Sodium 150 MCG TABLET PO (05:53)
[2021-01-29] MEDS: amLODIPine Besylate 5 MG TABLET PO (07:49)
[2021-01-29] MEDS: Cyanocobalamin (Vitamin B-12) 500 MCG TABLET PO (07:50)
[2021-01-29] MEDS: Aspirin 81 MG TAB.CHEW PO (07:50)
[2021-01-29] MEDS: Loratadine 10 MG TABLET PO (07:50)
[2021-01-29] MEDS: Cholecalciferol (Vitamin D3) 25 MCG TABLET 125 MCG PO (07:50)
[2021-01-29] MEDS: Fluticasone Propionate Nasal 16 GM SPRAY 2 SPRAY NOSTRIL-B (07:50)
[2021-01-29] MEDS: Metoprolol Tartrate 50 MG TABLET 100 MG PO ×2 (07:51→20:35)
[2021-01-29] MEDS: Losartan Potassium 50 MG TABLET PO (07:51)
[2021-01-29 08:33] VITALS: BP 168/80; PULSE 74; RESP 16; TEMP 36; O2SAT 98
--- NOTE | 2021-01-29 13:27 | P.PNPSI_ITS ---
Subjective Subjective Date of Service: 01/29/21 Reason For Visit: HALLUCINATIONS Interim History: Nursing staff has reported no changes in her mental status, she is pleasant and cooperative but confused. The socially responsible investment adviser reported that the [facility] refused her. Waiting for placement This continues to be true . Review of Systems Review of Systems Yes all other systems are reviewed and are negative and Unobtainable due to me ntal status Mental Status Exam Mental Status Exam Narrative: appropriately dressed in street clothes, properly groomed. no PMA/PMR. cooperative with interview. speech nml in rate, amount, loudness, tone, latency. thoughts linear and logical. affect full range, normo-intense, non-labile. mood euthymic. no SI/HI/AVH expressed. Patient Appearance: Well Grooomed Patient Orientation: Person Level of Consciousness: Awake Patient Behavior: Appropriate Mood Description: Withdrawn Affect Description: Constricted Patient Cognition Impaired: No Ability to Follow Directions: Good Speech Pattern: Clear Memory Description: Intact Diagnostics Vital Signs (24Hr): Vital Signs - 24 hr 01/28/21 18:00 01/28/21 19:49 01/29/21 08:33 Temperature 98.4 F 96.8 F Pulse Rate 64 64 74 Respiratory Rate 16 Blood Pressure 145/65 H 135/74 168/80 H Pulse Oximetry 96 98 Body Mass Index 28.3 Labs Results: 12/05/20 19:33 12/08/20 18:32 Imaging Radiology Impressions: ITS Impressions Head CT 12/06/20 07:04 IMPRESSION: Chronic microvascular ischemic changes with no CT evidence of acute intracranial abnormality. Medications Medications Current Medications Generic Name Dose Route Start Last Admin Trade Name Freq PRN Reason Stop Dose Admin Acetaminophen 650 mg 12/06/20 16:13 01/16/21 09:55 Acetaminophen 325 Mg Tablet PO 650 mg Q6H PRN Administration Headache/Pain Mild Scale (1-3) Al Hydroxide/Mg Hydroxide 30 ml 12/06/20 16:13 Magnesium Hydrox/Alum Hydrox 30 Ml Oral.Susp PO Q6H PRN Heartburn/Nausea Amlodipine Besylate 5 mg 12/09/20 09:00 01/29/21 07:49 Amlodipine Besylate 5 Mg Tablet PO 5 mg DAILY YUNG Administration Protocol Aspirin 81 mg 12/06/20 09:00 01/29/21 07:50 Aspirin 81 Mg Tab.Chew PO 81 mg DAILY YUNG Administration Cyanocobalamin 500 mcg 12/06/20 09:00 01/29/21 07:50 Cyanocobalamin (Vitamin B-12) 500 Mcg Tablet PO 500 mcg DAILY YUNG Administration Fluticasone Propionate 2 spray 12/10/20 10:21 01/29/21 07:50 Fluticasone Propionate Nasal 16 Gm [place] NOSTRIL-B 2 spray DAILY YUNG Administration Levothyroxine Sodium 150 mcg 12/06/20 08:00 01/29/21 05:53 Levothyroxine Sodium 150 Mcg Tablet PO 150 mcg DAILY@0630 YUNG Administration Loratadine 10 mg 12/06/20 09:00 01/29/21 07:50 Loratadine 10 Mg Tablet PO 10 mg DAILY YUNG Administration Losartan Potassium 50 mg 12/06/20 09:00 01/29/21 07:51 Losartan Potassium 50 Mg Tablet PO 50 mg DAILY YUNG Administration Protocol Magnesium Hydroxide 30 ml 12/06/20 16:13 Milk Of Magnesia 30 Ml Oral.Susp PO DAILY PRN Constipation Metoprolol Tartrate 100 mg 12/16/20 21:00 01/29/21 07:51 Metoprolol Tartrate 50 Mg Tablet PO 100 mg BID YUNG Administration Protocol Risperidone 0.5 mg 12/08/20 17:00 01/28/21 18:08 Risperidone 0.5 Mg Tablet PO 0.5 mg DAILY@1700 YUNG Administration Trazodone HCl 50 mg 12/06/20 16:13 01/28/21 19:49 Trazodone Hcl 50 Mg Tablet PO 50 mg BEDTIME PRN Administration Insomnia Trazodone HCl 25 mg 01/13/21 15:00 01/28/21 18:08 Trazodone Hcl 25 Mg Halftab PO 25 mg DAILY@1700 YUNG Administration Vitamin D 125 mcg 12/06/20 09:00 01/29/21 07:50 Cholecalciferol (Vitamin D3) 25 Mcg Tablet PO 125 mcg DAILY YUNG Administration Allergies Allergies Allergy/AdvReac Type Severity Reaction Status Date / Time olive oil [OLIVE OIL] Allergy Mild STOMACH Verified 12/05/20 19:06 UPSET Assessment & Plan Assessment & Plan (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
[2021-01-29] MEDS: risperiDONE 0.5 MG TABLET PO (16:19)
[2021-01-29] MEDS: traZODone HCL 25 MG HALFTAB PO (16:19)
[2021-01-29 18:00] VITALS: BP 140/70; PULSE 60; RESP 12; TEMP 36.2; O2SAT 97
[2021-01-29 20:35] VITALS: BP 140/70; PULSE 60
[2021-01-30 06:00] VITALS: BP 190/81; PULSE 57; RESP 16; TEMP 36.2; O2SAT 98
[2021-01-30] MEDS: Levothyroxine Sodium 150 MCG TABLET PO (06:31)
[2021-01-30] MEDS: Fluticasone Propionate Nasal 16 GM SPRAY 2 SPRAY NOSTRIL-B (07:58)
[2021-01-30] MEDS: Cholecalciferol (Vitamin D3) 25 MCG TABLET 125 MCG PO (07:58)
[2021-01-30 08:02] VITALS: BP 190/81; PULSE 57
[2021-01-30] MEDS: Aspirin 81 MG TAB.CHEW PO (08:02)
[2021-01-30] MEDS: amLODIPine Besylate 5 MG TABLET PO (08:02)
[2021-01-30 08:03] VITALS: BP 190/81; PULSE 57
[2021-01-30] MEDS: Cyanocobalamin (Vitamin B-12) 500 MCG TABLET PO (08:03)
[2021-01-30] MEDS: Loratadine 10 MG TABLET PO (08:03)
[2021-01-30] MEDS: Losartan Potassium 50 MG TABLET PO (08:03)
[2021-01-30 08:04] VITALS: BP 190/81; PULSE 57
[2021-01-30] MEDS: Metoprolol Tartrate 50 MG TABLET 100 MG PO ×2 (08:04→19:41)
--- NOTE | 2021-01-30 12:27 | P.PNPSI_ITS ---
Subjective Subjective Date of Service: 01/30/21 Reason For Visit: HALLUCINATIONS Interim History: Patient anxious confused. Has been social on the unit to limited degree Mental Status Exam Mental Status Exam Patient Appearance: Well Grooomed Patient Orientation: Person Level of Consciousness: Awake Patient Behavior: Appropriate Mood Description: Withdrawn Affect Description: Constricted Patient Cognition Impaired: No Ability to Follow Directions: Good Speech Pattern: Clear Memory Description: Intact Diagnostics Vital Signs (24Hr): Vital Signs - 24 hr 01/29/21 18:00 01/29/21 20:35 01/30/21 06:00 Temperature 97.1 F 97.1 F Pulse Rate 60 60 57 Respiratory Rate 12 16 Blood Pressure 140/70 H 140/70 H 190/81 H Pulse Oximetry 97 98 01/30/21 08:02 01/30/21 08:03 01/30/21 08:04 Temperature Pulse Rate 57 57 57 Respiratory Rate Blood Pressure 190/81 H 190/81 H 190/81 H Pulse Oximetry Body Mass Index 28.3 Labs Results: 12/05/20 19:33 12/08/20 18:32 Imaging Radiology Impressions: ITS Impressions Head CT 12/06/20 07:04 IMPRESSION: Chronic microvascular ischemic changes with no CT evidence of acute intracranial abnormality. Medications Medications Current Medications Generic Name Dose Route Start Last Admin Trade Name Freq PRN Reason Stop Dose Admin Acetaminophen 650 mg 12/06/20 16:13 01/16/21 09:55 Acetaminophen 325 Mg Tablet PO 650 mg Q6H PRN Administration Headache/Pain Mild Scale (1-3) Al Hydroxide/Mg Hydroxide 30 ml 12/06/20 16:13 Magnesium Hydrox/Alum Hydrox 30 Ml Oral.Susp PO Q6H PRN Heartburn/Nausea Amlodipine Besylate 5 mg 12/09/20 09:00 01/30/21 08:02 Amlodipine Besylate 5 Mg Tablet PO 5 mg DAILY YUNG Administration Protocol Aspirin 81 mg 12/06/20 09:00 01/30/21 08:02 Aspirin 81 Mg Tab.Chew PO 81 mg DAILY YUNG Administration Cyanocobalamin 500 mcg 12/06/20 09:00 01/30/21 08:03 Cyanocobalamin (Vitamin B-12) 500 Mcg Tablet PO 500 mcg DAILY YUNG Administration Fluticasone Propionate 2 spray 12/10/20 10:21 01/30/21 07:58 Fluticasone Propionate Nasal 16 Gm [place] NOSTRIL-B 2 spray DAILY YUNG Administration Levothyroxine Sodium 150 mcg 12/06/20 08:00 01/30/21 06:31 Levothyroxine Sodium 150 Mcg Tablet PO 150 mcg DAILY@0630 YUNG Administration Loratadine 10 mg 12/06/20 09:00 01/30/21 08:03 Loratadine 10 Mg Tablet PO 10 mg DAILY YUNG Administration Losartan Potassium 50 mg 12/06/20 09:00 01/30/21 08:03 Losartan Potassium 50 Mg Tablet PO 50 mg DAILY YUNG Administration Protocol Magnesium Hydroxide 30 ml 12/06/20 16:13 Milk Of Magnesia 30 Ml Oral.Susp PO DAILY PRN Constipation Metoprolol Tartrate 100 mg 12/16/20 21:00 01/30/21 08:04 Metoprolol Tartrate 50 Mg Tablet PO 100 mg BID YUNG Administration Protocol Risperidone 0.5 mg 12/08/20 17:00 01/29/21 16:19 Risperidone 0.5 Mg Tablet PO 0.5 mg DAILY@1700 YUNG Administration Trazodone HCl 50 mg 12/06/20 16:13 01/28/21 19:49 Trazodone Hcl 50 Mg Tablet PO 50 mg BEDTIME PRN Administration Insomnia Trazodone HCl 25 mg 01/13/21 15:00 01/29/21 16:19 Trazodone Hcl 25 Mg Halftab PO 25 mg DAILY@1700 YUNG Administration Vitamin D 125 mcg 12/06/20 09:00 01/30/21 07:58 Cholecalciferol (Vitamin D3) 25 Mcg Tablet PO 125 mcg DAILY YUNG Administration Allergies Allergies Allergy/AdvReac Type Severity Reaction Status Date / Time olive oil [OLIVE OIL] Allergy Mild STOMACH Verified 12/05/20 19:06 UPSET Assessment & Plan Assessment & Plan (1) 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
[2021-01-30] MEDS: risperiDONE 0.5 MG TABLET PO (17:05)
[2021-01-30] MEDS: traZODone HCL 25 MG HALFTAB PO (17:05)
[2021-01-30 19:41] VITALS: BP 149/70; PULSE 65
[2021-01-30 19:46] VITALS: BP 149/70; PULSE 65; RESP 18; TEMP 36.5; O2SAT 97
[2021-01-31 06:00] VITALS: BP 135/90; PULSE 60; RESP 16; TEMP 36.7; O2SAT 98
[2021-01-31] MEDS: Levothyroxine Sodium 150 MCG TABLET PO (06:46)
[2021-01-31 09:25] VITALS: BP 135/90; PULSE 60
[2021-01-31] MEDS: Cyanocobalamin (Vitamin B-12) 500 MCG TABLET PO (09:25)
[2021-01-31] MEDS: Loratadine 10 MG TABLET PO (09:25)
[2021-01-31] MEDS: Losartan Potassium 50 MG TABLET PO (09:25)
[2021-01-31] MEDS: Metoprolol Tartrate 50 MG TABLET 100 MG PO ×2 (09:25→20:47)
[2021-01-31] MEDS: Cholecalciferol (Vitamin D3) 25 MCG TABLET 125 MCG PO (09:25)
[2021-01-31] MEDS: Aspirin 81 MG TAB.CHEW PO (09:25)
[2021-01-31 09:27] VITALS: BP 135/90; PULSE 60
[2021-01-31] MEDS: amLODIPine Besylate 5 MG TABLET PO (09:27)
[2021-01-31] MEDS: Fluticasone Propionate Nasal 16 GM SPRAY 2 SPRAY NOSTRIL-B (09:27)
--- NOTE | 2021-01-31 11:20 | P.PNPSI_ITS ---
Subjective Subjective Date of Service: 02/01/21 Reason For Visit: HALLUCINATIONS Interim History: Per nursing, pt visible in the unit, irritable at times. Pt somewhat irritable stating someone coming to take her clothes. She states she is being ignored by staff as they are not letting her go. She states staff called his son to ask him what was wrong with her and son had told them there is nothing wrong with her. Pt not oriented to year, month, place or situation. Pt is well groomed. She denies SI/HI. No behavioral concerns. Medication Compliance: Yes Side effects from medications: No Attending Groups: Intermittent Review of Systems Review of Systems Yes all other systems are reviewed and are negative and Unobtainable due to mental status Mental Status Exam Mental Status Exam Narrative: Appearance: casually groomed, good hygiene in NAD Behavior: somewhat irritable but cooperative psychomotor: no agitation or retardation noted Speech:clear, normal rate/rhythm, volume, spontaneous Thought process: tangential Thought content: upset about being in hospital, does not think there is something wrong with her but also confused as to where she is or why. Mood: lousy Affect: irritable edge but non labile SI:none HI:none VH/AH:none Delusions:people stealing from her. Insight/judgment:impaired x 2 Memory/cog: alert, not oriented to month, place, date, situation. underlying neurocognitive impairments. Diagnostics Vital Signs (24Hr): Vital Signs - 24 hr 01/31/21 18:00 01/31/21 20:47 02/01/21 06:00 Temperature 97.7 F 97.4 F Pulse Rate 60 60 55 Respiratory Rate 17 18 Blood Pressure 158/68 H 158/68 H 182/74 H Pulse Oximetry 98 16 L 02/01/21 08:23 02/01/21 08:24 Temperature Pulse Rate 55 55 Respiratory Rate Blood Pressure 182/74 H 182/74 H Pulse Oximetry Body Mass Index 28.3 Labs Results: 12/05/20 19:33 12/08/20 18:32 Imaging Radiology Impressions: ITS Impressions Head CT 12/06/20 07:04 IMPRESSION: Chronic microvascular ischemic changes with no CT evidence of acute intracranial abnormality. Medications Medications Current Medications Generic Name Dose Route Start Last Admin Trade Name Freq PRN Reason Stop Dose Admin Acetaminophen 650 mg 12/06/20 16:13 01/16/21 09:55 Acetaminophen 325 Mg Tablet PO 650 mg Q6H PRN Administration Headache/Pain Mild Scale (1-3) Al Hydroxide/Mg Hydroxide 30 ml 12/06/20 16:13 Magnesium Hydrox/Alum Hydrox 30 Ml Oral.Susp PO Q6H PRN Heartburn/Nausea Amlodipine Besylate 5 mg 12/09/20 09:00 02/01/21 08:23 Amlodipine Besylate 5 Mg Tablet PO 5 mg DAILY YUNG Administration Protocol Aspirin 81 mg 12/06/20 09:00 02/01/21 08:23 Aspirin 81 Mg Tab.Chew PO 81 mg DAILY YUNG Administration Cyanocobalamin 500 mcg 12/06/20 09:00 02/01/21 08:24 Cyanocobalamin (Vitamin B-12) 500 Mcg Tablet PO 500 mcg DAILY YUNG Administration Fluticasone Propionate 2 spray 12/10/20 10:21 02/01/21 08:22 Fluticasone Propionate Nasal 16 Gm [place] NOSTRIL-B 2 spray DAILY YUNG Administration Levothyroxine Sodium 150 mcg 12/06/20 08:00 02/01/21 06:11 Levothyroxine Sodium 150 Mcg Tablet PO 150 mcg DAILY@0630 YUNG Administration Loratadine 10 mg 12/06/20 09:00 02/01/21 08:24 Loratadine 10 Mg Tablet PO 10 mg DAILY YUNG Administration Losartan Potassium 50 mg 12/06/20 09:00 02/01/21 08:24 Losartan Potassium 50 Mg Tablet PO 50 mg DAILY YUNG Administration Protocol Magnesium Hydroxide 30 ml 12/06/20 16:13 Milk Of Magnesia 30 Ml Oral.Susp PO DAILY PRN Constipation Metoprolol Tartrate 100 mg 12/16/20 21:00 02/01/21 08:23 Metoprolol Tartrate 50 Mg Tablet PO 100 mg BID YUNG Administration Protocol Risperidone 0.5 mg 12/08/20 17:00 01/31/21 17:20 Risperidone 0.5 Mg Tablet PO 0.5 mg DAILY@1700 YUNG Administration Trazodone HCl 50 mg 12/06/20 16:13 01/28/21 19:49 Trazodone Hcl 50 Mg Tablet PO 50 mg BEDTIME PRN Administration Insomnia Trazodone HCl 25 mg 01/13/21 15:00 01/31/21 17:20 Trazodone Hcl 25 Mg Halftab PO 25 mg DAILY@1700 YUNG Administration Vitamin D 125 mcg 12/06/20 09:00 02/01/21 08:22 Cholecalciferol (Vitamin D3) 25 Mcg Tablet PO 125 mcg DAILY YUNG Administration Allergies Allergies Allergy/AdvReac Type Severity Reaction Status Date / Time olive oil [OLIVE OIL] Allergy Mild STOMACH Verified 12/05/20 19:06 UPSET Assessment & Plan Assessment & Plan (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 She is currently stable in terms of psychosis and behavioral outbursts. Waiting for placement. PLAN- continue per primary treatment team. no changes as per primary treatment team's plan risperidone has helped hallucinations less agitated at hs with Trazodone 5 pm waiting for SNF placement no change to present plan Continue plan of care patient needs much reassurance Greater than 50% of the session was spent on counseling and/or coordination of care Reason for contiued inpatient stay Substantial Risk for: inability to function
[2021-01-31] MEDS: risperiDONE 0.5 MG TABLET PO (17:20)
[2021-01-31] MEDS: traZODone HCL 25 MG HALFTAB PO (17:20)
[2021-01-31 18:00] VITALS: BP 158/68; PULSE 60; RESP 17; TEMP 36.5; O2SAT 98
[2021-01-31 20:47] VITALS: BP 158/68; PULSE 60
[2021-02-01 06:00] VITALS: BP 182/74; PULSE 55; RESP 18; TEMP 36.3; O2SAT 16
[2021-02-01] MEDS: Levothyroxine Sodium 150 MCG TABLET PO (06:11)
[2021-02-01] MEDS: Cholecalciferol (Vitamin D3) 25 MCG TABLET 125 MCG PO (08:22)
[2021-02-01] MEDS: Fluticasone Propionate Nasal 16 GM SPRAY 2 SPRAY NOSTRIL-B (08:22)
[2021-02-01 08:23] VITALS: BP 182/74; PULSE 55
[2021-02-01] MEDS: amLODIPine Besylate 5 MG TABLET PO (08:23)
[2021-02-01] MEDS: Aspirin 81 MG TAB.CHEW PO (08:23)
[2021-02-01] MEDS: Metoprolol Tartrate 50 MG TABLET 100 MG PO ×2 (08:23→19:55)
[2021-02-01 08:24] VITALS: BP 182/74; PULSE 55
[2021-02-01] MEDS: Cyanocobalamin (Vitamin B-12) 500 MCG TABLET PO (08:24)
[2021-02-01] MEDS: Losartan Potassium 50 MG TABLET PO (08:24)
[2021-02-01] MEDS: Loratadine 10 MG TABLET PO (08:24)
--- NOTE | 2021-02-01 11:27 | HO.PSYCHPN ---
Subjective Subjective Date of Service: 02/01/21 Reason For Visit: HALLUCINATIONS Interim History: Per nursing, pt visible in the unit, irritable at times. Pt ambulating with walker. SBP> 170-180, on losartan and amlodipine 5mg po daily, may consider increasing amlodipine. Pt somewhat irritable stating she is being ignored by staff as they are not letting her go. Pt expresses frustration about not seeing his son, hoping to see him soon. She states staff called his son to ask him what was wrong with her and son had told them there is nothing wrong with her. Pt not oriented to year, month, place or situation. Pt is well groomed. She denies SI/HI. No behavioral concerns. Medication Compliance: Yes Side effects from medications: No Review of Systems Review of Systems Yes all other systems are reviewed and are negative and Unobtainable due to mental status Mental Status Exam Mental Status Exam Narrative: Appearance: casually groomed, good hygiene in NAD Behavior: somewhat irritable but cooperative psychomotor: no agitation or retardation noted Speech:clear, normal rate/rhythm, volume, spontaneous Thought process: tangential Thought content: upset about being in hospital, does not think there is something wrong with her but also confused as to where she is or why. Mood: lousy Affect: irritable edge but non labile SI:none HI:none VH/AH:none Delusions:people stealing from her. Insight/judgment:impaired x 2 Memory/cog: alert, not oriented to month, place, date, situation. underlying neurocognitive impairments. Diagnostics Vital Signs (24Hr): Vital Signs - 24 hr 01/31/21 18:00 01/31/21 20:47 02/01/21 06:00 Temperature 97.7 F 97.4 F Pulse Rate 60 60 55 Respiratory Rate 17 18 Blood Pressure 158/68 H 158/68 H 182/74 H Pulse Oximetry 98 16 L 02/01/21 08:23 02/01/21 08:24 Temperature Pulse Rate 55 55 Respiratory Rate Blood Pressure 182/74 H 182/74 H Pulse Oximetry Body Mass Index 28.3 Labs Results: 12/05/20 19:33 12/08/20 18:32 Imaging Radiology Impressions: ITS Impressions Head CT 12/06/20 07:04 IMPRESSION: Chronic microvascular ischemic changes with no CT evidence of acute intracranial abnormality. Medications Medications Current Medications Generic Name Dose Route Start Last Admin Trade Name Carlosq PRN Reason Stop Dose Admin Acetaminophen 650 mg 12/06/20 16:13 01/16/21 09:55 Acetaminophen 325 Mg Tablet PO 650 mg Q6H PRN Administration Headache/Pain Mild Scale (1-3) Al Hydroxide/Mg Hydroxide 30 ml 12/06/20 16:13 Magnesium Hydrox/Alum Hydrox 30 Ml Oral.Susp PO Q6H PRN Heartburn/Nausea Amlodipine Besylate 5 mg 12/09/20 09:00 02/01/21 08:23 Amlodipine Besylate 5 Mg Tablet PO 5 mg DAILY YUNG Administration Protocol Aspirin 81 mg 12/06/20 09:00 02/01/21 08:23 Aspirin 81 Mg Tab.Chew PO 81 mg DAILY YUNG Administration Cyanocobalamin 500 mcg 12/06/20 09:00 02/01/21 08:24 Cyanocobalamin (Vitamin B-12) 500 Mcg Tablet PO 500 mcg DAILY YUNG Administration Fluticasone Propionate 2 spray 12/10/20 10:21 02/01/21 08:22 Fluticasone Propionate Nasal 16 Gm [place] NOSTRIL-B 2 spray DAILY YUNG Administration Levothyroxine Sodium 150 mcg 12/06/20 08:00 02/01/21 06:11 Levothyroxine Sodium 150 Mcg Tablet PO 150 mcg DAILY@0630 YUNG Administration Loratadine 10 mg 12/06/20 09:00 02/01/21 08:24 Loratadine 10 Mg Tablet PO 10 mg DAILY YUNG Administration Losartan Potassium 50 mg 12/06/20 09:00 02/01/21 08:24 Losartan Potassium 50 Mg Tablet PO 50 mg DAILY YUNG Administration Protocol Magnesium Hydroxide 30 ml 12/06/20 16:13 Milk Of Magnesia 30 Ml Oral.Susp PO DAILY PRN Constipation Metoprolol Tartrate 100 mg 12/16/20 21:00 02/01/21 08:23 Metoprolol Tartrate 50 Mg Tablet PO 100 mg BID YUNG Administration Protocol Risperidone 0.5 mg 12/08/20 17:00 01/31/21 17:20 Risperidone 0.5 Mg Tablet PO 0.5 mg DAILY@1700 YUNG Administration Trazodone HCl 50 mg 12/06/20 16:13 01/28/21 19:49 Trazodone Hcl 50 Mg Tablet PO 50 mg BEDTIME PRN Administration Insomnia Trazodone HCl 25 mg 01/13/21 15:00 01/31/21 17:20 Trazodone Hcl 25 Mg Halftab PO 25 mg DAILY@1700 YUNG Administration Vitamin D 125 mcg 12/06/20 09:00 02/01/21 08:22 Cholecalciferol (Vitamin D3) 25 Mcg Tablet PO 125 mcg DAILY YUNG Administration Allergies Allergies Allergy/AdvReac Type Severity Reaction Status Date / Time olive oil [OLIVE OIL] Allergy Mild STOMACH Verified 12/05/20 19:06 UPSET Assessment & Plan Assessment & Plan (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 She is currently stable in terms of psychosis and behavioral outbursts. Waiting for placement. PLAN- continue per primary treatment team. no changes as per primary treatment team's plan risperidone has helped hallucinations less agitated at hs with Trazodone 5 pm waiting for SNF placement no change to present plan Continue plan of care patient needs much reassurance Greater than 50% of the session was spent on counseling and/or coordination of care Reason for contiued inpatient stay Substantial Risk for: inability to function
[2021-02-01] MEDS: risperiDONE 0.5 MG TABLET PO (16:50)
[2021-02-01] MEDS: traZODone HCL 25 MG HALFTAB PO (16:50)
[2021-02-01 18:00] VITALS: BP 126/70; PULSE 62; RESP 12; TEMP 36.1; O2SAT 97
[2021-02-01 19:55] VITALS: BP 126/70; PULSE 62
[2021-02-02] MEDS: Levothyroxine Sodium 150 MCG TABLET PO (05:30)
[2021-02-02 09:24] VITALS: BP 111/56; PULSE 60
[2021-02-02] MEDS: amLODIPine Besylate 5 MG TABLET PO (09:24)
[2021-02-02 09:26] VITALS: BP 111/56; PULSE 60
[2021-02-02] MEDS: Metoprolol Tartrate 50 MG TABLET 100 MG PO ×2 (09:26→19:47)
[2021-02-02] MEDS: Cholecalciferol (Vitamin D3) 25 MCG TABLET 125 MCG PO (09:27)
[2021-02-02] MEDS: Cyanocobalamin (Vitamin B-12) 500 MCG TABLET PO (09:27)
[2021-02-02 09:28] VITALS: BP 111/56; PULSE 60
[2021-02-02] MEDS: Loratadine 10 MG TABLET PO (09:28)
[2021-02-02] MEDS: Losartan Potassium 50 MG TABLET PO (09:28)
[2021-02-02 09:45] VITALS: BP 111/56; PULSE 60; RESP 18; TEMP -13.6; TEMP 7.6; O2SAT 97
[2021-02-02] MEDS: Fluticasone Propionate Nasal 16 GM SPRAY 2 SPRAY NOSTRIL-B (10:10)
[2021-02-02] MEDS: Aspirin 81 MG TAB.CHEW PO (10:10)
--- NOTE | 2021-02-02 14:25 | HO.PSYCHPN ---
Subjective Subjective Date of Service: 02/02/21 Reason For Visit: HALLUCINATIONS Subjective Notes: Conditional Voluntary Interim History: Nursing staff reports no changes in her mental status. She is pleasantly confused, cooperative with care. Currently, she is waiting for placement. Tumor will have a meeting with his son to discuss discharge planning. Medication Compliance: Yes Side effects from medications: No Attending Groups: Intermittent Review of Systems Acute medical concerns: No Medical Review of Systems: unchanged Mental Status Exam Mental Status Exam Patient Appearance: Well Grooomed Patient Orientation: Person Level of Consciousness: Awake Patient Behavior: Appropriate and Cooperative Mood Description: Calm Affect Description: Constricted Patient Cognition Impaired: Yes Ability to Follow Directions: Good Speech Pattern: Clear Hallucinations: None Delusions: Not Present Thought Process: Evasive Thought Content: positive for Poverty of Content Judgement: Fair Diagnostics Vital Signs (24Hr): Vital Signs - 24 hr 02/01/21 18:00 02/01/21 19:55 02/02/21 09:24 Temperature 96.9 F Pulse Rate 62 62 60 Respiratory Rate 12 Blood Pressure 126/70 126/70 111/56 L Pulse Oximetry 97 02/02/21 09:26 02/02/21 09:28 02/02/21 09:45 Temperature 7.6 F L Pulse Rate 60 60 60 Respiratory Rate 18 Blood Pressure 111/56 L 111/56 L 111/56 L Pulse Oximetry 97 Body Mass Index 28.3 Labs Results: 12/05/20 19:33 12/08/20 18:32 Imaging Radiology Impressions: ITS Impressions Head CT 12/06/20 07:04 IMPRESSION: Chronic microvascular ischemic changes with no CT evidence of acute intracranial abnormality. Medications Medications Current Medications Generic Name Dose Route Start Last Admin Trade Name Freq PRN Reason Stop Dose Admin Acetaminophen 650 mg 12/06/20 16:13 01/16/21 09:55 Acetaminophen 325 Mg Tablet PO 650 mg Q6H PRN Administration Headache/Pain Mild Scale (1-3) Al Hydroxide/Mg Hydroxide 30 ml 12/06/20 16:13 Magnesium Hydrox/Alum Hydrox 30 Ml Oral.Susp PO Q6H PRN Heartburn/Nausea Amlodipine Besylate 5 mg 12/09/20 09:00 02/02/21 09:24 Amlodipine Besylate 5 Mg Tablet PO 5 mg DAILY YUNG Administration Protocol Aspirin 81 mg 12/06/20 09:00 02/02/21 10:10 Aspirin 81 Mg Tab.Chew PO 81 mg DAILY YUNG Administration Cyanocobalamin 500 mcg 12/06/20 09:00 02/02/21 09:27 Cyanocobalamin (Vitamin B-12) 500 Mcg Tablet PO 500 mcg DAILY YUNG Administration Fluticasone Propionate 2 spray 12/10/20 10:21 02/02/21 10:10 Fluticasone Propionate Nasal 16 Gm [place] NOSTRIL-B 2 spray DAILY YUNG Administration Levothyroxine Sodium 150 mcg 12/06/20 08:00 02/02/21 05:30 Levothyroxine Sodium 150 Mcg Tablet PO 150 mcg DAILY@0630 YUNG Administration Loratadine 10 mg 12/06/20 09:00 02/02/21 09:28 Loratadine 10 Mg Tablet PO 10 mg DAILY YUNG Administration Losartan Potassium 50 mg 12/06/20 09:00 02/02/21 09:28 Losartan Potassium 50 Mg Tablet PO 50 mg DAILY YUNG Administration Protocol Magnesium Hydroxide 30 ml 12/06/20 16:13 Milk Of Magnesia 30 Ml Oral.Susp PO DAILY PRN Constipation Metoprolol Tartrate 100 mg 12/16/20 21:00 02/02/21 09:26 Metoprolol Tartrate 50 Mg Tablet PO 100 mg BID YUNG Administration Protocol Risperidone 0.5 mg 12/08/20 17:00 02/01/21 16:50 Risperidone 0.5 Mg Tablet PO 0.5 mg DAILY@1700 YUNG Administration Trazodone HCl 50 mg 12/06/20 16:13 01/28/21 19:49 Trazodone Hcl 50 Mg Tablet PO 50 mg BEDTIME PRN Administration Insomnia Trazodone HCl 25 mg 01/13/21 15:00 02/01/21 16:50 Trazodone Hcl 25 Mg Halftab PO 25 mg DAILY@1700 YUNG Administration Vitamin D 125 mcg 12/06/20 09:00 02/02/21 09:27 Cholecalciferol (Vitamin D3) 25 Mcg Tablet PO 125 mcg DAILY YUNG Administration Allergies Allergies Allergy/AdvReac Type Severity Reaction Status Date / Time olive oil [OLIVE OIL] Allergy Mild STOMACH Verified 12/05/20 19:06 UPSET Assessment & Plan Assessment & Plan (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 She is currently stable in terms of psychosis and behavioral outbursts. Waiting for placement. PLAN- continue per primary treatment team. no changes as per primary treatment team's plan risperidone has helped hallucinations less agitated at hs with Trazodone 5 pm waiting for SNF placement no change to present plan Continue plan of care patient needs much reassurance Greater than 50% of the session was spent on counseling and/or coordination of care Reason for contiued inpatient stay Substantial Risk for: inability to function, rapid decompensation and med/psych decompensation
[2021-02-02] MEDS: traZODone HCL 25 MG HALFTAB PO (16:52)
[2021-02-02] MEDS: risperiDONE 0.5 MG TABLET PO (16:52)
[2021-02-02 19:47] VITALS: BP 151/69; PULSE 60
[2021-02-02 19:52] VITALS: BP 151/69; PULSE 60; RESP 16; TEMP 36.3; O2SAT 97
[2021-02-03] MEDS: Levothyroxine Sodium 150 MCG TABLET PO (05:42)
[2021-02-03 06:00] VITALS: BP 144/76; PULSE 62; TEMP 36.3; O2SAT 97
[2021-02-03 07:00] VITALS: BMI 28.2
[2021-02-03 08:34] VITALS: BP 144/76; PULSE 62
[2021-02-03] MEDS: Loratadine 10 MG TABLET PO (08:34)
[2021-02-03] MEDS: Aspirin 81 MG TAB.CHEW PO (08:34)
[2021-02-03] MEDS: Losartan Potassium 50 MG TABLET PO (08:34)
[2021-02-03 08:35] VITALS: BP 144/76; PULSE 62
[2021-02-03] MEDS: amLODIPine Besylate 5 MG TABLET PO (08:35)
[2021-02-03] MEDS: Cyanocobalamin (Vitamin B-12) 500 MCG TABLET PO (08:35)
[2021-02-03] MEDS: Cholecalciferol (Vitamin D3) 25 MCG TABLET 125 MCG PO (08:35)
[2021-02-03 08:36] VITALS: BP 144/76; PULSE 62
[2021-02-03] MEDS: Metoprolol Tartrate 50 MG TABLET 100 MG PO ×2 (08:36→20:05)
[2021-02-03] MEDS: Fluticasone Propionate Nasal 16 GM SPRAY 2 SPRAY NOSTRIL-B (08:37)
--- NOTE | 2021-02-03 16:12 | P.PNPSI_ITS ---
Subjective Subjective Date of Service: 02/03/21 Reason For Visit: HALLUCINATIONS Interim History: Pt has been visible in the unit. She is well groomed, somewhat irritable and upset on approach. She reports she is feeling lousy in part due to being here which she does not think is right as there is nothing wrong with her. She denied SI/HI. Per nursing, pt sleeping/eating well. No behavioral concerns. No signs of psychosis. But her memory severely impaired. Medication Compliance: Yes Side effects from medications: No Review of Systems Review of Systems Yes all other systems are reviewed and are negative and Unobtainable due to mental status Mental Status Exam Mental Status Exam Narrative: Appearance: casually groomed, good hygiene in NAD Behavior: somewhat irritable but cooperative psychomotor: no agitation or retardation noted Speech:clear, normal rate/rhythm, volume, spontaneous Thought process: tangential Thought content: upset about being in hospital, does not think there is something wrong with her but also confused as to where she is or why. Mood: lousy Affect: irritable edge but non labile SI:none HI:none VH/AH:none Delusions:people stealing from her. Insight/judgment:impaired x 2 Memory/cog: alert, not oriented to month, place, date, situation. underlying doretha rocognitive impairments. Diagnostics Vital Signs (24Hr): Vital Signs - 24 hr 02/02/21 19:47 02/02/21 19:52 02/03/21 06:00 Temperature 97.4 F 97.4 F Pulse Rate 60 60 62 Respiratory Rate 16 Blood Pressure 151/69 H 151/69 H 144/76 H Pulse Oximetry 97 97 02/03/21 08:34 02/03/21 08:35 02/03/21 08:36 Temperature Pulse Rate 62 62 62 Respiratory Rate Blood Pressure 144/76 H 144/76 H 144/76 H Pulse Oximetry Body Mass Index 28.2 Labs Results: 12/05/20 19:33 12/08/20 18:32 Imaging Radiology Impressions: ITS Impressions Head CT 12/06/20 07:04 IMPRESSION: Chronic microvascular ischemic changes with no CT evidence of acute intracranial abnormality. Medications Medications Current Medications Generic Name Dose Route Start Last Admin Trade Name Freq PRN Reason Stop Dose Admin Acetaminophen 650 mg 12/06/20 16:13 01/16/21 09:55 Acetaminophen 325 Mg Tablet PO 650 mg Q6H PRN Administration Headache/Pain Mild Scale (1-3) Al Hydroxide/Mg Hydroxide 30 ml 12/06/20 16:13 Magnesium Hydrox/Alum Hydrox 30 Ml Oral.Susp PO Q6H PRN Heartburn/Nausea Amlodipine Besylate 5 mg 12/09/20 09:00 02/03/21 08:35 Amlodipine Besylate 5 Mg Tablet PO 5 mg DAILY YUNG Administration Protocol Aspirin 81 mg 12/06/20 09:00 02/03/21 08:34 Aspirin 81 Mg Tab.Chew PO 81 mg DAILY YUNG Administration Cyanocobalamin 500 mcg 12/06/20 09:00 02/03/21 08:35 Cyanocobalamin (Vitamin B-12) 500 Mcg Tablet PO 500 mcg DAILY YUNG Administration Fluticasone Propionate 2 spray 12/10/20 10:21 02/03/21 08:37 Fluticasone Propionate Nasal 16 Gm [place] NOSTRIL-B 2 spray DAILY YUNG Administration Levothyroxine Sodium 150 mcg 12/06/20 08:00 02/03/21 05:42 Levothyroxine Sodium 150 Mcg Tablet PO 150 mcg DAILY@0630 YUNG Administration Loratadine 10 mg 12/06/20 09:00 02/03/21 08:34 Loratadine 10 Mg Tablet PO 10 mg DAILY YUNG Administration Losartan Potassium 50 mg 12/06/20 09:00 02/03/21 08:34 Losartan Potassium 50 Mg Tablet PO 50 mg DAILY YUNG Administration Protocol Magnesium Hydroxide 30 ml 12/06/20 16:13 Milk Of Magnesia 30 Ml Oral.Susp PO DAILY PRN Constipation Metoprolol Tartrate 100 mg 12/16/20 21:00 02/03/21 08:36 Metoprolol Tartrate 50 Mg Tablet PO 100 mg BID YUNG Administration Protocol Risperidone 0.5 mg 12/08/20 17:00 02/02/21 16:52 Risperidone 0.5 Mg Tablet PO 0.5 mg DAILY@1700 YUNG Administration Trazodone HCl 50 mg 12/06/20 16:13 01/28/21 19:49 Trazodone Hcl 50 Mg Tablet PO 50 mg BEDTIME PRN Administration Insomnia Trazodone HCl 25 mg 01/13/21 15:00 02/02/21 16:52 Trazodone Hcl 25 Mg Halftab PO 25 mg DAILY@1700 YUNG Administration Vitamin D 125 mcg 12/06/20 09:00 02/03/21 08:35 Cholecalciferol (Vitamin D3) 25 Mcg Tablet PO 125 mcg DAILY YUNG Administration Allergies Allergies Allergy/AdvReac Type Severity Reaction Status Date / Time olive oil [OLIVE OIL] Allergy Mild STOMACH Verified 12/05/20 19:06 UPSET Assessment & Plan Assessment & Plan (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 She is currently stable in terms of psychosis and behavioral outbursts. Waiting for placement. PLAN- continue per primary treatment team. no changes as per primary treatment team's plan risperidone has helped hallucinations less agitated at hs with Trazodone 5 pm waiting for SNF placement no change to present plan Continue plan of care patient needs much reassurance Greater than 50% of the session was spent on counseling and/or coordination of care Reason for contiued inpatient stay Substantial Risk for: inability to function
[2021-02-03] MEDS: risperiDONE 0.5 MG TABLET PO (17:08)
[2021-02-03] MEDS: traZODone HCL 25 MG HALFTAB PO (17:08)
[2021-02-03 18:00] VITALS: BP 150/70; PULSE 64; TEMP 36.3; O2SAT 98
[2021-02-03 20:05] VITALS: BP 142/65; PULSE 63
[2021-02-04] MEDS: Levothyroxine Sodium 150 MCG TABLET PO (05:43)
[2021-02-04 09:54] VITALS: BP 161/91; PULSE 60
[2021-02-04] MEDS: Metoprolol Tartrate 50 MG TABLET 100 MG PO ×2 (09:54→20:02)
[2021-02-04] MEDS: Loratadine 10 MG TABLET PO (09:54)
[2021-02-04 09:55] VITALS: BP 161/91; PULSE 60
[2021-02-04] MEDS: Losartan Potassium 50 MG TABLET PO (09:55)
[2021-02-04] MEDS: Cyanocobalamin (Vitamin B-12) 500 MCG TABLET PO (09:55)
[2021-02-04] MEDS: Cholecalciferol (Vitamin D3) 25 MCG TABLET 125 MCG PO (09:55)
[2021-02-04 09:56] VITALS: BP 161/91; PULSE 60
[2021-02-04] MEDS: Aspirin 81 MG TAB.CHEW PO (09:56)
[2021-02-04] MEDS: amLODIPine Besylate 5 MG TABLET PO (09:56)
[2021-02-04] MEDS: Fluticasone Propionate Nasal 16 GM SPRAY 2 SPRAY NOSTRIL-B (09:57)
[2021-02-04 10:06] VITALS: BP 161/91; PULSE 60; RESP 16; TEMP 36.3; O2SAT 98
--- NOTE | 2021-02-04 11:18 | HO.PSYCHPN ---
Subjective Subjective Date of Service: 02/04/21 Reason For Visit: HALLUCINATIONS Subjective Notes: Conditional Voluntary Interim History: The nursing staff reported the patient has been depressed and sad, she is confused but cooperative with care. On interview, the patient denies new symptoms but she seems more dysphoric sings she does not have a clear discharge planning. She has been more confused in the last hours, she took classes and a pitcher from another patient's room. Review of Systems Medical Review of Systems: unchanged Mental Status Exam Mental Status Exam Patient Appearance: Well Grooomed Patient Orientation: Person Level of Consciousness: Awake Patient Behavior: Appropriate and Cooperative Mood Description: Depressed Affect Description: Constricted Patient Cognition Impaired: Yes Ability to Follow Directions: Good Speech Pattern: Clear Hallucinations: None Thought Process: Evasive Thought Content: positive for Circumstantial Judgement: Fair Diagnostics Vital Signs (24Hr): Vital Signs - 24 hr 02/03/21 18:00 02/03/21 20:05 02/04/21 09:54 Temperature 97.4 F Pulse Rate 64 63 60 Respiratory Rate Blood Pressure 150/70 H 142/65 H 161/91 H Pulse Oximetry 98 02/04/21 09:55 02/04/21 09:56 02/04/21 10:06 Temperature 97.3 F Pulse Rate 60 60 60 Respiratory Rate 16 Blood Pressure 161/91 H 161/91 H 161/91 H Pulse Oximetry 98 Body Mass Index 28.2 Labs Results: 12/05/20 19:33 12/08/20 18:32 Imaging Radiology Impressions: ITS Impressions Head CT 12/06/20 07:04 IMPRESSION: Chronic microvascular ischemic changes with no CT evidence of acute intracranial abnormality. Medications Medications Current Medications Generic Name Dose Route Start Last Admin Trade Name Freq PRN Reason Stop Dose Admin Acetaminophen 650 mg 12/06/20 16:13 01/16/21 09:55 Acetaminophen 325 Mg Tablet PO 650 mg Q6H PRN Administration Headache/Pain Mild Scale (1-3) Al Hydroxide/Mg Hydroxide 30 ml 12/06/20 16:13 Magnesium Hydrox/Alum Hydrox 30 Ml Oral.Susp PO Q6H PRN Heartburn/Nausea Amlodipine Besylate 5 mg 12/09/20 09:00 02/04/21 09:56 Amlodipine Besylate 5 Mg Tablet PO 5 mg DAILY YUNG Administration Protocol Aspirin 81 mg 12/06/20 09:00 02/04/21 09:56 Aspirin 81 Mg Tab.Chew PO 81 mg DAILY YUNG Administration Cyanocobalamin 500 mcg 12/06/20 09:00 02/04/21 09:55 Cyanocobalamin (Vitamin B-12) 500 Mcg Tablet PO 500 mcg DAILY YUNG Administration Fluticasone Propionate 2 spray 12/10/20 10:21 02/04/21 09:57 Fluticasone Propionate Nasal 16 Gm [place] NOSTRIL-B 2 spray DAILY YUNG Administration Levothyroxine Sodium 150 mcg 12/06/20 08:00 02/04/21 05:43 Levothyroxine Sodium 150 Mcg Tablet PO 150 mcg DAILY@0630 YUNG Administration Loratadine 10 mg 12/06/20 09:00 02/04/21 09:54 Loratadine 10 Mg Tablet PO 10 mg DAILY YUNG Administration Losartan Potassium 50 mg 12/06/20 09:00 02/04/21 09:55 Losartan Potassium 50 Mg Tablet PO 50 mg DAILY YUNG Administration Protocol Magnesium Hydroxide 30 ml 12/06/20 16:13 Milk Of Magnesia 30 Ml Oral.Susp PO DAILY PRN Constipation Metoprolol Tartrate 100 mg 12/16/20 21:00 02/04/21 09:54 Metoprolol Tartrate 50 Mg Tablet PO 100 mg BID YUNG Administration Protocol Risperidone 0.5 mg 12/08/20 17:00 02/03/21 17:08 Risperidone 0.5 Mg Tablet PO 0.5 mg DAILY@1700 YUNG Administration Trazodone HCl 50 mg 12/06/20 16:13 01/28/21 19:49 Trazodone Hcl 50 Mg Tablet PO 50 mg BEDTIME PRN Administration Insomnia Trazodone HCl 25 mg 01/13/21 15:00 02/03/21 17:08 Trazodone Hcl 25 Mg Halftab PO 25 mg DAILY@1700 YUNG Administration Vitamin D 125 mcg 12/06/20 09:00 02/04/21 09:55 Cholecalciferol (Vitamin D3) 25 Mcg Tablet PO 125 mcg DAILY YUNG Administration Allergies Allergies Allergy/AdvReac Type Severity Reaction Status Date / Time olive oil [OLIVE OIL] Allergy Mild STOMACH Verified 12/05/20 19:06 UPSET Assessment & Plan Assessment & Plan (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 She is currently stable in terms of psychosis and behavioral outbursts. Waiting for placement. PLAN- continue per primary treatment team. no changes as per primary treatment team's plan risperidone has helped hallucinations less agitated at hs with Trazodone 5 pm waiting for SNF placement no change to present plan Continue plan of care patient needs much reassurance Greater than 50% of the session was spent on counseling and/or coordination of care Reason for contiued inpatient stay Substantial Risk for: inability to function, rapid decompensation and med/psych decompensation
[2021-02-04] MEDS: risperiDONE 0.5 MG TABLET PO (16:45)
[2021-02-04] MEDS: traZODone HCL 25 MG HALFTAB PO (16:46)
[2021-02-04 18:00] VITALS: BP 165/72; PULSE 60; RESP 18; TEMP 36.7; O2SAT 96
[2021-02-04 20:02] VITALS: BP 160/78; PULSE 76
[2021-02-05] MEDS: Levothyroxine Sodium 150 MCG TABLET PO (05:51)
[2021-02-05 06:00] VITALS: BP 176/79; PULSE 59; TEMP 36.7; O2SAT 97
[2021-02-05 08:35] VITALS: BP 176/79; PULSE 59
[2021-02-05] MEDS: Metoprolol Tartrate 50 MG TABLET 100 MG PO ×2 (08:35→19:30)
[2021-02-05] MEDS: amLODIPine Besylate 5 MG TABLET PO (08:35)
[2021-02-05] MEDS: Loratadine 10 MG TABLET PO (08:35)
[2021-02-05] MEDS: Cyanocobalamin (Vitamin B-12) 500 MCG TABLET PO (08:35)
[2021-02-05] MEDS: Cholecalciferol (Vitamin D3) 25 MCG TABLET 125 MCG PO (08:35)
[2021-02-05] MEDS: Aspirin 81 MG TAB.CHEW PO (08:35)
[2021-02-05 08:37] VITALS: BP 176/79; PULSE 59
[2021-02-05] MEDS: Losartan Potassium 50 MG TABLET PO (08:37)
[2021-02-05] MEDS: Fluticasone Propionate Nasal 16 GM SPRAY 2 SPRAY NOSTRIL-B (08:41)
--- NOTE | 2021-02-05 11:27 | P.PNPSI_ITS ---
Subjective Subjective Date of Service: 02/06/21 Reason For Visit: HALLUCINATIONS Subjective Notes: Conditional Voluntary Interim History: Pt is visible in the unit, not oriented to situation no insight into memory cognitive impairments which increases pt sense of loss of control as she wants to go home, not sure why she is in hospital or why others may be concern about her. She reports sleeping and eating well. At times, suspicious about staff as she thinks someone took her clothes and belonging. She describes her mood again as lousy. She had visit from son. Per nursing, no behavioral concerns. Medication Compliance: Yes Side effects from medications: No Attending Groups: Intermittent Review of Systems Acute medical concerns: No Review of Systems Review of Systems Yes all other systems are reviewed and are negative and Unobtainable due to mental status Mental Status Exam Mental Status Exam Narrative: Appearance: casually groomed, good hygiene in NAD Behavior: somewhat irritable but cooperative psychomotor: no agitation or retardation noted Speech:clear, normal rate/rhythm, volume, spontaneous Thought process: tangential Thought content: upset about being in hospital, does not think there is something wrong with her but also confused as to where she is or why. Mood: lousy Affect: irritable edge but non labile SI:none HI:none VH/AH:none Delusions:people stealing from her. Insight/judgment:impaired x 2 Memory/cog: alert, not oriented to month, place, date, situation. underlying neurocognitive impairments. Diagnostics Vital Signs (24Hr): Vital Signs - 24 hr 02/05/21 18:00 02/05/21 19:30 02/06/21 06:00 Temperature 97 F 98.2 F Pulse Rate 64 64 68 Respiratory Rate 19 16 Blood Pressure 174/81 H 174/81 H 148/88 H Pulse Oximetry 95 97 02/06/21 08:38 02/06/21 08:39 02/06/21 08:40 Temperature Pulse Rate 68 68 68 Respiratory Rate Blood Pressure 148/88 H 148/88 H 148/88 H Pulse Oximetry Body Mass Index 28.2 Labs Results: 12/05/20 19:33 12/08/20 18:32 Imaging Radiology Impressions: ITS Impressions Head CT 12/06/20 07:04 IMPRESSION: Chronic microvascular ischemic changes with no CT evidence of acute intracranial abnormality. Medications Medications Current Medications Generic Name Dose Route Start Last Admin Trade Name Freq PRN Reason Stop Dose Admin Acetaminophen 650 mg 12/06/20 16:13 01/16/21 09:55 Acetaminophen 325 Mg Tablet PO 650 mg Q6H PRN Administration Headache/Pain Mild Scale (1-3) Al Hydroxide/Mg Hydroxide 30 ml 12/06/20 16:13 Magnesium Hydrox/Alum Hydrox 30 Ml Oral.Susp PO Q6H PRN Heartburn/Nausea Amlodipine Besylate 5 mg 12/09/20 09:00 02/06/21 08:40 Amlodipine Besylate 5 Mg Tablet PO 5 mg DAILY YUNG Administration Protocol Aspirin 81 mg 12/06/20 09:00 02/06/21 08:36 Aspirin 81 Mg Tab.Chew PO 81 mg DAILY YUNG Administration Cyanocobalamin 500 mcg 12/06/20 09:00 02/06/21 08:36 Cyanocobalamin (Vitamin B-12) 500 Mcg Tablet PO 500 mcg DAILY YUNG Administration Fluticasone Propionate 2 spray 12/10/20 10:21 02/06/21 08:41 Fluticasone Propionate Nasal 16 Gm [place] NOSTRIL-B 2 spray DAILY YUNG Administration Levothyroxine Sodium 150 mcg 12/06/20 08:00 02/06/21 06:11 Levothyroxine Sodium 150 Mcg Tablet PO 150 mcg DAILY@0630 YUNG Administration Loratadine 10 mg 12/06/20 09:00 02/06/21 08:36 Loratadine 10 Mg Tablet PO 10 mg DAILY YUNG Administration Losartan Potassium 50 mg 12/06/20 09:00 02/06/21 08:38 Losartan Potassium 50 Mg Tablet PO 50 mg DAILY YUNG Administration Protocol Magnesium Hydroxide 30 ml 12/06/20 16:13 Milk Of Magnesia 30 Ml Oral.Susp PO DAILY PRN Constipation Metoprolol Tartrate 100 mg 12/16/20 21:00 02/06/21 08:39 Metoprolol Tartrate 50 Mg Tablet PO 100 mg BID YUNG Administration Protocol Risperidone 0.5 mg 12/08/20 17:00 02/05/21 17:04 Risperidone 0.5 Mg Tablet PO 0.5 mg DAILY@1700 YUNG Administration Trazodone HCl 50 mg 12/06/20 16:13 01/28/21 19:49 Trazodone Hcl 50 Mg Tablet PO 50 mg BEDTIME PRN Administration Insomnia Trazodone HCl 25 mg 01/13/21 15:00 02/05/21 17:04 Trazodone Hcl 25 Mg Halftab PO 25 mg DAILY@1700 YUNG Administration Vitamin D 125 mcg 12/06/20 09:00 02/06/21 08:37 Cholecalciferol (Vitamin D3) 25 Mcg Tablet PO 125 mcg DAILY YUNG Administration Allergies Allergies Allergy/AdvReac Type Severity Reaction Status Date / Time olive oil [OLIVE OIL] Allergy Mild STOMACH Verified 12/05/20 19:06 UPSET Assessment & Plan Assessment & Plan (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 She is currently stable in terms of psychosis and behavioral outbursts. Waiting for placement. PLAN- continue per primary treatment team. no changes as per primary treatment team's plan risperidone has helped hallucinations less agitated at hs with Trazodone 5 pm waiting for SNF placement no change to present plan Continue plan of care patient needs much reassurance Greater than 50% of the session was spent on counseling and/or coordination of care Reason for contiued inpatient stay Substantial Risk for: inability to function
[2021-02-05] MEDS: risperiDONE 0.5 MG TABLET PO (17:04)
[2021-02-05] MEDS: traZODone HCL 25 MG HALFTAB PO (17:04)
[2021-02-05 18:00] VITALS: BP 174/81; PULSE 64; RESP 19; TEMP 36.1; O2SAT 95
[2021-02-05 19:30] VITALS: BP 174/81; PULSE 64
[2021-02-06 06:00] VITALS: BP 148/88; PULSE 68; RESP 16; TEMP 36.8; O2SAT 97
[2021-02-06] MEDS: Levothyroxine Sodium 150 MCG TABLET PO (06:11)
[2021-02-06] MEDS: Cyanocobalamin (Vitamin B-12) 500 MCG TABLET PO (08:36)
[2021-02-06] MEDS: Aspirin 81 MG TAB.CHEW PO (08:36)
[2021-02-06] MEDS: Loratadine 10 MG TABLET PO (08:36)
[2021-02-06] MEDS: Cholecalciferol (Vitamin D3) 25 MCG TABLET 125 MCG PO (08:37)
[2021-02-06 08:38] VITALS: BP 148/88; PULSE 68
[2021-02-06] MEDS: Losartan Potassium 50 MG TABLET PO (08:38)
[2021-02-06 08:39] VITALS: BP 148/88; PULSE 68
[2021-02-06] MEDS: Metoprolol Tartrate 50 MG TABLET 100 MG PO ×2 (08:39→20:02)
[2021-02-06 08:40] VITALS: BP 148/88; PULSE 68
[2021-02-06] MEDS: amLODIPine Besylate 5 MG TABLET PO (08:40)
[2021-02-06] MEDS: Fluticasone Propionate Nasal 16 GM SPRAY 2 SPRAY NOSTRIL-B (08:41)
[2021-02-06] MEDS: risperiDONE 0.5 MG TABLET PO (17:26)
[2021-02-06] MEDS: traZODone HCL 25 MG HALFTAB PO (17:26)
[2021-02-06 18:00] VITALS: BP 124/69; PULSE 64; RESP 16; TEMP 37.1; O2SAT 97
[2021-02-06 20:02] VITALS: BP 136/72; PULSE 62
[2021-02-07] MEDS: Levothyroxine Sodium 150 MCG TABLET PO (07:03)
[2021-02-07 08:00] VITALS: BP 151/73; PULSE 63; TEMP 36.8; O2SAT 98
--- NOTE | 2021-02-07 08:20 | P.PNPSI_ITS ---
Subjective Subjective Date of Service: 02/08/21 Reason For Visit: HALLUCINATIONS Interim History: Pt is visible in the unit, not oriented to situation no insight into memory cognitive impairments which increases pt sense of loss of control as she wants to go home, not sure why she is in hospital or why others may be concern about her. She reports sleeping and eating well. At times, suspicious about staff as she thinks someone took her clothes and belonging. She describes her mood again as lousy. She had visit from son. Per nursing, no behavioral concerns. Pt very tearful because children have not come to visit her but they come almost everyday, but pt quickly forgets. Review of Systems Review of Systems Yes all other systems are reviewed and are negative and Unobtainable due to mental status Mental Status Exam Mental Status Exam Narrative: Appearance: casually groomed, good hygiene in NAD Behavior: somewhat irritable but cooperative psychomotor: no agitation or retardation noted Speech:clear, normal rate/rhythm, volume, spontaneous Thought process: tangential Thought content: upset about being in hospital, does not think there is something wrong with her but also confused as to where she is or why. Mood: lousy Affect: irritable edge but non labile SI:none HI:none VH/AH:none Delusions:people stealing from her. Insight/judgment:impaired x 2 Memory/cog: alert, not oriented to month, place, date, situation. underlying neurocognitive impairments. Diagnostics Vital Signs (24Hr): Vital Signs - 24 hr 02/07/21 08:38 02/07/21 16:50 02/07/21 18:00 Temperature 98.2 F Pulse Rate 63 88 88 Blood Pressure 151/73 H 150/74 H 150/74 H Pulse Oximetry 98 Body Mass Index 28.2 Labs Results: 12/05/20 19:33 12/08/20 18:32 Imaging Radiology Impressions: ITS Impressions Head CT 12/06/20 07:04 IMPRESSION: Chronic microvascular ischemic changes with no CT evidence of acute intracranial abnormality. Medications Medications Current Medications Generic Name Dose Route Start Last Admin Trade Name Freq PRN Reason Stop Dose Admin Acetaminophen 650 mg 12/06/20 16:13 01/16/21 09:55 Acetaminophen 325 Mg Tablet PO 650 mg Q6H PRN Administration Headache/Pain Mild Scale (1-3) Al Hydroxide/Mg Hydroxide 30 ml 12/06/20 16:13 Magnesium Hydrox/Alum Hydrox 30 Ml Oral.Susp PO Q6H PRN Heartburn/Nausea Amlodipine Besylate 5 mg 12/09/20 09:00 02/07/21 08:39 Amlodipine Besylate 5 Mg Tablet PO 5 mg DAILY YUNG Administration Protocol Aspirin 81 mg 12/06/20 09:00 02/07/21 08:37 Aspirin 81 Mg Tab.Chew PO 81 mg DAILY YUNG Administration Cyanocobalamin 500 mcg 12/06/20 09:00 02/07/21 08:39 Cyanocobalamin (Vitamin B-12) 500 Mcg Tablet PO 500 mcg DAILY YUNG Administration Escitalopram Oxalate 5 mg 02/07/21 14:15 02/07/21 16:50 Escitalopram Oxalate 5 Mg Tablet PO 5 mg DAILY YUNG Administration Fluticasone Propionate 2 spray 12/10/20 10:21 02/07/21 08:41 Fluticasone Propionate Nasal 16 Gm [place] NOSTRIL-B 2 spray DAILY YUNG Administration Levothyroxine Sodium 150 mcg 12/06/20 08:00 02/08/21 05:47 Levothyroxine Sodium 150 Mcg Tablet PO 150 mcg DAILY@0630 YUNG Administration Loratadine 10 mg 12/06/20 09:00 02/07/21 08:38 Loratadine 10 Mg Tablet PO 10 mg DAILY YUNG Administration Losartan Potassium 50 mg 12/06/20 09:00 02/07/21 08:38 Losartan Potassium 50 Mg Tablet PO 50 mg DAILY YUNG Administration Protocol Magnesium Hydroxide 30 ml 12/06/20 16:13 Milk Of Magnesia 30 Ml Oral.Susp PO DAILY PRN Constipation Metoprolol Tartrate 100 mg 02/08/21 09:00 Metoprolol Tartrate 50 Mg Tablet PO DAILY YUNG Protocol Metoprolol Tartrate 100 mg 02/07/21 17:00 02/07/21 16:50 Metoprolol Tartrate 100 Mg Tablet PO 100 mg BID@0900,1700 YUNG Administration Protocol Risperidone 0.5 mg 12/08/20 17:00 02/07/21 16:50 Risperidone 0.5 Mg Tablet PO 0.5 mg DAILY@1700 YUNG Administration Trazodone HCl 50 mg 12/06/20 16:13 01/28/21 19:49 Trazodone Hcl 50 Mg Tablet PO 50 mg BEDTIME PRN Administration Insomnia Trazodone HCl 25 mg 01/13/21 15:00 02/07/21 16:50 Trazodone Hcl 25 Mg Halftab PO 25 mg DAILY@1700 YUNG Administration Vitamin D 125 mcg 12/06/20 09:00 02/07/21 08:37 Cholecalciferol (Vitamin D3) 25 Mcg Tablet PO 125 mcg DAILY YUNG Administration Allergies Allergies Allergy/AdvReac Type Severity Reaction Status Date / Time olive oil [OLIVE OIL] Allergy Mild STOMACH Verified 12/05/20 19:06 UPSET Assessment & Plan Assessment & Plan (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 She is currently stable in terms of psychosis and behavioral outbursts. Waiting for placement. PLAN- continue per primary treatment team. 1. start lexapro 5mg for mood on 02/07 2. continue risperidone has helped hallucinations 3. continue -less agitated at hs with Trazodone 5 pm waiting for SNF placement no change to present plan Continue plan of care patient needs much reassurance Greater than 50% of the session was spent on counseling and/or coordination of care Reason for contiued inpatient stay Substantial Risk for: inability to function
[2021-02-07] MEDS: Cholecalciferol (Vitamin D3) 25 MCG TABLET 125 MCG PO (08:37)
[2021-02-07] MEDS: Aspirin 81 MG TAB.CHEW PO (08:37)
[2021-02-07 08:38] VITALS: BP 151/73; PULSE 63
[2021-02-07] MEDS: Loratadine 10 MG TABLET PO (08:38)
[2021-02-07] MEDS: Metoprolol Tartrate 50 MG TABLET 100 MG PO (08:38)
[2021-02-07] MEDS: Losartan Potassium 50 MG TABLET PO (08:38)
[2021-02-07] MEDS: amLODIPine Besylate 5 MG TABLET PO (08:39)
[2021-02-07] MEDS: Cyanocobalamin (Vitamin B-12) 500 MCG TABLET PO (08:39)
[2021-02-07] MEDS: Fluticasone Propionate Nasal 16 GM SPRAY 2 SPRAY NOSTRIL-B (08:41)
[2021-02-07 16:50] VITALS: BP 150/74; PULSE 88
[2021-02-07] MEDS: traZODone HCL 25 MG HALFTAB PO (16:50)
[2021-02-07] MEDS: Metoprolol Tartrate 100 MG TABLET PO (16:50)
[2021-02-07] MEDS: Escitalopram Oxalate 5 MG TABLET PO (16:50)
[2021-02-07] MEDS: risperiDONE 0.5 MG TABLET PO (16:50)
[2021-02-07 18:00] VITALS: BP 150/74; PULSE 88; TEMP 36.8; O2SAT 98
[2021-02-08] VITALS (7 sets, daily range): BP systolic 169–170; BP diastolic 74–75; PULSE 62–63; RESP 16; TEMP 36–37.1; O2SAT 16–95
[2021-02-08] MEDS: Levothyroxine Sodium 150 MCG TABLET PO (05:47)
[2021-02-08] MEDS: amLODIPine Besylate 5 MG TABLET PO (09:28)
[2021-02-08] MEDS: Cholecalciferol (Vitamin D3) 25 MCG TABLET 125 MCG PO (09:30)
[2021-02-08] MEDS: Escitalopram Oxalate 5 MG TABLET PO (09:30)
[2021-02-08] MEDS: Metoprolol Tartrate 50 MG TABLET 100 MG PO (09:31)
[2021-02-08] MEDS: Cyanocobalamin (Vitamin B-12) 500 MCG TABLET PO (09:31)
[2021-02-08] MEDS: Metoprolol Tartrate 100 MG TABLET PO ×2 (09:32→17:20)
[2021-02-08] MEDS: Aspirin 81 MG TAB.CHEW PO (09:32)
[2021-02-08] MEDS: Losartan Potassium 50 MG TABLET PO (09:33)
[2021-02-08] MEDS: Loratadine 10 MG TABLET PO (09:33)
[2021-02-08] MEDS: Fluticasone Propionate Nasal 16 GM SPRAY 2 SPRAY NOSTRIL-B (09:34)
--- NOTE | 2021-02-08 11:12 | HO.PSYCHPN ---
Subjective Subjective Date of Service: 02/08/21 Reason For Visit: HALLUCINATIONS Subjective Notes: Conditional Voluntary Interim History: The nursing staff reported that the patient is doing fairly well, pleasantly confused and cooperative with care. On interview, the patient reported that she is doing fine with no new symptoms. The marriage and family social worker reported that she has been accepted at home facility called [facility] but the financial part because not being successfully cleared. Mental Status Exam Mental Status Exam Patient Appearance: Well Grooomed Patient Orientation: Person Level of Consciousness: Awake Patient Behavior: Cooperative Mood Description: Depressed Affect Description: Constricted Patient Cognition Impaired: Yes Ability to Follow Directions: Good Speech Pattern: Clear Hallucinations: None Thought Process: Distracted and Evasive Thought Content: positive for Circumstantial Judgement: Fair Diagnostics Vital Signs (24Hr): Vital Signs - 24 hr 02/07/21 16:50 02/07/21 18:00 02/08/21 09:20 Temperature 98.2 F 96.8 F Pulse Rate 88 88 63 Respiratory Rate 16 Blood Pressure 150/74 H 150/74 H 170/75 H Pulse Oximetry 98 16 L 02/08/21 09:28 02/08/21 09:31 02/08/21 09:32 Temperature Pulse Rate 63 63 63 Respiratory Rate Blood Pressure 170/75 H 170/75 H 170/75 H Pulse Oximetry 02/08/21 09:33 Temperature Pulse Rate 63 Respiratory Rate Blood Pressure 170/75 H Pulse Oximetry Body Mass Index 28.2 Labs Results: 12/05/20 19:33 12/08/20 18:32 Imaging Radiology Impressions: ITS Impressions Head CT 12/06/20 07:04 IMPRESSION: Chronic microvascular ischemic changes with no CT evidence of acute intracranial abnormality. Medications Medications Current Medications Generic Name Dose Route Start Last Admin Trade Name Freq PRN Reason Stop Dose Admin Acetaminophen 650 mg 12/06/20 16:13 01/16/21 09:55 Acetaminophen 325 Mg Tablet PO 650 mg Q6H PRN Administration Headache/Pain Mild Scale (1-3) Al Hydroxide/Mg Hydroxide 30 ml 12/06/20 16:13 Magnesium Hydrox/Alum Hydrox 30 Ml Oral.Susp PO Q6H PRN Heartburn/Nausea Amlodipine Besylate 5 mg 12/09/20 09:00 02/08/21 09:28 Amlodipine Besylate 5 Mg Tablet PO 5 mg DAILY YUNG Administration Protocol Aspirin 81 mg 12/06/20 09:00 02/08/21 09:32 Aspirin 81 Mg Tab.Chew PO 81 mg DAILY YUNG Administration Cyanocobalamin 500 mcg 12/06/20 09:00 02/08/21 09:31 Cyanocobalamin (Vitamin B-12) 500 Mcg Tablet PO 500 mcg DAILY YUNG Administration Escitalopram Oxalate 5 mg 02/07/21 14:15 02/08/21 09:30 Escitalopram Oxalate 5 Mg Tablet PO 5 mg DAILY YUNG Administration Fluticasone Propionate 2 spray 12/10/20 10:21 02/08/21 09:34 Fluticasone Propionate Nasal 16 Gm [place] NOSTRIL-B 2 spray DAILY YUNG Administration Levothyroxine Sodium 150 mcg 12/06/20 08:00 02/08/21 05:47 Levothyroxine Sodium 150 Mcg Tablet PO 150 mcg DAILY@0630 YUNG Administration Loratadine 10 mg 12/06/20 09:00 02/08/21 09:33 Loratadine 10 Mg Tablet PO 10 mg DAILY YUNG Administration Losartan Potassium 50 mg 12/06/20 09:00 02/08/21 09:33 Losartan Potassium 50 Mg Tablet PO 50 mg DAILY YUNG Administration Protocol Magnesium Hydroxide 30 ml 12/06/20 16:13 Milk Of Magnesia 30 Ml Oral.Susp PO DAILY PRN Constipation Metoprolol Tartrate 100 mg 02/08/21 09:00 02/08/21 09:31 Metoprolol Tartrate 50 Mg Tablet PO 100 mg DAILY YUNG Administration Protocol Metoprolol Tartrate 100 mg 02/07/21 17:00 02/08/21 09:32 Metoprolol Tartrate 100 Mg Tablet PO 100 mg BID@0900,1700 YUNG Administration Protocol Risperidone 0.5 mg 12/08/20 17:00 02/07/21 16:50 Risperidone 0.5 Mg Tablet PO 0.5 mg DAILY@1700 YUNG Administration Trazodone HCl 50 mg 12/06/20 16:13 01/28/21 19:49 Trazodone Hcl 50 Mg Tablet PO 50 mg BEDTIME PRN Administration Insomnia Trazodone HCl 25 mg 01/13/21 15:00 02/07/21 16:50 Trazodone Hcl 25 Mg Halftab PO 25 mg DAILY@1700 YUNG Administration Vitamin D 125 mcg 12/06/20 09:00 02/08/21 09:30 Cholecalciferol (Vitamin D3) 25 Mcg Tablet PO 125 mcg DAILY YUNG Administration Allergies Allergies Allergy/AdvReac Type Severity Reaction Status Date / Time olive oil [OLIVE OIL] Allergy Mild STOMACH Verified 12/05/20 19:06 UPSET Assessment & Plan Assessment & Plan (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 She is currently stable in terms of psychosis and behavioral outbursts. Waiting for placement. PLAN- continue per primary treatment team. 1. start lexapro 5mg for mood on 02/07 2. continue risperidone has helped hallucinations 3. continue -less agitated at hs with Trazodone 5 pm waiting for SNF placement no change to present plan Continue plan of care patient needs much reassurance Greater than 50% of the session was spent on counseling and/or coordination of care Reason for contiued inpatient stay Substantial Risk for: inability to function, rapid decompensation and med/psych decompensation
[2021-02-08] MEDS: traZODone HCL 25 MG HALFTAB PO (17:20)
[2021-02-08] MEDS: risperiDONE 0.5 MG TABLET PO (17:20)
[2021-02-09] VITALS (7 sets, daily range): BP systolic 131–148; BP diastolic 66–74; PULSE 60–65; RESP 17–18; TEMP 36.5–36.6; O2SAT 95–97
[2021-02-09] MEDS: Levothyroxine Sodium 150 MCG TABLET PO (06:02)
[2021-02-09] MEDS: Metoprolol Tartrate 50 MG TABLET 100 MG PO (08:10)
[2021-02-09] MEDS: Cholecalciferol (Vitamin D3) 25 MCG TABLET 125 MCG PO (08:10)
[2021-02-09] MEDS: amLODIPine Besylate 5 MG TABLET PO (08:11)
[2021-02-09] MEDS: Aspirin 81 MG TAB.CHEW PO (08:11)
[2021-02-09] MEDS: Escitalopram Oxalate 5 MG TABLET PO (08:11)
[2021-02-09] MEDS: Metoprolol Tartrate 100 MG TABLET PO ×2 (08:12→16:55)
[2021-02-09] MEDS: Losartan Potassium 50 MG TABLET PO (08:13)
[2021-02-09] MEDS: Fluticasone Propionate Nasal 16 GM SPRAY 2 SPRAY NOSTRIL-B (08:14)
[2021-02-09] MEDS: Loratadine 10 MG TABLET PO (08:14)
[2021-02-09] MEDS: Cyanocobalamin (Vitamin B-12) 500 MCG TABLET PO (08:14)
--- NOTE | 2021-02-09 11:07 | HO.PSYCHPN ---
Subjective Subjective Date of Service: 02/09/21 Reason For Visit: HALLUCINATIONS Subjective Notes: Conditional Voluntary Interim History: The nursing staff reported that the patient slept all night long. Today in the morning she had a special education preschool teacher, her son came to visit her. The social service liaison reported that [facility] in [facility] accepted that her but the financial part has not been settled yet. Medication Compliance: Yes Side effects from medications: No Attending Groups: Intermittent Review of Systems Acute medical concerns: No Medical Review of Systems: unchanged Mental Status Exam Mental Status Exam Patient Appearance: Well Grooomed Patient Orientation: Person Level of Consciousness: Awake Patient Behavior: Cooperative Mood Description: Constricted Affect Description: Calm Patient Cognition Impaired: Yes Ability to Follow Directions: Good Speech Pattern: Clear Hallucinations: None Judgement: Fair Diagnostics Vital Signs (24Hr): Vital Signs - 24 hr 02/08/21 17:18 02/08/21 17:20 02/09/21 08:10 Temperature 98.8 F Pulse Rate 62 62 61 Respiratory Rate 16 Blood Pressure 169/74 H 169/74 H 131/74 Pulse Oximetry 95 02/09/21 08:11 02/09/21 08:12 02/09/21 08:13 Temperature Pulse Rate 61 61 61 Respiratory Rate Blood Pressure 131/74 131/74 131/74 Pulse Oximetry 02/09/21 10:12 Temperature 97.8 F Pulse Rate 61 Respiratory Rate 18 Blood Pressure 131/74 Pulse Oximetry 97 Body Mass Index 28.2 Labs Results: 12/05/20 19:33 12/08/20 18:32 Imaging Radiology Impressions: ITS Impressions Head CT 12/06/20 07:04 IMPRESSION: Chronic microvascular ischemic changes with no CT evidence of acute intracranial abnormality. Medications Medications Current Medications Generic Name Dose Route Start Last Admin Trade Name Freq PRN Reason Stop Dose Admin Acetaminophen 650 mg 12/06/20 16:13 01/16/21 09:55 Acetaminophen 325 Mg Tablet PO 650 mg Q6H PRN Administration Headache/Pain Mild Scale (1-3) Al Hydroxide/Mg Hydroxide 30 ml 12/06/20 16:13 Magnesium Hydrox/Alum Hydrox 30 Ml Oral.Susp PO Q6H PRN Heartburn/Nausea Amlodipine Besylate 5 mg 12/09/20 09:00 02/09/21 08:11 Amlodipine Besylate 5 Mg Tablet PO 5 mg DAILY YUNG Administration Protocol Aspirin 81 mg 12/06/20 09:00 02/09/21 08:11 Aspirin 81 Mg Tab.Chew PO 81 mg DAILY YUNG Administration Cyanocobalamin 500 mcg 12/06/20 09:00 02/09/21 08:14 Cyanocobalamin (Vitamin B-12) 500 Mcg Tablet PO 500 mcg DAILY YUNG Administration Escitalopram Oxalate 5 mg 02/07/21 14:15 02/09/21 08:11 Escitalopram Oxalate 5 Mg Tablet PO 5 mg DAILY YUNG Administration Fluticasone Propionate 2 spray 12/10/20 10:21 02/09/21 08:14 Fluticasone Propionate Nasal 16 Gm [place] NOSTRIL-B 2 spray DAILY YUNG Administration Levothyroxine Sodium 150 mcg 12/06/20 08:00 02/09/21 06:02 Levothyroxine Sodium 150 Mcg Tablet PO 150 mcg DAILY@0630 YUNG Administration Loratadine 10 mg 12/06/20 09:00 02/09/21 08:14 Loratadine 10 Mg Tablet PO 10 mg DAILY YUNG Administration Losartan Potassium 50 mg 12/06/20 09:00 02/09/21 08:13 Losartan Potassium 50 Mg Tablet PO 50 mg DAILY YUNG Administration Protocol Magnesium Hydroxide 30 ml 12/06/20 16:13 Milk Of Magnesia 30 Ml Oral.Susp PO DAILY PRN Constipation Metoprolol Tartrate 100 mg 02/08/21 09:00 02/09/21 08:10 Metoprolol Tartrate 50 Mg Tablet PO 100 mg DAILY YUNG Administration Protocol Metoprolol Tartrate 100 mg 02/07/21 17:00 02/09/21 08:12 Metoprolol Tartrate 100 Mg Tablet PO 100 mg BID@0900,1700 YUNG Administration Protocol Risperidone 0.5 mg 12/08/20 17:00 02/08/21 17:20 Risperidone 0.5 Mg Tablet PO 0.5 mg DAILY@1700 YUNG Administration Trazodone HCl 50 mg 12/06/20 16:13 01/28/21 19:49 Trazodone Hcl 50 Mg Tablet PO 50 mg BEDTIME PRN Administration Insomnia Trazodone HCl 25 mg 01/13/21 15:00 02/08/21 17:20 Trazodone Hcl 25 Mg Halftab PO 25 mg DAILY@1700 YUNG Administration Vitamin D 125 mcg 12/06/20 09:00 02/09/21 08:10 Cholecalciferol (Vitamin D3) 25 Mcg Tablet PO 125 mcg DAILY YUNG Administration Allergies Allergies Allergy/AdvReac Type Severity Reaction Status Date / Time olive oil [OLIVE OIL] Allergy Mild STOMACH Verified 12/05/20 19:06 UPSET Assessment & Plan Assessment & Plan (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 She is currently stable in terms of psychosis and behavioral outbursts. Waiting for placement. PLAN- continue per primary treatment team. 1. start lexapro 5mg for mood on 02/07 2. continue risperidone has helped hallucinations 3. continue -less agitated at hs with Trazodone 5 pm waiting for SNF placement no change to present plan Continue plan of care patient needs much reassurance Greater than 50% of the session was spent on counseling and/or coordination of care Reason for contiued inpatient stay Substantial Risk for: inability to function, rapid decompensation and med/psych decompensation
[2021-02-09] MEDS: risperiDONE 0.5 MG TABLET PO (16:55)
[2021-02-09] MEDS: traZODone HCL 25 MG HALFTAB PO (16:55)
[2021-02-10] VITALS (7 sets, daily range): BP systolic 107–171; BP diastolic 53–78; PULSE 61–66; RESP 16–18; TEMP 36.6–37.2; O2SAT 96–97; BMI 28.0
[2021-02-10] MEDS: Levothyroxine Sodium 150 MCG TABLET PO (06:20)
[2021-02-10] MEDS: Cholecalciferol (Vitamin D3) 25 MCG TABLET 125 MCG PO (08:29)
[2021-02-10] MEDS: Metoprolol Tartrate 100 MG TABLET PO ×2 (08:30→16:39)
[2021-02-10] MEDS: Metoprolol Tartrate 50 MG TABLET 100 MG PO (08:32)
[2021-02-10] MEDS: Cyanocobalamin (Vitamin B-12) 500 MCG TABLET PO (08:32)
[2021-02-10] MEDS: Escitalopram Oxalate 5 MG TABLET PO (08:32)
[2021-02-10] MEDS: amLODIPine Besylate 5 MG TABLET PO (08:32)
[2021-02-10] MEDS: Losartan Potassium 50 MG TABLET PO (08:33)
[2021-02-10] MEDS: Loratadine 10 MG TABLET PO (08:33)
[2021-02-10] MEDS: Aspirin 81 MG TAB.CHEW PO (08:33)
[2021-02-10] MEDS: Fluticasone Propionate Nasal 16 GM SPRAY 2 SPRAY NOSTRIL-B (08:33)
--- NOTE | 2021-02-10 11:58 | P.PNPSI_ITS ---
Subjective Subjective Date of Service: 02/10/21 Reason For Visit: HALLUCINATIONS Subjective Notes: Conditional Voluntary Interim History: Nursing staff reported no new changes on her mental status. Today, SW reported possible discharge early next week. On interview, she denied psychosis, pleasantly confused. Medication Compliance: Yes Side effects from medications: No Attending Groups: Yes Review of Systems Acute medical concerns: No Medical Review of Systems: unchanged Mental Status Exam Mental Status Exam Patient Appearance: Well Grooomed Patient Orientation: Person Level of Consciousness: Awake Patient Behavior: Cooperative Mood Description: Withdrawn Affect Description: Constricted Patient Cognition Impaired: Yes Ability to Follow Directions: Good Speech Pattern: Clear Hallucinations: None Delusions: Not Present Thought Process: Linear Thought Content: positive for Poverty of Content Judgement: Fair Diagnostics Vital Signs (24Hr): Vital Signs - 24 hr 02/09/21 16:55 02/09/21 20:12 02/10/21 06:00 Temperature 97.7 F Pulse Rate 65 60 Respiratory Rate 17 17 Blood Pressure 137/66 148/67 H Pulse Oximetry 95 02/10/21 08:30 02/10/21 08:32 02/10/21 08:33 Temperature Pulse Rate 63 62 62 Respiratory Rate Blood Pressure 132/74 132/74 132/74 Pulse Oximetry 02/10/21 08:51 Temperature 97.8 F Pulse Rate 62 Respiratory Rate 18 Blood Pressure 132/74 Pulse Oximetry 96 Body Mass Index 28.0 Labs Results: 12/05/20 19:33 12/08/20 18:32 Imaging Radiology Impressions: ITS Impressions Head CT 12/06/20 07:04 IMPRESSION: Chronic microvascular ischemic changes with no CT evidence of acute intracranial abnormality. Medications Medications Current Medications Generic Name Dose Route Start Last Admin Trade Name Freq PRN Reason Stop Dose Admin Acetaminophen 650 mg 12/06/20 16:13 01/16/21 09:55 Acetaminophen 325 Mg Tablet PO 650 mg Q6H PRN Administration Headache/Pain Mild Scale (1-3) Al Hydroxide/Mg Hydroxide 30 ml 12/06/20 16:13 Magnesium Hydrox/Alum Hydrox 30 Ml Oral.Susp PO Q6H PRN Heartburn/Nausea Amlodipine Besylate 5 mg 12/09/20 09:00 02/10/21 08:32 Amlodipine Besylate 5 Mg Tablet PO 5 mg DAILY YUNG Administration Protocol Aspirin 81 mg 12/06/20 09:00 02/10/21 08:33 Aspirin 81 Mg Tab.Chew PO 81 mg DAILY YUNG Administration Cyanocobalamin 500 mcg 12/06/20 09:00 02/10/21 08:32 Cyanocobalamin (Vitamin B-12) 500 Mcg Tablet PO 500 mcg DAILY YUNG Administration Escitalopram Oxalate 5 mg 02/07/21 14:15 02/10/21 08:32 Escitalopram Oxalate 5 Mg Tablet PO 5 mg DAILY YUNG Administration Fluticasone Propionate 2 spray 12/10/20 10:21 02/10/21 08:33 Fluticasone Propionate Nasal 16 Gm [place] NOSTRIL-B 2 spray DAILY YUNG Administration Levothyroxine Sodium 150 mcg 12/06/20 08:00 02/10/21 06:20 Levothyroxine Sodium 150 Mcg Tablet PO 150 mcg DAILY@0630 YUNG Administration Loratadine 10 mg 12/06/20 09:00 02/10/21 08:33 Loratadine 10 Mg Tablet PO 10 mg DAILY YUNG Administration Losartan Potassium 50 mg 12/06/20 09:00 02/10/21 08:33 Losartan Potassium 50 Mg Tablet PO 50 mg DAILY YUNG Administration Protocol Magnesium Hydroxide 30 ml 12/06/20 16:13 Milk Of Magnesia 30 Ml Oral.Susp PO DAILY PRN Constipation Metoprolol Tartrate 100 mg 02/08/21 09:00 02/10/21 08:32 Metoprolol Tartrate 50 Mg Tablet PO 100 mg DAILY YUNG Administration Protocol Metoprolol Tartrate 100 mg 02/07/21 17:00 02/10/21 08:30 Metoprolol Tartrate 100 Mg Tablet PO 100 mg BID@0900,1700 YUNG Administration Protocol Risperidone 0.5 mg 12/08/20 17:00 02/09/21 16:55 Risperidone 0.5 Mg Tablet PO 0.5 mg DAILY@1700 YUNG Administration Trazodone HCl 50 mg 12/06/20 16:13 01/28/21 19:49 Trazodone Hcl 50 Mg Tablet PO 50 mg BEDTIME PRN Administration Insomnia Trazodone HCl 25 mg 01/13/21 15:00 02/09/21 16:55 Trazodone Hcl 25 Mg Halftab PO 25 mg DAILY@1700 YUNG Administration Vitamin D 125 mcg 12/06/20 09:00 02/10/21 08:29 Cholecalciferol (Vitamin D3) 25 Mcg Tablet PO 125 mcg DAILY YUNG Administration Allergies Allergies Allergy/AdvReac Type Severity Reaction Status Date / Time olive oil [OLIVE OIL] Allergy Mild STOMACH Verified 12/05/20 19:06 UPSET Assessment & Plan Assessment & Plan (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 She is currently stable in terms of psychosis and behavioral outbursts. Waiting for placement. PLAN- continue per primary treatment team. 1. Keep lexapro 5mg for mood on 02/07 2. continue risperidone has helped hallucinations 3. continue -less agitated at hs with Trazodone 5 pm waiting for SNF placement no change to present plan Continue plan of care patient needs much reassurance Greater than 50% of the session was spent on counseling and/or coordination of care Reason for contiued inpatient stay Substantial Risk for: inability to function, rapid decompensation and med/psych decompensation
[2021-02-10] MEDS: risperiDONE 0.5 MG TABLET PO (16:40)
[2021-02-10] MEDS: traZODone HCL 25 MG HALFTAB PO (16:40)
[2021-02-11] VITALS (7 sets, daily range): BP systolic 129–155; BP diastolic 58–81; PULSE 56–61; RESP 16–18; TEMP 35.5–36; O2SAT 96–97
[2021-02-11] MEDS: Levothyroxine Sodium 150 MCG TABLET PO (05:35)
[2021-02-11] MEDS: Cyanocobalamin (Vitamin B-12) 500 MCG TABLET PO (08:53)
[2021-02-11] MEDS: Aspirin 81 MG TAB.CHEW PO (08:53)
[2021-02-11] MEDS: Losartan Potassium 50 MG TABLET PO (08:54)
[2021-02-11] MEDS: amLODIPine Besylate 5 MG TABLET PO (08:55)
[2021-02-11] MEDS: Loratadine 10 MG TABLET PO (08:55)
[2021-02-11] MEDS: Metoprolol Tartrate 100 MG TABLET PO ×2 (08:56→16:43)
[2021-02-11] MEDS: Cholecalciferol (Vitamin D3) 25 MCG TABLET 125 MCG PO (08:59)
[2021-02-11] MEDS: Escitalopram Oxalate 5 MG TABLET PO (09:06)
--- NOTE | 2021-02-11 11:49 | P.PNPSI_ITS ---
Subjective Subjective Date of Service: 02/11/21 Reason For Visit: HALLUCINATIONS Subjective Notes: Conditional Voluntary Interim History: Nursing staff reported that she was doing well, no new symptoms. On interview, she denies new symptoms, she is pleasantly confused. Mental Status Exam Mental Status Exam Patient Appearance: Well Grooomed Patient Orientation: Person Level of Consciousness: Awake Patient Behavior: Appropriate Mood Description: Calm Affect Description: Constricted Patient Cognition Impaired: Yes Ability to Follow Directions: Good Speech Pattern: Clear Hallucinations: None Delusions: Not Present Thought Process: Slowed Thinking Thought Content: positive for Poverty of Content Judgement: Fair Diagnostics Vital Signs (24Hr): Vital Signs - 24 hr 02/10/21 16:39 02/10/21 20:38 02/11/21 08:54 Temperature 98.9 F Pulse Rate 66 61 61 Respiratory Rate 16 Blood Pressure 171/78 H 107/53 L 129/58 L Pulse Oximetry 97 02/11/21 08:55 02/11/21 08:56 02/11/21 09:28 Temperature 96 F L Pulse Rate 61 61 61 Respiratory Rate 18 Blood Pressure 129/58 L 129/58 L 129/58 L Pulse Oximetry 97 Body Mass Index 28.0 Labs Results: 12/05/20 19:33 12/08/20 18:32 Imaging Radiology Impressions: ITS Impressions Head CT 12/06/20 07:04 IMPRESSION: Chronic microvascular ischemic changes with no CT evidence of acute intracranial abnormality. Medications Medications Current Medications Generic Name Dose Route Start Last Admin Trade Name Freq PRN Reason Stop Dose Admin Acetaminophen 650 mg 12/06/20 16:13 01/16/21 09:55 Acetaminophen 325 Mg Tablet PO 650 mg Q6H PRN Administration Headache/Pain Mild Scale (1-3) Al Hydroxide/Mg Hydroxide 30 ml 12/06/20 16:13 Magnesium Hydrox/Alum Hydrox 30 Ml Oral.Susp PO Q6H PRN Heartburn/Nausea Amlodipine Besylate 5 mg 12/09/20 09:00 02/11/21 08:55 Amlodipine Besylate 5 Mg Tablet PO 5 mg DAILY YUNG Administration Protocol Aspirin 81 mg 12/06/20 09:00 02/11/21 08:53 Aspirin 81 Mg Tab.Chew PO 81 mg DAILY YUNG Administration Cyanocobalamin 500 mcg 12/06/20 09:00 02/11/21 08:53 Cyanocobalamin (Vitamin B-12) 500 Mcg Tablet PO 500 mcg DAILY YUNG Administration Escitalopram Oxalate 5 mg 02/07/21 14:15 02/11/21 09:06 Escitalopram Oxalate 5 Mg Tablet PO 5 mg DAILY YUNG Administration Fluticasone Propionate 2 spray 12/10/20 10:21 02/11/21 09:08 Fluticasone Propionate Nasal 16 Gm [place] NOSTRIL-B Not Given DAILY YUNG Levothyroxine Sodium 150 mcg 12/06/20 08:00 02/11/21 05:35 Levothyroxine Sodium 150 Mcg Tablet PO 150 mcg DAILY@0630 YUNG Administration Loratadine 10 mg 12/06/20 09:00 02/11/21 08:55 Loratadine 10 Mg Tablet PO 10 mg DAILY YUNG Administration Losartan Potassium 50 mg 12/06/20 09:00 02/11/21 08:54 Losartan Potassium 50 Mg Tablet PO 50 mg DAILY YUNG Administration Protocol Magnesium Hydroxide 30 ml 12/06/20 16:13 Milk Of Magnesia 30 Ml Oral.Susp PO DAILY PRN Constipation Metoprolol Tartrate 100 mg 02/07/21 17:00 02/11/21 08:56 Metoprolol Tartrate 100 Mg Tablet PO 100 mg BID@0900,1700 YUNG Administration Protocol Risperidone 0.5 mg 12/08/20 17:00 02/10/21 16:40 Risperidone 0.5 Mg Tablet PO 0.5 mg DAILY@1700 YUNG Administration Trazodone HCl 50 mg 12/06/20 16:13 01/28/21 19:49 Trazodone Hcl 50 Mg Tablet PO 50 mg BEDTIME PRN Administration Insomnia Trazodone HCl 25 mg 01/13/21 15:00 02/10/21 16:40 Trazodone Hcl 25 Mg Halftab PO 25 mg DAILY@1700 YUNG Administration Vitamin D 125 mcg 12/06/20 09:00 02/11/21 08:59 Cholecalciferol (Vitamin D3) 25 Mcg Tablet PO 125 mcg DAILY YUNG Administration Allergies Allergies Allergy/AdvReac Type Severity Reaction Status Date / Time olive oil [OLIVE OIL] Allergy Mild STOMACH Verified 12/05/20 19:06 UPSET Assessment & Plan Assessment & Plan (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 She is currently stable in terms of psychosis and behavioral outbursts. Waiting for placement. PLAN- continue per primary treatment team. 1. Keep lexapro 5mg for mood on 02/07 2. continue risperidone has helped hallucinations 3. continue -less agitated at hs with Trazodone 5 pm waiting for SNF placement no change to present plan Continue plan of care patient needs much reassurance Discharge to [facility] on Sunday Greater than 50% of the session was spent on counseling and/or coordination of care Reason for contiued inpatient stay Substantial Risk for: inability to function, rapid decompensation and med/psych decompensation
[2021-02-11] MEDS: risperiDONE 0.5 MG TABLET PO (16:43)
[2021-02-11] MEDS: traZODone HCL 25 MG HALFTAB PO (16:43)
[2021-02-12] MEDS: Levothyroxine Sodium 150 MCG TABLET PO (05:59)
[2021-02-12 08:31] VITALS: BP 141/70; PULSE 60; RESP 17; O2SAT 99
[2021-02-12] MEDS: Cholecalciferol (Vitamin D3) 25 MCG TABLET 125 MCG PO (08:31)
[2021-02-12] MEDS: Aspirin 81 MG TAB.CHEW PO (08:31)
[2021-02-12] MEDS: amLODIPine Besylate 5 MG TABLET PO (08:31)
[2021-02-12 08:32] VITALS: BP 141/70; PULSE 60
[2021-02-12] MEDS: Losartan Potassium 50 MG TABLET PO (08:32)
[2021-02-12] MEDS: Escitalopram Oxalate 5 MG TABLET PO (08:32)
[2021-02-12] MEDS: Loratadine 10 MG TABLET PO (08:32)
[2021-02-12] MEDS: Metoprolol Tartrate 100 MG TABLET PO ×2 (08:32→17:07)
[2021-02-12] MEDS: Fluticasone Propionate Nasal 16 GM SPRAY 2 SPRAY NOSTRIL-B (08:33)
[2021-02-12] MEDS: Cyanocobalamin (Vitamin B-12) 500 MCG TABLET PO (08:33)
--- NOTE | 2021-02-12 13:10 | P.PNPSI_ITS ---
Subjective Subjective Date of Service: 02/12/21 Reason For Visit: HALLUCINATIONS Interim History: Nursing staff reported that she was doing well, no new symptoms. On interview, she denies new symptoms, she is pleasantly confused. Says she is not too great. I am here alone. My son is up the street . Denies anxiety. No SI. Confused. Disoriented to date and place. Review of Systems Review of Systems Yes all other systems are reviewed and are negative and Unobtainable due to mental status Mental Status Exam Mental Status Exam Narrative: Appearance: casually groomed, good hygiene in NAD Behavior: somewhat irritable but cooperative psychomotor: no agitation or retardation noted Speech:clear, normal rate/rhythm, volume, spontaneous Thought process: tangential Thought content: upset about being in hospital, does not think there is s omething wrong with her but also confused as to where she is or why. Mood: lousy Affect: irritable edge but non labile SI:none HI:none VH/AH:none Delusions:people stealing from her. Insight/judgment:impaired x 2 Memory/cog: alert, not oriented to month, place, date, situation. underlying neurocognitive impairments. Patient Appearance: Well Grooomed Patient Orientation: Person Level of Consciousness: Awake Patient Behavior: Appropriate Mood Description: Calm Affect Description: Constricted Patient Cognition Impaired: Yes Ability to Follow Directions: Good Speech Pattern: Clear Memory Description: Intact Diagnostics Vital Signs (24Hr): Vital Signs - 24 hr 02/11/21 16:43 02/11/21 16:49 02/11/21 20:20 Temperature 96.8 F Pulse Rate 60 60 56 Respiratory Rate 16 18 Blood Pressure 144/79 H 144/79 H 155/81 H Pulse Oximetry 96 02/12/21 08:31 02/12/21 08:32 Temperature Pulse Rate 60 60 Respiratory Rate 17 Blood Pressure 141/70 H 141/70 H Pulse Oximetry 99 Body Mass Index 28.0 Labs Results: 12/05/20 19:33 12/08/20 18:32 Imaging Radiology Impressions: ITS Impressions Head CT 12/06/20 07:04 IMPRESSION: Chronic microvascular ischemic changes with no CT evidence of acute intracranial abnormality. Medications Medications Current Medications Generic Name Dose Route Start Last Admin Trade Name Freq PRN Reason Stop Dose Admin Acetaminophen 650 mg 12/06/20 16:13 01/16/21 09:55 Acetaminophen 325 Mg Tablet PO 650 mg Q6H PRN Administration Headache/Pain Mild Scale (1-3) Al Hydroxide/Mg Hydroxide 30 ml 12/06/20 16:13 Magnesium Hydrox/Alum Hydrox 30 Ml Oral.Susp PO Q6H PRN Heartburn/Nausea Amlodipine Besylate 5 mg 12/09/20 09:00 02/12/21 08:31 Amlodipine Besylate 5 Mg Tablet PO 5 mg DAILY YUNG Administration Protocol Aspirin 81 mg 12/06/20 09:00 02/12/21 08:31 Aspirin 81 Mg Tab.Chew PO 81 mg DAILY YUNG Administration Cyanocobalamin 500 mcg 12/06/20 09:00 02/12/21 08:33 Cyanocobalamin (Vitamin B-12) 500 Mcg Tablet PO 500 mcg DAILY YUNG Administration Escitalopram Oxalate 5 mg 02/07/21 14:15 02/12/21 08:32 Escitalopram Oxalate 5 Mg Tablet PO 5 mg DAILY YUNG Administration Fluticasone Propionate 2 spray 12/10/20 10:21 02/12/21 08:33 Fluticasone Propionate Nasal 16 Gm [place] NOSTRIL-B 2 spray DAILY YUNG Administration Levothyroxine Sodium 150 mcg 12/06/20 08:00 02/12/21 05:59 Levothyroxine Sodium 150 Mcg Tablet PO 150 mcg DAILY@0630 YUNG Administration Loratadine 10 mg 12/06/20 09:00 02/12/21 08:32 Loratadine 10 Mg Tablet PO 10 mg DAILY YUNG Administration Losartan Potassium 50 mg 12/06/20 09:00 02/12/21 08:32 Losartan Potassium 50 Mg Tablet PO 50 mg DAILY YUNG Administration Protocol Magnesium Hydroxide 30 ml 12/06/20 16:13 Milk Of Magnesia 30 Ml Oral.Susp PO DAILY PRN Constipation Metoprolol Tartrate 100 mg 02/07/21 17:00 02/12/21 08:32 Metoprolol Tartrate 100 Mg Tablet PO 100 mg BID@0900,1700 YUNG Administration Protocol Risperidone 0.5 mg 12/08/20 17:00 02/11/21 16:43 Risperidone 0.5 Mg Tablet PO 0.5 mg DAILY@1700 YUNG Administration Trazodone HCl 50 mg 12/06/20 16:13 01/28/21 19:49 Trazodone Hcl 50 Mg Tablet PO 50 mg BEDTIME PRN Administration Insomnia Trazodone HCl 25 mg 01/13/21 15:00 02/11/21 16:43 Trazodone Hcl 25 Mg Halftab PO 25 mg DAILY@1700 YUNG Administration Vitamin D 125 mcg 12/06/20 09:00 02/12/21 08:31 Cholecalciferol (Vitamin D3) 25 Mcg Tablet PO 125 mcg DAILY YUNG Administration Allergies Allergies Allergy/AdvReac Type Severity Reaction Status Date / Time olive oil [OLIVE OIL] Allergy Mild STOMACH Verified 12/05/20 19:06 UPSET Assessment & Plan Assessment & Plan (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 She is currently stable in terms of psychosis and behavioral outbursts. Waiting for placement. PLAN- continue per primary treatment team. 1. Keep lexapro 5mg for mood on 02/07 2. continue risperidone has helped hallucinations 3. continue -less agitated at hs with Trazodone 5 pm waiting for SNF placement no change to present plan Continue plan of care patient needs much reassurance Discharge to [facility] on Sunday Greater than 50% of the session was spent on counseling and/or coordination of care Reason for contiued inpatient stay Substantial Risk for: inability to function and rapid decompensation
[2021-02-12 15:36] LABS: COVID-19 Test Negative (Negative)
[2021-02-12 17:05] VITALS: BP 146/71; PULSE 65; RESP 16; TEMP 36.2; O2SAT 98
[2021-02-12 17:07] VITALS: BP 146/71; PULSE 65
[2021-02-12] MEDS: traZODone HCL 25 MG HALFTAB PO (17:07)
[2021-02-12] MEDS: risperiDONE 0.5 MG TABLET PO (17:08)
[2021-02-13] VITALS (7 sets, daily range): BP systolic 134–145; BP diastolic 66–73; PULSE 61–70; RESP 16–18; TEMP 36.4–37.1; O2SAT 96–97
[2021-02-13] MEDS: Levothyroxine Sodium 150 MCG TABLET PO (06:02)
[2021-02-13] MEDS: Cholecalciferol (Vitamin D3) 25 MCG TABLET 125 MCG PO (08:39)
[2021-02-13] MEDS: Escitalopram Oxalate 5 MG TABLET PO (08:40)
[2021-02-13] MEDS: Aspirin 81 MG TAB.CHEW PO (08:40)
[2021-02-13] MEDS: Metoprolol Tartrate 100 MG TABLET PO ×2 (08:40→17:19)
[2021-02-13] MEDS: Loratadine 10 MG TABLET PO (08:41)
[2021-02-13] MEDS: Cyanocobalamin (Vitamin B-12) 500 MCG TABLET PO (08:41)
[2021-02-13] MEDS: Losartan Potassium 50 MG TABLET PO (08:41)
[2021-02-13] MEDS: Fluticasone Propionate Nasal 16 GM SPRAY 2 SPRAY NOSTRIL-B (08:41)
[2021-02-13] MEDS: amLODIPine Besylate 5 MG TABLET PO (08:42)
--- NOTE | 2021-02-13 16:59 | HO.PSYCHPN ---
Subjective Subjective Date of Service: 02/13/21 Reason For Visit: HALLUCINATIONS Interim History: Nursing staff reported that she was doing well, no new symptoms. On interview, she denies new symptoms, she is pleasantly confused. Says she is not too great. I am here alone. My son is up the street . Denies anxiety. No SI. Confused. Disoriented to date and place. Review of Systems Review of Systems Yes all other systems are reviewed and are negative and Unobtainable due to mental status Mental Status Exam Mental Status Exam Narrative: Appearance: casually groomed, good hygiene in NAD Behavior: somewhat irritable but cooperative psychomotor: no agitation or retardation noted Speech:clear, normal rate/rhythm, volume, spontaneous Thought process: tangential Thought content: upset about being in hospital, does not think there is something wrong with her but also confused as to where she is or why. Mood: lousy Affect: irritable edge but non labile SI:none HI:none VH/AH:none Delusions:people stealing from her. Insight/judgment:impaired x 2 Memory/cog: alert, not oriented to month, place, date, situation. underlying neurocognitive impairments. Patient Appearance: Well Grooomed Patient Orientation: Person Level of Consciousness: Awake Patient Behavior: Appropriate Mood Description: Calm Affect Description: Constricted Patient Cognition Impaired: Yes Ability to Follow Directions: Good Speech Pattern: Clear Memory Description: Intact Diagnostics Vital Signs (24Hr): Vital Signs - 24 hr 02/12/21 17:05 02/12/21 17:07 02/13/21 06:00 Temperature 97.2 F 97.9 F Pulse Rate 65 65 62 Respiratory Rate 16 16 Blood Pressure 146/71 H 146/71 H 145/69 H Pulse Oximetry 98 97 02/13/21 08:40 02/13/21 08:41 02/13/21 08:42 Temperature Pulse Rate 62 62 62 Respiratory Rate Blood Pressure 145/69 H 145/69 H 145/69 H Pulse Oximetry Body Mass Index 28.0 Labs Results: 12/05/20 19:33 12/08/20 18:32 Labs: Laboratory Results - last 48 hr 02/12/21 15:12 COVID-19 (LOEV) Negative COVID-19 Clin Com See Note Imaging Radiology Impressions: ITS Impressions Head CT 12/06/20 07:04 IMPRESSION: Chronic microvascular ischemic changes with no CT evidence of acute intracranial abnormality. Medications Medications Current Medications Generic Name Dose Route Start Last Admin Trade Name Freq PRN Reason Stop Dose Admin Acetaminophen 650 mg 12/06/20 16:13 01/16/21 09:55 Acetaminophen 325 Mg Tablet PO 650 mg Q6H PRN Administration Headache/Pain Mild Scale (1-3) Al Hydroxide/Mg Hydroxide 30 ml 12/06/20 16:13 Magnesium Hydrox/Alum Hydrox 30 Ml Oral.Susp PO Q6H PRN Heartburn/Nausea Amlodipine Besylate 5 mg 12/09/20 09:00 02/13/21 08:42 Amlodipine Besylate 5 Mg Tablet PO 5 mg DAILY YUNG Administration Protocol Aspirin 81 mg 12/06/20 09:00 02/13/21 08:40 Aspirin 81 Mg Tab.Chew PO 81 mg DAILY YUNG Administration Cyanocobalamin 500 mcg 12/06/20 09:00 02/13/21 08:41 Cyanocobalamin (Vitamin B-12) 500 Mcg Tablet PO 500 mcg DAILY YUNG Administration Escitalopram Oxalate 5 mg 02/07/21 14:15 02/13/21 08:40 Escitalopram Oxalate 5 Mg Tablet PO 5 mg DAILY YUNG Administration Fluticasone Propionate 2 spray 12/10/20 10:21 02/13/21 08:41 Fluticasone Propionate Nasal 16 Gm [place] NOSTRIL-B 2 spray DAILY YUNG Administration Levothyroxine Sodium 150 mcg 12/06/20 08:00 02/13/21 06:02 Levothyroxine Sodium 150 Mcg Tablet PO 150 mcg DAILY@0630 YUNG Administration Loratadine 10 mg 12/06/20 09:00 02/13/21 08:41 Loratadine 10 Mg Tablet PO 10 mg DAILY YUNG Administration Losartan Potassium 50 mg 12/06/20 09:00 02/13/21 08:41 Losartan Potassium 50 Mg Tablet PO 50 mg DAILY YUNG Administration Protocol Magnesium Hydroxide 30 ml 12/06/20 16:13 Milk Of Magnesia 30 Ml Oral.Susp PO DAILY PRN Constipation Metoprolol Tartrate 100 mg 02/07/21 17:00 02/13/21 08:40 Metoprolol Tartrate 100 Mg Tablet PO 100 mg BID@0900,1700 YUNG Administration Protocol Risperidone 0.5 mg 12/08/20 17:00 02/12/21 17:08 Risperidone 0.5 Mg Tablet PO 0.5 mg DAILY@1700 YUNG Administration Trazodone HCl 50 mg 12/06/20 16:13 01/28/21 19:49 Trazodone Hcl 50 Mg Tablet PO 50 mg BEDTIME PRN Administration Insomnia Trazodone HCl 25 mg 01/13/21 15:00 02/12/21 17:07 Trazodone Hcl 25 Mg Halftab PO 25 mg DAILY@1700 YUNG Administration Vitamin D 125 mcg 12/06/20 09:00 02/13/21 08:39 Cholecalciferol (Vitamin D3) 25 Mcg Tablet PO 125 mcg DAILY YUNG Administration Allergies Allergies Allergy/AdvReac Type Severity Reaction Status Date / Time olive oil [OLIVE OIL] Allergy Mild STOMACH Verified 12/05/20 19:06 UPSET Assessment & Plan Assessment & Plan (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 She is currently stable in terms of psychosis and behavioral outbursts. Waiting for placement. PLAN- continue per primary treatment team. 1. Keep lexapro 5mg for mood on 02/07 2. continue risperidone has helped hallucinations 3. continue -less agitated at hs with Trazodone 5 pm waiting for SNF placement no change to present plan Continue plan of care patient needs much reassurance Discharge to [facility] on Sunday Greater than 50% of the session was spent on counseling and/or coordination of care Reason for contiued inpatient stay Substantial Risk for: inability to function
[2021-02-13] MEDS: risperiDONE 0.5 MG TABLET PO (17:20)
[2021-02-13] MEDS: traZODone HCL 25 MG HALFTAB PO (17:20)
[2021-02-14] MEDS: Levothyroxine Sodium 150 MCG TABLET PO (05:48)
[2021-02-14 06:00] VITALS: BP 133/60; PULSE 60; RESP 18; TEMP 36.9; O2SAT 98
--- NOTE | 2021-02-14 07:29 | P.DS_ITS ---
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: Status: Acute DS: Medications Discharge Medications Home Medications: Home Medications Medication Instructions Recorded Confirmed amoxicillin 500 mg-potassium 1 tab PO BID 12/05/20 12/05/20 clavulanate 125 mg tablet aspirin 81 mg tablet 81 mg PO DAILY 12/05/20 12/05/20 cetirizine 10 mg tablet 10 mg PO DAILY 12/05/20 12/05/20 cholecalciferol (vitamin D3) 125 5,000 unit PO DAILY 12/05/20 12/05/20 mcg (5,000 unit) tablet (Vitamin D3) cyanocobalamin (vitamin B-12) 500 500 mcg PO DAILY 12/05/20 12/05/20 mcg tablet (Vitamin B-12) levothyroxine 150 mcg tablet 150 mcg PO DAILY 12/05/20 12/05/20 losartan 50 mg tablet 50 mg PO DAILY 12/05/20 12/05/20 metoprolol tartrate 50 mg tablet 50 mg PO BID 12/05/20 12/05/20 risperidone 0.25 mg tablet 0.25 mg PO BID 12/05/20 12/05/20 Mental Status Exam Mental Status Exam Patient Appearance: Well Grooomed Patient Orientation: Person and Situation Level of Consciousness: Awake and Appropriate Patient Behavior: Cooperative Mood Description: Calm Affect Description: Calm Patient Cognition Impaired: Yes Ability to Follow Directions: Good Speech Pattern: Clear Memory Description: Remote Impaired, Immediate Impaired and Recent Impaired Hallucinations: None Delusions: Not Present Thought Process: Distracted, Evasive and Slowed Thinking Thought Content: positive for Circumstantial and positive for Poverty of Content Judgement: Fair Data Data Completed and Pending Completed studies during hospitalization [Text1]: 02/12/21 15:12 COVID-19 (LOVE) Negative COVID-19 Clin Com See Note Imaging Diagnostic Imaging Impressions Head CT 12/06/20 07:04 IMPRESSION: Chronic microvascular ischemic changes with no CT evidence of acute intracranial abnormality. 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 The patient was initially admitted since she presented with psychotic symptoms elicited by paranoia, auditory hallucinations and disorganized behavior. As per her son, she was seen outside the home scared in the middle of the rain that were people in her home. She was rushed to the emergency room, diagnosed with UTI, started on antibiotics and transferred to this facility for psychiatric stabilization. We started on a very low dose of risperidone 0.5 mg p.o. b.i.d. to target psychosis. Her UTI improved, her psychotic symptoms resolved in the 1st 2 weeks and her insight improved. We did several tests regarding her cognition I was clear that the patient suffers from dementia for quite a long time. We had several family meetings, especially with her son who is a primary care provider and he cannot take care of the patient since he has a full-time job and it would be unsafe if she stays by herself due to her cognitive deterioration. We discussed several options and we all agreed that the best setting would be SNF. The not have [employer] or any other entitlement and it was started here. The patient is stating our unit for several weeks until her financial situation was cleared and finally she was accepted at the [facility] in [facility]. She is aware no safety concerns discharge planning was done Time spent discussing smoking cessation with patient: 3 to 10 minutes Status at Discharge Cognitive/behavioral status at discharge: At baseline Functional status at discharge: independent ambulation Overall status at discharge: patient is back to baseline Time Spent with Patient Time attestation: Total time spent providing and/or coordinating discharge services: Time spent: Less than 30 minutes Discharge Plan Discharge Patient Disposition: Xfer SNF Discharge Diagnosis: Delirium secondary to UTI. Dementia Referrals: Physician,Unknown [Primary Care Provider] - 1 Week Discharge Medications: New metoprolol tartrate 100 mg Tablet 100 mg PO BID@0900,1700 30 Days Qty: 60 RF: 0 amlodipine 5 mg Tablet 5 mg PO DAILY Qty: 30 RF: 0 aspirin 81 mg Tablet,Chewable 81 mg PO DAILY 30 Days Qty: 30 RF: 0 acetaminophen 325 mg Tablet 650 mg PO Q6H PRN (Reason: Headache/Pain Mild Scale (1-3)) Qty: 30 RF: 0 trazodone 50 mg Tablet 50 mg PO BEDTIME PRN (Reason: Insomnia) 30 Days Qty: 30 RF: 0 risperidone 0.5 mg Tablet 0.5 mg PO DAILY@1700 30 Days Qty: 30 RF: 0 escitalopram oxalate 5 mg Tablet 5 mg PO DAILY 30 Days Qty: 30 RF: 0 fluticasone propionate 50 mcg/actuation [place],Suspension 2 spray intranasal DAILY 30 Days Qty: 16 RF: 0 trazodone 50 mg tablet 25 mg PO DAILY Qty: 30 RF: 0 Continued losartan 50 mg Tablet 50 mg PO DAILY RF: 0 cetirizine 10 mg Tablet 10 mg PO DAILY RF: 0 cyanocobalamin (vitamin B-12) [Vitamin B-12] 500 mcg Tablet 500 mcg PO DAILY RF: 0 levothyroxine 150 mcg Tablet 150 mcg PO DAILY RF: 0 cholecalciferol (vitamin D3) [Vitamin D3] 125 mcg (5,000 unit) Tablet 5,000 unit PO DAILY RF: 0 Discontinued risperidone 0.25 mg Tablet 0.25 mg PO BID RF: 0 metoprolol tartrate 50 mg Tablet 50 mg PO BID RF: 0 aspirin 81 mg Tablet 81 mg PO DAILY RF: 0 amoxicillin-pot clavulanate 500-125 mg Tablet 1 tab PO BID RF: 0 Discharge Orders: Discharge Order (Routine); Ordered 02/14/21 Ordered By: Corbin Peguero Diet: regular diet Activity on Discharge: As tolerated Stand Alone Forms: Patient Portal Discharge page, Community Support Care Plan Goals: Care plan goals from ED already achieved in the unit Health Concerns: Continue treatment with outpatient providers Plan of Treatment: Medication management by psychiatric provider Assessment: The patient is an elderly female with a history of dementia who was admitted for psychotic symptoms in the context of a UTI. The patient had delirium and did resolve after the treatment with UTI and antipsychotics. The patient does not have any safety concerns that she is ready for discharge.
[2021-02-14] MEDS: Escitalopram Oxalate 5 MG TABLET PO (09:09)
[2021-02-14] MEDS: Cholecalciferol (Vitamin D3) 25 MCG TABLET 125 MCG PO (09:09)
[2021-02-14] MEDS: Cyanocobalamin (Vitamin B-12) 500 MCG TABLET PO (09:09)
[2021-02-14] MEDS: Aspirin 81 MG TAB.CHEW PO (09:09)
[2021-02-14] MEDS: Fluticasone Propionate Nasal 16 GM SPRAY 2 SPRAY NOSTRIL-B (09:09)
[2021-02-14 09:10] VITALS: BP 133/64; PULSE 60
[2021-02-14] MEDS: Losartan Potassium 50 MG TABLET PO (09:10)
[2021-02-14] MEDS: Loratadine 10 MG TABLET PO (09:10)
[2021-02-14 09:11] VITALS: BP 133/64; PULSE 60
[2021-02-14] MEDS: Metoprolol Tartrate 100 MG TABLET PO ×2 (09:11→17:16)
[2021-02-14 09:36] VITALS: BP 133/64; PULSE 60
[2021-02-14] MEDS: amLODIPine Besylate 5 MG TABLET PO (09:36)
--- NOTE | 2021-02-14 10:30 | PC.NURSE ---
Skin assessment completed today. patient has a darker/dry mole that was pulled away from skin, bleeding occurred. Triad applied to wound, covered with gauze and tegaderm. No other skin issues noted at this time.
--- NOTE | 2021-02-14 14:00 | P.PNPSI_ITS ---
Subjective Subjective Date of Service: 02/14/21 Reason For Visit: HALLUCINATIONS Subjective Notes: Conditional Voluntary Interim History: The patient is at baseline, discharged was held by the facility. Review of Systems Acute medical concerns: No Medical Review of Systems: unchanged Mental Status Exam Mental Status Exam Patient Appearance: Well Grooomed Patient Orientation: Person and Place Level of Consciousness: Awake Patient Behavior: Appropriate Mood Description: Calm Affect Description: Calm Patient Cognition Impaired: Yes Ability to Follow Directions: Good Speech Pattern: Clear Hallucinations: None Delusions: Not Present Thought Process: Linear Thought Content: positive for Circumstantial Judgement: Good Diagnostics Vital Signs (24Hr): Vital Signs - 24 hr 02/13/21 17:18 02/13/21 17:19 02/13/21 18:00 Temperature 98.7 F 97.6 F Pulse Rate 61 66 70 Respiratory Rate 18 18 Blood Pressure 137/66 137/66 134/73 Pulse Oximetry 96 96 02/14/21 06:00 02/14/21 09:10 02/14/21 09:11 Temperature 98.4 F Pulse Rate 60 60 60 Respiratory Rate 18 Blood Pressure 133/60 133/64 133/64 Pulse Oximetry 98 02/14/21 09:36 Temperature Pulse Rate 60 Respiratory Rate Blood Pressure 133/64 Pulse Oximetry Body Mass Index 28.0 Labs Results: 12/05/20 19:33 12/08/20 18:32 Labs: Laboratory Results - last 48 hr 02/12/21 15:12 COVID-19 (LOVE) Negative COVID-19 Clin Com See Note Imaging Radiology Impressions: ITS Impressions Head CT 12/06/20 07:04 IMPRESSION: Chronic microvascular ischemic changes with no CT evidence of acute intracranial abnormality. Medications Medications Current Medications Generic Name Dose Route Start Last Admin Trade Name Freq PRN Reason Stop Dose Admin Acetaminophen 650 mg 12/06/20 16:13 01/16/21 09:55 Acetaminophen 325 Mg Tablet PO 650 mg Q6H PRN Administration Headache/Pain Mild Scale (1-3) Al Hydroxide/Mg Hydroxide 30 ml 12/06/20 16:13 Magnesium Hydrox/Alum Hydrox 30 Ml Oral.Susp PO Q6H PRN Heartburn/Nausea Amlodipine Besylate 5 mg 12/09/20 09:00 02/14/21 09:36 Amlodipine Besylate 5 Mg Tablet PO 5 mg DAILY YUNG Administration Protocol Aspirin 81 mg 12/06/20 09:00 02/14/21 09:09 Aspirin 81 Mg Tab.Chew PO 81 mg DAILY YUNG Administration Cyanocobalamin 500 mcg 12/06/20 09:00 02/14/21 09:09 Cyanocobalamin (Vitamin B-12) 500 Mcg Tablet PO 500 mcg DAILY YUNG Administration Escitalopram Oxalate 5 mg 02/07/21 14:15 02/14/21 09:09 Escitalopram Oxalate 5 Mg Tablet PO 5 mg DAILY YUNG Administration Fluticasone Propionate 2 spray 12/10/20 10:21 02/14/21 09:09 Fluticasone Propionate Nasal 16 Gm [place] NOSTRIL-B 2 spray DAILY YUNG Administration Levothyroxine Sodium 150 mcg 12/06/20 08:00 02/14/21 05:48 Levothyroxine Sodium 150 Mcg Tablet PO 150 mcg DAILY@0630 YUNG Administration Loratadine 10 mg 12/06/20 09:00 02/14/21 09:10 Loratadine 10 Mg Tablet PO 10 mg DAILY YUNG Administration Losartan Potassium 50 mg 12/06/20 09:00 02/14/21 09:10 Losartan Potassium 50 Mg Tablet PO 50 mg DAILY [facility] Administration Protocol Magnesium Hydroxide 30 ml 12/06/20 16:13 Milk Of Magnesia 30 Ml Oral.Susp PO DAILY PRN Constipation Metoprolol Tartrate 100 mg 02/07/21 17:00 02/14/21 09:11 Metoprolol Tartrate 100 Mg Tablet PO 100 mg BID@0900,1700 [facility] Administration Protocol Risperidone 0.5 mg 12/08/20 17:00 02/13/21 17:20 Risperidone 0.5 Mg Tablet PO 0.5 mg DAILY@1700 [facility] Administration Trazodone HCl 50 mg 12/06/20 16:13 01/28/21 19:49 Trazodone Hcl 50 Mg Tablet PO 50 mg BEDTIME PRN Administration Insomnia Trazodone HCl 25 mg 01/13/21 15:00 02/13/21 17:20 Trazodone Hcl 25 Mg Halftab PO 25 mg DAILY@1700 [facility] Administration Vitamin D 125 mcg 12/06/20 09:00 02/14/21 09:09 Cholecalciferol (Vitamin D3) 25 Mcg Tablet PO 125 mcg DAILY YUNG Administration Allergies Allergies Allergy/AdvReac Type Severity Reaction Status Date / Time olive oil [OLIVE OIL] Allergy Mild STOMACH Verified 12/05/20 19:06 UPSET Assessment & Plan Assessment & Plan (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 She is currently stable in terms of psychosis and behavioral outbursts. Waiting for placement. PLAN- continue per primary treatment team. 1. Keep lexapro 5mg for mood on 02/07 2. continue risperidone has helped hallucinations 3. continue -less agitated at hs with Trazodone 5 pm waiting for SNF placement no change to present plan Continue plan of care patient needs much reassurance Discharge to [facility] on Sunday Greater than 50% of the session was spent on counseling and/or coordination of care Reason for contiued inpatient stay Substantial Risk for: stable for discharge
[2021-02-14 17:16] VITALS: BP 163/82; PULSE 63
[2021-02-14] MEDS: risperiDONE 0.5 MG TABLET PO (17:17)
[2021-02-14] MEDS: traZODone HCL 25 MG HALFTAB PO (17:17)
[2021-02-14 17:24] VITALS: BP 163/82; PULSE 63; TEMP 36.4; O2SAT 98
[2021-02-15] MEDS: Levothyroxine Sodium 150 MCG TABLET PO (05:12)
[2021-02-15 06:00] VITALS: BP 173/79; PULSE 58; RESP 16; TEMP 36.8; O2SAT 97
[2021-02-15 08:31] VITALS: BP 173/79; PULSE 58
[2021-02-15] MEDS: Losartan Potassium 50 MG TABLET PO (08:31)
[2021-02-15] MEDS: Aspirin 81 MG TAB.CHEW PO (08:32)
[2021-02-15] MEDS: Cholecalciferol (Vitamin D3) 25 MCG TABLET 125 MCG PO (08:32)
[2021-02-15 08:33] VITALS: BP 173/79; PULSE 58
[2021-02-15] MEDS: Escitalopram Oxalate 5 MG TABLET PO (08:33)
[2021-02-15] MEDS: Metoprolol Tartrate 100 MG TABLET PO ×2 (08:33→16:38)
[2021-02-15] MEDS: amLODIPine Besylate 5 MG TABLET PO (08:33)
[2021-02-15] MEDS: Fluticasone Propionate Nasal 16 GM SPRAY 2 SPRAY NOSTRIL-B (08:34)
[2021-02-15] MEDS: Cyanocobalamin (Vitamin B-12) 500 MCG TABLET PO (08:34)
[2021-02-15] MEDS: Loratadine 10 MG TABLET PO (08:34)
--- NOTE | 2021-02-15 12:10 | P.PNPSI_ITS ---
Subjective Subjective Date of Service: 02/15/21 Reason For Visit: HALLUCINATIONS Subjective Notes: Conditional Voluntary Interim History: The nursing staff reports no changes in her mental status. Her discharge was delayed up to Sunday or . On interview the patient denies new symptoms Medication Compliance: Yes Side effects from medications: No Attending Groups: Yes Review of Systems Acute medical concerns: No Medical Review of Systems: unchanged Mental Status Exam Mental Status Exam Patient Appearance: Well Grooomed Patient Orientation: Person Level of Consciousness: Awake Patient Behavior: Appropriate Mood Description: Depressed Affect Description: Constricted Patient Cognition Impaired: Yes Ability to Follow Directions: Good Speech Pattern: Clear Hallucinations: None Delusions: Not Present Thought Process: Linear Thought Content: positive for Poverty of Content Judgement: Fair Diagnostics Vital Signs (24Hr): Vital Signs - 24 hr 02/14/21 17:16 02/14/21 17:24 02/15/21 06:00 Temperature 97.5 F 98.2 F Pulse Rate 63 63 58 Respiratory Rate 16 Blood Pressure 163/82 H 163/82 H 173/79 H Pulse Oximetry 98 97 02/15/21 08:31 02/15/21 08:33 Temperature Pulse Rate 58 58 Respiratory Rate Blood Pressure 173/79 H 173/79 H Pulse Oximetry Body Mass Index 28.0 Labs Results: 12/05/20 19:33 12/08/20 18:32 Imaging Radiology Impressions: ITS Impressions Head CT 12/06/20 07:04 IMPRESSION: Chronic microvascular ischemic changes with no CT evidence of acute intracranial abnormality. Medications Medications Current Medications Generic Name Dose Route Start Last Admin Trade Name Freq PRN Reason Stop Dose Admin Acetaminophen 650 mg 12/06/20 16:13 01/16/21 09:55 Acetaminophen 325 Mg Tablet PO 650 mg Q6H PRN Administration Headache/Pain Mild Scale (1-3) Al Hydroxide/Mg Hydroxide 30 ml 12/06/20 16:13 Magnesium Hydrox/Alum Hydrox 30 Ml Oral.Susp PO Q6H PRN Heartburn/Nausea Amlodipine Besylate 5 mg 12/09/20 09:00 02/15/21 08:33 Amlodipine Besylate 5 Mg Tablet PO 5 mg DAILY YUNG Administration Protocol Aspirin 81 mg 12/06/20 09:00 02/15/21 08:32 Aspirin 81 Mg Tab.Chew PO 81 mg DAILY YUNG Administration Cyanocobalamin 500 mcg 12/06/20 09:00 02/15/21 08:34 Cyanocobalamin (Vitamin B-12) 500 Mcg Tablet PO 500 mcg DAILY YUNG Administration Escitalopram Oxalate 5 mg 02/07/21 14:15 02/15/21 08:33 Escitalopram Oxalate 5 Mg Tablet PO 5 mg DAILY YUNG Administration Fluticasone Propionate 2 spray 12/10/20 10:21 02/15/21 08:34 Fluticasone Propionate Nasal 16 Gm [place] NOSTRIL-B 2 spray DAILY YUNG Administration Levothyroxine Sodium 150 mcg 12/06/20 08:00 02/15/21 05:12 Levothyroxine Sodium 150 Mcg Tablet PO 150 mcg DAILY@0630 YUNG Administration Loratadine 10 mg 12/06/20 09:00 02/15/21 08:34 Loratadine 10 Mg Tablet PO 10 mg DAILY YUNG Administration Losartan Potassium 50 mg 12/06/20 09:00 02/15/21 08:31 Losartan Potassium 50 Mg Tablet PO 50 mg DAILY YUNG Administration Protocol Magnesium Hydroxide 30 ml 12/06/20 16:13 Milk Of Magnesia 30 Ml Oral.Susp PO DAILY PRN Constipation Metoprolol Tartrate 100 mg 02/07/21 17:00 02/15/21 08:33 Metoprolol Tartrate 100 Mg Tablet PO 100 mg BID@0900,1700 YUNG Administration Protocol Risperidone 0.5 mg 12/08/20 17:00 02/14/21 17:17 Risperidone 0.5 Mg Tablet PO 0.5 mg DAILY@1700 YUNG Administration Trazodone HCl 50 mg 12/06/20 16:13 01/28/21 19:49 Trazodone Hcl 50 Mg Tablet PO 50 mg BEDTIME PRN Administration Insomnia Trazodone HCl 25 mg 01/13/21 15:00 02/14/21 17:17 Trazodone Hcl 25 Mg Halftab PO 25 mg DAILY@1700 YUNG Administration Vitamin D 125 mcg 12/06/20 09:00 02/15/21 08:32 Cholecalciferol (Vitamin D3) 25 Mcg Tablet PO 125 mcg DAILY YUNG Administration Allergies Allergies Allergy/AdvReac Type Severity Reaction Status Date / Time olive oil [OLIVE OIL] Allergy Mild STOMACH Verified 12/05/20 19:06 UPSET Assessment & Plan Assessment & Plan (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 She is currently stable in terms of psychosis and behavioral outbursts. Waiting for placement. PLAN- continue per primary treatment team. 1. Keep lexapro 5mg for mood on 02/07 2. continue risperidone has helped hallucinations 3. continue -less agitated at hs with Trazodone 5 pm waiting for SNF placement no change to present plan Continue plan of care patient needs much reassurance Discharge to [facility] on Sunday or Greater than 50% of the session was spent on counseling and/or coordination of care Reason for contiued inpatient stay Substantial Risk for: stable for discharge
[2021-02-15 16:38] VITALS: BP 135/73; PULSE 60
[2021-02-15] MEDS: traZODone HCL 25 MG HALFTAB PO (16:39)
[2021-02-15] MEDS: risperiDONE 0.5 MG TABLET PO (16:39)
[2021-02-15 20:36] VITALS: BP 100/71; PULSE 59; RESP 16; TEMP 35.7; O2SAT 96
[2021-02-16 09:10] VITALS: BP 140/71; PULSE 68; RESP 16; TEMP 36.4
[2021-02-16] MEDS: Fluticasone Propionate Nasal 16 GM SPRAY 2 SPRAY NOSTRIL-B (09:16)
[2021-02-16 09:18] VITALS: BP 140/71; PULSE 68
[2021-02-16] MEDS: Cholecalciferol (Vitamin D3) 25 MCG TABLET 125 MCG PO (09:18)
[2021-02-16] MEDS: Metoprolol Tartrate 100 MG TABLET PO (09:18)
[2021-02-16] MEDS: Cyanocobalamin (Vitamin B-12) 500 MCG TABLET PO (09:18)
[2021-02-16 09:20] VITALS: BP 140/71; PULSE 68
[2021-02-16] MEDS: Losartan Potassium 50 MG TABLET PO (09:20)
[2021-02-16] MEDS: Levothyroxine Sodium 150 MCG TABLET PO (09:20)
[2021-02-16] MEDS: Escitalopram Oxalate 5 MG TABLET PO (09:20)
[2021-02-16] MEDS: Loratadine 10 MG TABLET PO (09:21)
[2021-02-16] MEDS: Aspirin 81 MG TAB.CHEW PO (09:21)
[2021-02-16 10:03] VITALS: BP 140/71; PULSE 68
[2021-02-16] MEDS: amLODIPine Besylate 5 MG TABLET PO (10:03)
== END 2021-02-16 13:00 | disposition skilled nursing facility (03) | DRG 757 ==
LOC: HO.ED 12-06 13:37 → HO.PGERI 12-06 15:25
PROVIDERS: Emergency Medicine; Internal Medicine; Psychiatry & Neurology Psychiatry; Admitting Provider Psychiatry & Neurology Psychiatry; Emergency Provider Internal Medicine; Visit Provider Psychiatry & Neurology Psychiatry
DX: F06.0 Psychotic disorder with hallucinations due to known physiological condition (principal); G30.1 Alzheimer's disease with late onset; F05 Delirium due to known physiological condition; F02.81 Dementia in other diseases classified elsewhere, unspecified severity, with behavioral disturbance; I10 Essential (primary) hypertension; E03.9 Hypothyroidism, unspecified; Z20.822 Contact with and (suspected) exposure to COVID-19; Z79.890 Hormone replacement therapy; Z87.891 Personal history of nicotine dependence; Z79.51 Long term (current) use of inhaled steroids; Z79.82 Long term (current) use of aspirin; Z79.899 Other long term (current) drug therapy
CPT/HCPCS: 36415; 70450; 80048; 80053; 80061; 81001; 81003; 82607; 82746; 83036; 84439; 84443; 85025; 87635; 93005; 97162; 99232; 99285